=== PATIENT | male | born 1965 | race Caucasian/White ===

== ENCOUNTER 2019-07-30 18:58 | Emergency (ER) | payer MEDICAID, OTHER ==
[~2019-07-30] VITALS: Ht 182.9 cm; Wt 117.9 kg
[2019-07-30 19:20] VITALS: BP 178/107
[2019-07-30] MEDS ORDERED: cloNIDine HCL 0.1 MG TAB PO ONE (19:45)
[2019-07-30 19:57] LABS: Basophils # (auto) 0.1 10 ^3/uL (0-0.2); Basophils % (auto) 0.9 % (0.0-2.0); Eosinophils # (auto) 0.2 10 ^3/uL (0-0.8); Eosinophils % (auto) 1.7 % (0.0-7.0); Hematocrit 47.9 % (41.0-53.0); Hemoglobin 16.1 g/dL (13.5-17.5); Lymphocytes # (auto) 1.3 10 ^3/uL (0.4-5.4); Lymphocytes % (auto) 9.1 % (10.0-50.0); Mean Corpuscular Hgb Conc. 33.7 g/dL (32.0-36.0); Mean Corpuscular Volume 86.2 fL (80.0-100.0); Monocytes # (auto) 1.3 10 ^3/uL (0-1.3); Monocytes % (auto) 9.6 % (0.0-12.0); Neutrophils % (auto) 78.7 % (37.0-80.0); Nucleated Red Blood Cells % 0.1 %; Platelet Count (auto) 298 10^3/uL (140-450); Red Blood Cells 5.56 10^6/uL (4.5-5.90); Red Cell Distribution Width 13.8 % (11.8-14.3)
[2019-07-30 20:12] LABS: INR 1.08 (0.9-1.15); Partial Thromboplastin Time 31.9 sec (23.64-32.05)
[2019-07-30 20:17] LABS: Albumin 1.7 g/dL (3.4-5.0); Calcium 9.5 mg/dL (8.5-10.1); Potassium 3.2 mmol/L (3.5-5.1)
[2019-07-30 20:20] LABS: BUN/Creatinine Ratio 13.8; Total Protein 6.7 g/dL (6.4-8.2)
== END 2019-07-30 21:45 | disposition left against medical advice (07) ==
LOC: ER 18:59
DX: M79.661 Pain in right lower leg (principal); Z53.21 Procedure and treatment not carried out due to patient leaving prior to being seen by health care provider
CPT/HCPCS: 36415; 80053; 83605; 85025; 85610; 85730; 87040

== ENCOUNTER 2019-08-01 15:57 | Inpatient (IN) | payer MEDICAID ==
[~2019-08-01] VITALS: Ht 185.4 cm; Wt 92.8 kg
[2019-08-01] MEDS ORDERED: cefTRIAXone 1GM/50ML D5W 50 ML IV ONE (16:45)
[2019-08-01] MEDS ORDERED: CLINDAMYCIN 900MG IV 50 ML IV ONE (16:45)
[2019-08-01 17:21] LABS: Basophils # (auto) 0.2 10 ^3/uL (0-0.2); Basophils % (auto) 1.2 % (0.0-2.0); Eosinophils # (auto) 0.2 10 ^3/uL (0-0.8); Eosinophils % (auto) 1.9 % (0.0-7.0); Hematocrit 48.7 % (41.0-53.0); Hemoglobin 16.4 g/dL (13.5-17.5); Lymphocytes # (auto) 1.5 10 ^3/uL (0.4-5.4); Lymphocytes % (auto) 11.1 % (10.0-50.0); Mean Corpuscular Hemoglobin 28.9 pg (28.0-32.0); Mean Corpuscular Hgb Conc. 33.6 g/dL (32.0-36.0); Monocytes # (auto) 1.2 10 ^3/uL (0-1.3); Monocytes % (auto) 9.3 % (0.0-12.0); Neutrophils % (auto) 76.5 % (37.0-80.0); Nucleated Red Blood Cells % 0.1 %; Platelet Count (auto) 333 10^3/uL (140-450); Red Blood Cells 5.66 10^6/uL (4.5-5.90); White Blood Cell 13.1 10^3/uL (4.4-10.8)
[2019-08-01 17:40] LABS: Albumin 1.8 g/dL (3.4-5.0); Calcium 9.5 mg/dL (8.5-10.1); Potassium 3.2 mmol/L (3.5-5.1)
[2019-08-01 17:43] LABS: BUN/Creatinine Ratio 12.8; Bilirubin, Total 0.7 mg/dL (0.2-1.0)
[2019-08-01 19:23] LABS: INR 1.11 (0.9-1.15)
[2019-08-01] MEDS ORDERED: MORPHINE SULFATE 4 MG/ML SYR/VIAL IV ONE (21:45)
[2019-08-01] MEDS ORDERED: ONDANSETRON HCL 4 MG/2 ML VIAL IV ONE (21:45)
[2019-08-01] MEDS ORDERED: ONDANSETRON HCL 4 MG/2 ML VIAL IV PRN (22:30)
[2019-08-01] MEDS ORDERED: DEXTROSE (50%) 50ML SYRG IV PRN (22:30)
[2019-08-01] MEDS ORDERED: ACETAMINOPHEN 325 MG TAB PO PRN (22:30)
[2019-08-01] MEDS ORDERED: MORPHINE SULF INJ 2 MG/ML SYRINGE 1ML IV PRN (22:30)
[2019-08-01] MEDS ORDERED: DOCUSATE SOD 100 MG CAP PO PRN (22:30)
[2019-08-01] MEDS ORDERED: VANCOMYCIN 1GM/250ML 250 ML IV ONE (22:30)
[2019-08-01] MEDS ORDERED: HYDROcodone-ACET 5/325MG TAB PO PRN (22:30)
[2019-08-01] MEDS: PIPERACILLIN-TAZOB 3.375GM 100 ML IV SCH (22:59)
[2019-08-01] MEDS: SODIUM CHLORIDE 0.9% 1,000 ML IV SCH (23:00)
[2019-08-02] VITALS (8 sets, daily range): BP systolic 124–197; BP diastolic 72–106
[2019-08-02] MEDS: InsuLIN REG 1unit/0.01ml Soln (100units/ml) SC SCH ×6 (01:24→21:08)
[2019-08-02] MEDS: ACCU-CHEK COMFORT CURVE STRIP VI SCH ×6 (04:00→21:03)
[2019-08-02] MEDS: PIPERACILLIN-TAZOB 3.375GM 100 ML IV SCH ×3 (05:39→21:02)
[2019-08-02 06:39] LABS: Basophils # (auto) 0.2 10 ^3/uL (0-0.2); Basophils % (auto) 1.1 % (0.0-2.0); Eosinophils # (auto) 0.3 10 ^3/uL (0-0.8); Eosinophils % (auto) 1.8 % (0.0-7.0); Hematocrit 43.1 % (41.0-53.0); Hemoglobin 14.8 g/dL (13.5-17.5); Lymphocytes # (auto) 1.3 10 ^3/uL (0.4-5.4); Lymphocytes % (auto) 8.5 % (10.0-50.0); Mean Corpuscular Hemoglobin 29.4 pg (28.0-32.0); Mean Corpuscular Hgb Conc. 34.3 g/dL (32.0-36.0); Mean Corpuscular Volume 85.7 fL (80.0-100.0); Monocytes # (auto) 1.7 10 ^3/uL (0-1.3); Monocytes % (auto) 10.8 % (0.0-12.0); Neutrophils % (auto) 77.8 % (37.0-80.0); Platelet Count (auto) 318 10^3/uL (140-450); Red Blood Cells 5.03 10^6/uL (4.5-5.90); Red Cell Distribution Width 13.7 % (11.8-14.3); White Blood Cell 15.5 10^3/uL (4.4-10.8)
[2019-08-02 07:02] LABS: Potassium 3.1 mmol/L (3.5-5.1)
[2019-08-02 07:09] LABS: BUN/Creatinine Ratio 13.4; Calcium 9.1 mg/dL (8.5-10.1)
[2019-08-02] MEDS: SODIUM CHLORIDE 0.9% 1,000 ML IV SCH ×2 (08:26→18:26)
[2019-08-02] MEDS ORDERED: VANCOMYCIN PER PHARMACY 0 MG IV SCH (10:30)
[2019-08-02] MEDS: VANCOMYCIN 1GM/250ML 250 ML IV SCH ×2 (11:56→14:41)
[2019-08-02] MEDS ORDERED: DEXTROSE (50%) 50ML SYRG IV PRN (15:45)
[2019-08-02] MEDS ORDERED: cloNIDine HCL 0.1 MG TAB PO ONE (18:00)
[2019-08-02] MEDS: LISINOPRIL 20 MG TAB PO SCH (20:34)
[2019-08-02] MEDS: METOPROLOL TARTRATE 25 MG TAB PO SCH (20:34)
[2019-08-02] MEDS: cloNIDine HCL 0.1 MG TAB PO PRN (23:59)
[2019-08-03] MEDS: VANCOMYCIN 1GM/250ML 250 ML IV SCH ×5 (00:57→18:07)
[2019-08-03 05:00] VITALS: BP 175/89
[2019-08-03] MEDS: SODIUM CHLORIDE 0.9% 1,000 ML IV SCH ×2 (05:21→17:33)
[2019-08-03] MEDS: PIPERACILLIN-TAZOB 3.375GM 100 ML IV SCH ×3 (05:46→22:38)
[2019-08-03 06:00] LABS: Basophils # (auto) 0.2 10 ^3/uL (0-0.2); Basophils % (auto) 0.8 % (0.0-2.0); Eosinophils # (auto) 0.2 10 ^3/uL (0-0.8); Eosinophils % (auto) 0.8 % (0.0-7.0); Hematocrit 43.1 % (41.0-53.0); Hemoglobin 14.4 g/dL (13.5-17.5); Lymphocytes # (auto) 1.1 10 ^3/uL (0.4-5.4); Lymphocytes % (auto) 6.1 % (10.0-50.0); Mean Corpuscular Hemoglobin 28.8 pg (28.0-32.0); Mean Corpuscular Hgb Conc. 33.5 g/dL (32.0-36.0); Mean Corpuscular Volume 86.1 fL (80.0-100.0); Monocytes # (auto) 1.3 10 ^3/uL (0-1.3); Monocytes % (auto) 7.2 % (0.0-12.0); Neutrophils # (auto) 15.8 10 ^3/uL (1.6-8.6); Neutrophils % (auto) 85.1 % (37.0-80.0); Platelet Count (auto) 355 10^3/uL (140-450); Red Cell Distribution Width 13.7 % (11.8-14.3); White Blood Cell 18.6 10^3/uL (4.4-10.8)
[2019-08-03 06:08] LABS: INR 1.2 (0.9-1.15); Partial Thromboplastin Time 31.6 sec (23.64-32.05)
[2019-08-03 06:14] LABS: Calcium 9.1 mg/dL (8.5-10.1); Potassium 3.3 mmol/L (3.5-5.1)
[2019-08-03 06:17] LABS: BUN/Creatinine Ratio 14.4
[2019-08-03] MEDS: InsuLIN REG 1unit/0.01ml Soln (100units/ml) SC SCH ×4 (06:33→21:52)
[2019-08-03] MEDS: ACCU-CHEK COMFORT CURVE STRIP VI SCH ×4 (06:33→21:20)
[2019-08-03 08:00] VITALS: BP 169/93
[2019-08-03 09:00] VITALS: BP 169/93
[2019-08-03] MEDS: LISINOPRIL 20 MG TAB PO SCH ×2 (09:48→21:09)
[2019-08-03] MEDS: METOPROLOL TARTRATE 25 MG TAB PO SCH ×2 (09:48→21:09)
[2019-08-03 13:00] VITALS: BP 166/89
[2019-08-03] MEDS ORDERED: LIDOCAINE 1% (LOCAL ANESTH.) PF 5ml SDV ID ONE (18:45)
[2019-08-03] MEDS ORDERED: POTASSIUM CHL 20MEQ/100ML 100 ML IV ONE (19:00)
[2019-08-03] MEDS ORDERED: POTASSIUM CHL 20 Meq TABLET PO ONE (19:00)
[2019-08-03] MEDS: CEFEPIME 2 GM in SODIUM CHL 0.9% 50 ML IV SCH (21:12)
[2019-08-03] MEDS: SODIUM CHLOR 0.9% PF (SALINE LOCK) 10ML VIAL/SYR IV SCH (21:53)
[2019-08-03 22:00] VITALS: BP 177/45
[2019-08-03] MEDS: cloNIDine HCL 0.1 MG TAB PO PRN (22:36)
[2019-08-04] MEDS: VANCOMYCIN 1GM/250ML 250 ML IV SCH ×2 (00:45→06:00)
[2019-08-04] MEDS: SODIUM CHLORIDE 0.9% 1,000 ML IV SCH ×2 (02:33→18:47)
[2019-08-04 05:27] VITALS: BP 144/88
[2019-08-04] MEDS: CEFEPIME 2 GM in SODIUM CHL 0.9% 50 ML IV SCH ×4 (05:48→23:30)
[2019-08-04] MEDS: PIPERACILLIN-TAZOB 3.375GM 100 ML IV SCH (05:48)
[2019-08-04] MEDS: ACCU-CHEK COMFORT CURVE STRIP VI SCH ×4 (05:51→21:10)
[2019-08-04] MEDS: InsuLIN REG 1unit/0.01ml Soln (100units/ml) SC SCH ×4 (05:59→21:20)
[2019-08-04 07:10] LABS: Basophils # (auto) 0.2 10 ^3/uL (0-0.2); Basophils % (auto) 0.9 % (0.0-2.0); Eosinophils # (auto) 0.4 10 ^3/uL (0-0.8); Eosinophils % (auto) 2.2 % (0.0-7.0); Hematocrit 43.2 % (41.0-53.0); Hemoglobin 14.7 g/dL (13.5-17.5); Lymphocytes # (auto) 1.5 10 ^3/uL (0.4-5.4); Lymphocytes % (auto) 8.9 % (10.0-50.0); Mean Corpuscular Hemoglobin 29.1 pg (28.0-32.0); Mean Corpuscular Volume 85.8 fL (80.0-100.0); Monocytes # (auto) 1.2 10 ^3/uL (0-1.3); Monocytes % (auto) 7.1 % (0.0-12.0); Neutrophils # (auto) 13.5 10 ^3/uL (1.6-8.6); Neutrophils % (auto) 80.9 % (37.0-80.0); Nucleated Red Blood Cells % 0.1 %; Platelet Count (auto) 367 10^3/uL (140-450); Red Blood Cells 5.04 10^6/uL (4.5-5.90); Red Cell Distribution Width 13.7 % (11.8-14.3); White Blood Cell 16.7 10^3/uL (4.4-10.8)
[2019-08-04 07:25] LABS: Potassium 3.7 mmol/L (3.5-5.1)
[2019-08-04 07:27] LABS: BUN/Creatinine Ratio 13.1
[2019-08-04] MEDS ORDERED: LIDOCAINE 2%HCL (LOCAL ANESTH.) INJ 20ML MDV ONE (08:23)
[2019-08-04] MEDS ORDERED: IODIXANOL 320MG/ML 100ML BTL IV ONE ×2 (08:23→09:18)
[2019-08-04] MEDS ORDERED: ANGIOMAX 250 MG VIAL IV ONE (08:41)
[2019-08-04] MEDS ORDERED: fentaNYL CITRATE 100 MCG/2 ML VL ONE (08:41)
[2019-08-04] MEDS ORDERED: SODIUM CHL 0.9% 50 ML ONE (08:42)
[2019-08-04] MEDS ORDERED: MIDAZOLAM HCL 1MG/1ML-2 ML VIAL ONE (08:42)
[2019-08-04] MEDS ORDERED: VERAPAMIL 2.5MG/ML INJ 2ML VIAL IV ONE (09:22)
[2019-08-04 09:35] VITALS: BP 159/90
[2019-08-04] MEDS ORDERED: hydrALAZINE HCL 20 MG/ML VL ONE (09:59)
[2019-08-04] MEDS: LISINOPRIL 20 MG TAB PO SCH ×2 (10:00→21:42)
[2019-08-04] MEDS: METOPROLOL TARTRATE 25 MG TAB PO SCH ×2 (10:00→21:42)
[2019-08-04] MEDS ORDERED: CLOPIDOGREL BISULFATE 75 MG TAB ONE (10:01)
[2019-08-04] MEDS: SODIUM CHLOR 0.9% PF (SALINE LOCK) 10ML VIAL/SYR IV SCH ×4 (11:44→21:37)
[2019-08-04 13:00] VITALS: BP 155/86
[2019-08-04 17:01] VITALS: BP 154/87
[2019-08-04 22:00] VITALS: BP 151/88
[2019-08-05] MEDS: cloNIDine HCL 0.1 MG TAB PO PRN ×2 (00:36→18:02)
[2019-08-05] MEDS: VANCOMYCIN 750mg/250ml 250 ML IV SCH ×2 (01:45→19:44)
[2019-08-05] MEDS: SODIUM CHLORIDE 0.9% 1,000 ML IV SCH ×2 (04:44→18:27)
[2019-08-05 05:00] VITALS: BP 151/75
[2019-08-05] MEDS: InsuLIN REG 1unit/0.01ml Soln (100units/ml) SC SCH ×4 (05:59→22:00)
[2019-08-05] MEDS: SODIUM CHLOR 0.9% PF (SALINE LOCK) 10ML VIAL/SYR IV SCH ×5 (06:00→22:25)
[2019-08-05] MEDS: ACCU-CHEK COMFORT CURVE STRIP VI SCH ×4 (06:00→22:00)
[2019-08-05 06:57] LABS: Basophils # (auto) 0.1 10 ^3/uL (0-0.2); Basophils % (auto) 0.8 % (0.0-2.0); Eosinophils # (auto) 0.4 10 ^3/uL (0-0.8); Eosinophils % (auto) 2.2 % (0.0-7.0); Hematocrit 42.2 % (41.0-53.0); Hemoglobin 14.2 g/dL (13.5-17.5); Lymphocytes # (auto) 1.3 10 ^3/uL (0.4-5.4); Lymphocytes % (auto) 7.7 % (10.0-50.0); Mean Corpuscular Hgb Conc. 33.7 g/dL (32.0-36.0); Mean Corpuscular Volume 86.1 fL (80.0-100.0); Monocytes # (auto) 1.2 10 ^3/uL (0-1.3); Neutrophils # (auto) 13.6 10 ^3/uL (1.6-8.6); Neutrophils % (auto) 82.3 % (37.0-80.0); Platelet Count (auto) 378 10^3/uL (140-450); Red Cell Distribution Width 14.1 % (11.8-14.3); White Blood Cell 16.5 10^3/uL (4.4-10.8)
[2019-08-05 07:05] LABS: BUN/Creatinine Ratio 15.6; Calcium 8.9 mg/dL (8.5-10.1); Potassium 3.8 mmol/L (3.5-5.1)
[2019-08-05 08:40] VITALS: BP 154/84
[2019-08-05] MEDS: CEFEPIME 2 GM in SODIUM CHL 0.9% 50 ML IV SCH ×2 (09:18→22:22)
[2019-08-05] MEDS: LISINOPRIL 20 MG TAB PO SCH ×2 (09:19→22:23)
[2019-08-05] MEDS: METOPROLOL TARTRATE 25 MG TAB PO SCH ×2 (09:19→22:24)
[2019-08-05] MEDS: ASPirin 81 mg TAB PO SCH (09:27)
[2019-08-05] MEDS: CLOPIDOGREL BISULFATE 75 MG TAB PO SCH (09:27)
[2019-08-05] MEDS ORDERED: ROPIVACAINE 0.5% (5MG/ML) 20ML AMPULE IJ ONE (10:49)
[2019-08-05] MEDS ORDERED: ceFAZolin 1GM/50ML 50 ML IV ONE (11:38)
[2019-08-05] MEDS ORDERED: METOCLOPRAMIDE HCL 5MG/ml INJ 2ml VIAL IV PRN (11:45)
[2019-08-05] MEDS ORDERED: fentaNYL CITRATE 100 MCG/2 ML VL IV PRN (11:45)
[2019-08-05] MEDS ORDERED: MORPHINE SULFATE 4 MG/ML SYR/VIAL IV PRN (11:45)
[2019-08-05] MEDS ORDERED: ACCU-CHEK COMFORT CURVE STRIP VI ONE (11:45)
[2019-08-05] MEDS ORDERED: HYDROmorphone HCL 2 MG/ML VL IV PRN (11:45)
[2019-08-05] MEDS ORDERED: fentaNYL CITRATE 100 MCG/2 ML VL ONE (11:46)
[2019-08-05] MEDS ORDERED: PROPOFOL 10 MG/ML 20 ML IV ONE (11:46)
[2019-08-05] MEDS ORDERED: MIDAZOLAM HCL 1MG/1ML-2 ML VIAL ONE (11:46)
[2019-08-05] MEDS ORDERED: SODIUM CHLORIDE LOCK 10 ML ONE ×2 (11:46→12:47)
[2019-08-05] MEDS ORDERED: ONDANSETRON HCL 4 MG/2 ML VIAL ONE (11:46)
[2019-08-05] MEDS ORDERED: ceFAZolin 1GM VL ONE (12:47)
[2019-08-05 16:57] VITALS: BP 168/88
[2019-08-05 22:00] VITALS: BP 179/106
[2019-08-05] MEDS: ATORVASTATIN 20 MG TAB PO SCH (22:23)
[2019-08-06 05:02] VITALS: BP 159/87
[2019-08-06] MEDS: SODIUM CHLOR 0.9% PF (SALINE LOCK) 10ML VIAL/SYR IV SCH ×5 (05:42→21:53)
[2019-08-06 06:26] LABS: Basophils # (auto) 0.2 10 ^3/uL (0-0.2); Basophils % (auto) 1.2 % (0.0-2.0); Eosinophils # (auto) 0.4 10 ^3/uL (0-0.8); Eosinophils % (auto) 2.7 % (0.0-7.0); Hematocrit 41.2 % (41.0-53.0); Hemoglobin 13.9 g/dL (13.5-17.5); Lymphocytes # (auto) 0.9 10 ^3/uL (0.4-5.4); Lymphocytes % (auto) 6.5 % (10.0-50.0); Mean Corpuscular Hgb Conc. 33.8 g/dL (32.0-36.0); Monocytes # (auto) 1.1 10 ^3/uL (0-1.3); Monocytes % (auto) 7.9 % (0.0-12.0); Neutrophils # (auto) 11.4 10 ^3/uL (1.6-8.6); Neutrophils % (auto) 81.7 % (37.0-80.0); Platelet Count (auto) 412 10^3/uL (140-450)
[2019-08-06] MEDS: InsuLIN REG 1unit/0.01ml Soln (100units/ml) SC SCH ×4 (06:32→21:53)
[2019-08-06] MEDS: ACCU-CHEK COMFORT CURVE STRIP VI SCH ×4 (06:32→21:54)
[2019-08-06 06:41] LABS: Calcium 9.1 mg/dL (8.5-10.1); Potassium 3.9 mmol/L (3.5-5.1)
[2019-08-06 06:44] LABS: BUN/Creatinine Ratio 16.7
[2019-08-06 09:00] VITALS: BP 152/79
[2019-08-06] MEDS: SODIUM CHLORIDE 0.9% 1,000 ML IV SCH ×2 (09:00→21:30)
[2019-08-06] MEDS: CLOPIDOGREL BISULFATE 75 MG TAB PO SCH (10:03)
[2019-08-06] MEDS: CEFEPIME 2 GM in SODIUM CHL 0.9% 50 ML IV SCH ×2 (10:03→21:51)
[2019-08-06] MEDS: ASPirin 81 mg TAB PO SCH (10:04)
[2019-08-06] MEDS: METOPROLOL TARTRATE 25 MG TAB PO SCH ×2 (10:04→21:53)
[2019-08-06] MEDS: LISINOPRIL 20 MG TAB PO SCH ×2 (10:04→21:52)
[2019-08-06 13:00] VITALS: BP 153/83
[2019-08-06] MEDS: VANCOMYCIN 750mg/250ml 250 ML IV SCH (14:11)
[2019-08-06 17:00] VITALS: BP 153/75
[2019-08-06] MEDS: ATORVASTATIN 20 MG TAB PO SCH (21:52)
[2019-08-06 22:00] VITALS: BP 173/96
[2019-08-06] MEDS: cloNIDine HCL 0.1 MG TAB PO PRN (22:05)
[2019-08-07] MEDS: cloNIDine HCL 0.1 MG TAB PO PRN ×2 (04:40→18:23)
[2019-08-07 05:00] VITALS: BP 182/98
[2019-08-07] MEDS: SODIUM CHLOR 0.9% PF (SALINE LOCK) 10ML VIAL/SYR IV SCH ×5 (05:49→22:08)
[2019-08-07] MEDS: ACCU-CHEK COMFORT CURVE STRIP VI SCH ×4 (06:40→22:07)
[2019-08-07] MEDS: InsuLIN REG 1unit/0.01ml Soln (100units/ml) SC SCH ×4 (06:41→22:41)
[2019-08-07] MEDS: VANCOMYCIN 750mg/250ml 250 ML IV SCH ×2 (08:36→20:18)
[2019-08-07] MEDS: ASPirin 81 mg TAB PO SCH (08:40)
[2019-08-07] MEDS: METOPROLOL TARTRATE 25 MG TAB PO SCH ×2 (08:41→21:59)
[2019-08-07] MEDS: CLOPIDOGREL BISULFATE 75 MG TAB PO SCH (08:41)
[2019-08-07] MEDS: LISINOPRIL 20 MG TAB PO SCH ×2 (08:41→21:59)
[2019-08-07 09:00] VITALS: BP 167/97
[2019-08-07] MEDS: CEFEPIME 2 GM in SODIUM CHL 0.9% 50 ML IV SCH ×2 (10:00→21:52)
[2019-08-07] MEDS: SODIUM CHLORIDE 0.9% 1,000 ML IV SCH (10:50)
[2019-08-07 14:00] VITALS: BP 148/80
[2019-08-07 17:00] VITALS: BP 170/90
[2019-08-07] MEDS ORDERED: hydrALAZINE HCL 20 MG/ML VL IV PRN (19:45)
[2019-08-07 20:00] VITALS: BP 166/87
[2019-08-07] MEDS: ATORVASTATIN 20 MG TAB PO SCH (21:52)
[2019-08-07 22:00] VITALS: BP 166/87
[2019-08-08] MEDS: SODIUM CHLORIDE 0.9% 1,000 ML IV SCH ×2 (02:42→13:30)
[2019-08-08 05:08] VITALS: BP 152/80
[2019-08-08] MEDS: ACCU-CHEK COMFORT CURVE STRIP VI SCH ×3 (06:25→17:00)
[2019-08-08] MEDS: SODIUM CHLOR 0.9% PF (SALINE LOCK) 10ML VIAL/SYR IV SCH ×3 (06:25→14:00)
[2019-08-08] MEDS: InsuLIN REG 1unit/0.01ml Soln (100units/ml) SC SCH ×3 (06:26→17:00)
[2019-08-08 08:00] VITALS: BP 161/85
[2019-08-08 09:00] VITALS: BP 161/85
[2019-08-08] MEDS: VANCOMYCIN 750mg/250ml 250 ML IV SCH (09:03)
[2019-08-08] MEDS: CEFEPIME 2 GM in SODIUM CHL 0.9% 50 ML IV SCH (10:00)
[2019-08-08] MEDS: ASPirin 81 mg TAB PO SCH (10:01)
[2019-08-08] MEDS: CLOPIDOGREL BISULFATE 75 MG TAB PO SCH (10:01)
[2019-08-08] MEDS: METOPROLOL TARTRATE 25 MG TAB PO SCH (10:01)
[2019-08-08] MEDS: LISINOPRIL 20 MG TAB PO SCH (10:02)
[2019-08-08 14:00] VITALS: BP 155/84
[2019-08-08 16:48] VITALS: BP 151/93
== END 2019-08-08 19:12 | DRG 181 ==
LOC: ER 15:57 → WEST WING 15:58 → UNDOADMIN 15:58 → OVERFLOW 15:58 → WEST WING 08-08 11:20
PROVIDERS: ADMIT Hospitalist; ATTEND Hospitalist
PROC: 02HV33Z Insertion of Infusion Device into Superior Vena Cava, Percutaneous Approach (ICD-10-PCS; 2019-08-03)
PROC: 047M3ZZ Dilation of Right Popliteal Artery, Percutaneous Approach (ICD-10-PCS; principal; 2019-08-04)
PROC: 047P3ZZ Dilation of Right Anterior Tibial Artery, Percutaneous Approach (ICD-10-PCS; 2019-08-04)
PROC: 04CM3ZZ Extirpation of Matter from Right Popliteal Artery, Percutaneous Approach (ICD-10-PCS; 2019-08-04)
PROC: 04CP3ZZ Extirpation of Matter from Right Anterior Tibial Artery, Percutaneous Approach (ICD-10-PCS; 2019-08-04)
PROC: B41GYZZ Fluoroscopy of Left Lower Extremity Arteries using Other Contrast (ICD-10-PCS; 2019-08-04)
PROC: B41FYZZ Fluoroscopy of Right Lower Extremity Arteries using Other Contrast (ICD-10-PCS; 2019-08-04)
PROC: 0Y6P0Z0 Detachment at Right 1st Toe, Complete, Open Approach (ICD-10-PCS; 2019-08-05)
DX: E11.52 Type 2 diabetes mellitus with diabetic peripheral angiopathy with gangrene (principal); I96 Gangrene, not elsewhere classified; E11.621 Type 2 diabetes mellitus with foot ulcer; E11.65 Type 2 diabetes mellitus with hyperglycemia; E66.01 Morbid (severe) obesity due to excess calories; M86.8X7 Other osteomyelitis, ankle and foot; E11.69 Type 2 diabetes mellitus with other specified complication; I11.9 Hypertensive heart disease without heart failure; L97.509 Non-pressure chronic ulcer of other part of unspecified foot with unspecified severity; E87.6 Hypokalemia; E78.5 Hyperlipidemia, unspecified; Z82.49 Family history of ischemic heart disease and other diseases of the circulatory system; Z83.3 Family history of diabetes mellitus; Z91.14 Patient's other noncompliance with medication regimen; Z72.0 Tobacco use; Z68.34 Body mass index [BMI] 34.0-34.9, adult
CPT/HCPCS: 36415; 36569; 37224; 37228; 71045; 73700; 75716; 80048; 80053; 80061; 80202; 82962; 83036; 83605; 83880; 84484; 85025; 85610; 85730; 86850; 86900; 86901; 87040; 87070; 87075; 87076; 87077; 87186; 87205; 93005; 93926; 99152; 99153; C1724; G0378; J0690; J0696; J1815; J2250; J2405; J2543; J2704; J3480; J3490; Q9967

== ENCOUNTER 2019-09-13 14:53 | Inpatient (IN) | payer MEDICAID ==
[~2019-09-13] VITALS: Ht 195.6 cm; Wt 107.0 kg
[2019-09-13] MEDS ORDERED: SODIUM CHLORIDE 0.9% 1,000 ML IV ONE (16:12)
[2019-09-13] MEDS ORDERED: SODIUM CHLORIDE 0.9% 500 ML IV ONE (16:12)
[2019-09-13] MEDS ORDERED: VANCOMYCIN 1GM/250ML 250 ML IV ONE (16:15)
[2019-09-13 17:07] LABS: Basophils # (auto) 0 10 ^3/uL (0-0.2); Basophils % (auto) 0.4 % (0.0-2.0); Eosinophils # (auto) 0 10 ^3/uL (0-0.8); Hematocrit 46.3 % (41.0-53.0); Hemoglobin 15.5 g/dL (13.5-17.5); Lymphocytes # (auto) 0.5 10 ^3/uL (0.4-5.4); Lymphocytes % (auto) 8.2 % (10.0-50.0); Mean Corpuscular Hgb Conc. 33.4 g/dL (32.0-36.0); Mean Corpuscular Volume 83.7 fL (80.0-100.0); Monocytes # (auto) 0.3 10 ^3/uL (0-1.3); Monocytes % (auto) 5.9 % (0.0-12.0); Neutrophils % (auto) 85.5 % (37.0-80.0); Nucleated Red Blood Cells % 0.3 %; Platelet Count (auto) 108 10^3/uL (140-450); Red Blood Cells 5.53 10^6/uL (4.5-5.90); Red Cell Distribution Width 16.1 % (11.8-14.3); White Blood Cell 5.8 10^3/uL (4.4-10.8)
[2019-09-13 17:20] LABS: Albumin 1.7 g/dL (3.4-5.0); Calcium 9.1 mg/dL (8.5-10.1)
[2019-09-13 17:26] LABS: Bilirubin, Total 0.6 mg/dL (0.2-1.0); Total Protein 6.7 g/dL (6.4-8.2)
[2019-09-13 17:32] LABS: Potassium 2.9 mmol/L (3.5-5.1)
[2019-09-13 18:04] LABS: INR 1.23 (0.9-1.15); Partial Thromboplastin Time 37.2 sec (23.64-32.05)
[2019-09-13] MEDS ORDERED: DOXYCYCLINE 100MG/250ML 250 ML IV ONE (18:15)
[2019-09-13] MEDS ORDERED: NITROGLYCERIN 0.4 MG SL TAB SL PRN (18:45)
[2019-09-13] MEDS ORDERED: MORPHINE SULF INJ 2 MG/ML SYRINGE 1ML IV PRN (18:45)
[2019-09-13] MEDS ORDERED: DEXTROSE (50%) 50ML SYRG IV PRN (19:15)
[2019-09-13] MEDS ORDERED: ONDANSETRON HCL 4 MG/2 ML VIAL IV PRN (19:15)
[2019-09-13] MEDS ORDERED: TEMAZEPAM 15 MG CAP PO PRN (19:15)
[2019-09-13] MEDS ORDERED: ACETAMINOPHEN 500 MG TAB PO PRN (19:15)
[2019-09-13] MEDS ORDERED: POTASSIUM EFFERVESENT TAB 25 MEQ PO ONE (19:45)
[2019-09-13] MEDS: SODIUM CHLORIDE 0.9% 1,000 ML IV SCH (21:42)
[2019-09-13] MEDS: POTASSIUM CHL 20MEQ/100ML 100 ML IV SCH (21:43)
[2019-09-13] MEDS: ENOXAPARIN SOD 100 MG/1 ML SYRINGE SC SCH (21:43)
[2019-09-13] MEDS: methylPREDNISolone SOD SUCC 40 MG/ML VL IV SCH (21:43)
[2019-09-13] MEDS ORDERED: ALBUTEROL SULF HFA 90MCG INH 200DOSE IN SCH (22:00)
[2019-09-13] MEDS: InsuLIN REG 1unit/0.01ml Soln (100units/ml) SC SCH (22:00)
[2019-09-13] MEDS: ATORVASTATIN 20 MG TAB PO SCH (23:17)
[2019-09-13] MEDS: CLINDAMYCIN 600MG IV 50 ML IV SCH (23:17)
[2019-09-13] MEDS: ACETAMINOPHEN 500 MG TAB PO PRN (23:20)
[2019-09-13] MEDS ORDERED: cloNIDine HCL 0.1 MG TAB ONE (23:49)
[2019-09-14] MEDS: cloNIDine HCL 0.1 MG TAB PO PRN (00:12)
[2019-09-14] MEDS: ACCU-CHEK COMFORT CURVE STRIP VI SCH ×5 (00:13→21:57)
[2019-09-14] MEDS: POTASSIUM CHL 20MEQ/100ML 100 ML IV SCH ×2 (00:13→04:33)
[2019-09-14] MEDS ORDERED: POTASSIUM CHL 20MEQ/100ML 100 ML IV ONE (04:08)
[2019-09-14] MEDS: InsuLIN REG 1unit/0.01ml Soln (100units/ml) SC SCH ×4 (06:45→21:58)
[2019-09-14] MEDS: CLINDAMYCIN 600MG IV 50 ML IV SCH (06:47)
[2019-09-14] MEDS: SODIUM CHLORIDE 0.9% 1,000 ML IV SCH ×2 (08:35→21:43)
[2019-09-14] MEDS: ASPirin 81 mg TAB PO SCH (09:56)
[2019-09-14] MEDS: ZINC SULFATE 220mg CAP or TAB PO SCH (09:56)
[2019-09-14] MEDS: ENOXAPARIN SOD 100 MG/1 ML SYRINGE SC SCH ×2 (09:56→21:57)
[2019-09-14] MEDS: NITROGLYCERIN 0.2MG/HR TOPICAL PATCH TD SCH (09:56)
[2019-09-14] MEDS: ASCORBIC ACID 1,000 MG TAB PO SCH (09:56)
[2019-09-14] MEDS: levoFLOXacin 500MG 100 ML IV SCH (09:57)
[2019-09-14] MEDS: methylPREDNISolone SOD SUCC 40 MG/ML VL IV SCH ×2 (09:57→21:56)
[2019-09-14] MEDS ORDERED: PANTOPRAZOLE 40 MG TAB PO SCH (10:00)
[2019-09-14 16:02] LABS: Basophils # (auto) 0 10 ^3/uL (0-0.2); Basophils % (auto) 0.2 % (0.0-2.0); Eosinophils # (auto) 0 10 ^3/uL (0-0.8); Hematocrit 43.3 % (41.0-53.0); Hemoglobin 14.5 g/dL (13.5-17.5); Lymphocytes # (auto) 0.3 10 ^3/uL (0.4-5.4); Lymphocytes % (auto) 6.2 % (10.0-50.0); Mean Corpuscular Hgb Conc. 33.5 g/dL (32.0-36.0); Mean Corpuscular Volume 83.7 fL (80.0-100.0); Monocytes # (auto) 0.2 10 ^3/uL (0-1.3); Monocytes % (auto) 4.6 % (0.0-12.0); Neutrophils # (auto) 4.2 10 ^3/uL (1.6-8.6); Platelet Count (auto) 100 10^3/uL (140-450); Red Blood Cells 5.17 10^6/uL (4.5-5.90); Red Cell Distribution Width 16.4 % (11.8-14.3); White Blood Cell 4.7 10^3/uL (4.4-10.8)
[2019-09-14 16:24] LABS: Albumin 1.6 g/dL (3.4-5.0); Calcium 9.1 mg/dL (8.5-10.1); Potassium 3.8 mmol/L (3.5-5.1)
[2019-09-14 16:28] LABS: BUN/Creatinine Ratio 28.1; Bilirubin, Total 0.5 mg/dL (0.2-1.0); Total Protein 6.1 g/dL (6.4-8.2)
[2019-09-14 20:43] LABS: BUN/Creatinine Ratio 29.3; Potassium 3.8 mmol/L (3.5-5.1)
[2019-09-14] MEDS: ATORVASTATIN 20 MG TAB PO SCH (21:57)
[2019-09-15] MEDS: cloNIDine HCL 0.1 MG TAB PO PRN ×3 (00:31→23:40)
[2019-09-15 05:52] LABS: Calcium 9.4 mg/dL (8.5-10.1); Potassium 3.8 mmol/L (3.5-5.1)
[2019-09-15] MEDS: ACCU-CHEK COMFORT CURVE STRIP VI SCH ×4 (06:54→22:17)
[2019-09-15] MEDS: InsuLIN REG 1unit/0.01ml Soln (100units/ml) SC SCH ×4 (06:54→22:00)
[2019-09-15] MEDS: NITROGLYCERIN 0.2MG/HR TOPICAL PATCH TD SCH (10:17)
[2019-09-15] MEDS: levoFLOXacin 500MG 100 ML IV SCH (10:17)
[2019-09-15] MEDS: ZINC SULFATE 220mg CAP or TAB PO SCH (10:17)
[2019-09-15] MEDS: ASCORBIC ACID 1,000 MG TAB PO SCH (10:17)
[2019-09-15] MEDS: FAMOTIDINE 20 MG TAB PO SCH ×2 (10:17→22:17)
[2019-09-15] MEDS: ENOXAPARIN SOD 100 MG/1 ML SYRINGE SC SCH ×2 (10:18→22:17)
[2019-09-15] MEDS: methylPREDNISolone SOD SUCC 40 MG/ML VL IV SCH ×2 (10:18→22:15)
[2019-09-15] MEDS: ASPirin 81 mg TAB PO SCH (10:18)
[2019-09-15] MEDS: SODIUM CHLORIDE 0.9% 1,000 ML IV SCH (11:05)
--- NOTE | 2019-09-15 16:45 | NUR ---
WOUND CARE NOTE: IN TO SEE PATIENT AT THIS TIME PER WOUND VAC PLACEMENT ORDER. PATIENT IS IN ER BED 1, COVID POSITIVE, ADMITTED ICU STATUS WITH DIAGNOSIS OF BILATERAL PNA, NON STEMI, ACUTE KIDNEY INJURY. CURRENT DAKOTA SCORE IS ASSESSED AT 13. PATIENT IS ABLE TO SELF TURN/REPOSITION SELF. 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 PATIENT WENT HOME WITH WOUND VAC. SURGEON, DR. HAGAN HAS ORDERED FOR CONTINUITY OF CARE-WOUND VAC PLACEMENT TO RIGHT FOOT WOUND. WOUND PHOTO TAKEN OF WOUND, MEASURING 4X6 CM. LIGHT SEROUS DRAINAGE NOTED. APPROXIMATELY 50 PERCENT OF WOUND BED IS NOTED TO HAVE YELLOW SLOUGH, REMAINING 50 PERCENT IS LIGHT RED GRANULATION. PERIWOUND IS PINK. CLEANSED WOUND WITH WOUND CLEANSER, APPLIED BARRIER FILM, CLEAR DRAPE TO PERIWOUND/BRIDGE AREA OF DORSAL FOOT. COVERED WOUND BED AND BRIDGE AREA WITH BLACK GRANUFOAM. SECURED WITH DRAPE, APPLIED TRAC PAD. CONNECTED DRESSING TO WOUND VAC. SET TO 125 MM/HG CONTINUOUS. GOOD SUCTION, NO LEAKS DETECTED. PATIENT TOLERATED DRESSING CHANGE WELL, NOTING NO PAIN BY PATIENT. RECOMMEND: Q 3 DAY/PRN DRESSING CHANGE WITH WOUND VAC TO RIGHT FOOT WOUND, DIETARY CONSULT, SKIN/WOUND CARE PLAN, CONTINUED MONITORING BY WOUND CARE TEAM. Addendum: 09/15/19 at 1816 by Michell Nascimento RN Amended: Links added.
[2019-09-15] MEDS: ATORVASTATIN 20 MG TAB PO SCH (22:15)
[2019-09-15] MEDS: METOPROLOL TARTRATE 25 MG TAB PO SCH (22:17)
[2019-09-16] MEDS: SODIUM CHLORIDE 0.9% 1,000 ML IV SCH ×2 (00:27→14:44)
[2019-09-16] MEDS ORDERED: LABETALOL HCL 5 MG/ML 4ML SYRINGE IV ONE (01:15)
[2019-09-16] MEDS: METOPROLOL TARTRATE 25 MG TAB PO SCH ×3 (06:07→22:45)
[2019-09-16] MEDS: ACCU-CHEK COMFORT CURVE STRIP VI SCH ×4 (06:34→22:45)
[2019-09-16] MEDS: InsuLIN REG 1unit/0.01ml Soln (100units/ml) SC SCH ×4 (06:38→22:00)
--- NOTE | 2019-09-16 10:30 | NUR ---
WOUND CARE NOTE: Patient continue resting in ER Rm#1. Rt foot wound vac dressing remain intact, functioning well at 125 mmHg continuos as ordered.
[2019-09-16] MEDS: methylPREDNISolone SOD SUCC 40 MG/ML VL IV SCH ×2 (10:42→22:44)
[2019-09-16] MEDS: ASPirin 81 mg TAB PO SCH (10:42)
[2019-09-16] MEDS: ZINC SULFATE 220mg CAP or TAB PO SCH (10:42)
[2019-09-16] MEDS: levoFLOXacin 500MG 100 ML IV SCH (10:42)
[2019-09-16] MEDS: ENOXAPARIN SOD 100 MG/1 ML SYRINGE SC SCH ×2 (10:43→22:45)
[2019-09-16] MEDS: amLODIPine BESYLATE 5 MG TAB PO SCH (10:43)
[2019-09-16] MEDS: FAMOTIDINE 20 MG TAB PO SCH ×2 (10:43→22:45)
[2019-09-16] MEDS: ASCORBIC ACID 1,000 MG TAB PO SCH (10:43)
[2019-09-16] MEDS: NITROGLYCERIN 0.2MG/HR TOPICAL PATCH TD SCH (10:44)
[2019-09-16] MEDS: cloNIDine HCL 0.1 MG TAB PO PRN ×2 (12:00→19:29)
[2019-09-16] MEDS: MINOXIDIL 2.5 MG TAB PO SCH ×2 (14:44→22:44)
--- NOTE | 2019-09-16 14:50 | NUR ---
Nutrition Assessment/consult Notes Please see attached link for complete assessment Est energy needs ABW 95 [id number] kcal (23-25 kcal/kg BW), Est protein needs 95-104g (1.0-1.1g/kg BW r/t elev RFT severe hypoalb wounds). Will reassess prn. Addendum: 09/16/19 at [address] Amended: Links added.
--- NOTE | 2019-09-16 15:50 | NUR ---
PATIENT TO ROOM 249B. VS 98.1,77HR,20RR,90% ON 2L NC, BP 165/92 TELE #1 AFIB. PT HAS NO S/S OF DISTRESS AT THIS TIME AND NO PAIN. PATIENT IS ALERT TO SELF, AND KNOWS HE'S IN THE HOSPITAL BUT DOES NOT KNOW THE DATE/TIME OR WHAT BROUGHT HIM IN OR WHO HE LIVES WITH. PATIENT WAS INSTRUCTED TO USE THE CALL LIGHT FOR ANY NEEDS, RE-ENFORCEMENT NEEDED. BED IN LOWEST POSITION, CALL [facility] IN PLACE.
[2019-09-16 17:00] VITALS: BP 165/92
[2019-09-16] MEDS ORDERED: CLO01T (17:54)
[2019-09-16] MEDS ORDERED: MET25T (17:54)
[2019-09-16] MEDS ORDERED: INSREG3 (17:54)
[2019-09-16] MEDS ORDERED: LISI-646 (17:54)
[2019-09-16] MEDS ORDERED: CLOP75TA41 (17:54)
--- NOTE | 2019-09-16 18:22 | NUR ---
DAVINA RN RESOURCE ATTEMPTED TO CALL PATIENT'S SIGNIFICANT OTHER TO BEGIN ADMISSION PATIENT IS ONLY ALERT TO SELF AND PLACE. PATIENT IS SLOW TO RESPOND TO QUESTIONS, SPEECH IS GARBLED AND HE IS A POOR HISTORIAN. DAVINA IS UNABLE TO REACH PATIENT'S SIGNIFICANT OTHER TONIO AT THIS TIME- SHE TRIED BOTH NUMBERS THAT ARE LISTED ON THE PATIENT'S FACE SHEET AND WAS UNABLE TO LEAVE MESSAGE.
--- NOTE | 2019-09-16 19:05 | NUR ---
PAGED DR HARRIS ABOUT PATIENTS BLOOD PRESSURE AND LEFT MESSAGE. AWAITING RETURN PHONE CALL.
--- NOTE | 2019-09-16 19:09 | NUR ---
NEW ORDERS RECEIVED FROM DR Pam VALENCIA. MEDICATION GIVEN PER MAY.
--- NOTE | 2019-09-16 19:20 | NUR ---
Opening Shift Note Received report from Tha CRUZ. Assumed care of patient, awake and alert. No S/S of distress/SOB or pain. Instructed on POC and to call for assist PRN. Fall precaution measures in place, will continue to monitor for changes Q1hr and PRN.
[2019-09-16 22:00] VITALS: BP 155/89
[2019-09-16] MEDS: ATORVASTATIN 20 MG TAB PO SCH (22:44)
[2019-09-17] VITALS (7 sets, daily range): BP systolic 123–158; BP diastolic 74–89
[2019-09-17] MEDS: hydrALAZINE HCL 20 MG/ML VL IV PRN (00:19)
[2019-09-17] MEDS: SODIUM CHLORIDE 0.9% 1,000 ML IV SCH (04:10)
[2019-09-17] MEDS: METOPROLOL TARTRATE 25 MG TAB PO SCH ×3 (05:43→22:47)
[2019-09-17] MEDS: MINOXIDIL 2.5 MG TAB PO SCH ×4 (05:43→22:47)
[2019-09-17 06:43] LABS: Basophils # (auto) 0 10 ^3/uL (0-0.2); Basophils % (auto) 0.1 % (0.0-2.0); Eosinophils # (auto) 0 10 ^3/uL (0-0.8); Hematocrit 43.1 % (41.0-53.0); Hemoglobin 14.6 g/dL (13.5-17.5); Lymphocytes # (auto) 0.2 10 ^3/uL (0.4-5.4); Lymphocytes % (auto) 5.6 % (10.0-50.0); Mean Corpuscular Hemoglobin 28.1 pg (28.0-32.0); Mean Corpuscular Hgb Conc. 33.9 g/dL (32.0-36.0); Mean Corpuscular Volume 82.8 fL (80.0-100.0); Monocytes # (auto) 0.5 10 ^3/uL (0-1.3); Monocytes % (auto) 11.1 % (0.0-12.0); Neutrophils # (auto) 3.6 10 ^3/uL (1.6-8.6); Neutrophils % (auto) 83.2 % (37.0-80.0); Nucleated Red Blood Cells % 0.2 %; Platelet Count (auto) 157 10^3/uL (140-450); Red Cell Distribution Width 16.5 % (11.8-14.3); White Blood Cell 4.4 10^3/uL (4.4-10.8)
[2019-09-17] MEDS: ACCU-CHEK COMFORT CURVE STRIP VI SCH ×4 (06:57→22:00)
[2019-09-17] MEDS: InsuLIN REG 1unit/0.01ml Soln (100units/ml) SC SCH ×4 (06:57→22:00)
[2019-09-17 07:02] LABS: Albumin 1.6 g/dL (3.4-5.0); BUN/Creatinine Ratio 33.3; Bilirubin, Total 0.6 mg/dL (0.2-1.0); Calcium 9.7 mg/dL (8.5-10.1); Total Protein 6.1 g/dL (6.4-8.2)
--- NOTE | 2019-09-17 08:29 | NUR ---
CALLED DR WILLAMS FOR WEIGHT BEARING STATUS RECOMMENDATION. SPOKE WITH SYLVAIN IN HIS OFFICE WHO PLACED ME ON HOLD AND SPOKE WITH MD DIRECTLY. SHE INFORMED ME MD STATES "HE SHOULD BE OKAY TO WALK ON IT". WILL RELAY THIS MESSAGE TO PIA IN PT FOR PATIENT EVALUATION.
--- NOTE | 2019-09-17 09:21 | NUR ---
DR. MULLIGAN FROM [facility] CALLED THIS MORNING FOR AN UPDATE. PASSWORD "[place]" PROVIDED. WAS GIVEN CURRENT VITALS, CXR RESULTS, AND CURRENT TX AND POC.
--- NOTE | 2019-09-17 10:23 | NUR ---
CALLED DR HARRIS TO INFORM HIM PATIENT HAD 4 BEATS OF VTACH. PATIENT HAS NO S/S OF DISTRESS, VS ARE WNL, NO COMPLAINTS OF CP. NO ANSWER AT THIS TIME, LEFT MESSAGE. AWAITING RETURN PHONE CALL.
--- NOTE | 2019-09-17 10:28 | NUR ---
SPOKE WITH DR. HARRIS. NEW ORDERS RECEIVED.
[2019-09-17] MEDS: methylPREDNISolone SOD SUCC 40 MG/ML VL IV SCH ×2 (11:27→22:47)
[2019-09-17] MEDS: ZINC SULFATE 220mg CAP or TAB PO SCH (11:28)
[2019-09-17] MEDS: amLODIPine BESYLATE 5 MG TAB PO SCH (11:28)
[2019-09-17] MEDS: ASPirin 81 mg TAB PO SCH (11:28)
[2019-09-17] MEDS: FAMOTIDINE 20 MG TAB PO SCH ×2 (11:28→22:46)
[2019-09-17] MEDS: levoFLOXacin 500MG 100 ML IV SCH (11:29)
[2019-09-17] MEDS: ASCORBIC ACID 1,000 MG TAB PO SCH (11:29)
[2019-09-17] MEDS: ENOXAPARIN SOD 100 MG/1 ML SYRINGE SC SCH ×2 (11:29→22:46)
[2019-09-17] MEDS: NITROGLYCERIN 0.2MG/HR TOPICAL PATCH TD SCH (11:30)
[2019-09-17] MEDS: MAGNESIUM SULFATE 1GM/100ML 100 ML IV SCH ×2 (11:30→13:45)
--- NOTE | 2019-09-17 19:15 | NUR ---
Opening Shift Note Received report from Tha RN, Assumed care of patient, awake and alert. No S/S of distress/SOB or pain. Instructed on POC and to call for assist PRN. Fall precaution measures in place, will continue to monitor for changes Q1hr and PRN.
--- NOTE | 2019-09-17 21:10 | NUR ---
Patient repositioned and turned for comfort, continue care.
[2019-09-17] MEDS: ATORVASTATIN 20 MG TAB PO SCH (22:46)
[2019-09-18] VITALS (7 sets, daily range): BP systolic 131–159; BP diastolic 56–87
[2019-09-18] MEDS: MINOXIDIL 2.5 MG TAB PO SCH ×3 (06:26→22:10)
[2019-09-18] MEDS: METOPROLOL TARTRATE 25 MG TAB PO SCH ×3 (06:26→22:11)
[2019-09-18] MEDS: ACCU-CHEK COMFORT CURVE STRIP VI SCH ×4 (06:48→22:11)
[2019-09-18] MEDS: InsuLIN REG 1unit/0.01ml Soln (100units/ml) SC SCH ×4 (06:49→22:12)
--- NOTE | 2019-09-18 08:00 | NUR ---
ASSESSMENT NOTE PT IS ALERT ORIENTED X4, RESTING IN BED IN LOW , OXYGEN NC 5 L , PT HAS SPEECH DELAY, ABLE TO SELF REPOSITION NEEDED, INMAN CATHETER TO GRAVITY, WOUND VACUUM NOTED AT RT GREAT TOE, CONTINUE ON ACTIVE MODE, INTACT, NO LEAKING NOTED, APIN 0/10, CALL LIGHT WITHIN REACH
[2019-09-18] MEDS: levoFLOXacin 500MG 100 ML IV SCH (09:52)
[2019-09-18] MEDS: ASPirin 81 mg TAB PO SCH (09:53)
[2019-09-18] MEDS: methylPREDNISolone SOD SUCC 40 MG/ML VL IV SCH ×2 (09:53→22:10)
[2019-09-18] MEDS: ZINC SULFATE 220mg CAP or TAB PO SCH (09:53)
[2019-09-18] MEDS: FAMOTIDINE 20 MG TAB PO SCH ×2 (09:54→22:10)
[2019-09-18] MEDS: ASCORBIC ACID 1,000 MG TAB PO SCH (09:54)
[2019-09-18] MEDS: amLODIPine BESYLATE 5 MG TAB PO SCH (09:54)
[2019-09-18] MEDS: NITROGLYCERIN 0.2MG/HR TOPICAL PATCH TD SCH (10:00)
[2019-09-18] MEDS: ENOXAPARIN SOD 120 MG/0.8 ML SYRINGE SC SCH ×2 (11:58→22:10)
--- NOTE | 2019-09-18 13:20 | NUR ---
RENNY WOUND NURSE RN AT BED SIDE WITH WOUND VACUUM CHANGE, ASSISTED NEEDED, PT TOLERATED WELL
--- NOTE | 2019-09-18 13:30 | NUR ---
WOUND CARE NOTE: IN TO SEE PATIENT AT THIS TIME FOR WOUND VAC DRESSING CHANGE. PATIENT IS IN COVID UNIT, POSITIVE FOR COVID 19. HE IS AWAKE, ALERT, ORIENTED X 3, IN NO STATED PAIN AT THIS TIME. CURRENT DAKOTA SCORE IS 13. HE CAN SELF TURN/REPOSITION SELF, ABLE TO SIT AT SIDE OF BED. PATIENT'S RIGHT FOOT DRESSING REMOVED. NO CHANGE IN WOUND STATUS NOTED, WOUND CONTINUES TO MEASURE 4 X 6 CM, WITH RED GRANULATION NOTED, AND LIGHT YELLOW SLOUGH FORMATION NOTED IN APPROXIMATELY 50 PERCENT OF WOUND. PHOTOGRAPHED WOUND PER PROTOCOL, CLEANSED AND DRESSED WOUND WITH WOUND VAC DRESSING PER MD ORDER. PATIENT TOLERATED WELL, NOTING NO PAIN BY PATIENT. VAC IS RUNNING AT 125 MM/HG CONTINUOUS GOOD SUCTION, NO LEAKS DETECTED. RECOMMEND: CONTINUATION WITH ALL WOUND CARE ORDERS PREVIOUSLY PRESCRIBED BY MD. WOUND CARE TEAM WILL CONTINUE TO MONITOR. Addendum: 09/18/19 at 1640 by Michell Nascimento RN Amended: Links added.
--- NOTE | 2019-09-18 15:30 | NUR ---
PATIENT TEND TO GET UP AND SIT AT THE END OF THE BED AND LEAN BACKWARD, SIT UP PT, AND ASSISTED PT TO STAND UP WITH DONIS RN HELP, AND GET BACK IN BED, REORIENT PT AGAIN TO USE THE CALL LIGHT, PT IS FORGETFUL, CHECKED PT AT ALL TIMES
--- NOTE | 2019-09-18 16:00 | NUR ---
FOUND PT AT THE SITTING AT THE END OF THE BED , ASSISTED PT TO GO BACK TO BED
--- NOTE | 2019-09-18 16:46 | NUR ---
DR HARRIS IS HERE FOLLOWING UP ON PT, MADE AWARE OF PATIENT'S GENERALIS WEAKNESS, OXYGEN 5 L NC, WITH NEW ORDERS FOR PHYSICAL THERAPY EVALUATION AND DISCHARGE PLANING FOR SNF
--- NOTE | 2019-09-18 18:15 | NUR ---
DINNER ASSIST TO SCOOT PT UP, SITTING UP IN BED TO EAT DINNER, NO DISTRESS NOTED
--- NOTE | 2019-09-18 18:39 | NUR ---
PT CONTINUE STABLE, CONTINUE MONITORING
--- NOTE | 2019-09-18 19:20 | NUR ---
Opening Shift Note Received report from Ludivina CRUZ. Assumed care of patient, awake and alert. No S/S of distress/SOB or pain. Instructed on POC and to call for assist PRN. Fall precaution measures in place. Will continue to monitor for changes Q1hr and PRN.
[2019-09-18] MEDS: ATORVASTATIN 20 MG TAB PO SCH (22:10)
--- NOTE | 2019-09-18 22:15 | NUR ---
Confusion RN went in to see patient and saw that patient is trying to urinate in the water pitcher. RN showed the patient that he has Marquez catheter that drains his urine. Patient states it's not his and doesn't know where he was. RN reorient the patient, will continue to monitor.
[2019-09-19 05:00] VITALS: BP 158/98
[2019-09-19] MEDS: MINOXIDIL 2.5 MG TAB PO SCH ×3 (06:24→20:52)
[2019-09-19] MEDS: METOPROLOL TARTRATE 25 MG TAB PO SCH ×3 (06:24→20:53)
[2019-09-19] MEDS: ACCU-CHEK COMFORT CURVE STRIP VI SCH ×4 (06:25→20:58)
[2019-09-19] MEDS: InsuLIN REG 1unit/0.01ml Soln (100units/ml) SC SCH ×4 (06:25→21:18)
--- NOTE | 2019-09-19 07:15 | NUR ---
Opening shift note Assumed care, patient currently sleeping on 5L O2 via Oxymizer Sat 97%. No s/s of distress noted at this time. Bed in low position, locked, alarm on. Will continue care.
[2019-09-19 07:42] LABS: Basophils # (auto) 0.1 10 ^3/uL (0-0.2); Basophils % (auto) 1.1 % (0.0-2.0); Eosinophils # (auto) 0 10 ^3/uL (0-0.8); Hematocrit 42.2 % (41.0-53.0); Hemoglobin 13.8 g/dL (13.5-17.5); Lymphocytes # (auto) 0.3 10 ^3/uL (0.4-5.4); Lymphocytes % (auto) 3.8 % (10.0-50.0); Mean Corpuscular Hemoglobin 27.4 pg (28.0-32.0); Mean Corpuscular Hgb Conc. 32.7 g/dL (32.0-36.0); Mean Corpuscular Volume 83.9 fL (80.0-100.0); Monocytes # (auto) 0.6 10 ^3/uL (0-1.3); Monocytes % (auto) 8.2 % (0.0-12.0); Neutrophils # (auto) 6.6 10 ^3/uL (1.6-8.6); Neutrophils % (auto) 86.9 % (37.0-80.0); Platelet Count (auto) 237 10^3/uL (140-450); Red Blood Cells 5.03 10^6/uL (4.5-5.90); Red Cell Distribution Width 15.9 % (11.8-14.3); White Blood Cell 7.6 10^3/uL (4.4-10.8)
--- NOTE | 2019-09-19 07:45 | NUR ---
RT NOTE: WENT TO PTS ROOM TO ASSESS SPO2, PT IS CURRENTLY ON 6L OXYMIZER, HR 88, SPO2 91% RR 18, NO DISTRESS NOTED AT THIS TIME. WILL CONTINUE TO MONITOR PT.
[2019-09-19 07:57] LABS: INR 1.18 (0.9-1.15); Partial Thromboplastin Time 35.2 sec (23.64-32.05)
[2019-09-19 08:05] LABS: BUN/Creatinine Ratio 40.3; Calcium 10.2 mg/dL (8.5-10.1); Potassium 3.8 mmol/L (3.5-5.1)
[2019-09-19 08:56] VITALS: BP 156/98
[2019-09-19] MEDS: FAMOTIDINE 20 MG TAB PO SCH ×2 (11:06→20:51)
[2019-09-19] MEDS: amLODIPine BESYLATE 5 MG TAB PO SCH (11:06)
[2019-09-19] MEDS: methylPREDNISolone SOD SUCC 40 MG/ML VL IV SCH (11:07)
[2019-09-19] MEDS: levoFLOXacin 500MG 100 ML IV SCH (11:07)
[2019-09-19] MEDS: ASPirin 81 mg TAB PO SCH (11:07)
[2019-09-19] MEDS: ENOXAPARIN SOD 120 MG/0.8 ML SYRINGE SC SCH (11:08)
[2019-09-19] MEDS: ZINC SULFATE 220mg CAP or TAB PO SCH (11:08)
[2019-09-19] MEDS: ASCORBIC ACID 1,000 MG TAB PO SCH (11:08)
--- NOTE | 2019-09-19 12:06 | NUR ---
WOUND CARE NOTE: Wound care in for daily monitoring of wound vac functioning. Patient is resting in bed Rm. 249B. Patient is awake, alert and able to verbalize needs. Rt foot wound vac dressing remain intact and connected to Ulta Vac; functioning well at 125 mmHg continuos as ordered. No leak detected. Will continue to monitor.
[2019-09-19 12:30] VITALS: BP 133/86
--- NOTE | 2019-09-19 12:35 | NUR ---
assessment Patient is a 54 year old male who is confused per RN. Per patients mother Eveline prior to admission patient lived home with his sig other of 20 years and was independent. Per Eveline patient has no DME for home. Per Eveline patient and Ifeoma his girlfriend moved here from [place] in February. I informed Eveline I am unable to locate Ifeoma and she has not returned my calls. Per Eveline she has provided me with another number for Ifeoma [phone]. No mailbox has been set up on that number. I informed Eveline patients post discharge needs to be determined prior to discharge. I will continue to try and call Ifeoma for discharge planning. Eveline verbalized understanding. Addendum: 09/19/19 at 1240 by Kia ROD Amended: Links added.
--- NOTE | 2019-09-19 14:21 | NUR ---
ATTEMPTING TO GET OUT OF BED Patient attempted to get out of bed and was found with legs hanging out of bed but torso still in bed. Legs placed back in bed. Patient asked to stay in bed as he is too weak to walk. Patient confused at this time unable to verbalize understanding. Bed alarm on will continue to monitor.
--- NOTE | 2019-09-19 14:58 | NUR ---
Nutrition Followup Notes Pt wt is 108.9 kg Unable to speak to pt d/t pt is positive for COVID. Pt is with a CCHO 60g diet, appetite is good aeb ave 75% PO intake over 2 meals per RN doc. Pt is confused and weak per RN doc. Will continue to monitor PO status, skin status, pertinent labs and weight trends. Will f/u in 3-5 days. Est energy needs ABW 95 [id number] kcal (23-25 kcal/kg BW), Est protein needs 95-104g (1.0-1.1g/kg BW r/t elev RFT severe hypoalb wounds). Will reassess prn. LABS: GLUC 282 H, A1c 7.5 H, ALB 1.6 L GI: Last BM noted on 08/14 per RN doc. BS: 15 mod risk. Refer to wound assessment report for full details. PES: 1) Altered nutrition related lab values r.t current chronic medical condition aeb elev RFT A1C severe hypoalb 2) Decreased nutrient needs r/t adiposity aeb pt`s high BMI of 31.3 kgm2 Comments 1) Refer to CDE on DC 2) Consider prostat 1 packet bid as RFT improve 3) Continue current plan of care
--- NOTE | 2019-09-19 15:15 | NUR ---
D/C Planning Regarding social service consult for SNF placement. Faxed clinical information to [facility] who takes [facility] COVID patient. Per Praveen with [facility] [phone] patient has been accepted and they will assign bed once patient is ready to discharge. Faxed clinical information to [facility] requesting authorization for [facility]. Informed NANCY Thakur. Pending discharge and authorization from [facility].
--- NOTE | 2019-09-19 15:30 | NUR ---
Patient ambulated with PT Patient ambulated with PT to door with walker. Per PT patient gait unsteady and patient too weak to walk. PT recommendations are to continue to maintain patient bedrest and to only get up with assistance of PT.
[2019-09-19 17:24] VITALS: BP 162/97
--- NOTE | 2019-09-19 17:52 | NUR ---
Elevated BP BP- 162/97 Will medicate with PRN Clonidine 0.1 mg PO at this time and continue to monitor.
[2019-09-19] MEDS: cloNIDine HCL 0.1 MG TAB PO PRN (18:13)
--- NOTE | 2019-09-19 19:35 | NUR ---
assumed care, patient is a0x1,pt is confuse pulling off ekg, Oxymizer, and hit me inform charge nurse of pt status 19:44 Called/paged called regarding pt status Waiting for call back. Continue care. [address] west returned call, updated on patient status and reason for call, orders received. order read back and verified by . Continue care. 1957 reassessed pt, pt is now clam will hold haloperidol
[2019-09-19] MEDS: ATORVASTATIN 20 MG TAB PO SCH (20:52)
[2019-09-19] MEDS: ENOXAPARIN SOD 100 MG/1 ML SYRINGE SC SCH (20:56)
[2019-09-19 22:00] VITALS: BP 138/79
[2019-09-19] MEDS ORDERED: OLANZapine 5 MG TAB PO SCH (22:00)
[2019-09-20] MEDS: HALOPERIDOL LACTATE 5 MG/ML INJ VIAL IM PRN (01:32)
[2019-09-20] MEDS: ACCU-CHEK COMFORT CURVE STRIP VI SCH ×4 (06:11→21:08)
[2019-09-20] MEDS: InsuLIN REG 1unit/0.01ml Soln (100units/ml) SC SCH ×4 (06:12→21:20)
[2019-09-20] MEDS: METOPROLOL TARTRATE 25 MG TAB PO SCH ×3 (06:14→21:07)
[2019-09-20] MEDS: MINOXIDIL 2.5 MG TAB PO SCH ×3 (06:15→21:07)
--- NOTE | 2019-09-20 07:16 | NUR ---
Opening shift note Assumed care, patient currently sleeping on 5L O2 via Oxymizer Sat 89%. No s/s of distress noted at this time. Bed in low position, locked, alarm on. Will continue care.
[2019-09-20 09:00] VITALS: BP 160/96
[2019-09-20] MEDS: amLODIPine BESYLATE 5 MG TAB PO SCH (10:00)
[2019-09-20] MEDS: FAMOTIDINE 20 MG TAB PO SCH ×2 (10:12→21:06)
[2019-09-20] MEDS: ASCORBIC ACID 1,000 MG TAB PO SCH (10:12)
[2019-09-20] MEDS: ENOXAPARIN SOD 100 MG/1 ML SYRINGE SC SCH ×2 (10:12→21:07)
[2019-09-20] MEDS: levoFLOXacin 500MG 100 ML IV SCH (10:12)
[2019-09-20] MEDS: methylPREDNISolone SOD SUCC 40 MG/ML VL IV SCH (10:12)
[2019-09-20] MEDS: ZINC SULFATE 220mg CAP or TAB PO SCH (10:12)
[2019-09-20] MEDS: cloNIDine HCL 0.1 MG TAB PO PRN (10:13)
[2019-09-20] MEDS: ASPirin 81 mg TAB PO SCH (10:13)
--- NOTE | 2019-09-20 10:15 | NUR ---
O2 increased Patient was on 10 L O2 via Oxymizer and O2 saturation was in low 80's. Patient currently coughing a lot and is observed to be mouth breathing. RT paged at this time. Per RT recommendations patient was placed on 15L O2 via nonrebreather mask, patient O2 sat at this time is 88% which is patients baseline. Will continue to monitor
--- NOTE | 2019-09-20 10:50 | NUR ---
Nausea and Pain Patient complaining of nausea and pain. Patient visibly under distress and dry heaving. Patient rates pain 6/10. Will medicate with pain and nausea PRN medication as per MD orders and continue to monitor.
[2019-09-20] MEDS: traMADol HCL 50 MG TAB PO PRN (10:56)
--- NOTE | 2019-09-20 11:20 | NUR ---
WOUND CARE NOTE: Patient's Rt foot wound vac dressing remain intact and connected to Ulta Vac; functioning well at 125 mmHg continuos as ordered. R Foot wound vac dressing due to be change tomorrow; will continue to monitor.
--- NOTE | 2019-09-20 12:15 | NUR ---
fever Patient running high temperature of 100.5 as reported by Joana WANG. Temperature reassessed by this RN at this time, temperature reading is 100.6. Will Medicate with Tylenol 1000 mg PO q8hr as needed for temperature above 100.4. Cooling measures also initiated at this time, cold packs placed in axilla. Will continue to monitor.
--- NOTE | 2019-09-20 12:30 | NUR ---
Paged Paged regarding patient's decline in condition. MD informed of increase of O2 therapy, and fever. New orders received for Lasix 20mg IV once and Portable chest xray to be taken 1hr after Lasix administration. MD also requesting to contact patient's family to update on decline in condition. Available phone number for next of kin seems to be a work number as it states, " offices are closed at this time please call back within normal business hours". has been informed of inability to reach family members.
[2019-09-20] MEDS: ACETAMINOPHEN 500 MG TAB PO PRN (12:33)
[2019-09-20 13:00] VITALS: BP 117/69
[2019-09-20] MEDS ORDERED: FUROSEMIDE 20 MG/2 ML VIAL IV ONE (13:00)
--- NOTE | 2019-09-20 14:33 | NUR ---
Spoke with MD LOPEZ called regarding update on patient's status. MD made aware that fever has subsided and patient's dry heaving has decreased. Family has still not been able to be contacted. New orders received at this time for Arterial blood gas. Will enter order and continue to monitor.
[2019-09-20 17:00] VITALS: BP 118/59
--- NOTE | 2019-09-20 19:20 | NUR ---
Opening Shift Note Received report from from day shift RN. Assumed care of patient, awake and a0x1. No S/S of distress/SOB or pain. Instructed on POC and to call for assist PRN. Fall precaution measures in place. Will continue to monitor for changes Q1hr and PRN.
[2019-09-20] MEDS: ATORVASTATIN 20 MG TAB PO SCH (21:06)
[2019-09-20 22:00] VITALS: BP 137/77
--- NOTE | 2019-09-20 22:10 | NUR ---
at nursing station MD Wilks updated on pt
--- NOTE | 2019-09-20 23:16 | NUR ---
Respiratory note: PT SEEN AND ASSESSED AT THIS TIME NO DISTRESS NOTED. HR 82 RR 20 95% ON NON REBREATHING MASK 15L.
[2019-09-21 05:00] VITALS: BP 144/89
[2019-09-21 05:35] LABS: Basophils # (auto) 0 10 ^3/uL (0-0.2); Basophils % (auto) 0.1 % (0.0-2.0); Eosinophils # (auto) 0.1 10 ^3/uL (0-0.8); Eosinophils % (auto) 1.1 % (0.0-7.0); Hemoglobin 13.6 g/dL (13.5-17.5); Lymphocytes # (auto) 0.4 10 ^3/uL (0.4-5.4); Lymphocytes % (auto) 5.7 % (10.0-50.0); Mean Corpuscular Hemoglobin 27.6 pg (28.0-32.0); Mean Corpuscular Hgb Conc. 33.2 g/dL (32.0-36.0); Mean Corpuscular Volume 83.1 fL (80.0-100.0); Monocytes # (auto) 0.2 10 ^3/uL (0-1.3); Monocytes % (auto) 3.2 % (0.0-12.0); Neutrophils % (auto) 89.9 % (37.0-80.0); Platelet Count (auto) 278 10^3/uL (140-450); Red Blood Cells 4.94 10^6/uL (4.5-5.90); Red Cell Distribution Width 15.9 % (11.8-14.3); White Blood Cell 6.7 10^3/uL (4.4-10.8)
[2019-09-21] MEDS: METOPROLOL TARTRATE 25 MG TAB PO SCH ×3 (05:39→21:50)
[2019-09-21] MEDS: MINOXIDIL 2.5 MG TAB PO SCH ×3 (05:39→21:50)
[2019-09-21 05:56] LABS: Potassium 4.1 mmol/L (3.5-5.1)
[2019-09-21 06:10] LABS: Albumin 1.6 g/dL (3.4-5.0); BUN/Creatinine Ratio 45.1; Bilirubin, Total 0.7 mg/dL (0.2-1.0); CRP High Sensitivity 6.17 mg/dL (< 0.3); Calcium 9.8 mg/dL (8.5-10.1)
[2019-09-21] MEDS: ACCU-CHEK COMFORT CURVE STRIP VI SCH ×4 (06:47→22:01)
[2019-09-21] MEDS: InsuLIN REG 1unit/0.01ml Soln (100units/ml) SC SCH ×4 (06:48→21:45)
--- NOTE | 2019-09-21 07:20 | NUR ---
Opening shift note Assumed care, patient currently sleeping on 16L O2 via non rebreather mask Sat 96%. No s/s of distress or pain noted at this time. Bed in low position, locked, alarm on. Will continue care.
[2019-09-21 09:00] VITALS: BP 147/82
[2019-09-21] MEDS: ASPirin 81 mg TAB PO SCH (10:00)
[2019-09-21] MEDS: ENOXAPARIN SOD 100 MG/1 ML SYRINGE SC SCH (10:14)
[2019-09-21] MEDS: methylPREDNISolone SOD SUCC 40 MG/ML VL IV SCH (10:14)
[2019-09-21] MEDS: ASCORBIC ACID 1,000 MG TAB PO SCH (10:14)
[2019-09-21] MEDS: amLODIPine BESYLATE 5 MG TAB PO SCH (10:15)
[2019-09-21] MEDS: FAMOTIDINE 20 MG TAB PO SCH ×2 (10:15→21:49)
[2019-09-21] MEDS: ZINC SULFATE 220mg CAP or TAB PO SCH (10:16)
[2019-09-21] MEDS: levoFLOXacin 500MG 100 ML IV SCH (10:16)
--- NOTE | 2019-09-21 10:57 | NUR ---
WOUND CARE NOTE: Wound care in to change R foot wound vac dressing and for skin integrity monitoring. Patient is resting in bed in Rm. 249B. Patient is awake, alert and follow simple direction. He's in no stated pain at this time and he appears to be in no pain using Salazar Robles Faces Pain Scale. He's able to assist in turning and repositioning and his Samuel score is 15. Skin/wound assessment done with the assistance of nurse's aide at bedside. Removed patient's R foot wound vac dressing. Patient's R medial foot wound measuring 5x4x0.5cm. Wound bed is red with granulation tissue, mariaa wound is pink, minimal serous drainage noted, no odor noted. Cleansed R medial foot wound with wound cleanser,patted dry with gauze. Applied skin protectant to mariaa wound and drape to dorsal aspect of wound. Fill wound cavity with one piece black granu foam dressing. Secured dressing with transparent drape, applied trac pad and connected tubings. Run wound vac at 125 mmHg continuos per MD order. Good suction noted, no leak detected. Patient's R 2nd toe plantar noted with intact, dry eschar wound measuring 1.2x1cm, no drainage/odor noted, left open to air. Patient's medial sacrum has mild redness/rashes, appears to me moisture associated dermatitis. Mariaa care given and applied Z Guard cream. Assisted nurse's aid to changed draw sheets and care pad. Repositioned patient for comfort, redistributed pressure points with pillows. Elevated RLE on pillows. Patient tolerated well. Photograph of mentioned wounds/skin issue are taken for reference. Nurse's aideEvonne at bedside. RECOMMENDATION: Continuation of all wound care orders prescribed by MD, continue with skin/wound plan of care, continue monitoring by wound care while patient is hospitalized. Addendum: 09/21/19 at 1250 by Tonia Ramírez RN Amended: Links added.
[2019-09-21 13:00] VITALS: BP 147/86
[2019-09-21 17:00] VITALS: BP 121/76
--- NOTE | 2019-09-21 19:20 | NUR ---
Opening Shift Note Received report from from day shift RN. Assumed care of patient, awake and a0x4. No S/S of distress/SOB or pain. Instructed on POC and to call for assist PRN. Fall precaution measures in place. Will continue to monitor for changes Q1hr and PRN. Addendum: 09/22/19 at 0015 by GOOD MCGEE RN Opening Shift Note Received report from from day shift RN. Assumed care of patient, awake and a0x1. No S/S of distress/SOB or pain. Instructed on POC and to call for assist PRN. Fall precaution measures in place. Will continue to monitor for changes Q1hr and PRN.
[2019-09-21] MEDS: ATORVASTATIN 20 MG TAB PO SCH (21:49)
[2019-09-21 22:00] VITALS: BP 144/87
[2019-09-22] MEDS: HALOPERIDOL LACTATE 5 MG/ML INJ VIAL IM PRN ×2 (02:11→10:10)
[2019-09-22 05:00] VITALS: BP 135/92
[2019-09-22] MEDS: ACCU-CHEK COMFORT CURVE STRIP VI SCH ×4 (05:36→23:18)
[2019-09-22] MEDS: InsuLIN REG 1unit/0.01ml Soln (100units/ml) SC SCH ×4 (05:37→23:18)
[2019-09-22] MEDS: METOPROLOL TARTRATE 25 MG TAB PO SCH ×3 (05:39→23:17)
[2019-09-22] MEDS: MINOXIDIL 2.5 MG TAB PO SCH ×3 (05:39→23:16)
--- NOTE | 2019-09-22 07:40 | NUR ---
Opening shift note Assumed care, patient currently sleeping on 15L NRB O2 Sat 92%. No s/s of distress or pain noted at this time. Bed in low position, locked, alarm on. Will continue care.
[2019-09-22 07:55] LABS: Hematocrit 39.8 % (41.0-53.0); Hemoglobin 13.3 g/dL (13.5-17.5); Mean Corpuscular Hemoglobin 27.9 pg (28.0-32.0); Mean Corpuscular Hgb Conc. 33.4 g/dL (32.0-36.0); Mean Corpuscular Volume 83.4 fL (80.0-100.0); Platelet Count (auto) 333 10^3/uL (140-450); Red Blood Cells 4.77 10^6/uL (4.5-5.90); Red Cell Distribution Width 16.4 % (11.8-14.3); White Blood Cell 11.2 10^3/uL (4.4-10.8)
[2019-09-22 08:08] LABS: Band Neutrophils % (manual) 0; Basophils % (manual) 0 (0.0-2.0); Blast Cells 0; Eosinophils % (manual) 0 (0-7); Metamyelocytes % 0; Monocytes % (manual) 0 (0-12); Promyelocytes % 0; Reactive Lymphocytes 0
[2019-09-22 08:12] LABS: Albumin 1.5 g/dL (3.4-5.0); Calcium 9.8 mg/dL (8.5-10.1); Potassium 3.9 mmol/L (3.5-5.1)
[2019-09-22 08:16] LABS: Bilirubin, Total 0.7 mg/dL (0.2-1.0)
[2019-09-22 08:45] LABS: Lymphocytes % (manual) 2 (10.0-50.0); Myelocytes % 1
--- NOTE | 2019-09-22 08:50 | NUR ---
ROUNDING WHILE PULLING PT UP WOUND VAC DISCONNECTED. WC RN NOTIFIED
--- NOTE | 2019-09-22 08:52 | NUR ---
WOUND VACC CHECK: Received call from patient's nurse, NANCY Sosa that patient's wound vac is not connected. Wound care in for wound vac trouble shooting. Patient is resting in bed in Rm. 249B. NUrse's aide at bedside. It appears that tubing got caught in bed and as patient moves his leg trac pad got pulled. Applied new trac pad and maintain seal. Applied stockinette to protect dressing. Run wound vac as ordered. Good suction noted, no leak detected. Will continue to monitor.
[2019-09-22 08:55] VITALS: BP 149/104
--- NOTE | 2019-09-22 08:55 | NUR ---
WOUND VAC ADJUSTMENT ADELSO RN LC AT BEDSIDE. WOUND VAC HOOKED BACK UP. NO LEAKS DETECTED WITH 125MMHG OF PRESSURE
[2019-09-22 09:01] LABS: CRP High Sensitivity 4.1 mg/dL (< 0.3)
[2019-09-22] MEDS: ENOXAPARIN SOD 40 MG/0.4 ML SYRINGE SC SCH (10:00)
[2019-09-22] MEDS: levoFLOXacin 500MG 100 ML IV SCH (10:23)
[2019-09-22] MEDS: ASPirin 81 mg TAB PO SCH (10:23)
[2019-09-22] MEDS: ZINC SULFATE 220mg CAP or TAB PO SCH (10:24)
[2019-09-22] MEDS: FAMOTIDINE 20 MG TAB PO SCH ×2 (10:24→23:17)
[2019-09-22] MEDS: ASCORBIC ACID 1,000 MG TAB PO SCH (10:24)
[2019-09-22] MEDS: methylPREDNISolone SOD SUCC 40 MG/ML VL IV SCH (10:24)
[2019-09-22] MEDS: amLODIPine BESYLATE 5 MG TAB PO SCH (10:24)
[2019-09-22 10:37] LABS: BUN/Creatinine Ratio 39.3
--- NOTE | 2019-09-22 12:42 | NUR ---
Nutrition Followup Notes Wt: 108.9 kg Unable to speak to pt d/t pt is positive for COVID. Pt is with a CCHO 60g diet, with inadeuqte PO of < 50% x 5 per RN doc. Will continue to monitor PO status, skin status, pertinent labs and weight trends. Will f/u in 3-5 days. Est energy needs ABW 95 [id number] kcal (23-25 kcal/kg BW), Est protein needs 95-104g (1.0-1.1g/kg BW r/t elev RFT severe hypoalb wounds). Will reassess prn. LABS: bun 48 h. glu 135 h, alb 1.5 l. GI: Last BM noted on 08/14 constipated per RN doc. BS: 15 mod risk. Refer to wound assessment report for full details. PES: 1) Altered nutrition related lab values r.t current chronic medical condition aeb elev RFT A1C severe hypoalb 2) Decreased nutrient needs r/t adiposity aeb pt`s high BMI of 31.3 kgm2 Comments 1) Refer to CDE on DC 2) Consider prostat 1 packet bid as RFT improve 3) Continue current plan of care
[2019-09-22 13:00] VITALS: BP 143/87
--- NOTE | 2019-09-22 15:22 | NUR ---
PT CONTINUALLY RIPPING OFF OXYGEN PT REORIENTED, MITTENS APPLIED, SITTER AT BEDSIDE, GUIDED IMAGERY ATTEMPTED, POSITION CHANGE ATTEMPTED.
--- NOTE | 2019-09-22 16:00 | NUR ---
PT CONTINUALLY RIPPING OFF OXYGEN PT REORIENTED, MITTENS APPLIED, SITTER AT BEDSIDE, GUIDED IMAGERY ATTEMPTED, POSITION CHANGE ATTEMPTED.
--- NOTE | 2019-09-22 16:32 | NUR ---
PT CONTINUALLY RIPPING OFF OXYGEN PT REORIENTED, MITTENS APPLIED, SITTER AT BEDSIDE, GUIDED IMAGERY ATTEMPTED, POSITION CHANGE ATTEMPTED.
--- NOTE | 2019-09-22 16:52 | NUR ---
PT CONTINUALLY RIPPING OFF OXYGEN PT REORIENTED, MITTENS APPLIED, SITTER AT BEDSIDE, GUIDED IMAGERY ATTEMPTED, POSITION CHANGE ATTEMPTED.
[2019-09-22 17:00] VITALS: BP 129/80
--- NOTE | 2019-09-22 17:02 | NUR ---
orders received for soft wrist restraints
--- NOTE | 2019-09-22 17:02 | NUR ---
BEATRIZ HARRIS RE: PT CONTINUALLY PULLING OFF OXYGEN AND REFUSING FOR STAFF TO REAPPLY NRB. PT DESATURATES TO 78%SPO2 WHEN NRB OFF. AWAITING CALL BACK
--- NOTE | 2019-09-22 17:05 | NUR ---
SOFT WRIST RESTRAINTS APPLIED
--- NOTE | 2019-09-22 17:10 | NUR ---
ATTEMPTED TO NOTIFY FAMILY NO ANSWER WILL ATTEMPT AT A LATER TIME.
--- NOTE | 2019-09-22 19:05 | NUR ---
RESTRAINT ASSESSMENT Bilateral wrist restraints removed to perform ROM exercise. Restraints removed for 5 minutes. Patient began pulling at his non-rebreather. Tried to distract the patient, and reorientate the patient. Patient continued to pull at his non-rebreather. Patient currently on 15L, patient desats to 79% when non-rebreather removed. Patient adjusted in bed. Restraints replaced. Sitter at the bedside. Will continue to monitor.
--- NOTE | 2019-09-22 19:45 | NUR ---
Opening Shift Note Assumed care of patient, awake and unaware. Patient confused and pulling his oxygen. Patient agitated. Safety measures in place, soft wrist restraints applied, skin assessed. Bed in lowest position, side rails up x2, and sitter in the room. Instructed on POC and to call for assist PRN, will continue to monitor for changes Q1hr and PRN.
--- NOTE | 2019-09-22 21:05 | NUR ---
RESTRAINT ASSESSMENT Bilateral wrist restraints removed to perform ROM exercise. Restraints removed for 3 minutes. Patient began pulling at his non-rebreather. Tried to distract the patient, and reorientate the patient. Patient continued to pull at his non-rebreather. Patient currently on 15L, patient desats to 80% when non-rebreather removed. Patient turned in bed. Restraints reapplied. Sitter at the bedside. Will continue to monitor.
[2019-09-22 22:00] VITALS: BP 135/81
[2019-09-22] MEDS: ATORVASTATIN 20 MG TAB PO SCH (23:16)
--- NOTE | 2019-09-23 01:05 | NUR ---
RESTRAINT ASSESSMENT Patient A&O x1. Bilateral wrist restraints removed to perform ROM exercise. Patient cooper draining. Patient adjusted in bed. Total time restraints removed 6 minutes. Patient began pulling at his non-rebreather. Tried to distract the patient, and reorientate the patient, patient continues to pull at his non-rebreather. Patient currently on 15L, patient desats when non-rebreather is removed. Non-rebreather replaced. Restraints reapplied. Sitter at the bedside. Will continue to monitor.
--- NOTE | 2019-09-23 02:00 | NUR ---
Readjusted patient's pillow blocking view from hands patient calming, and starting to rest. Will continue to monitor.
--- NOTE | 2019-09-23 03:05 | NUR ---
RESTRAINT ASSESSMENT Bilateral wrist restraints removed to perform ROM exercise. Patient currently on 15L. Patient turned in bed. Patient quiet, and sleeping. Sitter at the bedside. Restraints remaining off. Will continue to monitor. Addendum: 09/25/19 at 2334 by ELIAS GRAMAJO RN RN Time amendment [id number].
--- NOTE | 2019-09-23 03:05 | NUR ---
RESTRAINT ASSESSMENT Bilateral wrist restraints removed to perform ROM exercise. Total time restraints removed 10 minutes. Patient sleeping quietly, began to stir in his sleep and remove non-rebreather when restraints removed. Patient currently on 15L, Non-rebreather replaced. Patient turned in bed. Restraints reapplied. Sitter at the bedside. Will continue to monitor.
--- NOTE | 2019-09-23 04:00 | NUR ---
Patient sleeping calmly, removed restraints.
--- NOTE | 2019-09-23 05:05 | NUR ---
RESTRAINT ASSESSMENT Total time restraints removed 35 minutes. Patient began pulling at his non-rebreather. Tried to distract the patient, and reorientate the patient, patient continues to pull at his non-rebreather. Patient currently on 15L, patient desats to 75% when non-rebreather was removed. Non-rebreather replaced. Patient turned in bed. Restraints reapplied. Sitter at the bedside. Will continue to monitor.
[2019-09-23 05:22] VITALS: BP 161/94
[2019-09-23] MEDS: MINOXIDIL 2.5 MG TAB PO SCH ×4 (06:40→22:03)
[2019-09-23] MEDS: ACCU-CHEK COMFORT CURVE STRIP VI SCH ×4 (06:40→22:03)
[2019-09-23] MEDS: METOPROLOL TARTRATE 25 MG TAB PO SCH ×3 (06:40→22:03)
[2019-09-23] MEDS: InsuLIN REG 1unit/0.01ml Soln (100units/ml) SC SCH ×4 (06:43→22:04)
--- NOTE | 2019-09-23 07:05 | NUR ---
RESTRAINT ASSESSMENT Bilateral wrist restraints removed to perform ROM exercise. Patient began pulling at his non-rebreather. Tried to distract the patient, and reorientate the patient, patient continues to pull at his non-rebreather. Patient scratching at RN and aide. Patient currently on 15L, patient desats to 80% when non-rebreather was removed. Non-rebreather replaced. Patient turned in bed. Restraints reapplied. Sitter at the bedside. Will continue to monitor.
--- NOTE | 2019-09-23 07:30 | NUR ---
SOFT WRIST RESTRAINTS APPLIED PT PULLING AT OXYGEN LINE AND RIPPING IT OFF OF HIS FACE. PT PUSHING RN AND CAR OILER AWAY AND REFUSING TO PUT NON-REBREATHER BACK ON FACE PT DESATURATING WITHOUT NRB
[2019-09-23 09:00] VITALS: BP 135/75
[2019-09-23] MEDS: levoFLOXacin 500MG 100 ML IV SCH (09:17)
[2019-09-23] MEDS: methylPREDNISolone SOD SUCC 40 MG/ML VL IV SCH (09:17)
[2019-09-23] MEDS: ZINC SULFATE 220mg CAP or TAB PO SCH (09:18)
[2019-09-23] MEDS: ENOXAPARIN SOD 40 MG/0.4 ML SYRINGE SC SCH (09:18)
[2019-09-23] MEDS: ASCORBIC ACID 1,000 MG TAB PO SCH (09:18)
[2019-09-23] MEDS: ASPirin 81 mg TAB PO SCH (09:18)
[2019-09-23] MEDS: FAMOTIDINE 20 MG TAB PO SCH ×2 (09:18→22:03)
[2019-09-23] MEDS: amLODIPine BESYLATE 5 MG TAB PO SCH (09:19)
--- NOTE | 2019-09-23 09:22 | NUR ---
SOFT WRIST RESTRAINTS APPLIED PT PULLING AT OXYGEN LINE AND RIPPING IT OFF OF HIS FACE. PT PUSHING RN AND CLASSIFIER OPERATOR AWAY AND REFUSING TO PUT NON-REBREATHER BACK ON FACE. PT DESATURATING TO 79% WITHOUT NRB
--- NOTE | 2019-09-23 09:32 | NUR ---
PT RESTRAINTS REMOVED. PT IS AWAKE AND ALERT TO SELF. SOFT RESTRAINTS REMOVED FROM BILATERAL UPPER LIMBS. PULSE IS REGULAR AND STRONG. BEDRAILS UP X3, BED ALARM ON, SITTER AT BEDSIDE AND CALL LIGHT WITHIN REACH. WILL CONTINUE TO MONITOR Q1HR AND PRN Addendum: 09/23/19 at 1829 by MILI BALLARD RN RN INCORRECT LIMB REMOVAL SOFT RESTRAIN REMOVED FROM RIGHT UPPER LIMB.
--- NOTE | 2019-09-23 10:15 | NUR ---
DEE DEE ELIZALDE CALLED STATION FOR UPDATE PASSWORD VERIFIED AND FAMILY UPDATED ON POC NANCY UPDATED PHONE NUMBER FOR COMMUNICATION Addendum: 09/23/19 at 1131 by MILI BALLARD RN RN FAMILY MEMBER WAS STEP-MOTHER MATTHEW ELIZALDE
--- NOTE | 2019-09-23 10:20 | NUR ---
PAGED SSW SUZETTE RE: UPDATED FAMILY CONTACT NUMBER FOR TONIO [phone]
--- NOTE | 2019-09-23 11:22 | NUR ---
re-assessment Per consult please get hold of his next of kin or decision maker chuy. Patients Step mother Eveline [phone] is decision maker. Patients girlfriend Ifeoma [phone] has not called in or returned my calls. Eveline agreed to discharge plan to SNF. Patient has had a bed secured at [facility] since last week. Waiting on discharge now. Addendum: 09/23/19 at 1125 by Kia Kay Amended: Links added.
--- NOTE | 2019-09-23 11:22 | NUR ---
SOFT WRIST RESTRAINTS APPLIED PT PULLING AT OXYGEN LINE AND RIPPING IT OFF OF HIS FACE. PT PUSHING RN AND CLOTH COVERER AWAY AND REFUSING TO PUT NON-REBREATHER BACK ON FACE. PT DESATURATING TO 79% WITHOUT NRB
--- NOTE | 2019-09-23 11:28 | NUR ---
CONTACT WITH FAMILY MEMBER TONIO RIVAS VERIFIED. TONIO UPDATED ON POC AND TRANSFER TO SNF. TONIO IS AGREEABLE AND STATES "OH OKAY, THATS GOOD"
--- NOTE | 2019-09-23 12:10 | NUR ---
SOFT WRIST RESTRAINTS APPLIED PT PULLING AT OXYGEN LINE AND RIPPING IT OFF OF HIS FACE. PT PUSHING RN AND FELIPE AWAY AND REFUSING TO PUT NON-REBREATHER BACK ON FACE. PT DESATURATING TO 79% WITHOUT NRB Addendum: 09/23/19 at 1212 by MILI BALLARD RN RN INCORRECT TIME CORRECT TIME 0945
[2019-09-23 13:00] VITALS: BP 115/70
--- NOTE | 2019-09-23 13:22 | NUR ---
SOFT WRIST RESTRAINTS APPLIED PT PULLING AT OXYGEN LINE AND RIPPING IT OFF OF HIS FACE. PT PUSHING RN AND NEEDLEWORKER AWAY AND REFUSING TO PUT NON-REBREATHER BACK ON FACE. PT DESATURATING TO 79% WITHOUT NRB
--- NOTE | 2019-09-23 15:20 | NUR ---
D/C Planning Placed follow up called to [facility] to confirm bed for [facility]. Advised Praveen with [facility] patient is on 15 L/min. Per Praveen with [facility] they can't accept patient over 8 l/min. Per Praveen with [facility] they can accept patient once his oxygen level is under 8 l/min nasal cannula. Informed NANCY Davidson.
--- NOTE | 2019-09-23 15:22 | NUR ---
SOFT WRIST RESTRAINTS APPLIED PT PULLING AT OXYGEN LINE AND RIPPING IT OFF OF HIS FACE. PT PUSHING RN AND REAL ESTATE MANAGER AWAY AND REFUSING TO PUT NON-REBREATHER BACK ON FACE. PT DESATURATING TO 79% WITHOUT NRB
--- NOTE | 2019-09-23 16:09 | NUR ---
RESTRAINT REMOVAL ATTEMPTING TO REMOVE RESTRAINTS. LEFT WRIST RESTRAINT REMOVED. RADIAL PULSES REGULAR AND STRONG, SKIN INTACT WITH CAP REFILL < 3 SECONDS. PT CURRENTLY NOT ATTEMPTING TO REMOVE OXYGEN PULLING AT INMAN. WILL REASSESS PATIENT Q15MIN FOR SAFETY AND Q30MIN FOR RIGHT RESTRAINT REMOVAL.
--- NOTE | 2019-09-23 16:30 | NUR ---
IV removal IV to the right and left forearm DC'd with clean sterile technique, catheter fully intact. Pressure dressing applied to site. Patient tolerated well.
--- NOTE | 2019-09-23 16:31 | NUR ---
IV insertion IV access obtained, via clean sterile technique by inserting 20 gauge catheter at left forearm after 1 attempt. IV secured properly. No trauma to site. Patient tolerated well.
--- NOTE | 2019-09-23 16:46 | NUR ---
RESTRAINT REMOVAL ATTEMPTING TO REMOVE RESTRAINTS. RIGHT WRIST RESTRAINT REMOVED. RADIAL PULSES REGULAR AND STRONG, SKIN INTACT WITH CAP REFILL < 3 SECONDS. PT CURRENTLY NOT ATTEMPTING TO REMOVE OXYGEN OR PULL AT INMAN. WILL CONTINUE TO MONITOR Q1HR. SITTER AT BEDSIDE.
--- NOTE | 2019-09-23 16:59 | NUR ---
SOFT WRIST RESTRAINTS APPLIED PT PULLING AT OXYGEN LINE AND RIPPING IT OFF OF HIS FACE. PT PUSHING RN AND ODD BUNDLE WORKER AWAY AND REFUSING TO PUT NON-REBREATHER BACK ON FACE. PT DESATURATING TO 79% WITHOUT NRB
[2019-09-23 17:00] VITALS: BP 123/72
--- NOTE | 2019-09-23 17:08 | NUR ---
WOUND CARE NOTE: IN TO SEE PATIENT AT THIS TIME FOR WOUND VAC DRESSING CHECK. SITTER AT BEDSIDE. VAC IS RUNNING AT 125 MM/HG CONTINUOUS. DRESSING INTACT TO WOUND ON RIGHT FOOT. GOOD SUCTION, NO LEAKS DETECTED. WOUND CARE TEAM WILL CONTINUE TO MONITOR.
--- NOTE | 2019-09-23 17:10 | NUR ---
BEATRIZ HARRIS FOR RESTRAINT RENEWAL ORDERS
--- NOTE | 2019-09-23 17:15 | NUR ---
MD HARRIS RETURNED CALL OKAY TO CONTINUE RESTRAINTS
--- NOTE | 2019-09-23 18:21 | NUR ---
BEATRIZ HARRIS RE: PENDING SIGNATURE FOR RESTRAINTS
--- NOTE | 2019-09-23 18:52 | NUR ---
MD HARRIS RETURNED PAGE PER HE WILL SIGN THE PAPERS FOR RESTRAINT TOMORROW. UPDATED RN ON POC
--- NOTE | 2019-09-23 18:57 | NUR ---
SOFT WRIST RESTRAINTS APPLIED PT PULLING AT OXYGEN LINE AND RIPPING IT OFF OF HIS FACE. PT PUSHING RN AND LIBRARY ASSOCIATE AWAY AND REFUSING TO PUT NON-REBREATHER BACK ON FACE. PT DESATURATING TO 79% WITHOUT NRB
--- NOTE | 2019-09-23 19:55 | NUR ---
Opening Shift Note Assumed care of patient, awake and alert. No S/S of distress/SOB or pain. Patient with upper bilateral soft restraint on, radial pulses strong. Marquez intact, hanging below bed, draining to gravity. Instructed on POC and to call for assist PRN, will continue to monitor for changes Q1hr and PRN. Sitter at bedside.
[2019-09-23 20:00] VITALS: BP 129/74
--- NOTE | 2019-09-23 21:30 | NUR ---
Paged Dr. Castañeda This RN page and was sent to after hours embossograph operator. I informed Dr. Hendrickson about need to sign "Medical-non violent restraint". Dr. Gallegos stated that Dr. Castañeda was go out for the rest of the day and will be back in the morning to sign papers.
[2019-09-23 22:00] VITALS: BP 129/74
--- NOTE | 2019-09-23 22:00 | NUR ---
Restraint Removal Upper bilateral soft restraints removed because patient calm and not attempting to remove oxygen lines. Radial pulses regular and strong, skin intact with cap refill <3 seconds. Educated the patient on the intervention and to leave oxygen mask on. Educated sitter if patient attempts to take off oxygen to let me know MARGARETTE.
[2019-09-23] MEDS: ATORVASTATIN 20 MG TAB PO SCH (22:02)
--- NOTE | 2019-09-23 23:05 | NUR ---
Soft Wrist Restraints Applied Pt pulling at oxygen and ripping it off his face. PT pushed RN and INFECTION CONTROL PREVENTIONIST away and swing to hit, patient pulling away and refusing to put the non-rebreather back on. Patient placed on restraints upper bilateral soft restraints.
--- NOTE | 2019-09-23 23:10 | NUR ---
Paged Dr. Castañeda Paged Dr. Garcia to get order for soft restraints, sent to after hour curb machine operator, left a message, waiting to call.
--- NOTE | 2019-09-24 00:20 | NUR ---
Dr. Gallegos called back Dr. Gallegos called back, updated on patient need for soft wrist restraints due. Dr. Gallegos gave this RN telephone order to continue restraints. Repeated orders to verified, will continue to monitor.
--- NOTE | 2019-09-24 00:25 | NUR ---
Restraint Assessment Upper bilateral soft restraints assessed, radial pulses regular strong, skin intact with cap refill <3 seconds, Patient still tugging and trying to swing at nurse.
--- NOTE | 2019-09-24 02:31 | NUR ---
Restraint Assessment Upper bilateral soft restraints assessed, radial pulses regular strong, skin intact with cap refill <3 seconds, Patient still tugging and trying to swing at nurse when assess restraints. Sitter at beside
--- NOTE | 2019-09-24 04:31 | NUR ---
Restraint Assessment Upper bilateral soft restraints assessed, radial pulses regular strong, skin intact with cap refill <3 seconds, took patient off restraints to do ROM exercise and to stretch. Patient started to tuck off mask. Patient back on restraint. Sitter at beside
[2019-09-24 05:00] VITALS: BP 131/88
[2019-09-24] MEDS: MINOXIDIL 2.5 MG TAB PO SCH ×3 (06:11→22:16)
[2019-09-24] MEDS: InsuLIN REG 1unit/0.01ml Soln (100units/ml) SC SCH ×4 (06:11→22:20)
[2019-09-24] MEDS: ACCU-CHEK COMFORT CURVE STRIP VI SCH ×4 (06:11→22:20)
[2019-09-24] MEDS: METOPROLOL TARTRATE 25 MG TAB PO SCH ×3 (06:11→22:17)
--- NOTE | 2019-09-24 06:31 | NUR ---
Restraint Assessment Upper bilateral soft restraints assessed, radial pulses regular strong, skin intact with cap refill <3 seconds, took patient off restraints to do ROM exercise and to stretches. Restraints off for about 3 mins for patient to stretch and see if he will not removed non-rebreather, patient started to tuck at oxygen line after two minutes of restrain free, reoriented patient but patient continue to take off oxygen mask. Patient back on restraint. Sitter at beside
[2019-09-24 07:03] LABS: Hematocrit 34.5 % (41.0-53.0); Hemoglobin 11.4 g/dL (13.5-17.5); Mean Corpuscular Hemoglobin 27.6 pg (28.0-32.0); Mean Corpuscular Hgb Conc. 33.1 g/dL (32.0-36.0); Mean Corpuscular Volume 83.3 fL (80.0-100.0); Platelet Count (auto) 303 10^3/uL (140-450); Red Blood Cells 4.15 10^6/uL (4.5-5.90); Red Cell Distribution Width 16.1 % (11.8-14.3); White Blood Cell 16.2 10^3/uL (4.4-10.8)
[2019-09-24 07:17] LABS: Band Neutrophils % (manual) 0; Basophils % (manual) 0 (0.0-2.0); Blast Cells 0; Eosinophils % (manual) 0 (0-7); Metamyelocytes % 0; Myelocytes % 0; Promyelocytes % 0; Reactive Lymphocytes 0
[2019-09-24 07:28] LABS: Potassium 4.4 mmol/L (3.5-5.1)
[2019-09-24 07:41] LABS: Albumin 1.7 g/dL (3.4-5.0); BUN/Creatinine Ratio 40.7; Bilirubin, Total 0.6 mg/dL (0.2-1.0); CRP High Sensitivity 2.72 mg/dL (< 0.3); Total Protein 5.9 g/dL (6.4-8.2)
--- NOTE | 2019-09-24 07:45 | NUR ---
Respiratory note: PT SEEN AND ASSESSED AT THIS TIME NO DISTRESS NOTED. HR 89 RR 20 96% ON NON REBREATHING MASK 15L.
--- NOTE | 2019-09-24 08:00 | NUR ---
SOFT-WRIST RESTRAINTS REMOVED. PATIENT CALM AND RELAXED.
[2019-09-24 09:00] VITALS: BP 134/83
[2019-09-24 09:36] LABS: Lymphocytes % (manual) 1 (10.0-50.0); Monocytes % (manual) 2 (0-12)
[2019-09-24] MEDS: ZINC SULFATE 220mg CAP or TAB PO SCH ×2 (10:00→11:09)
[2019-09-24] MEDS: levoFLOXacin 500MG 100 ML IV SCH (11:08)
[2019-09-24] MEDS: methylPREDNISolone SOD SUCC 40 MG/ML VL IV SCH (11:08)
[2019-09-24] MEDS: ASPirin 81 mg TAB PO SCH (11:09)
[2019-09-24] MEDS: amLODIPine BESYLATE 5 MG TAB PO SCH (11:10)
[2019-09-24] MEDS: ASCORBIC ACID 1,000 MG TAB PO SCH (11:12)
[2019-09-24] MEDS: FAMOTIDINE 20 MG TAB PO SCH ×2 (11:12→22:16)
[2019-09-24] MEDS: ENOXAPARIN SOD 40 MG/0.4 ML SYRINGE SC SCH (11:12)
--- NOTE | 2019-09-24 12:12 | NUR ---
WOUND CARE NOTE: Wound care in to change R foot wound vac dressing. Patient continue resting in bed in Rm. 249B. Patient is awake, alert and follow simple direction. He's in no stated pain at this time and he appears to be in no pain using Salazar Robles Faces Pain Scale. Nurse's aide at bedside. Removed patient's R foot wound vac dressing. Patient's R medial foot wound measuring 5x3x0.5cm. Wound bed is red with granulation tissue and yellow fibrin. Tarsha wound is pink, minimal serous drainage noted, no odor noted. Cleansed R medial foot wound with wound cleanser,patted dry with gauze. Applied skin protectant to tarsha wound and drape to dorsal aspect of wound. Fill wound cavity with one piece small black Granu foam dressing and secured with transparent drape. Applied trac pad and connected tubings. Run wound vac at 125 mmHg continuos per MD order. Good suction noted, no leak detected. New photograph of patient's R medial foot wound are taken for reference. Patient tolerated well, elevated RLE on pillow. Nurse's aide at bedside. RECOMMENDATION: Continuation of all wound care orders prescribed by MD, continue with skin/wound plan of care, continue monitoring by wound care while patient is hospitalized. Addendum: 09/24/19 at 1831 by Tonia Ramírez RN Amended: Links added.
[2019-09-24 12:45] VITALS: BP 137/84
--- NOTE | 2019-09-24 13:00 | NUR ---
SPOKE TO Benedict HARRIS OVER THE PHONE REGARDING PATIENT STATUS. INFORMED THAT SOFT-WRIST RESTRAINTS WERE REMOVED AT THIS MOMENT. PATIENT CALM AND RELAXED. INFORMED OF PATIENTS OXYGEN REQUIREMENTS. RECEIVED NEW ORDERS SEE EMAR.
[2019-09-24] MEDS: LACTULOSE 20Gm/30ML SOLN PO PRN (15:27)
[2019-09-24 17:00] VITALS: BP 132/78
[2019-09-24] MEDS ORDERED: HALOPERIDOL LACTATE 5 MG/ML INJ VIAL IM PRN (17:00)
--- NOTE | 2019-09-24 18:05 | NUR ---
dada do regarding patient increasing agitation. Received new orders. TORB. See EMAR.
[2019-09-24] MEDS ORDERED: diphenhdrAMINE HCL 50 MG/1 ML VL ONE (18:07)
[2019-09-24] MEDS: diphenhdrAMINE HCL 50 MG/1 ML VL IV PRN (18:12)
[2019-09-24] MEDS ORDERED: ACETAMINOPHEN 500 MG TAB PO PRN (18:15)
--- NOTE | 2019-09-24 19:20 | NUR ---
Opening Shift Note Patient sleeping upon entereing the room, according to PUMP SERVICER SUPERVISOR patient had been sleeping for a few hours, PUMP SERVICER SUPERVISOR try to wake up patient for dinner but patient did not want to get up. Assumed care of patient. No S/S of distress/SOB or pain. Instructed PUMP SERVICER SUPERVISOR to notify this RN if patient wakes up. Will continue to monitor for changes Q1hr and PRN .
[2019-09-24 21:13] LABS: Urine Bacteria NONE SEEN /hpf (None Seen); Urine Blood 1+ /uL (Negative); Urine Budding Yeast MANY /hpf (None Seen); Urine Hyaline Cast FEW /lpf (0 - 2); Urine Mucus FEW (None Seen); Urine Specific Gravity 1.014 (1.001-1.035); Urine WBC 82 /hpf (0 - 3); Urine WBC Clumps PRESENT /hpf (None Seen)
[2019-09-24 22:00] VITALS: BP 147/80
[2019-09-24] MEDS: ATORVASTATIN 20 MG TAB PO SCH (22:16)
[2019-09-24] MEDS: traMADol HCL 50 MG TAB PO PRN (22:49)
--- NOTE | 2019-09-24 23:00 | NUR ---
Soft Restraints Applied/ Order Obtain Patient acting combated and started pulling off his non-rebreather due to confusion. When reoriented place yelled "STOP IT, YOU'RE CHEATING". This RN attempted with sitter multiple times to reapply non-rebreather and reorient but patient keep swinging and yelling. Call Dr. Martínez and was sent to after hours reducing machine operator; Mckay Mckeon answer and informed physician on patient behavior. Dr. Bass gave telephone orders to put patient on upper bilateral soft wrist restraints. Repeat orders to verified. Soft Wrist Restraints applied, patient resisted but soft wrist were applied with sitter's help. Will continue to monitor q1hr.
--- NOTE | 2019-09-25 01:00 | NUR ---
Restraint Assessment Upper bilateral soft restraints assessed, radial pulses regular strong, skin intact with cap refill <3 seconds, took patient off restraints to do ROM exercise and to do stretches. Restraints off for about 2-5 mins for patient to stretch and see if he will not removed non-rebreather, patient started to tuck at oxygen line after two minutes of restrain free, reoriented patient but patient continue to take off oxygen mask. Patient back on restraint. Sitter at beside
--- NOTE | 2019-09-25 03:00 | NUR ---
Restraint Assessment Upper bilateral soft restraints assessed, radial pulses regular strong, skin intact with cap refill <3 seconds, took patient off restraints to do ROM exercise and to do stretches. Patient attempted to take off mask why doing exercises. Patient back on restraints. Sitter at bedside.
[2019-09-25 04:25] VITALS: BP 151/85
[2019-09-25] MEDS: ACCU-CHEK COMFORT CURVE STRIP VI SCH ×4 (06:36→21:36)
[2019-09-25] MEDS: METOPROLOL TARTRATE 25 MG TAB PO SCH ×3 (06:39→21:11)
[2019-09-25] MEDS: MINOXIDIL 2.5 MG TAB PO SCH ×3 (06:39→21:11)
[2019-09-25] MEDS: InsuLIN REG 1unit/0.01ml Soln (100units/ml) SC SCH ×4 (06:40→21:32)
--- NOTE | 2019-09-25 07:00 | NUR ---
Patient Off Restraints Patient off restraints after 5-10 mins assessment, patient manage to keep his non-rebreather on, and keep calm throughout stretches/ROM. Will continue to monitor. Sitter at bedside.
[2019-09-25 09:00] VITALS: BP 128/78
[2019-09-25] MEDS: methylPREDNISolone SOD SUCC 40 MG/ML VL IV SCH (10:47)
[2019-09-25] MEDS: ASPirin 81 mg TAB PO SCH (10:47)
[2019-09-25] MEDS: ASCORBIC ACID 1,000 MG TAB PO SCH (10:47)
[2019-09-25] MEDS: FAMOTIDINE 20 MG TAB PO SCH ×2 (10:47→21:12)
[2019-09-25] MEDS: ZINC SULFATE 220mg CAP or TAB PO SCH (10:47)
[2019-09-25] MEDS: levoFLOXacin 500MG 100 ML IV SCH (10:48)
[2019-09-25] MEDS: ENOXAPARIN SOD 40 MG/0.4 ML SYRINGE SC SCH (10:48)
[2019-09-25] MEDS: amLODIPine BESYLATE 5 MG TAB PO SCH (10:55)
--- NOTE | 2019-09-25 11:58 | NUR ---
Nutrition Followup Notes Wt: 108.9 kg Unable to speak to pt d/t pt is positive for COVID. Pt is with a CCHO 60g diet, with inadeuqte PO of 42%x 3 days per RN doc. If pt continues to have poor po intake consider adding Glucerna 1 carton BID. Will continue to monitor PO status, skin status, pertinent labs and weight trends. Will f/u in 3-5 days. Est energy needs ABW 95 [id number] kcal (23-25 kcal/kg BW), Est protein needs 95-104g (1.0-1.1g/kg BW r/t elev RFT severe hypoalb wounds). Will reassess prn. LABS: BUN 50H, Alb 1.7L, GLUC 131H GI: Last BM noted on 08/14 constipated per RN doc. BS: 15 mod risk. Refer to wound assessment report for full details. PES: 1) Altered nutrition related lab values r.t current chronic medical condition aeb elev RFT A1C severe hypoalb 2) Decreased nutrient needs r/t adiposity aeb pt`s high BMI of 31.3 kgm2 Comments 1) Refer to CDE on DC 2) Consider prostat 1 packet bid as RFT improve 3) Continue current plan of care
[2019-09-25 13:00] VITALS: BP 148/86
--- NOTE | 2019-09-25 15:15 | NUR ---
REGARDING OXYGEN: PATIENT PLACED ON 12L SIMPLE MASK. PATIENT RESTING COMFORTABLY WITH OXYGEN SATURATIONS AT 93% WITH RR AT 22BPM.
[2019-09-25] MEDS: LACTULOSE 20Gm/30ML SOLN PO PRN (16:00)
--- NOTE | 2019-09-25 16:10 | NUR ---
WOUND CARE NOTE: Wound care in for daily monitoring of wound vac functioning. Patient continue resting in bed Rm. 249B. Patient's eyes are closed, respirations even and unlabored. Nurse's aide at bedside. Patient's Rt foot wound vac dressing C/D/I and connected to Ulta Vac; functioning well at 125 mmHg continuos as ordered. No leak detected. Will continue to monitor.
[2019-09-25 17:15] VITALS: BP 129/83
[2019-09-25] MEDS ORDERED: DOXYCYCLINE 100MG/250ML 250 ML IV SCH (18:15)
[2019-09-25] MEDS: FLUCONAZOLE 100 MG TAB PO SCH (18:29)
--- NOTE | 2019-09-25 19:18 | NUR ---
Opening note Assumed care of patient. Patient is alert x1. to self. Patient is on simple mask 12L. No sob or distress noted at this time. Patient is confused. Re-orientated patient to surroundings. POC reviewed. Call light within reach. Sitter at bedside. Will continue to monitor.
[2019-09-25] MEDS: DOXYCYCLINE 100MG/250ML 250 ML IV SCH (21:10)
[2019-09-25] MEDS: ATORVASTATIN 20 MG TAB PO SCH (21:10)
[2019-09-25 22:00] VITALS: BP_SYST 137
[2019-09-25] MEDS ORDERED: DOXYCYCLINE 100 MG TAB/CAP PO SCH (22:00)
--- NOTE | 2019-09-25 23:05 | NUR ---
RESTRAINT ASSESSMENT Bilateral wrist restraints removed to perform ROM exercise. Fed the patient applesauce. Total time restraints removed 10 minutes. Patient began pulling at his non-rebreather. Tried to distract the patient, and reorientate the patient, patient continues to pull at his non-rebreather. Patient currently on 15L, patient desats to 84% when non-rebreather was removed. Non-rebreather replaced. Patient turned in bed. Restraints reapplied. Sitter at the bedside. Will continue to monitor. Addendum: 09/25/19 at 2313 by ELIAS GRAMAJO RN RN Ammend date 09/22/19 time 2304.
--- NOTE | 2019-09-26 00:54 | NUR ---
Patient rounding Patient is asleep. Eyes closed. Chest evenly rising. No sob or signs of distress. Patient is on 12L simple mask. Oxygen saturation at 92% Call light within reach. Sitter at bedside. Will continue to monitor.
[2019-09-26 05:00] VITALS: BP 137/67
[2019-09-26] MEDS: MINOXIDIL 2.5 MG TAB PO SCH ×3 (06:19→21:36)
[2019-09-26] MEDS: ACCU-CHEK COMFORT CURVE STRIP VI SCH ×4 (06:20→21:36)
[2019-09-26] MEDS: METOPROLOL TARTRATE 25 MG TAB PO SCH ×3 (06:20→21:36)
[2019-09-26] MEDS: InsuLIN REG 1unit/0.01ml Soln (100units/ml) SC SCH ×4 (06:49→21:58)
--- NOTE | 2019-09-26 07:05 | NUR ---
Closing note endorsed care to day shift RN. Patient awake sitter at bedside no signs of distress
--- NOTE | 2019-09-26 07:59 | NUR ---
covid swab collected and walked to lab by charge nurse Livan.
[2019-09-26 09:00] VITALS: BP 146/79
[2019-09-26] MEDS: cefTRIAXone 1GM/50ML D5W 50 ML IV SCH (10:04)
[2019-09-26] MEDS: ZINC SULFATE 220mg CAP or TAB PO SCH (10:05)
[2019-09-26] MEDS: DOXYCYCLINE 100MG/250ML 250 ML IV SCH ×2 (10:05→21:13)
[2019-09-26] MEDS: FLUCONAZOLE 100 MG TAB PO SCH (10:05)
[2019-09-26] MEDS: methylPREDNISolone SOD SUCC 40 MG/ML VL IV SCH (10:05)
[2019-09-26] MEDS: ASCORBIC ACID 1,000 MG TAB PO SCH (10:05)
[2019-09-26] MEDS: ASPirin 81 mg TAB PO SCH (10:05)
[2019-09-26] MEDS: FAMOTIDINE 20 MG TAB PO SCH ×2 (10:05→21:14)
[2019-09-26] MEDS: ENOXAPARIN SOD 40 MG/0.4 ML SYRINGE SC SCH (10:06)
[2019-09-26] MEDS: amLODIPine BESYLATE 5 MG TAB PO SCH (10:07)
[2019-09-26 10:30] LABS: Basophils # (auto) 0.1 10 ^3/uL (0-0.2); Basophils % (auto) 0.3 % (0.0-2.0); Eosinophils # (auto) 0.2 10 ^3/uL (0-0.8); Eosinophils % (auto) 1.1 % (0.0-7.0); Hematocrit 33.9 % (41.0-53.0); Hemoglobin 11.2 g/dL (13.5-17.5); Lymphocytes # (auto) 0.5 10 ^3/uL (0.4-5.4); Lymphocytes % (auto) 2.4 % (10.0-50.0); Mean Corpuscular Hemoglobin 27.5 pg (28.0-32.0); Mean Corpuscular Volume 83.3 fL (80.0-100.0); Monocytes # (auto) 0.5 10 ^3/uL (0-1.3); Monocytes % (auto) 2.3 % (0.0-12.0); Neutrophils # (auto) 20.3 10 ^3/uL (1.6-8.6); Neutrophils % (auto) 93.9 % (37.0-80.0); Nucleated Red Blood Cells % 0.1 %; Platelet Count (auto) 265 10^3/uL (140-450); Red Blood Cells 4.07 10^6/uL (4.5-5.90); Red Cell Distribution Width 16.1 % (11.8-14.3); White Blood Cell 21.6 10^3/uL (4.4-10.8)
[2019-09-26 10:40] LABS: BUN/Creatinine Ratio 39.2; Calcium 9.9 mg/dL (8.5-10.1); Potassium 4.6 mmol/L (3.5-5.1)
--- NOTE | 2019-09-26 11:15 | NUR ---
WOUND CARE NOTE: IN TO SEE PATIENT AT THIS TIME TO CHECK FUNCTION OF WOUND VAC DRESSING TO RIGHT FOOT. GOOD SUCTION, NO LEAKS DETECTED. VAC SET TO 125 MM/HG CONTINUOUS. WOUND CARE TEAM WILL CONTINUE TO MONITOR.
[2019-09-26 13:00] VITALS: BP 151/78
--- NOTE | 2019-09-26 15:05 | NUR ---
Benedict HARRIS AT BEDSIDE. NEW ORDERS RECEIVED. SEE EMAR.
--- NOTE | 2019-09-26 15:30 | NUR ---
IV INSERTION: IV TO LFA 20 GAUGE PLACED ON FIRST ATTEMPT. PATIENT TOLERATED WELL. PRIOR IV TO LFA 20 GAUGE ACCIDENTLY REMOVED DURING PHYSICAL THERAPY.
--- NOTE | 2019-09-26 15:54 | NUR ---
Cooper catheter dc'd Order to discontinue cooper catheter. Cooper dc'd with clean technique following deflation of balloon. Patient tolerated well with no complaints of pain. Continue care.
[2019-09-26 17:00] VITALS: BP 109/63
--- NOTE | 2019-09-26 18:44 | NUR ---
FULL BED BATH PROVIDED TO PATIENT BY STAINED GLASS WINDOW DESIGNER. PATIENT RESTING COMFORTABLY NO S/S OF DISTRESS NOTED.
--- NOTE | 2019-09-26 19:20 | NUR ---
Opening note Assumed care of patient. patient is alert to self only. With periods of confusion. Bed is locked in lowest position, side rails up x2. No sob or distress noted. Patient is on 10L simple mask. saturation at 97%. Call light and sitter at bedside. Will continue care and to monitor.
[2019-09-26] MEDS: ATORVASTATIN 20 MG TAB PO SCH (21:14)
[2019-09-26 21:22] VITALS: BP 113/75
--- NOTE | 2019-09-26 21:58 | NUR ---
PATIENT STILL REFUSED TO BE CHANGED Addendum: 09/26/19 at 2200 by SUZAN Nickerson DISREGARD WRONG PATIENT
--- NOTE | 2019-09-26 22:40 | NUR ---
Patient agitated Patient began trying to pull at his IV and remove his oxygen and he tried to get out of bed. Patient is still confused and alert x1. Re- orientated patient. Patient states he feels stuck and getting agitated. Medicated per md orders for agitation. SEE emar. Patient vitals were as follows. BP 137/82, Hr 82, 10 L simple mask saturation at 95% RR 20. Call light and sitter at bedside. Will continue to monitor.
[2019-09-26] MEDS: diphenhdrAMINE HCL 50 MG/1 ML VL IV PRN (22:47)
--- NOTE | 2019-09-26 23:30 | NUR ---
Void after cooper Patient was able to urinate using the urinal with assistance. 250ml voided. Call light and sitter within reach. Will continue jared monitor. Addendum: 09/26/19 at 2336 by PARISA GRIMALDO RN RN clear, yellow urine, no odor detected.
--- NOTE | 2019-09-27 01:03 | NUR ---
Small bowel movement. Patient began to get agitated. Checked patient, he had a small, soft bowel movement. ADMITTING MANAGER cleaned patient. Patient resting in bed now. Call light and sitter at bedside. Will continue to monitor.
[2019-09-27 02:00] VITALS: BP 125/70
[2019-09-27 04:35] VITALS: BP 119/65
[2019-09-27 05:00] VITALS: BP 141/74
[2019-09-27] MEDS: MINOXIDIL 2.5 MG TAB PO SCH ×3 (06:41→22:58)
[2019-09-27] MEDS: ACCU-CHEK COMFORT CURVE STRIP VI SCH ×4 (06:41→23:14)
[2019-09-27] MEDS: METOPROLOL TARTRATE 25 MG TAB PO SCH ×3 (06:41→22:57)
[2019-09-27] MEDS: InsuLIN REG 1unit/0.01ml Soln (100units/ml) SC SCH ×4 (06:47→23:15)
--- NOTE | 2019-09-27 07:09 | NUR ---
Closing note endorsed care to day shift RN no sob or distress noted.
--- NOTE | 2019-09-27 08:05 | NUR ---
Respiratory note: POX, ASSESSED PT NO RESP DISTRESS NOTED. PT HAS A SITTER AT BEDSIDE. HR 68, RR 16, SPO2 95% ON 10L SIMPLE MASK. ABG DONE. NO CRITICAL VALUE TO REPORT.
[2019-09-27] MEDS: amLODIPine BESYLATE 5 MG TAB PO SCH (10:00)
[2019-09-27] MEDS: methylPREDNISolone SOD SUCC 40 MG/ML VL IV SCH (10:11)
[2019-09-27] MEDS: DOXYCYCLINE 100MG/250ML 250 ML IV SCH ×2 (10:11→22:57)
[2019-09-27] MEDS: cefTRIAXone 1GM/50ML D5W 50 ML IV SCH (10:11)
[2019-09-27] MEDS: FLUCONAZOLE 100 MG TAB PO SCH (10:12)
[2019-09-27] MEDS: ASPirin 81 mg TAB PO SCH (10:12)
[2019-09-27] MEDS: ASCORBIC ACID 1,000 MG TAB PO SCH (10:12)
[2019-09-27] MEDS: ZINC SULFATE 220mg CAP or TAB PO SCH (10:12)
[2019-09-27] MEDS: FAMOTIDINE 20 MG TAB PO SCH ×2 (10:12→22:57)
[2019-09-27] MEDS: ENOXAPARIN SOD 40 MG/0.4 ML SYRINGE SC SCH (10:13)
[2019-09-27 14:32] VITALS: BP 125/70
[2019-09-27 16:42] LABS: Basophils # (auto) 0.2 10 ^3/uL (0-0.2); Basophils % (auto) 1.1 % (0.0-2.0); Eosinophils # (auto) 0 10 ^3/uL (0-0.8); Eosinophils % (auto) 0.1 % (0.0-7.0); Hemoglobin 12.2 g/dL (13.5-17.5); Lymphocytes # (auto) 0.2 10 ^3/uL (0.4-5.4); Lymphocytes % (auto) 1.3 % (10.0-50.0); Mean Corpuscular Hemoglobin 27.8 pg (28.0-32.0); Mean Corpuscular Volume 84.3 fL (80.0-100.0); Monocytes # (auto) 0.1 10 ^3/uL (0-1.3); Monocytes % (auto) 0.4 % (0.0-12.0); Neutrophils # (auto) 17.8 10 ^3/uL (1.6-8.6); Neutrophils % (auto) 97.1 % (37.0-80.0); Platelet Count (auto) 223 10^3/uL (140-450); Red Blood Cells 4.38 10^6/uL (4.5-5.90); Red Cell Distribution Width 16.4 % (11.8-14.3); White Blood Cell 18.4 10^3/uL (4.4-10.8)
--- NOTE | 2019-09-27 18:00 | NUR ---
PATIENT PLACED ON 6L OXYMIZER OXYGEN SATURATION AT 96%.
--- NOTE | 2019-09-27 19:44 | NUR ---
Opening Shift Note Received report and assumed care of patient. Patient is awake and alert x3. No signs or symptoms of distress noted. Instructed patient on plan of care and to call for assistance as needed. Sitter at bedside. Will continue to monitor.
[2019-09-27 21:50] VITALS: BP 125/74
[2019-09-27] MEDS: ATORVASTATIN 20 MG TAB PO SCH (22:57)
[2019-09-28 05:00] VITALS: BP 154/90
[2019-09-28 06:26] LABS: Basophils # (auto) 0 10 ^3/uL (0-0.2); Basophils % (auto) 0.3 % (0.0-2.0); Eosinophils # (auto) 0 10 ^3/uL (0-0.8); Eosinophils % (auto) 0.2 % (0.0-7.0); Hematocrit 36.6 % (41.0-53.0); Hemoglobin 12.2 g/dL (13.5-17.5); Lymphocytes # (auto) 0.5 10 ^3/uL (0.4-5.4); Lymphocytes % (auto) 2.6 % (10.0-50.0); Mean Corpuscular Hemoglobin 27.6 pg (28.0-32.0); Mean Corpuscular Hgb Conc. 33.2 g/dL (32.0-36.0); Monocytes # (auto) 0.4 10 ^3/uL (0-1.3); Monocytes % (auto) 2.2 % (0.0-12.0); Neutrophils % (auto) 94.7 % (37.0-80.0); Nucleated Red Blood Cells % 0.1 %; Platelet Count (auto) 223 10^3/uL (140-450); Red Blood Cells 4.41 10^6/uL (4.5-5.90); Red Cell Distribution Width 16.2 % (11.8-14.3); White Blood Cell 17.9 10^3/uL (4.4-10.8)
[2019-09-28 06:45] LABS: BUN/Creatinine Ratio 44.3; CRP High Sensitivity 0.91 mg/dL (< 0.3); Calcium 9.7 mg/dL (8.5-10.1); Potassium 4.8 mmol/L (3.5-5.1)
[2019-09-28] MEDS: MINOXIDIL 2.5 MG TAB PO SCH ×3 (07:08→22:42)
[2019-09-28] MEDS: METOPROLOL TARTRATE 25 MG TAB PO SCH ×3 (07:08→22:42)
[2019-09-28] MEDS: ACCU-CHEK COMFORT CURVE STRIP VI SCH ×4 (07:09→22:51)
[2019-09-28] MEDS: InsuLIN REG 1unit/0.01ml Soln (100units/ml) SC SCH ×4 (07:14→22:00)
[2019-09-28 09:00] VITALS: BP 143/81
[2019-09-28] MEDS: ASPirin 81 mg TAB PO SCH (10:03)
[2019-09-28] MEDS: DOXYCYCLINE 100MG/250ML 250 ML IV SCH (10:03)
[2019-09-28] MEDS: ZINC SULFATE 220mg CAP or TAB PO SCH (10:03)
[2019-09-28] MEDS: FLUCONAZOLE 100 MG TAB PO SCH (10:03)
[2019-09-28] MEDS: cefTRIAXone 1GM/50ML D5W 50 ML IV SCH (10:03)
[2019-09-28] MEDS: ASCORBIC ACID 1,000 MG TAB PO SCH (10:04)
[2019-09-28] MEDS: FAMOTIDINE 20 MG TAB PO SCH ×2 (10:04→22:41)
[2019-09-28] MEDS: amLODIPine BESYLATE 5 MG TAB PO SCH (10:04)
[2019-09-28] MEDS: ENOXAPARIN SOD 40 MG/0.4 ML SYRINGE SC SCH (10:56)
--- NOTE | 2019-09-28 11:32 | NUR ---
SPOKE TO CASE MANAGEMENT YADIEL REGARDING PATIENT [id number] Addendum: 09/28/19 at 1133 by DONIS ARNOLD RN RN DISREGARD "[id number]". AWAITING CALL BACK FROM YADIEL.
--- NOTE | 2019-09-28 11:49 | NUR ---
Weekend production specialist-I received a page from nurse Cope letting me know that this patient's oxygen requirements are down and may be ready for SNF placement today or tomorrow. I called [facility] and spoke with Isela, she said there was no one in their admitting department right now but she would relay the message to them. I let nurse Cope know that patient would not be going today and that we would work on this tomorrow.
--- NOTE | 2019-09-28 14:30 | NUR ---
WOUND CARE NOTE: IN TO SEE PATIENT AT THIS TIME FOR WOUND VAC DRESSING CHANGE. PATIENT CONTINUES TO BE IN [facility], SITTER AT BEDSIDE. CURRENT [place] SCORE IS 15. PATIENT IS ABLE TO SELF TURN/REPOSITION SELF. HE IS LESS CONFUSED, BUT NEEDS ASSISTANCE WITH HIS ADL'S AT THIS POINT, INCLUDING TURNING AND REPOSITIONING. HE CONTINUES TO BE INCONTINENT OF BOWEL AND BLADDER. HE HAS DEVELOPED MASD WITH SKIN EROSION TO SACRUM/INTRAGLUTEAL, GROIN, SCROTUM, UPPER BILATERAL THIGHS. APPLIED ZGUARD, OPTIFOAM GENTLE SACRAL DRESSING TO COVER AND PROTECT. WOUND VAC DRESSING REMOVED. THERE IS GRANULATION TO 55 PERCENT OF THE WOUND BED, YELLOW SLOUGH IN REMAINING WOUND BED. LIGHT SEROUS DRAINAGE, NO ODOR. APPLIED SUREPREP BARRIER FILM, CLEAR FILM TO PERIWOUND. APPLIED BLACK GRANUFOAM, DRAPE, TRAC PAD. ATTACHED TO VAC, TURNED VAC ON TO 125 MM/HG CONTINUOUS. GOOD SUCTION, NO LEAKS DETECTED. RECOMMEND: CONTINUATION WITH ALL WOUND CARE ORDERS PREVIOUSLY PRESCRIBED BY MD. WOUND CARE TEAM WILL CONTINUE TO MONITOR. Addendum: 09/28/19 at 1751 by Michell Nascimento RN Amended: Links added.
[2019-09-28 17:00] VITALS: BP 125/77
--- NOTE | 2019-09-28 19:15 | NUR ---
REGARDING WOUND VAC: SPOKE TO MATTHEW DUEÑAS MOTHER. SHE STATES THAT SHE LIVES IN [place] AND FAR SHE IS AWARE, PATIENT ARRIV[facility] TO [facility] WITH NO WOUND VAC.
--- NOTE | 2019-09-28 19:19 | NUR ---
ATTEMPTED TO CALL TONIO- GIRLFRIEND. NO ANSWER.
--- NOTE | 2019-09-28 19:48 | NUR ---
Opening Shift Note Received report and assumed care of patient. Patient is awake and alert x3. No signs or symptoms of distress noted, patient currently denies pain. Instructed patient on plan of care and to call for assistance as needed. Sitter at bedside. Will continue to monitor.
--- NOTE | 2019-09-28 21:46 | NUR ---
Respiratory note: PT SEEN AND ASSESSED FOR PRN MED NEB TX AT 2146. TREATMENT IS NOT INDICATED AT THIS TIME. PT DISPLAYING NO SIGNS OF DISTRESS. HR 71 RR 22 SP02 93% ON 5L OXYMIZER.
[2019-09-28 22:00] VITALS: BP 147/86
[2019-09-28] MEDS: DOXYCYCLINE 100 MG TAB/CAP PO SCH (22:42)
[2019-09-28] MEDS: ATORVASTATIN 20 MG TAB PO SCH (22:43)
--- NOTE | 2019-09-29 00:10 | NUR ---
IV removal/insertion 20g IV to the Left Forearm reddened. Discontinued IV with clean technique, catheter tip fully intact. Pressure dressing applied to site. NOTE:Inserted 22g IV to to the Left Forearm. Patient tolerated well.
[2019-09-29] MEDS: METOPROLOL TARTRATE 25 MG TAB PO SCH ×3 (05:38→22:09)
[2019-09-29] MEDS: MINOXIDIL 2.5 MG TAB PO SCH ×3 (05:38→22:09)
[2019-09-29 06:00] VITALS: BP 138/80
[2019-09-29] MEDS: ACCU-CHEK COMFORT CURVE STRIP VI SCH ×4 (06:48→22:04)
[2019-09-29] MEDS: InsuLIN REG 1unit/0.01ml Soln (100units/ml) SC SCH ×4 (06:48→22:00)
[2019-09-29 09:00] VITALS: BP_SYST 125; BP_SYST 135; BP_DIAS 80
--- NOTE | 2019-09-29 09:00 | NUR ---
DOCUMENTATION REMAINED PINK. I DID NOT WORK THIS DAY, JUST CLEARED THE PINK.
[2019-09-29] MEDS: INSULIN LANTUS (GLARGINE) 1 /0.01ml (100units/ml) SC SCH (10:00)
[2019-09-29] MEDS: FAMOTIDINE 20 MG TAB PO SCH ×2 (10:18→22:05)
[2019-09-29] MEDS: ASPirin 325 MG TAB PO SCH (10:18)
[2019-09-29] MEDS: MULTIPLE VITAMINS W/ MINERALS TAB PO SCH (10:18)
[2019-09-29] MEDS: DOXYCYCLINE 100 MG TAB/CAP PO SCH ×2 (10:18→22:05)
[2019-09-29] MEDS: ENOXAPARIN SOD 40 MG/0.4 ML SYRINGE SC SCH (10:20)
[2019-09-29] MEDS: amLODIPine BESYLATE 5 MG TAB PO SCH (10:21)
--- NOTE | 2019-09-29 10:21 | NUR ---
Weekend furnace converter-I received a page from nurse Cope letting me know that patient's oxygen requirements are down to 5 liters via oximizer-asking if [facility] will accept him with current oxygen level. I called [facility] and spoke with Isela, she will have someone give me a call back. I received a call back from [facility] letting me know that they can not accept patient on an oximizer, patient has to be on oxygen via simple nasal cannula.
--- NOTE | 2019-09-29 10:30 | NUR ---
WOUND CARE NOTE: IN TO ASSESS FUNCTION OF WOUND VAC DRESSING TO RIGHT FOOT AT THIS TIME. VAC DRESSING INTACT, GOOD SUCTION, NO LEAKS DETECTED. VAC IS RUNNING AT 125 MM/HG CONTINUOUS. WOUND CARE TEAM WILL CONTINUE TO MONITOR.
--- NOTE | 2019-09-29 12:58 | NUR ---
per wound care Gina, patient had a home woundvac and would need the family to bring the wound vac before DC, fully charged and with a new canister, otherwise patient could leave with wet to dry DSG and patient family would need to take home woundvac to [facility].
[2019-09-29 13:00] VITALS: BP 135/78
--- NOTE | 2019-09-29 13:00 | NUR ---
Attempted to call significant other, no answer.
--- NOTE | 2019-09-29 13:10 | NUR ---
Per Dr Cancino I attempted to call Gina wound care again to see if wound vac could be DC'd, no answer will attempt again shortly.
--- NOTE | 2019-09-29 14:00 | NUR ---
WOUND CARE NOTE: CALL FROM BEDSIDE NURSE, ASKING IF PATIENT NEEDS TO CONTINUE WITH WOUND VAC AT THIS TIME. DR. HAGAN HAS ORDERED THE WOUND VAC, HE SHOULD BE THE CONSULTED TO WHETHER TO DISCONTINUE THE WOUND VAC OR NOT.
--- NOTE | 2019-09-29 16:19 | NUR ---
D/C Planning Regarding social service consult for SNF placement. Placed follow up called to Praveen [place] advising him patient is discharging today. Per Praveen [place] there is not beds available at this time for (+) COVID patients. Contact [facility]. Per Smiley with [facility] they are not taking any new patient until Sunday. Contact Monica with [facility] requesting a list of facilities who are accepting patient who are (+)COVID. Informed NANCY Zuñiga.
--- NOTE | 2019-09-29 16:19 | NUR ---
Per [facility] does not have any covid beds open at this time. Will try again tomorrow. Waiting for Dr Cancino to call back to update.
--- NOTE | 2019-09-29 16:41 | NUR ---
Per Dr Barak ADAMS wound vac and retest for covid.
--- NOTE | 2019-09-29 17:22 | NUR ---
WOUND CARE NOTE: DR. HARRIS HAS ORDERED FOR D/C OF WOUND VAC AT THIS TIME. VAC DC'D BY BEDSIDE NURSE, CRYSTAL VAC PLACED IN DIRTY UTILITY ROOM. PATIENT WOULD BENEFIT FROM EOD/PRN DRESSING CHANGE WITH THE FOLLOWING: CLEANSE WITH WOUND CLEANSER, PAT DRY WITH STERILE GAUZE. APPLY THERAHONEY INTO OPEN WOUND BED. PACK WOUND GENTLY WITH ADAPTIC OR XEROFORM GAUZE. COVER WITH OPTIFOAM GENTLE OR OPTIFOAM AND KERLIX WRAP. CHANGE EVERY OTHER DAY OR NEEDED. PATIENT SHOULD CONTINUE PODIATRY CARE FOR RIGHT FOOT WITH DR. HAGAN POST DISCHARGE. WOUND CARE TEAM WILL CONTINUE TO MONITOR UNTIL DISCHARGE.
--- NOTE | 2019-09-29 17:25 | NUR ---
Patient swabbed for covid and sample sent.
--- NOTE | 2019-09-29 17:30 | NUR ---
DSG change done. Wound vac placed in bedside table for now.
--- NOTE | 2019-09-29 20:00 | NUR ---
Opening Shift Note Assumed care of patient awake and alert to self, patient reoriented to person, place, time, and situation, will continue to reorient patient as needed and throughout shift. Patient is on 4L/min NC, SPO2: 92% at this time. Patient denies pain or shortness of breath at this time. Instructed on plan of care and encouraged patient to call for assistance as needed, will continue to reinforce education as needed and throughout shift. Bed is locked in lowest position, side rails x 2 are up, call light is within reach, bed alarm is on, and sitter at the bedside for safety precautions.
[2019-09-29 21:43] VITALS: BP 151/94
[2019-09-29] MEDS: ATORVASTATIN 20 MG TAB PO SCH (22:05)
[2019-09-30 05:00] VITALS: BP 144/82
[2019-09-30] MEDS: InsuLIN REG 1unit/0.01ml Soln (100units/ml) SC SCH ×4 (05:59→22:00)
[2019-09-30] MEDS: MINOXIDIL 2.5 MG TAB PO SCH ×3 (05:59→22:58)
[2019-09-30] MEDS: ACCU-CHEK COMFORT CURVE STRIP VI SCH ×4 (05:59→22:59)
[2019-09-30] MEDS: METOPROLOL TARTRATE 25 MG TAB PO SCH ×3 (05:59→22:58)
[2019-09-30 09:00] VITALS: BP 134/78
[2019-09-30] MEDS: ASPirin 325 MG TAB PO SCH (09:55)
[2019-09-30] MEDS: MULTIPLE VITAMINS W/ MINERALS TAB PO SCH (09:55)
[2019-09-30] MEDS: FAMOTIDINE 20 MG TAB PO SCH ×2 (09:55→22:58)
[2019-09-30] MEDS: INSULIN LANTUS (GLARGINE) 1 /0.01ml (100units/ml) SC SCH (09:56)
[2019-09-30] MEDS: ENOXAPARIN SOD 40 MG/0.4 ML SYRINGE SC SCH (09:56)
[2019-09-30] MEDS: DOXYCYCLINE 100 MG TAB/CAP PO SCH ×2 (09:56→22:58)
[2019-09-30] MEDS: amLODIPine BESYLATE 5 MG TAB PO SCH (10:00)
--- NOTE | 2019-09-30 12:28 | NUR ---
called [facility] for update on SNF bed status, left voicemail.
[2019-09-30 13:09] VITALS: BP 136/77
--- NOTE | 2019-09-30 14:05 | NUR ---
Talked with [facility]), still no Covid SNF bed available, AUSTEN will continue to call multiple SNF's for placement.
--- NOTE | 2019-09-30 15:54 | NUR ---
D/C planning Faxed clinical information to [facility], [facility], [facility] and [facility]. Per representatives they do not have any Positive COVID male beds available at this time. Placed call to Praveen with [facility]. Per Praveen with [facility] they are at full capacity with their COVID unit. Informed RN Zara. Will continue to call.
--- NOTE | 2019-09-30 16:23 | NUR ---
Nutrition Followup Notes Wt: 109.8 kg using recorded wt on 09/24 (Note 70.5 kg recorded on 09/25 thereon, a 39 kg difference) Unable to speak to pt d/t pt is positive for COVID. Pt is with a CCHO 60g diet, with inadequate PO of 28%x 3 days per RN doc. If pt continues to have poor po intake consider adding Glucerna 1 carton BID. Pt is with D/C pending transfer to a SNF. Will continue to monitor PO status, skin status, pertinent labs and weight trends. Will f/u in 3-5 days. Est energy needs ABW 95 [id number] kcal (23-25 kcal/kg BW), Est protein needs 95-104g (1.0-1.1g/kg BW r/t elev RFT severe hypoalb wounds). Will reassess prn. LABS: Alb 1.7L GI: Pt had 6 BM on 09/29 per RN doc. BS: 15 mod risk. Refer to wound assessment report for full details. PES: 1) Altered nutrition related lab values r.t current chronic medical condition aeb elev RFT A1C severe hypoalb 2) Decreased nutrient needs r/t adiposity aeb pt`s high BMI of 31.3 kgm2 Comments 1) Refer to CDE on DC 2) Consider prostat 1 packet bid as RFT improve 3) Continue current plan of care
[2019-09-30 17:00] VITALS: BP 140/91
[2019-09-30] MEDS: ATORVASTATIN 20 MG TAB PO SCH (22:57)
[2019-10-01 05:00] VITALS: BP 142/81
--- NOTE | 2019-10-01 06:00 | NUR ---
Wound Care Wound care to right foot performed as ordered by MD. Patient tolerated well. No sign/symptoms of distress noted or verbalized at this time.
--- NOTE | 2019-10-01 06:05 | NUR ---
Wound Care to Sacrum Cleansed patient's sacrum with clean soap and water, zguard, and optifoam applied to sacrum. Patient tolerated well.
[2019-10-01] MEDS: ACCU-CHEK COMFORT CURVE STRIP VI SCH ×4 (06:17→20:37)
[2019-10-01] MEDS: InsuLIN REG 1unit/0.01ml Soln (100units/ml) SC SCH ×4 (06:18→22:00)
[2019-10-01] MEDS: METOPROLOL TARTRATE 25 MG TAB PO SCH ×3 (06:19→20:37)
[2019-10-01] MEDS: MINOXIDIL 2.5 MG TAB PO SCH ×3 (06:19→20:36)
--- NOTE | 2019-10-01 07:30 | NUR ---
Opening Shift Note Assumed care of patient, awake and alert but confused to situation, re-oriented. No S/S of distress/SOB or pain on 5 lpm via nasal cannula. Instructed on POC and to call for assist PRN, will continue to monitor for changes Q1hr and PRN. Bed in low and locked position, rails-up x2, no-slip socks on. Sitter at bedside for patient safety.
[2019-10-01 09:00] VITALS: BP 142/81
[2019-10-01] MEDS: INSULIN LANTUS (GLARGINE) 1 /0.01ml (100units/ml) SC SCH (10:00)
[2019-10-01] MEDS: FAMOTIDINE 20 MG TAB PO SCH ×2 (10:16→20:36)
[2019-10-01] MEDS: MULTIPLE VITAMINS W/ MINERALS TAB PO SCH (10:16)
[2019-10-01] MEDS: ASPirin 325 MG TAB PO SCH (10:16)
[2019-10-01] MEDS: DOXYCYCLINE 100 MG TAB/CAP PO SCH ×2 (10:16→20:36)
[2019-10-01] MEDS: amLODIPine BESYLATE 5 MG TAB PO SCH (10:18)
[2019-10-01] MEDS: ENOXAPARIN SOD 40 MG/0.4 ML SYRINGE SC SCH (10:18)
--- NOTE | 2019-10-01 12:00 | NUR ---
FAMILY CALL SIGNIFICANT OTHER TONIO CALL [phone], PASSWORD VERIFIED, PER TONIO PATIENT FUNCTIONED INDEPENDENTLY PRIOR TO HOSPITALIZATION, SHE IS CURRENTLY DISABLED HERSELF AND ON A FIXED INCOME, SHE IS UNABLE TO CARE FOR HIM IF HE WERE TO BE DISCHARGED HOME. UPDATED ON PLAN OF CARE AND PATIENT CONDITION, ALL QUESTIONS ANSWERED.
[2019-10-01 13:00] VITALS: BP 130/79
--- NOTE | 2019-10-01 14:48 | NUR ---
DR HARRIS AT BEDSIDE
[2019-10-01 16:51] VITALS: BP 123/77
--- NOTE | 2019-10-01 20:00 | NUR ---
Opening Shift Note Assumed care of patient awake and alert to self, patient reoriented to person, place, time, and situation, will continue to reorient patient as needed and throughout shift. Patient denies pain or shortness of breath at this time. Instructed on plan of care and encouraged patient to call for assistance as needed, will continue to reinforce education as needed and throughout shift. Bed is locked in lowest position, side rails x 2 are up, call light is within reach, bed alarm is on, and sitter at the bedside for safety precautions.
[2019-10-01 20:12] LABS: Basophils # (auto) 0.1 10 ^3/uL (0-0.2); Eosinophils # (auto) 0.4 10 ^3/uL (0-0.8); Eosinophils % (auto) 3.3 % (0.0-7.0); Hematocrit 33.4 % (41.0-53.0); Hemoglobin 11.1 g/dL (13.5-17.5); Lymphocytes # (auto) 0.8 10 ^3/uL (0.4-5.4); Lymphocytes % (auto) 6.9 % (10.0-50.0); Mean Corpuscular Hemoglobin 27.9 pg (28.0-32.0); Mean Corpuscular Hgb Conc. 33.3 g/dL (32.0-36.0); Mean Corpuscular Volume 83.9 fL (80.0-100.0); Monocytes # (auto) 0.5 10 ^3/uL (0-1.3); Monocytes % (auto) 4.2 % (0.0-12.0); Neutrophils # (auto) 10.2 10 ^3/uL (1.6-8.6); Neutrophils % (auto) 84.6 % (37.0-80.0); Nucleated Red Blood Cells % 0.1 %; Platelet Count (auto) 159 10^3/uL (140-450); Red Blood Cells 3.98 10^6/uL (4.5-5.90); White Blood Cell 12.1 10^3/uL (4.4-10.8)
[2019-10-01 20:26] LABS: Albumin 1.7 g/dL (3.4-5.0); BUN/Creatinine Ratio 26.8; Calcium 9.2 mg/dL (8.5-10.1); Potassium 4.7 mmol/L (3.5-5.1)
[2019-10-01 20:29] LABS: Bilirubin, Total 1.2 mg/dL (0.2-1.0); Total Protein 5.9 g/dL (6.4-8.2)
[2019-10-01] MEDS: ATORVASTATIN 20 MG TAB PO SCH (20:36)
[2019-10-02 05:04] VITALS: BP 127/74
--- NOTE | 2019-10-02 06:00 | NUR ---
Wound Care to Sacrum Cleansed patient's sacrum with clean soap and water, zguard, and optifoam applied to sacrum. Patient tolerated well.
[2019-10-02] MEDS: ACCU-CHEK COMFORT CURVE STRIP VI SCH ×4 (06:18→22:24)
[2019-10-02] MEDS: InsuLIN REG 1unit/0.01ml Soln (100units/ml) SC SCH ×4 (06:19→22:00)
[2019-10-02] MEDS: METOPROLOL TARTRATE 25 MG TAB PO SCH ×3 (06:19→22:24)
[2019-10-02] MEDS: MINOXIDIL 2.5 MG TAB PO SCH ×3 (06:19→22:24)
--- NOTE | 2019-10-02 07:32 | NUR ---
Opening Shift Note Assumed care of patient, awake and alert but confused. No S/S of distress/SOB or pain. Instructed on POC and to call for assist PRN, will continue to monitor for changes Q1hr and PRN. Bed in low and locked position, rails up x2, no-slip socks on. Sitter at bedside for safety.
[2019-10-02] MEDS: FAMOTIDINE 20 MG TAB PO SCH ×2 (08:23→22:24)
[2019-10-02] MEDS: MULTIPLE VITAMINS W/ MINERALS TAB PO SCH (08:23)
[2019-10-02] MEDS: DOXYCYCLINE 100 MG TAB/CAP PO SCH ×2 (08:23→22:24)
[2019-10-02] MEDS: ASPirin 325 MG TAB PO SCH (08:23)
[2019-10-02] MEDS: ENOXAPARIN SOD 40 MG/0.4 ML SYRINGE SC SCH (08:24)
[2019-10-02 08:30] VITALS: BP 110/69
[2019-10-02] MEDS: amLODIPine BESYLATE 5 MG TAB PO SCH (08:30)
[2019-10-02] MEDS: INSULIN LANTUS (GLARGINE) 1 /0.01ml (100units/ml) SC SCH (08:36)
[2019-10-02] MEDS: Ensure Enlive Strawberry 8oz Bottle PO SCH ×2 (12:00→18:32)
[2019-10-02 12:52] VITALS: BP 124/72
--- NOTE | 2019-10-02 14:00 | NUR ---
PHYSICAL THERAPY AT BEDSIDE
--- NOTE | 2019-10-02 15:00 | NUR ---
FAMILY CALL PATIENTS MOTHER -PASSWORD PROVIDED, UPDATED ON PLAN OF CARE AND PATIENTS STATUS, TRANSFERRED CALL INTO ROOM SO FAMILY COULD TALK TO PATIENT.
--- NOTE | 2019-10-02 15:36 | NUR ---
D/C Planning Contact patient significant other Ifeoma regarding discharge plan. Informed Ifeoma bedside nurse Poppy advised me provided wanted to change orders to home with home health. Per Ifeoma she can't care for patient at this time and is hoping he can be placed at a skill nursing. Informed Ifeoma we will continue to look for placement. [facility]. Per representatives with [facility], and [facility] they do not have any bed available at this time. Per Smiley with [facility] they will start accepting patient tomorrow Sunday. Informed Smiley with [facility] I will contact her in the morning.
[2019-10-02 16:51] VITALS: BP 108/74
[2019-10-02 22:00] VITALS: BP 136/81
[2019-10-02] MEDS: methylPREDNISolone SOD SUCC 40 MG/ML VL IV SCH (22:23)
[2019-10-02] MEDS: ATORVASTATIN 20 MG TAB PO SCH (22:24)
[2019-10-02] MEDS: ENOXAPARIN SOD 120 MG/0.8 ML SYRINGE SC SCH (22:24)
--- NOTE | 2019-10-03 04:05 | NUR ---
IV insertion IV access obtained, via clean sterile technique by inserting 22 gauge catheter at right hand after 1 attempt. IV secured properly. No trauma to site. Patient tolerated well.
--- NOTE | 2019-10-03 04:10 | NUR ---
IV removal IV DC'd to left forearm per infectious control protocol. IV DC'd with clean sterile technique, catheter fully intact. Pressure dressing applied to site. Patient tolerated well.
--- NOTE | 2019-10-03 04:30 | NUR ---
Wound Care to Sacrum Cleansed patient's sacrum with clean soap and water, zguard, and optifoam applied to sacrum. Patient tolerated well.
[2019-10-03 04:59] VITALS: BP 113/71
--- NOTE | 2019-10-03 05:00 | NUR ---
Wound Care To Right Foot Right foot wound bed greatest portion was red with slough surrounding it. Wound was cleansed with wound cleanser, patted dry with sterile gauze, therahoney was applied to open wound bed, wound packed gently with xeroform guaze, covered with optifoam, and wrapped with kerlix wrap as ordered by MD. Patient tolerated well.
[2019-10-03] MEDS: MINOXIDIL 2.5 MG TAB PO SCH ×3 (05:57→22:32)
[2019-10-03] MEDS: METOPROLOL TARTRATE 25 MG TAB PO SCH ×3 (05:58→22:33)
[2019-10-03] MEDS: ACCU-CHEK COMFORT CURVE STRIP VI SCH ×4 (06:04→22:33)
[2019-10-03] MEDS: InsuLIN REG 1unit/0.01ml Soln (100units/ml) SC SCH ×4 (06:04→22:33)
--- NOTE | 2019-10-03 06:45 | NUR ---
Respiratory note: PT IS RESTING COMFORTABLY. NO RESPIRATORY DISTRESS NOTED. SPO2 91% ON 4L NC, HR 86, RR 18, DIMINISHED BILATERALLY. NO FURTHER RESPIRATORY INTERVENTIONS INDICATED. WILL CONTINUE TO MONITOR PT. CHARTING COMPLETE FROM OUTSIDE OF PT ROOM PER COVID-19 PRECAUTIONS/PROTOCOL.
--- NOTE | 2019-10-03 07:40 | NUR ---
OPENING NOTE ASSUMED CARE OF PT. ALERT AND AWAKE. NO S/S OF SOB/DISTRESS NOTED. BED SET TO LOWEST POSITION/LOCKED. BEDSIDE RAILS UP X2. CALL LIGHT WITHIN REACH. SITTER AT BEDSIDE FOR SAFETY. WILL CONTINUE TO MONITOR Q1HR AND PRN.
[2019-10-03 07:42] LABS: Hematocrit 32.2 % (41.0-53.0); Hemoglobin 10.9 g/dL (13.5-17.5); Mean Corpuscular Hemoglobin 28.2 pg (28.0-32.0); Mean Corpuscular Hgb Conc. 33.8 g/dL (32.0-36.0); Mean Corpuscular Volume 83.5 fL (80.0-100.0); Platelet Count (auto) 177 10^3/uL (140-450); Red Blood Cells 3.85 10^6/uL (4.5-5.90); Red Cell Distribution Width 16.8 % (11.8-14.3)
[2019-10-03 07:46] LABS: Band Neutrophils % (manual) 0; Basophils % (manual) 0 (0.0-2.0); Blast Cells 0; Eosinophils % (manual) 0 (0-7); Metamyelocytes % 0; Myelocytes % 0; Promyelocytes % 0; Reactive Lymphocytes 0
[2019-10-03 08:00] LABS: Lymphocytes % (manual) 3 (10.0-50.0); Monocytes % (manual) 1 (0-12)
[2019-10-03] MEDS: Ensure Enlive Strawberry 8oz Bottle PO SCH ×3 (08:00→18:00)
[2019-10-03 08:02] LABS: Albumin 1.9 g/dL (3.4-5.0); Calcium 9.2 mg/dL (8.5-10.1); Potassium 5.1 mmol/L (3.5-5.1)
[2019-10-03 08:05] LABS: BUN/Creatinine Ratio 26.8; Bilirubin, Total 1.4 mg/dL (0.2-1.0); Total Protein 6.4 g/dL (6.4-8.2)
[2019-10-03 09:00] VITALS: BP 123/67
[2019-10-03] MEDS: methylPREDNISolone SOD SUCC 40 MG/ML VL IV SCH ×2 (09:43→22:31)
[2019-10-03] MEDS: ASPirin 325 MG TAB PO SCH (09:46)
[2019-10-03] MEDS: MULTIPLE VITAMINS W/ MINERALS TAB PO SCH (09:47)
[2019-10-03] MEDS: FAMOTIDINE 20 MG TAB PO SCH ×2 (09:48→22:31)
[2019-10-03] MEDS: ENOXAPARIN SOD 120 MG/0.8 ML SYRINGE SC SCH ×2 (09:49→22:33)
[2019-10-03] MEDS: DOXYCYCLINE 100 MG TAB/CAP PO SCH ×2 (09:49→22:32)
[2019-10-03] MEDS: INSULIN LANTUS (GLARGINE) 1 /0.01ml (100units/ml) SC SCH (10:04)
[2019-10-03] MEDS: amLODIPine BESYLATE 5 MG TAB PO SCH (10:06)
[2019-10-03 13:00] VITALS: BP 137/76
--- NOTE | 2019-10-03 14:18 | NUR ---
Nutrition Followup Notes Wt: 107.0 kg - recorded wt on 10/02 Unable to speak to pt d/t pt is positive for COVID. Pt is with a CCHO 60g diet, appetite is improved aeb PO of 100% PO intake over 2 meals per RN doc. Pt is with D/C pending transfer to a SNF. Will continue to monitor PO status, skin status, pertinent labs and weight trends. Will f/u in 3-5 days. Est energy needs ABW 95 [id number] kcal (23-25 kcal/kg BW), Est protein needs 95-104g (1.0-1.1g/kg BW r/t elev RFT severe hypoalb wounds). Will reassess prn. LABS: Alb 1.9 L, Gluc 260 H GI: Pt had 2 BM on 10/02 per RN doc. BS: 21 low risk. Refer to wound assessment report for full details. PES: 1) Altered nutrition related lab values r.t current chronic medical condition aeb elev RFT A1C severe hypoalb 2) Decreased nutrient needs r/t adiposity aeb pt`s high BMI of 31.3 kgm2 Comments 1) Refer to CDE on DC 2) Consider prostat 1 packet bid as RFT improve 3) Continue current plan of care
--- NOTE | 2019-10-03 14:22 | NUR ---
D/C Planning Per representatives with [facility], and [facility] they do not have any bed available at this time. Placed follow up called to Smiley with [facility]. Per Smiley they are unable to accommodate patient needs at this time.
[2019-10-03 17:00] VITALS: BP 128/73
[2019-10-03 22:00] VITALS: BP 123/73
[2019-10-03] MEDS: ATORVASTATIN 20 MG TAB PO SCH (22:31)
[2019-10-04] MEDS ORDERED: HALOPERIDOL LACTATE 5 MG/ML INJ VIAL IV PRN (00:45)
[2019-10-04] MEDS ORDERED: HALOPERIDOL LACTATE 5 MG/ML INJ VIAL IM PRN (00:45)
--- NOTE | 2019-10-04 00:55 | NUR ---
Agitation Patient is alert and oriented to self. Patient is ripping off nasal cannula, trying to take out IV, attempting to get out off bed, and swinging at staff. This RN and sitter attempted to reorient patient to person, place, time, and situation several times and have tried to calm patient down by speaking in a soft tone and reassuring patient he is in the hospital several times, patient not understanding and is still ripping off nasal cannula, trying to take out IV, attempting to get out off bed, and attempting to punch staff when staff tries to reapply nasal cannula back on. Patient's oxygen saturation is 82% on room air. 00:37: Dr. Bass covering for Dr. Castañeda at this time. Dr. Bass notified of patient status. Orders received from Dr. Bass for Haldol 1mg IM as needed every 6 hours for agitation. Order read back and verified. Will carry out order as received. 00:55: Patient still ripping off nasal cannula, trying to take out IV, and swinging at this RN and sitter when attempting to place nasal cannula back on. Oxygen saturation at 82% on room air. Patient has been medicated for agitation as ordered by MD (see eMAR). Addendum: 10/04/19 at 0222 by ANDREW FENTON RN RN Mittens were applied for safety precautions.
--- NOTE | 2019-10-04 02:20 | NUR ---
Rounds Patient laying in bed, eyes closed, with even and unlabored respirations. Patient is on 4L NC, SPO2: 92%. No sign/symptoms of distress noted or verbalized at this time. Sitter at the bedside for safety precautions.
--- NOTE | 2019-10-04 02:35 | NUR ---
Patient attempting to get out off bed Was called to the bedside by sitter due to patient attempting to get out of bed. Upon entering room patient had his legs hanging from the bed. Patient was alert and oriented to self. When this RN asked patient what he was doing, patient stated "I need to go the hospital." This RN and sitter reoriented patient to person, place, time, and situation, patient not understanding and still states "I need to go the hospital." This RN and sitter assisted patient back into bed. Patient is currently laying in bed with even and unlabored respirations. Sitter at the bedside for safety precautions.
[2019-10-04 05:00] VITALS: BP 111/71
[2019-10-04] MEDS: MINOXIDIL 2.5 MG TAB PO SCH ×3 (06:00→22:00)
[2019-10-04] MEDS: METOPROLOL TARTRATE 25 MG TAB PO SCH ×3 (06:00→22:00)
[2019-10-04] MEDS: ACCU-CHEK COMFORT CURVE STRIP VI SCH ×4 (07:03→21:57)
[2019-10-04] MEDS: InsuLIN REG 1unit/0.01ml Soln (100units/ml) SC SCH ×4 (07:03→21:57)
--- NOTE | 2019-10-04 07:10 | NUR ---
Respiratory note: POX: HR 90, RR 16, SPO2 95% ON 5L NC, BS CLEAR DIMINISHED. NO SIGNS OR SYMPTOMS OF RESPIRATORY DISTRESS NOTED AT THIS TIME. WILL CONTINUE TO MONITOR ORDERED.
[2019-10-04] MEDS: Ensure Enlive Strawberry 8oz Bottle PO SCH ×3 (08:00→18:26)
[2019-10-04 08:41] VITALS: BP 123/69
[2019-10-04] MEDS: methylPREDNISolone SOD SUCC 40 MG/ML VL IV SCH ×2 (11:22→21:56)
[2019-10-04] MEDS: ASPirin 325 MG TAB PO SCH (11:23)
[2019-10-04] MEDS: MULTIPLE VITAMINS W/ MINERALS TAB PO SCH (11:23)
[2019-10-04] MEDS: amLODIPine BESYLATE 5 MG TAB PO SCH (11:23)
[2019-10-04] MEDS: FAMOTIDINE 20 MG TAB PO SCH ×2 (11:24→22:00)
[2019-10-04] MEDS: ENOXAPARIN SOD 120 MG/0.8 ML SYRINGE SC SCH ×2 (11:24→21:57)
[2019-10-04] MEDS: DOXYCYCLINE 100 MG TAB/CAP PO SCH ×2 (11:24→22:00)
[2019-10-04] MEDS: INSULIN LANTUS (GLARGINE) 1 /0.01ml (100units/ml) SC SCH (11:37)
--- NOTE | 2019-10-04 12:00 | NUR ---
VINYL WELDER AND FABRICATOR PAGE CARIDAD FROM . UPDATED HER ON MD ROD ORDER. PER CARIDAD SHE WILL LOOKING IN TO THE MATTER AND WILL CALL THIS NURSE BACK LATER ON TODAY.
[2019-10-04 13:00] VITALS: BP 128/77
[2019-10-04 17:00] VITALS: BP 131/77
--- NOTE | 2019-10-04 17:26 | NUR ---
PAGED DR. HARRIS RE: BLOOD GLUCOSE 418. AWAITING CALL BACK. WILL CONTINUE TO MONITOR.
--- NOTE | 2019-10-04 17:53 | NUR ---
2ND CALL TO PAGED DR. HARRIS RE: BLOOD GLUCOSE 418. AWAITING CALL BACK. WILL CONTINUE TO MONITOR.
--- NOTE | 2019-10-04 18:15 | NUR ---
RECEIVED CALL FROM DR. HARRIS. MADE HIM AWARE OF B. NEW ORDERS GIVEN/CARRIED OUT. WILL CONTINUE TO MONITOR.
[2019-10-04] MEDS ORDERED: DEXTROSE (50%) 50ML SYRG IV PRN ×2 (18:30→19:15)
--- NOTE | 2019-10-04 19:19 | NUR ---
BS at 405. INSULIN ALREADY PROVIDED PER PATIENT REQUEST, BS CHECKED AGAIN. BS AT 405. BS DECREASED FROM 418 AFTER PREVIOUS CHECK. WILL CONTINUE TO MONITOR.
[2019-10-04] MEDS: hydrALAZINE HCL 20 MG/ML VL IV PRN (21:58)
[2019-10-04 22:00] VITALS: BP 158/79
[2019-10-04] MEDS: ATORVASTATIN 20 MG TAB PO SCH (22:00)
[2019-10-04] MEDS ORDERED: ACCU-CHEK COMFORT CURVE STRIP VI SCH (22:00)
[2019-10-04] MEDS ORDERED: InsuLIN REG 1unit/0.01ml Soln (100units/ml) SC SCH (22:00)
--- NOTE | 2019-10-04 22:30 | NUR ---
PT MED HELD PT ASLEEP BUT AROUSABLE REFUSES TO OPEN EYES AND TAKE MEDICATIONS. PATIENT CONSENTED TO IV AND SQ INJECTIONS. WILL CONTINUE TO MONITOR.
[2019-10-05] MEDS: cloNIDine HCL 0.1 MG TAB PO PRN (00:44)
[2019-10-05 05:00] VITALS: BP 130/101
[2019-10-05] MEDS: ACCU-CHEK COMFORT CURVE STRIP VI SCH ×4 (06:18→22:51)
[2019-10-05] MEDS: MINOXIDIL 2.5 MG TAB PO SCH ×3 (06:18→22:49)
[2019-10-05] MEDS: METOPROLOL TARTRATE 25 MG TAB PO SCH ×3 (06:18→22:50)
[2019-10-05] MEDS: InsuLIN REG 1unit/0.01ml Soln (100units/ml) SC SCH ×4 (06:22→22:52)
--- NOTE | 2019-10-05 06:50 | NUR ---
IV insertion IV IN RIGHT HAND REMOVED BY PATIENT IN SLEEP, IV CATHETER INTACT. IV access obtained, via clean sterile technique by inserting 22 gauge catheter at right hand after 1 attempt(s). IV secured properly. No trauma to site. Patient tolerated well.
[2019-10-05] MEDS ORDERED: InsuLIN REG 1unit/0.01ml Soln (100units/ml) SC SCH (07:00)
[2019-10-05] MEDS: Ensure Enlive Strawberry 8oz Bottle PO SCH ×3 (08:00→18:00)
[2019-10-05 08:56] VITALS: BP 126/69
[2019-10-05] MEDS: methylPREDNISolone SOD SUCC 40 MG/ML VL IV SCH ×2 (10:25→22:48)
[2019-10-05] MEDS: ASPirin 325 MG TAB PO SCH (10:25)
[2019-10-05] MEDS: amLODIPine BESYLATE 5 MG TAB PO SCH (10:26)
[2019-10-05] MEDS: FAMOTIDINE 20 MG TAB PO SCH ×2 (10:26→22:50)
[2019-10-05] MEDS: DOXYCYCLINE 100 MG TAB/CAP PO SCH ×2 (10:26→22:50)
[2019-10-05] MEDS: MULTIPLE VITAMINS W/ MINERALS TAB PO SCH (10:26)
[2019-10-05] MEDS: ENOXAPARIN SOD 120 MG/0.8 ML SYRINGE SC SCH ×2 (10:27→22:50)
[2019-10-05] MEDS: INSULIN LANTUS (GLARGINE) 1 /0.01ml (100units/ml) SC SCH (10:38)
[2019-10-05 13:00] VITALS: BP 132/70
[2019-10-05 17:00] VITALS: BP 119/70
--- NOTE | 2019-10-05 19:35 | NUR ---
Opening Shift Note Assumed care of patient, awake. No S/S of distress/SOB or pain. Safety measures in place bed in lowest position, side rails up x2, and call light within reach. Sitter at the bedside. Patient on 4L NC. Instructed on POC and to call for assist PRN, will continue to monitor for changes Q1hr and PRN.
[2019-10-05 22:00] VITALS: BP 145/78
[2019-10-05] MEDS: ATORVASTATIN 20 MG TAB PO SCH (22:48)
[2019-10-06 05:00] VITALS: BP 161/101
[2019-10-06] MEDS: MINOXIDIL 2.5 MG TAB PO SCH ×3 (05:33→22:23)
[2019-10-06] MEDS: METOPROLOL TARTRATE 25 MG TAB PO SCH ×3 (05:38→22:23)
[2019-10-06] MEDS: ACCU-CHEK COMFORT CURVE STRIP VI SCH ×4 (05:38→22:24)
[2019-10-06] MEDS: InsuLIN REG 1unit/0.01ml Soln (100units/ml) SC SCH ×4 (05:45→22:25)
--- NOTE | 2019-10-06 07:10 | NUR ---
opening note pt is a sitter pt. pt is alert to self x1. no s/s of pain or discomfort. pt is bedrest. pt on 6 liters nasal cannula. bed in low locked position, call light within reach.
[2019-10-06] MEDS: Ensure Enlive Strawberry 8oz Bottle PO SCH ×3 (08:00→18:00)
[2019-10-06 09:00] VITALS: BP 156/87
[2019-10-06] MEDS: FAMOTIDINE 20 MG TAB PO SCH ×2 (10:00→22:23)
[2019-10-06] MEDS: ASPirin 325 MG TAB PO SCH (10:30)
[2019-10-06] MEDS: methylPREDNISolone SOD SUCC 40 MG/ML VL IV SCH ×2 (10:30→22:19)
[2019-10-06] MEDS: MULTIPLE VITAMINS W/ MINERALS TAB PO SCH (10:32)
[2019-10-06] MEDS: amLODIPine BESYLATE 5 MG TAB PO SCH (10:32)
[2019-10-06] MEDS: DOXYCYCLINE 100 MG TAB/CAP PO SCH (10:33)
[2019-10-06] MEDS: ENOXAPARIN SOD 120 MG/0.8 ML SYRINGE SC SCH ×2 (10:33→22:24)
[2019-10-06] MEDS: INSULIN LANTUS (GLARGINE) 1 /0.01ml (100units/ml) SC SCH (10:57)
--- NOTE | 2019-10-06 11:31 | NUR ---
Nutrition Followup Notes Wt: 107.0 kg - recorded wt on 10/02 Unable to speak to pt d/t pt is positive for COVID. Pt is with a CCHO 60g diet, appetite is still good aeb pt with 100% of po intake x 4 meals 8/2-8/3 per RN note. Pt is with D/C pending transfer to a SNF. Est energy needs ABW 95 [id number] kcal (23-25 kcal/kg BW), Est protein needs 95-104g (1.0-1.1g/kg BW r/t elev RFT severe hypoalb wounds). Will reassess prn. LABS: Alb 1.9 L, Gluc 205 H GI: Pt with 9 BMs 8/3 per RN note, pt with no diarrhea noted in GI/ per RN note BS: 18 mod risk. Refer to wound assessment report for full details. PES: 1) Altered nutrition related lab values r.t current chronic medical condition aeb elev RFT A1C severe hypoalb 2) Decreased nutrient needs r/t adiposity aeb pt`s high BMI of 31.3 kgm2 Comments 1) Refer to CDE on DC 2) Consider prostat 1 packet bid as RFT improve 3) Continue current plan of care f/u 3-5 days
[2019-10-06 12:30] VITALS: BP 131/82
--- NOTE | 2019-10-06 16:00 | NUR ---
WOUND CARE NOTE: IN TO SEE PATIENT AT THIS TIME FOR SKIN INTEGRITY. PATIENT CONTINUES TO BE ON AIRBORNE ISOLATION FOR COVID 19 IN COVID UNIT. CURRENT [place] SCORE IS 14. PATIENT IS ABLE TO SELF TURN/REPOSITION SELF. HE IS ABLE TO AMBULATE WITH ASSISTANCE OF PHYSICAL THERAPY. HE CONTINUES TO BE INCONTINENT OF STOOL, REQUIRING FREQUENT PERICARE. PATIENT'S SACRUM/BUTTOCKS LOOK MUCH IMPROVED WITH LESS ERYTHEMA, NO SKIN EROSION AT THIS POINT. APPLIED ZGUARD, AND OPTIFOAM GENTLE SACRAL DRESSING. PATIENT'S RIGHT MEDIAL FOOT WOUND APPEARS SMALLER, WITH SOME SOFT ESCHAR NOTED TO LOWER HALF OF WOUND. LIGHT RED GRANULATION NOTED TO REMAINING WOUND BED. APPLIED THERAHONEY GEL, XEROFORM GAUZE APPLIED IN WOUND BED, COVERED WITH FOAM, KERLIX WRAP. NEW WOUND PHOTOS TAKEN OF ALL SKIN INTEGRITY ISSUES FOR REFERENCE. RECOMMEND: CONTINUATION WITH ALL WOUND CARE ORDERS PREVIOUSLY PRESCRIBED BY . WOUND CARE TEAM WILL CONTINUE TO MONITOR. Addendum: 10/06/19 at 1735 by Michell Nascimento RN Amended: Links added.
--- NOTE | 2019-10-06 16:31 | NUR ---
D/C Planning Regarding social service consult for home health service and walker, bedside commode and home oxygen. Placed call to patient girlfriend Ifoema several times during the day and was unable to speak to her until 16:25. Informed Ifeoma doctor updated order for home health and medical equipment. Informed Ifeoma Per doctor patient is stable to return home. Informed Ifeoma patient health plan was contact regarding additional service and per Monica with [facility] they can refer patient to [facility]/TCM. Ifeoma verbalize understanding d/c plan. Informed NANCY Suarez.
--- NOTE | 2019-10-06 16:46 | NUR ---
LEFT MESSAGE FOR DR. HARRIS RE: DISCHARGE ORDER. AWAITING CALL BACK.
--- NOTE | 2019-10-06 16:48 | NUR ---
DISCHARGE PER [facility], SHE WILL ARRANGE DISCHARGE TRANSPORTATION FOR TOMORROW 10/07/2019 NO LD TEACHER TIME GIVE.
[2019-10-06 16:57] VITALS: BP 143/79
[2019-10-06] MEDS ORDERED: INSREGI SC (18:27)
[2019-10-06] MEDS ORDERED: MET25T PO (18:27)
[2019-10-06] MEDS ORDERED: FAMO-12 PO (18:27)
[2019-10-06] MEDS ORDERED: AML5T PO (18:27)
[2019-10-06] MEDS ORDERED: ATOR20TA50 PO (18:27)
[2019-10-06] MEDS ORDERED: INSLANTI SC (18:27)
[2019-10-06] MEDS ORDERED: ASPI-111 PO (18:27)
[2019-10-06] MEDS ORDERED: NUTR-1275 PO (18:27)
[2019-10-06] MEDS ORDERED: MIN25T PO (18:27)
[2019-10-06] MEDS ORDERED: BLOO1KIT22 XX (18:31)
[2019-10-06 21:30] VITALS: BP 136/72
[2019-10-06] MEDS: ATORVASTATIN 20 MG TAB PO SCH (22:19)
[2019-10-07 05:00] VITALS: BP 131/75
[2019-10-07] MEDS: MINOXIDIL 2.5 MG TAB PO SCH ×2 (06:25→14:00)
[2019-10-07] MEDS: METOPROLOL TARTRATE 25 MG TAB PO SCH ×2 (06:26→14:00)
[2019-10-07] MEDS: ACCU-CHEK COMFORT CURVE STRIP VI SCH ×3 (06:26→17:00)
[2019-10-07] MEDS: InsuLIN REG 1unit/0.01ml Soln (100units/ml) SC SCH ×3 (06:28→17:00)
--- NOTE | 2019-10-07 07:15 | NUR ---
Respiratory note: PT IS AWAKE, AND ALERT. NO RESPIRATORY DISTRESS NOTED. SPO2 94% ON 3L NC, HR 74, RR 17, BS CLEAR BILATERALLY. NO FURTHER RESPIRATORY INTERVENTIONS INDICATED AT THIS TIME. WILL CONTINUE TO MONITOR PT. CHARTING COMPLETE FROM OUTSIDE OF PT ROOM PER COVID-19 PRECAUTIONS/PROTOCOL.
--- NOTE | 2019-10-07 07:30 | NUR ---
Opening Shift Note Assumed care of patient, awake and alert. No S/S of distress/SOB or pain. Instructed on POC and to call for assist PRN, will continue to monitor for changes Q1hr and PRN. Fall precautions in place per safety protocol. uniform room attendant at bedside for patient safety.
[2019-10-07] MEDS: Ensure Enlive Strawberry 8oz Bottle PO SCH ×2 (08:00→12:00)
[2019-10-07 08:52] VITALS: BP 134/77
[2019-10-07 09:26] LABS: Basophils # (auto) 0 10 ^3/uL (0-0.2); Basophils % (auto) 0.2 % (0.0-2.0); Eosinophils # (auto) 0 10 ^3/uL (0-0.8); Hematocrit 38.1 % (41.0-53.0); Hemoglobin 12.2 g/dL (13.5-17.5); Lymphocytes # (auto) 0.3 10 ^3/uL (0.4-5.4); Lymphocytes % (auto) 2.3 % (10.0-50.0); Mean Corpuscular Hemoglobin 27.4 pg (28.0-32.0); Mean Corpuscular Hgb Conc. 32.1 g/dL (32.0-36.0); Mean Corpuscular Volume 85.6 fL (80.0-100.0); Monocytes # (auto) 0.5 10 ^3/uL (0-1.3); Monocytes % (auto) 4.6 % (0.0-12.0); Neutrophils # (auto) 10.5 10 ^3/uL (1.6-8.6); Neutrophils % (auto) 92.9 % (37.0-80.0); Nucleated Red Blood Cells % 0.1 %; Platelet Count (auto) 246 10^3/uL (140-450); Red Blood Cells 4.46 10^6/uL (4.5-5.90); Red Cell Distribution Width 17.6 % (11.8-14.3); White Blood Cell 11.3 10^3/uL (4.4-10.8)
[2019-10-07] MEDS ORDERED: INSULIN LANTUS (GLARGINE) 1 /0.01ml (100units/ml) SC SCH (10:00)
[2019-10-07 10:32] LABS: Albumin 2.3 g/dL (3.4-5.0); BUN/Creatinine Ratio 40.6; Bilirubin, Total 1.2 mg/dL (0.2-1.0); Calcium 10.3 mg/dL (8.5-10.1); Total Protein 6.6 g/dL (6.4-8.2)
[2019-10-07 10:39] LABS: Potassium 5.8 mmol/L (3.5-5.1)
[2019-10-07] MEDS ORDERED: SODIUM ZIRCONIUM CYCL 10 GM PAK PO ONE (10:45)
--- NOTE | 2019-10-07 10:45 | NUR ---
Critical Lab Received critical Klab value of 5.8. Spoke to MD Cancino and obtained order for Stephaniema. Per MD Cancino, no reassessment needed before discharge. Orders read back and verified. Will carry out new orders and cont to monitor patient.
[2019-10-07] MEDS: methylPREDNISolone SOD SUCC 40 MG/ML VL IV SCH (10:59)
[2019-10-07] MEDS: ASPirin 325 MG TAB PO SCH (11:00)
[2019-10-07] MEDS: MULTIPLE VITAMINS W/ MINERALS TAB PO SCH (11:00)
[2019-10-07] MEDS: amLODIPine BESYLATE 5 MG TAB PO SCH (11:00)
[2019-10-07] MEDS: FAMOTIDINE 20 MG TAB PO SCH (11:01)
[2019-10-07] MEDS: ENOXAPARIN SOD 120 MG/0.8 ML SYRINGE SC SCH (11:01)
[2019-10-07 12:25] VITALS: BP 138/76
--- NOTE | 2019-10-07 13:05 | NUR ---
D/C Planning Per Latosha with [facility] health patient has been accepted and service to start within 24-48hrs upon d/c day.
--- NOTE | 2019-10-07 13:31 | NUR ---
D/C planning Regarding Social Service consult for home health safety evaluation, medication management and vitals, Bedside commode, walker, home oxygen and refer to IE/ TCM. Faxed clinical information to [facility], [facility] and [facility]. Per Perlita with [facility] they have to redirect the oxygen order to [facility] who will deliver portable oxygen to front lobby. Per Perlita with [facility] everything will get authorized. Per Eric with [facility] they will deliver bedside commode and walker to patient home. Faxed transportation form request to [facility] requesting for transportation to be at 18:00 via gurney with oxygen. Per Shalonda with [facility] transportation has been arranged with [employer]:( [phone]). NANCY Antonio was informed.
--- NOTE | 2019-10-07 13:45 | NUR ---
Obtain authorization from [facility]. [id number] [facility], [id number] [facility], [id number] [place] [facility]. Patient will be refer to the [facility] TCM.
[2019-10-07 16:50] VITALS: BP 145/89
[2019-10-07 17:00] VITALS: BP 145/89
--- NOTE | 2019-10-07 19:00 | NUR ---
Discharge instructions given as ordered. Encourage to follow up with PMD as instructed. All questions and concerns addressed. Patient verbalized understanding. Medication reconciliation form completed and copy given to patient. IV removed with catheter intact, pressure dressing applied. Telemetry unit returned to ICU. Patient taken to vehicle via gurney with all personal belongings, accompanied by transportation services. No distress noted at time of departure. Oxygen delivered at bedside taken with patient.
== END 2019-10-07 19:00 | disposition home health service (06) | DRG 137 ==
LOC: EDBD 14:53 → ER 14:53 → TELE 14:54 → TELE-EAST 09-16 15:42
PROVIDERS: ADMIT Internal Medicine; ATTEND Hospitalist
DX: U07.1 COVID-19 (principal); J96.01 Acute respiratory failure with hypoxia; N17.9 Acute kidney failure, unspecified; G93.41 Metabolic encephalopathy; L97.512 Non-pressure chronic ulcer of other part of right foot with fat layer exposed; J12.89 Other viral pneumonia; E11.22 Type 2 diabetes mellitus with diabetic chronic kidney disease; E11.42 Type 2 diabetes mellitus with diabetic polyneuropathy; E11.51 Type 2 diabetes mellitus with diabetic peripheral angiopathy without gangrene; E11.621 Type 2 diabetes mellitus with foot ulcer; I13.0 Hypertensive heart and chronic kidney disease with heart failure and stage 1 through stage 4 chronic kidney disease, or unspecified chronic kidney disease; I50.9 Heart failure, unspecified; I15.2 Hypertension secondary to endocrine disorders; E87.6 Hypokalemia; N18.3 Chronic kidney disease, stage 3 (moderate); E86.0 Dehydration; L03.115 Cellulitis of right lower limb; Z89.411 Acquired absence of right great toe; E78.5 Hyperlipidemia, unspecified; J98.11 Atelectasis; I08.0 Rheumatic disorders of both mitral and aortic valves; I25.10 Atherosclerotic heart disease of native coronary artery without angina pectoris; M86.9 Osteomyelitis, unspecified; Z78.1 Physical restraint status; Z79.01 Long term (current) use of anticoagulants; Z79.4 Long term (current) use of insulin; Z82.49 Family history of ischemic heart disease and other diseases of the circulatory system; Z83.3 Family history of diabetes mellitus; Z91.19 Patient's noncompliance with other medical treatment and regimen; Z80.9 Family history of malignant neoplasm, unspecified; Z79.82 Long term (current) use of aspirin
CPT/HCPCS: 36415; 36600; 70450; 71045; 73700; 80048; 80053; 80061; 81001; 82550; 82728; 82805; 82962; 83036; 83605; 83615; 83735; 83880; 84484; 85007; 85025; 85027; 85379; 85610; 85652; 85730; 86141; 87040; 87081; 87086; 93005; 93306; 94760; 97110; 97116; 97163; 97530; A4565; G0378; J0696; J1815; J1956; J2405; J3480; J3490

== ENCOUNTER 2022-12-11 11:40 | Inpatient (IN) | payer MEDICAID ==
[~2022-12-11] VITALS: Ht 180.3 cm; Wt 108.7 kg
[~2022-12-11 11:40] MED LIST: AML5T PO; ASPI-109 PO; ASPI81CH59 PO; ATOR10TA52 PO; ATOR20TA50 PO; BLOO1KIT22 XX; ERGO1CAP12 PO; FAMO-12 PO; FURO1TAB33 PO; GLIP10TA9 PO; INSLANTI SC; INSREGI SC; LISI10TA34 PO; MET25T PO; METO25TA5 PO; MIN25T PO; NIFE90TA75; NUTR-1275 PO; SITA25TA3 PO
[2022-12-11 13:00] VITALS: PULSE 63; RESP 18; O2SAT 96
[2022-12-11] MEDS ORDERED: VANCOMYCIN 1GM/250ML 250 ML IV ONE (13:15)
[2022-12-11 13:31] LABS: Basophils # (auto) 0.1 10 ^3/uL (0-0.2); Basophils % (auto) 0.7 % (0.0-2.0); Eosinophils # (auto) 0 10 ^3/uL (0-0.8); Hemoglobin 13.5 g/dL (13.5-17.5); Lymphocytes # (auto) 0.8 10 ^3/uL (0.4-5.4); Lymphocytes % (auto) 4.6 % (10.0-50.0); Mean Corpuscular Hemoglobin 27.1 pg (28.0-32.0); Mean Corpuscular Hgb Conc. 32.9 g/dL (32.0-36.0); Mean Corpuscular Volume 82.3 fL (80.0-100.0); Monocytes # (auto) 1.4 10 ^3/uL (0-1.3); Neutrophils # (auto) 15.5 10 ^3/uL (1.6-8.6); Neutrophils % (auto) 86.7 % (37.0-80.0); Red Blood Cells 4.98 10^6/uL (4.5-5.90); Red Cell Distribution Width 16.7 % (11.8-14.3); White Blood Cell 17.9 10^3/uL (4.4-10.8)
[2022-12-11] MEDS ORDERED: VANCOMYCIN PER PHARMACY 0 MG IV SCH (13:45)
[2022-12-11] MEDS ORDERED: SODIUM CHLORIDE 0.9% 1,000 ML IV SCH (13:45)
[2022-12-11] MEDS ORDERED: DEXTROSE (50%) 50ML SYRG IV PRN (13:45)
[2022-12-11 13:46] LABS: INR 1.25 (0.9-1.15); Prothrombin Time 12.9 sec (9.3-11.8)
[2022-12-11] MEDS ORDERED: ERGOCALCIFEROL 50,000 UNIT(1.25MG) CAP PO SCH (14:00)
[2022-12-11] MEDS: MINOXIDIL 2.5 MG TAB PO SCH ×2 (14:22→22:00)
[2022-12-11 14:24] LABS: Albumin 3.5 g/dL (3.2-4.8); Alkaline Phosphatase 100 U/L (46-116); Anion Gap 10 (5-15); Aspartate Aminotransferase 22 U/L (13-40); BUN/Creatinine Ratio 6.8 (10.0-20.0); Blood Urea Nitrogen 9 mg/dL (9-23); Calcium 9.9 mg/dL (8.5-10.1); Carbon Dioxide 20 mmol/L (20-30); Chloride 103 mmol/L (98-107); Glucose 207 mg/dL (74-106); Potassium 3.9 mmol/L (3.5-5.1); Sodium 133 mmol/L (136-145)
[2022-12-11 14:25] LABS: Alanine Aminotransferase < 9 U/L (7-40); Bilirubin, Total 1.3 mg/dL (0.2-1.0); Total Protein 7.5 g/dL (5.7-8.2)
[2022-12-11] MEDS ORDERED: ASPirin-EC 325mg tab PO ONE (14:45)
[2022-12-11 14:47] LABS: Lipase 30 U/L (12-53)
[2022-12-11 14:49] LABS: Triglycerides 94 mg/dL (< 150)
[2022-12-11 14:50] LABS: LDL Cholesterol 46 mg/dL (< 100)
[2022-12-11 14:51] LABS: Cholesterol 88 mg/dL (< 200); HDL Cholesterol 19 mg/dL (40-59)
[2022-12-11] MEDS ORDERED: FUROSEMIDE 20 MG/2 ML VIAL IV ONE (15:00)
[2022-12-11] MEDS: InsuLIN REG 1unit/0.01ml Soln (100units/ml) SC SCH (17:00)
[2022-12-11] MEDS: ACCU-CHEK COMFORT CURVE STRIP VI SCH (17:27)
[2022-12-11] MEDS: Ensure Enlive Strawberry 8oz Bottle PO SCH (18:00)
[2022-12-11] MEDS: METOPROLOL TARTRATE 25 MG TAB PO SCH (22:00)
[2022-12-11] MEDS ORDERED: ONDANSETRON HCL 4 MG/2 ML VIAL IV PRN (22:45)
[2022-12-11] MEDS ORDERED: dilTIAZem 25 MG/5 ML VIAL IV ONE (22:45)
[2022-12-12] VITALS (7 sets, daily range): BP systolic 101–124; BP diastolic 59–70; PULSE 68–127; RESP 16–19; TEMP 98.7–99.6; O2SAT 93–95
[2022-12-12] MEDS: FAMOTIDINE 20 MG TAB PO SCH ×3 (00:41→22:07)
[2022-12-12] MEDS: ASCORBIC ACID 500 MG TAB PO SCH ×3 (00:42→22:07)
[2022-12-12] MEDS: ATORVASTATIN 20 MG TAB PO SCH ×2 (00:42→22:07)
[2022-12-12] MEDS: ACCU-CHEK COMFORT CURVE STRIP VI SCH ×5 (00:42→22:04)
[2022-12-12] MEDS: InsuLIN REG 1unit/0.01ml Soln (100units/ml) SC SCH ×5 (00:55→22:20)
[2022-12-12] MEDS: VANCOMYCIN 1GM/250ML 250 ML IV SCH ×2 (01:05→15:45)
[2022-12-12] MEDS: METOPROLOL TARTRATE 25 MG TAB PO SCH ×3 (01:46→22:09)
[2022-12-12] MEDS: Ensure Enlive Strawberry 8oz Bottle PO SCH ×3 (08:00→18:00)
[2022-12-12] MEDS ORDERED: ONDANSETRON HCL 4 MG/2 ML VIAL IV PRN (08:15)
[2022-12-12] MEDS: ENOXAPARIN SOD 40 MG/0.4 ML SYRINGE SC SCH (09:26)
[2022-12-12] MEDS: MINOXIDIL 2.5 MG TAB PO SCH ×3 (09:28→22:00)
[2022-12-12] MEDS: MULTIPLE VITAMIN TAB PO SCH (09:29)
[2022-12-12] MEDS: ASPirin-EC 81 mg tab PO SCH (09:29)
[2022-12-12] MEDS: ZINC SULFATE 220mg CAP or TAB PO SCH (09:29)
[2022-12-12] MEDS: amLODIPine BESYLATE 5 MG TAB PO SCH (09:30)
[2022-12-12] MEDS: LISINOPRIL 10 MG TAB PO SCH (09:30)
[2022-12-12 12:31] LABS: Free T3 1.79 pg/mL (2.3-4.2); Free T4 (Free Thyroxine) 0.93 ng/dL (0.89-1.76)
[2022-12-12 12:58] LABS: Urine Bacteria NONE SEEN /hpf (None Seen); Urine Blood 2+ /uL (Negative); Urine Clarity CLOUDY (Clear); Urine Color Yellow (Yellow); Urine Hyaline Cast FEW /lpf (0 - 2); Urine Protein, UAD 3+ (Negative); Urine Specific Gravity 1.021 (1.001-1.035); Urine Urobilinogen Normal (Negative); Urine WBC 4 /hpf (0 - 3)
[2022-12-12] MEDS: PIPERACILLIN-TAZOB 3.375GM 100 ML IV SCH ×2 (17:01→22:04)
[2022-12-12] MEDS: DAKINS QUARTER STR 0.125% (NaHypochlorite) 473 ML TOPICAL SOL TOP SCH (22:54)
[2022-12-13] MEDS: VANCOMYCIN 1GM/250ML 250 ML IV SCH (02:00)
[2022-12-13] MEDS: ACETAMINOPHEN 325 MG TAB PO PRN (03:07)
[2022-12-13 05:00] VITALS: BP 141/63; PULSE 76; RESP 16; TEMP 98.4; O2SAT 95
[2022-12-13] MEDS: ACCU-CHEK COMFORT CURVE STRIP VI SCH ×4 (06:12→21:35)
[2022-12-13] MEDS: PIPERACILLIN-TAZOB 3.375GM 100 ML IV SCH ×3 (06:12→21:36)
[2022-12-13] MEDS: MINOXIDIL 2.5 MG TAB PO SCH ×3 (06:13→21:37)
[2022-12-13 06:18] LABS: Basophils # (auto) 0.1 10 ^3/uL (0-0.2); Basophils % (auto) 0.7 % (0.0-2.0); Eosinophils # (auto) 0.2 10 ^3/uL (0-0.8); Eosinophils % (auto) 1.4 % (0.0-7.0); Hemoglobin 11.4 g/dL (13.5-17.5); Lymphocytes % (auto) 7.6 % (10.0-50.0); Mean Corpuscular Hgb Conc. 33.5 g/dL (32.0-36.0); Mean Corpuscular Volume 80.6 fL (80.0-100.0); Monocytes # (auto) 1.9 10 ^3/uL (0-1.3); Monocytes % (auto) 13.8 % (0.0-12.0); Neutrophils # (auto) 10.5 10 ^3/uL (1.6-8.6); Neutrophils % (auto) 76.5 % (37.0-80.0); Red Blood Cells 4.22 10^6/uL (4.5-5.90); Red Cell Distribution Width 16.9 % (11.8-14.3); White Blood Cell 13.7 10^3/uL (4.4-10.8)
[2022-12-13] MEDS: InsuLIN REG 1unit/0.01ml Soln (100units/ml) SC SCH ×4 (06:27→21:52)
[2022-12-13 06:28] LABS: Alanine Aminotransferase 18 U/L (7-40); Alkaline Phosphatase 83 U/L (46-116); Anion Gap 7 (5-15); Aspartate Aminotransferase 67 U/L (13-40); BUN/Creatinine Ratio 13.4 (10.0-20.0); Bilirubin, Total 0.7 mg/dL (0.2-1.0); Blood Urea Nitrogen 21 mg/dL (9-23); Calcium 9.3 mg/dL (8.5-10.1); Carbon Dioxide 22 mmol/L (20-30); Chloride 99 mmol/L (98-107); Cholesterol 68 mg/dL (< 200); Glucose 193 mg/dL (74-106); HDL Cholesterol 8 mg/dL (40-59); LDL Cholesterol 32 mg/dL (< 100); Potassium 4.1 mmol/L (3.5-5.1); Total Protein 6.4 g/dL (5.7-8.2); Triglycerides 124 mg/dL (< 150)
[2022-12-13 06:39] LABS: Sodium 128 mmol/L (136-145)
[2022-12-13 06:51] LABS: Lipase 43 U/L (12-53)
[2022-12-13 06:52] LABS: Magnesium 1.6 mg/dL (1.6-2.6)
[2022-12-13 08:00] VITALS: PULSE 71; PULSE 73; RESP 18; O2SAT 94
[2022-12-13 08:24] LABS: Erythrocyte Sedimentation Rate 54 mm/hr (0-20)
[2022-12-13 09:00] VITALS: BP 95/55; PULSE 73; RESP 18; TEMP 98.5; O2SAT 94
[2022-12-13] MEDS: LISINOPRIL 10 MG TAB PO SCH (10:00)
[2022-12-13] MEDS: METOPROLOL TARTRATE 25 MG TAB PO SCH ×2 (10:00→21:37)
[2022-12-13] MEDS: amLODIPine BESYLATE 5 MG TAB PO SCH (10:00)
[2022-12-13] MEDS: ASPirin-EC 81 mg tab PO SCH (10:04)
[2022-12-13] MEDS: ENOXAPARIN SOD 40 MG/0.4 ML SYRINGE SC SCH (10:04)
[2022-12-13] MEDS: ASCORBIC ACID 500 MG TAB PO SCH ×2 (10:04→21:36)
[2022-12-13] MEDS: ZINC SULFATE 220mg CAP or TAB PO SCH (10:05)
[2022-12-13] MEDS: FAMOTIDINE 20 MG TAB PO SCH ×2 (10:05→21:36)
[2022-12-13] MEDS: Glucerna Carbsteady SHAKE Vanilla 8oz PO SCH ×3 (10:05→18:11)
[2022-12-13] MEDS: MULTIPLE VITAMIN TAB PO SCH (10:05)
[2022-12-13] MEDS: DAKINS QUARTER STR 0.125% (NaHypochlorite) 473 ML TOPICAL SOL TOP SCH ×2 (10:06→21:49)
[2022-12-13] MEDS ORDERED: VANCOMYCIN 1GM/250ML 250 ML IV ONE (12:00)
[2022-12-13 13:00] VITALS: BP 111/60; PULSE 80; RESP 18; TEMP 98.9; O2SAT 94
[2022-12-13 16:59] VITALS: BP 131/62; PULSE 95; RESP 20; TEMP 98.3; O2SAT 97
[2022-12-13 21:36] VITALS: BP 130/60; PULSE 88; RESP 22; TEMP 98.1; O2SAT 96
[2022-12-13] MEDS: ATORVASTATIN 20 MG TAB PO SCH (21:36)
[2022-12-14 08:00] VITALS: PULSE 85; PULSE 91; RESP 17; O2SAT 94
[2022-12-14 09:00] VITALS: BP 128/72; PULSE 91; RESP 20; TEMP 98.9; O2SAT 92
[2022-12-14 11:20] LABS: Alanine Aminotransferase 22 U/L (7-40); Alkaline Phosphatase 98 U/L (46-116); Anion Gap 6 (5-15); Aspartate Aminotransferase 51 U/L (13-40); BUN/Creatinine Ratio 13.6 (10.0-20.0); Bilirubin, Total 0.9 mg/dL (0.2-1.0); Blood Urea Nitrogen 21 mg/dL (9-23); CRP High Sensitivity 11.81 mg/dL (<1.0); Calcium 9.5 mg/dL (8.5-10.1); Carbon Dioxide 23 mmol/L (20-30); Chloride 99 mmol/L (98-107); Glucose 205 mg/dL (74-106); Potassium 4.3 mmol/L (3.5-5.1); Sodium 128 mmol/L (136-145); Total Protein 6.4 g/dL (5.7-8.2)
[2022-12-14 11:33] LABS: Basophils # (auto) 0.1 10 ^3/uL (0-0.2); Basophils % (auto) 0.7 % (0.0-2.0); Eosinophils # (auto) 0.2 10 ^3/uL (0-0.8); Eosinophils % (auto) 1.9 % (0.0-7.0); Hematocrit 34.3 % (41.0-53.0); Hemoglobin 11.4 g/dL (13.5-17.5); Lymphocytes # (auto) 1.2 10 ^3/uL (0.4-5.4); Lymphocytes % (auto) 10.9 % (10.0-50.0); Mean Corpuscular Hemoglobin 27.1 pg (28.0-32.0); Mean Corpuscular Hgb Conc. 33.3 g/dL (32.0-36.0); Mean Corpuscular Volume 81.2 fL (80.0-100.0); Monocytes # (auto) 1.6 10 ^3/uL (0-1.3); Monocytes % (auto) 14.6 % (0.0-12.0); Neutrophils # (auto) 7.8 10 ^3/uL (1.6-8.6); Neutrophils % (auto) 71.9 % (37.0-80.0); Nucleated Red Blood Cells % 0.2 %; Red Blood Cells 4.23 10^6/uL (4.5-5.90); Red Cell Distribution Width 16.8 % (11.8-14.3); White Blood Cell 10.9 10^3/uL (4.4-10.8)
[2022-12-14] MEDS ORDERED: ALBUTEROL SULF 2.5 MG/0.5ML(0.5%) NEB SOLN NEB PRN (13:30)
[2022-12-14] MEDS: PIPERACILLIN-TAZOB 3.375GM 100 ML IV SCH ×3 (13:32→22:49)
[2022-12-14] MEDS: InsuLIN REG 1unit/0.01ml Soln (100units/ml) SC SCH ×4 (13:34→23:01)
[2022-12-14] MEDS: MINOXIDIL 2.5 MG TAB PO SCH ×3 (13:34→22:00)
[2022-12-14] MEDS: ACCU-CHEK COMFORT CURVE STRIP VI SCH ×4 (13:34→22:00)
[2022-12-14] MEDS: Glucerna Carbsteady SHAKE Vanilla 8oz PO SCH ×3 (13:34→18:00)
[2022-12-14] MEDS: ASPirin-EC 81 mg tab PO SCH (13:35)
[2022-12-14] MEDS: ZINC SULFATE 220mg CAP or TAB PO SCH (13:35)
[2022-12-14] MEDS: MULTIPLE VITAMIN TAB PO SCH (13:35)
[2022-12-14] MEDS: ENOXAPARIN SOD 40 MG/0.4 ML SYRINGE SC SCH (13:36)
[2022-12-14] MEDS: DAKINS QUARTER STR 0.125% (NaHypochlorite) 473 ML TOPICAL SOL TOP SCH ×2 (13:36→23:07)
[2022-12-14] MEDS: ASCORBIC ACID 500 MG TAB PO SCH ×2 (13:36→22:49)
[2022-12-14] MEDS: LISINOPRIL 10 MG TAB PO SCH (13:36)
[2022-12-14] MEDS: FAMOTIDINE 20 MG TAB PO SCH ×2 (13:36→22:48)
[2022-12-14] MEDS: METOPROLOL TARTRATE 25 MG TAB PO SCH ×2 (13:37→22:48)
[2022-12-14 14:00] VITALS: BP 128/72; PULSE 91; RESP 20; TEMP 98.9; O2SAT 94
[2022-12-14] MEDS: VANCOMYCIN 1GM/250ML 250 ML IV SCH (14:28)
[2022-12-14] MEDS: SPIRONOLACTONE 25 MG TAB PO SCH (14:37)
[2022-12-14] MEDS: EMPAGLIFLOZIN 10 MG TAB PO SCH (14:38)
[2022-12-14 17:24] VITALS: BP 116/55; PULSE 92; RESP 20; TEMP 99.9; O2SAT 95
[2022-12-14] MEDS: ACETAMINOPHEN 325 MG TAB PO PRN (18:06)
[2022-12-14 18:30] VITALS: O2SAT 94
[2022-12-14 20:00] VITALS: BP 121/68; PULSE 68; PULSE 90; PULSE 94; RESP 20; TEMP 99.1; O2SAT 96
[2022-12-14] MEDS ORDERED: IPRATROPIUM BROM 0.5 MG/2.5ML INH SOL NEB PRN (20:45)
[2022-12-14] MEDS: ATORVASTATIN 20 MG TAB PO SCH (22:48)
[2022-12-14] MEDS: HYDROcodone-ACET 5/325MG TAB PO PRN (22:52)
[2022-12-15] VITALS (7 sets, daily range): BP systolic 110–129; BP diastolic 64–74; PULSE 72–92; RESP 18–20; TEMP 98.6–99.1; O2SAT 91–96
[2022-12-15] MEDS: MINOXIDIL 2.5 MG TAB PO SCH ×3 (06:00→21:55)
[2022-12-15 06:08] LABS: Alanine Aminotransferase 21 U/L (7-40); Alkaline Phosphatase 101 U/L (46-116); Anion Gap 5 (5-15); Aspartate Aminotransferase 37 U/L (13-40); BUN/Creatinine Ratio 11.2 (10.0-20.0); Blood Urea Nitrogen 18 mg/dL (9-23); Calcium 9.9 mg/dL (8.5-10.1); Carbon Dioxide 23 mmol/L (20-30); Chloride 100 mmol/L (98-107); Glucose 195 mg/dL (74-106); Potassium 4.5 mmol/L (3.5-5.1); Sodium 128 mmol/L (136-145)
[2022-12-15 06:09] LABS: Albumin 3.1 g/dL (3.2-4.8); Bilirubin, Total 1.1 mg/dL (0.2-1.0); Total Protein 6.6 g/dL (5.7-8.2)
[2022-12-15] MEDS: PIPERACILLIN-TAZOB 3.375GM 100 ML IV SCH ×3 (06:14→21:36)
[2022-12-15] MEDS: ACCU-CHEK COMFORT CURVE STRIP VI SCH ×4 (06:14→21:36)
[2022-12-15 06:17] LABS: CRP High Sensitivity 12.92 mg/dL (<1.0)
[2022-12-15] MEDS: InsuLIN REG 1unit/0.01ml Soln (100units/ml) SC SCH ×4 (06:39→21:43)
[2022-12-15 06:45] LABS: Basophils # (auto) 0.1 10 ^3/uL (0-0.2); Basophils % (auto) 0.7 % (0.0-2.0); Eosinophils # (auto) 0.4 10 ^3/uL (0-0.8); Eosinophils % (auto) 2.6 % (0.0-7.0); Hematocrit 33.8 % (41.0-53.0); Hemoglobin 11.2 g/dL (13.5-17.5); Lymphocytes # (auto) 1.2 10 ^3/uL (0.4-5.4); Lymphocytes % (auto) 9.2 % (10.0-50.0); Mean Corpuscular Hemoglobin 26.9 pg (28.0-32.0); Mean Corpuscular Hgb Conc. 33.2 g/dL (32.0-36.0); Monocytes # (auto) 1.9 10 ^3/uL (0-1.3); Monocytes % (auto) 14.3 % (0.0-12.0); Neutrophils # (auto) 9.8 10 ^3/uL (1.6-8.6); Neutrophils % (auto) 73.2 % (37.0-80.0); Red Blood Cells 4.17 10^6/uL (4.5-5.90); Red Cell Distribution Width 17.1 % (11.8-14.3); White Blood Cell 13.4 10^3/uL (4.4-10.8)
[2022-12-15] MEDS: Glucerna Carbsteady SHAKE Vanilla 8oz PO SCH ×3 (08:40→18:17)
[2022-12-15] MEDS: ASPirin-EC 81 mg tab PO SCH (10:15)
[2022-12-15] MEDS: ASCORBIC ACID 500 MG TAB PO SCH ×2 (10:15→21:35)
[2022-12-15] MEDS: FAMOTIDINE 20 MG TAB PO SCH ×2 (10:16→21:36)
[2022-12-15] MEDS: METOPROLOL TARTRATE 25 MG TAB PO SCH ×2 (10:17→21:55)
[2022-12-15] MEDS: LISINOPRIL 10 MG TAB PO SCH (10:17)
[2022-12-15] MEDS: ZINC SULFATE 220mg CAP or TAB PO SCH (10:17)
[2022-12-15] MEDS: MULTIPLE VITAMIN TAB PO SCH (10:18)
[2022-12-15] MEDS: DAKINS QUARTER STR 0.125% (NaHypochlorite) 473 ML TOPICAL SOL TOP SCH ×2 (10:23→21:43)
[2022-12-15] MEDS: VANCOMYCIN 1GM/250ML 250 ML IV SCH (12:26)
[2022-12-15] MEDS: SPIRONOLACTONE 25 MG TAB PO SCH (14:17)
[2022-12-15] MEDS: EMPAGLIFLOZIN 10 MG TAB PO SCH (14:17)
[2022-12-15] MEDS: HYDROcodone-ACET 5/325MG TAB PO PRN ×2 (14:30→21:36)
[2022-12-15] MEDS: ATORVASTATIN 20 MG TAB PO SCH (21:35)
[2022-12-16] VITALS (9 sets, daily range): BP systolic 98–142; BP diastolic 45–82; PULSE 85–108; RESP 14–21; TEMP 97.6–99; O2SAT 91–96
[2022-12-16] MEDS: MINOXIDIL 2.5 MG TAB PO SCH ×3 (06:00→22:33)
[2022-12-16 06:18] LABS: Basophils # (auto) 0.1 10 ^3/uL (0-0.2); Eosinophils # (auto) 0.5 10 ^3/uL (0-0.8); Hemoglobin 11.2 g/dL (13.5-17.5); Mean Corpuscular Hgb Conc. 32.9 g/dL (32.0-36.0); Monocytes # (auto) 1.6 10 ^3/uL (0-1.3); Nucleated Red Blood Cells % 0.1 %
[2022-12-16] MEDS: PIPERACILLIN-TAZOB 3.375GM 100 ML IV SCH ×3 (06:19→22:33)
[2022-12-16 06:20] LABS: Basophils % (auto) 1.1 % (0.0-2.0); Eosinophils % (auto) 3.7 % (0.0-7.0); Hematocrit 33.9 % (41.0-53.0); Lymphocytes # (auto) 1.3 10 ^3/uL (0.4-5.4); Mean Corpuscular Hemoglobin 26.9 pg (28.0-32.0); Mean Corpuscular Volume 81.7 fL (80.0-100.0); Monocytes % (auto) 11.9 % (0.0-12.0); Neutrophils # (auto) 9.9 10 ^3/uL (1.6-8.6); Neutrophils % (auto) 73.3 % (37.0-80.0); Red Blood Cells 4.15 10^6/uL (4.5-5.90); Red Cell Distribution Width 16.7 % (11.8-14.3); White Blood Cell 13.4 10^3/uL (4.4-10.8)
[2022-12-16] MEDS: InsuLIN REG 1unit/0.01ml Soln (100units/ml) SC SCH ×4 (06:20→22:27)
[2022-12-16] MEDS: ACCU-CHEK COMFORT CURVE STRIP VI SCH ×4 (06:22→22:00)
[2022-12-16 06:33] LABS: Alanine Aminotransferase 15 U/L (7-40); Albumin 3.1 g/dL (3.2-4.8); Alkaline Phosphatase 97 U/L (46-116); Anion Gap 7 (5-15); Aspartate Aminotransferase 24 U/L (13-40); BUN/Creatinine Ratio 12.4 (10.0-20.0); Blood Urea Nitrogen 21 mg/dL (9-23); Carbon Dioxide 22 mmol/L (20-30); Chloride 101 mmol/L (98-107); Glucose 211 mg/dL (74-106); Potassium 4.8 mmol/L (3.5-5.1); Sodium 130 mmol/L (136-145)
[2022-12-16 06:34] LABS: Bilirubin, Total 0.8 mg/dL (0.2-1.0); Total Protein 6.7 g/dL (5.7-8.2)
[2022-12-16] MEDS: Glucerna Carbsteady SHAKE Vanilla 8oz PO SCH ×3 (08:14→18:54)
[2022-12-16] MEDS: METOPROLOL TARTRATE 25 MG TAB PO SCH ×2 (10:00→22:34)
[2022-12-16] MEDS: LISINOPRIL 10 MG TAB PO SCH (10:00)
[2022-12-16] MEDS: FAMOTIDINE 20 MG TAB PO SCH ×2 (10:32→22:34)
[2022-12-16] MEDS: ASCORBIC ACID 500 MG TAB PO SCH ×2 (10:32→22:34)
[2022-12-16] MEDS: ZINC SULFATE 220mg CAP or TAB PO SCH (10:32)
[2022-12-16] MEDS: ASPirin-EC 81 mg tab PO SCH (10:32)
[2022-12-16] MEDS: DAKINS QUARTER STR 0.125% (NaHypochlorite) 473 ML TOPICAL SOL TOP SCH (10:33)
[2022-12-16] MEDS: MULTIPLE VITAMIN TAB PO SCH (10:33)
[2022-12-16] MEDS: SPIRONOLACTONE 25 MG TAB PO SCH (14:20)
[2022-12-16] MEDS: EMPAGLIFLOZIN 10 MG TAB PO SCH (14:21)
[2022-12-16] MEDS: HYDROcodone-ACET 5/325MG TAB PO PRN (17:05)
[2022-12-16] MEDS: ATORVASTATIN 20 MG TAB PO SCH (22:34)
[2022-12-17] VITALS (10 sets, daily range): BP systolic 94–144; BP diastolic 67–77; PULSE 67–101; RESP 16–24; TEMP 97.4–99.4; O2SAT 91–98
[2022-12-17] MEDS: InsuLIN REG 1unit/0.01ml Soln (100units/ml) SC SCH ×4 (06:05→21:58)
[2022-12-17 06:07] LABS: Basophils # (auto) 0.2 10 ^3/uL (0-0.2); Basophils % (auto) 1.1 % (0.0-2.0); Eosinophils # (auto) 0.6 10 ^3/uL (0-0.8); Mean Corpuscular Hemoglobin 26.7 pg (28.0-32.0); Monocytes # (auto) 1.5 10 ^3/uL (0-1.3); Neutrophils # (auto) 11.7 10 ^3/uL (1.6-8.6)
[2022-12-17] MEDS: PIPERACILLIN-TAZOB 3.375GM 100 ML IV SCH ×3 (06:07→21:42)
[2022-12-17 06:09] LABS: Eosinophils % (auto) 4.1 % (0.0-7.0); Hematocrit 32.5 % (41.0-53.0); Hemoglobin 10.7 g/dL (13.5-17.5); Lymphocytes # (auto) 1.5 10 ^3/uL (0.4-5.4); Lymphocytes % (auto) 9.4 % (10.0-50.0); Mean Corpuscular Hgb Conc. 32.9 g/dL (32.0-36.0); Monocytes % (auto) 9.8 % (0.0-12.0); Neutrophils % (auto) 75.6 % (37.0-80.0); Nucleated Red Blood Cells % 0.6 %; Red Blood Cells 4.02 10^6/uL (4.5-5.90); Red Cell Distribution Width 16.7 % (11.8-14.3); White Blood Cell 15.5 10^3/uL (4.4-10.8)
[2022-12-17] MEDS: MINOXIDIL 2.5 MG TAB PO SCH ×3 (06:10→21:49)
[2022-12-17] MEDS: DAKINS QUARTER STR 0.125% (NaHypochlorite) 473 ML TOPICAL SOL TOP SCH ×3 (06:11→21:55)
[2022-12-17] MEDS: ACCU-CHEK COMFORT CURVE STRIP VI SCH ×4 (06:16→21:50)
[2022-12-17 06:31] LABS: Alanine Aminotransferase 13 U/L (7-40); Albumin 3.1 g/dL (3.2-4.8); Alkaline Phosphatase 108 U/L (46-116); Anion Gap 5 (5-15); Aspartate Aminotransferase 25 U/L (13-40); BUN/Creatinine Ratio 12.9 (10.0-20.0); Bilirubin, Total 0.6 mg/dL (0.2-1.0); Blood Urea Nitrogen 21 mg/dL (9-23); Calcium 10.3 mg/dL (8.7-10.4); Carbon Dioxide 22 mmol/L (20-30); Chloride 101 mmol/L (98-107); Glucose 226 mg/dL (74-106); Potassium 4.8 mmol/L (3.5-5.1); Sodium 128 mmol/L (136-145); Total Protein 6.7 g/dL (5.7-8.2)
[2022-12-17 09:39] LABS: CRP High Sensitivity 9.19 mg/dL (<1.0)
[2022-12-17] MEDS: LISINOPRIL 10 MG TAB PO SCH (10:00)
[2022-12-17] MEDS: ASCORBIC ACID 500 MG TAB PO SCH ×2 (10:48→21:48)
[2022-12-17] MEDS: ZINC SULFATE 220mg CAP or TAB PO SCH (10:49)
[2022-12-17] MEDS: MULTIPLE VITAMIN TAB PO SCH (10:49)
[2022-12-17] MEDS: METOPROLOL TARTRATE 25 MG TAB PO SCH ×2 (10:49→21:49)
[2022-12-17] MEDS: ASPirin-EC 81 mg tab PO SCH (10:49)
[2022-12-17] MEDS: FAMOTIDINE 20 MG TAB PO SCH ×2 (10:49→21:49)
[2022-12-17] MEDS: Glucerna Carbsteady SHAKE Vanilla 8oz PO SCH ×3 (10:50→18:09)
[2022-12-17] MEDS: LINEZOLID 600MG/300ML 300 ML IV SCH ×2 (11:41→21:45)
[2022-12-17] MEDS: SPIRONOLACTONE 25 MG TAB PO SCH (13:59)
[2022-12-17] MEDS: EMPAGLIFLOZIN 10 MG TAB PO SCH (13:59)
[2022-12-17] MEDS: ATORVASTATIN 20 MG TAB PO SCH (21:49)
[2022-12-18] VITALS (8 sets, daily range): BP systolic 106–127; BP diastolic 56–72; PULSE 72–86; RESP 16–24; TEMP 97.6–98.3; O2SAT 94–97
[2022-12-18] MEDS: PIPERACILLIN-TAZOB 3.375GM 100 ML IV SCH ×2 (04:57→13:26)
[2022-12-18] MEDS: MINOXIDIL 2.5 MG TAB PO SCH ×3 (06:05→22:00)
[2022-12-18] MEDS: ACCU-CHEK COMFORT CURVE STRIP VI SCH ×4 (06:05→22:21)
[2022-12-18] MEDS: InsuLIN REG 1unit/0.01ml Soln (100units/ml) SC SCH ×4 (06:05→22:22)
[2022-12-18] MEDS: Glucerna Carbsteady SHAKE Vanilla 8oz PO SCH ×3 (08:00→17:32)
[2022-12-18] MEDS: ZINC SULFATE 220mg CAP or TAB PO SCH (09:15)
[2022-12-18] MEDS: LINEZOLID 600MG/300ML 300 ML IV SCH (09:15)
[2022-12-18] MEDS: METOPROLOL TARTRATE 25 MG TAB PO SCH ×2 (09:16→22:20)
[2022-12-18] MEDS: LISINOPRIL 10 MG TAB PO SCH (09:16)
[2022-12-18] MEDS: MULTIPLE VITAMIN TAB PO SCH (09:16)
[2022-12-18] MEDS: FAMOTIDINE 20 MG TAB PO SCH ×2 (09:17→22:20)
[2022-12-18] MEDS: ASPirin-EC 81 mg tab PO SCH (09:17)
[2022-12-18] MEDS: ASCORBIC ACID 500 MG TAB PO SCH ×2 (09:18→22:19)
[2022-12-18] MEDS: HYDROcodone-ACET 5/325MG TAB PO PRN (09:20)
[2022-12-18] MEDS: DAKINS QUARTER STR 0.125% (NaHypochlorite) 473 ML TOPICAL SOL TOP SCH ×2 (09:30→22:23)
[2022-12-18] MEDS: SPIRONOLACTONE 25 MG TAB PO SCH (13:26)
[2022-12-18] MEDS: EMPAGLIFLOZIN 10 MG TAB PO SCH (13:27)
[2022-12-18] MEDS ORDERED: levoFLOXacin 750MG 150 ML IV ONE ×2 (17:45)
[2022-12-18] MEDS: ATORVASTATIN 20 MG TAB PO SCH (22:19)
[2022-12-19] VITALS (8 sets, daily range): BP systolic 98–109; BP diastolic 57–66; PULSE 70–85; RESP 14–22; TEMP 97.7–98.3; O2SAT 6–96
[2022-12-19] MEDS: MINOXIDIL 2.5 MG TAB PO SCH ×3 (05:27→21:36)
[2022-12-19] MEDS: ACCU-CHEK COMFORT CURVE STRIP VI SCH ×4 (06:22→21:37)
[2022-12-19] MEDS: InsuLIN REG 1unit/0.01ml Soln (100units/ml) SC SCH ×4 (06:24→21:40)
[2022-12-19 06:56] LABS: Eosinophils # (auto) 0.5 10 ^3/uL (0-0.8); Hematocrit 32.8 % (41.0-53.0); Monocytes # (auto) 1.2 10 ^3/uL (0-1.3)
[2022-12-19 06:58] LABS: Basophils # (auto) 0.1 10 ^3/uL (0-0.2); Basophils % (auto) 1.1 % (0.0-2.0); Eosinophils % (auto) 4.5 % (0.0-7.0); Hemoglobin 10.9 g/dL (13.5-17.5); Lymphocytes # (auto) 1.1 10 ^3/uL (0.4-5.4); Lymphocytes % (auto) 9.1 % (10.0-50.0); Mean Corpuscular Hemoglobin 26.9 pg (28.0-32.0); Mean Corpuscular Hgb Conc. 33.1 g/dL (32.0-36.0); Mean Corpuscular Volume 81.4 fL (80.0-100.0); Monocytes % (auto) 10.1 % (0.0-12.0); Neutrophils % (auto) 75.2 % (37.0-80.0); Red Blood Cells 4.03 10^6/uL (4.5-5.90); Red Cell Distribution Width 16.5 % (11.8-14.3)
[2022-12-19 07:00] LABS: Alanine Aminotransferase 13 U/L (7-40); Alkaline Phosphatase 97 U/L (46-116); Anion Gap 7 (5-15); Aspartate Aminotransferase 16 U/L (13-40); BUN/Creatinine Ratio 14.1 (10.0-20.0); Blood Urea Nitrogen 29 mg/dL (9-23); Calcium 9.5 mg/dL (8.7-10.4); Carbon Dioxide 22 mmol/L (20-30); Chloride 101 mmol/L (98-107); Glucose 204 mg/dL (74-106); Potassium 5.4 mmol/L (3.5-5.1); Sodium 130 mmol/L (136-145)
[2022-12-19 07:01] LABS: Albumin 2.9 g/dL (3.2-4.8); Bilirubin, Total 0.5 mg/dL (0.2-1.0); Total Protein 6.4 g/dL (5.7-8.2)
[2022-12-19] MEDS: Glucerna Carbsteady SHAKE Vanilla 8oz PO SCH ×3 (08:00→18:00)
[2022-12-19] MEDS: ZINC SULFATE 220mg CAP or TAB PO SCH (10:12)
[2022-12-19] MEDS: levoFLOXacin 500MG 100 ML IV SCH (10:12)
[2022-12-19] MEDS: ASPirin-EC 81 mg tab PO SCH (10:12)
[2022-12-19] MEDS: METOPROLOL TARTRATE 25 MG TAB PO SCH ×2 (10:13→21:36)
[2022-12-19] MEDS: ASCORBIC ACID 500 MG TAB PO SCH ×2 (10:13→21:36)
[2022-12-19] MEDS: LISINOPRIL 10 MG TAB PO SCH (10:13)
[2022-12-19] MEDS: MULTIPLE VITAMIN TAB PO SCH (10:13)
[2022-12-19] MEDS: FAMOTIDINE 20 MG TAB PO SCH ×2 (10:13→21:36)
[2022-12-19] MEDS: DAKINS QUARTER STR 0.125% (NaHypochlorite) 473 ML TOPICAL SOL TOP SCH ×2 (10:14→21:37)
[2022-12-19] MEDS: SODIUM CHLORIDE 0.9% 1,000 ML IV SCH ×2 (13:26→21:46)
[2022-12-19] MEDS: SPIRONOLACTONE 25 MG TAB PO SCH (13:26)
[2022-12-19] MEDS: EMPAGLIFLOZIN 10 MG TAB PO SCH (13:27)
[2022-12-19] MEDS: ATORVASTATIN 20 MG TAB PO SCH (21:36)
[2022-12-20] VITALS (10 sets, daily range): BP systolic 103–128; BP diastolic 61–68; PULSE 61–85; RESP 17–20; TEMP 97.9–98.6; O2SAT 94–100
[2022-12-20] MEDS: MINOXIDIL 2.5 MG TAB PO SCH ×3 (06:03→21:58)
[2022-12-20] MEDS: ACCU-CHEK COMFORT CURVE STRIP VI SCH ×4 (06:07→21:59)
[2022-12-20] MEDS: InsuLIN REG 1unit/0.01ml Soln (100units/ml) SC SCH ×4 (06:09→22:14)
[2022-12-20 06:54] LABS: Eosinophils # (auto) 0.4 10 ^3/uL (0-0.8); Hemoglobin 10.9 g/dL (13.5-17.5); Lymphocytes # (auto) 1.3 10 ^3/uL (0.4-5.4); Mean Corpuscular Volume 81.7 fL (80.0-100.0); Nucleated Red Blood Cells % 0.1 %
[2022-12-20 06:58] LABS: Basophils # (auto) 0.1 10 ^3/uL (0-0.2); Basophils % (auto) 1.2 % (0.0-2.0); Eosinophils % (auto) 3.5 % (0.0-7.0); Hematocrit 33.5 % (41.0-53.0); Lymphocytes % (auto) 10.8 % (10.0-50.0); Mean Corpuscular Hemoglobin 26.5 pg (28.0-32.0); Mean Corpuscular Hgb Conc. 32.4 g/dL (32.0-36.0); Monocytes # (auto) 1.3 10 ^3/uL (0-1.3); Monocytes % (auto) 10.8 % (0.0-12.0); Neutrophils # (auto) 8.6 10 ^3/uL (1.6-8.6); Neutrophils % (auto) 73.7 % (37.0-80.0); Red Blood Cells 4.11 10^6/uL (4.5-5.90); Red Cell Distribution Width 16.7 % (11.8-14.3); White Blood Cell 11.6 10^3/uL (4.4-10.8)
[2022-12-20 07:02] LABS: Anion Gap 8 (5-15); Carbon Dioxide 20 mmol/L (20-30); Chloride 104 mmol/L (98-107); Potassium 4.9 mmol/L (3.5-5.1); Sodium 132 mmol/L (136-145)
[2022-12-20 07:04] LABS: Calcium 9.5 mg/dL (8.5-10.1)
[2022-12-20 07:09] LABS: BUN/Creatinine Ratio 12.8 (10.0-20.0); Blood Urea Nitrogen 23 mg/dL (9-23); Glucose 146 mg/dL (74-106)
[2022-12-20] MEDS: Glucerna Carbsteady SHAKE Vanilla 8oz PO SCH ×3 (08:00→19:24)
[2022-12-20] MEDS: levoFLOXacin 500MG 100 ML IV SCH (10:21)
[2022-12-20] MEDS: METOPROLOL TARTRATE 25 MG TAB PO SCH ×2 (10:29→21:59)
[2022-12-20] MEDS: ASPirin-EC 81 mg tab PO SCH (10:30)
[2022-12-20] MEDS: LISINOPRIL 10 MG TAB PO SCH (10:30)
[2022-12-20] MEDS: DAKINS QUARTER STR 0.125% (NaHypochlorite) 473 ML TOPICAL SOL TOP SCH ×2 (10:30→22:12)
[2022-12-20] MEDS: FAMOTIDINE 20 MG TAB PO SCH ×2 (10:30→21:59)
[2022-12-20] MEDS: ASCORBIC ACID 500 MG TAB PO SCH ×2 (10:30→21:59)
[2022-12-20] MEDS: MULTIPLE VITAMIN TAB PO SCH (10:30)
[2022-12-20] MEDS: ZINC SULFATE 220mg CAP or TAB PO SCH (10:30)
[2022-12-20] MEDS: SPIRONOLACTONE 25 MG TAB PO SCH (14:41)
[2022-12-20] MEDS: SODIUM CHLORIDE 0.9% 1,000 ML IV SCH ×2 (15:10→21:59)
[2022-12-20] MEDS: ATORVASTATIN 20 MG TAB PO SCH (21:51)
[2022-12-21] VITALS (9 sets, daily range): BP systolic 88–132; BP diastolic 60–66; PULSE 65–81; RESP 19–22; TEMP 97.5–98.9; O2SAT 95–98
[2022-12-21 06:10] LABS: Chloride 104 mmol/L (98-107); Sodium 130 mmol/L (136-145)
[2022-12-21 06:11] LABS: Anion Gap 7 (5-15); Carbon Dioxide 19 mmol/L (20-30)
[2022-12-21 06:12] LABS: Calcium 9.6 mg/dL (8.7-10.4)
[2022-12-21 06:17] LABS: BUN/Creatinine Ratio 13.5 (10.0-20.0); Blood Urea Nitrogen 22 mg/dL (9-23)
[2022-12-21] MEDS: MINOXIDIL 2.5 MG TAB PO SCH (06:19)
[2022-12-21] MEDS: ACCU-CHEK COMFORT CURVE STRIP VI SCH ×4 (06:19→22:12)
[2022-12-21] MEDS: InsuLIN REG 1unit/0.01ml Soln (100units/ml) SC SCH ×4 (06:26→22:17)
[2022-12-21 07:32] LABS: Glucose 241 mg/dL (74-106)
[2022-12-21] MEDS: Glucerna Carbsteady SHAKE Vanilla 8oz PO SCH ×3 (09:31→17:40)
[2022-12-21] MEDS: FAMOTIDINE 20 MG TAB PO SCH ×2 (09:31→22:12)
[2022-12-21] MEDS: ZINC SULFATE 220mg CAP or TAB PO SCH (09:31)
[2022-12-21] MEDS: MULTIPLE VITAMIN TAB PO SCH (09:31)
[2022-12-21] MEDS: levoFLOXacin 500MG 100 ML IV SCH (09:31)
[2022-12-21] MEDS: ASCORBIC ACID 500 MG TAB PO SCH ×2 (09:32→22:12)
[2022-12-21] MEDS: ASPirin-EC 81 mg tab PO SCH (09:32)
[2022-12-21] MEDS: METOPROLOL TARTRATE 25 MG TAB PO SCH ×2 (09:32→22:12)
[2022-12-21] MEDS: DAKINS QUARTER STR 0.125% (NaHypochlorite) 473 ML TOPICAL SOL TOP SCH ×2 (09:47→22:12)
[2022-12-21] MEDS: SODIUM CHLORIDE 0.9% 1,000 ML IV SCH (17:31)
[2022-12-21] MEDS: ATORVASTATIN 20 MG TAB PO SCH (22:12)
[2022-12-22] VITALS (9 sets, daily range): BP systolic 112–126; BP diastolic 62–72; PULSE 75–101; RESP 17–20; TEMP 37.2; O2SAT 93–98
[2022-12-22 06:01] LABS: Chloride 105 mmol/L (98-107); Sodium 131 mmol/L (136-145)
[2022-12-22 06:02] LABS: Anion Gap 7 (5-15); Carbon Dioxide 19 mmol/L (20-30)
[2022-12-22 06:03] LABS: Calcium 9.4 mg/dL (8.5-10.1)
[2022-12-22 06:07] LABS: BUN/Creatinine Ratio 14.8 (10.0-20.0); Blood Urea Nitrogen 23 mg/dL (9-23); Glucose 184 mg/dL (74-106)
[2022-12-22] MEDS: InsuLIN REG 1unit/0.01ml Soln (100units/ml) SC SCH ×4 (06:19→21:39)
[2022-12-22] MEDS: ACCU-CHEK COMFORT CURVE STRIP VI SCH ×4 (06:19→21:30)
[2022-12-22] MEDS ORDERED: ceFAZolin 1GM/50ML 100 ML IV ONE (06:37)
[2022-12-22] MEDS: SODIUM CHLORIDE 0.9% 1,000 ML IV SCH ×2 (07:10→12:16)
[2022-12-22] MEDS ORDERED: PROPOFOL 10 MG/ML 20 ML IV ONE (07:17)
[2022-12-22] MEDS ORDERED: fentaNYL CITRATE 100 MCG/2 ML VL ONE (07:17)
[2022-12-22] MEDS ORDERED: ePHEDrine SULFATE 50 MG/ML AMP ONE (07:42)
[2022-12-22] MEDS ORDERED: BUPIVACAINE HCL 0.25% P/F 10 ML VIAL ONE (07:56)
[2022-12-22] MEDS: Glucerna Carbsteady SHAKE Vanilla 8oz PO SCH ×3 (08:00→17:43)
[2022-12-22] MEDS ORDERED: MEPERIDINE HCL (25 MG/ML) 1ML VIAL ONE (08:02)
[2022-12-22] MEDS ORDERED: VANCOMYCIN HCL 1000 MG VL ONE (08:10)
[2022-12-22] MEDS ORDERED: HYDROmorphone HCL 2 MG/ML VL/or syr IV PRN (08:45)
[2022-12-22] MEDS ORDERED: MEPERIDINE HCL (25 MG/ML) 1ML VIAL IV PRN (08:45)
[2022-12-22] MEDS ORDERED: ONDANSETRON HCL 4 MG/2 ML VIAL IV PRN (08:45)
[2022-12-22] MEDS: DAKINS QUARTER STR 0.125% (NaHypochlorite) 473 ML TOPICAL SOL TOP SCH ×2 (09:42→21:30)
[2022-12-22] MEDS: levoFLOXacin 500MG 100 ML IV SCH (09:53)
[2022-12-22] MEDS: ASCORBIC ACID 500 MG TAB PO SCH ×2 (09:56→21:30)
[2022-12-22] MEDS: ZINC SULFATE 220mg CAP or TAB PO SCH (09:56)
[2022-12-22] MEDS: MULTIPLE VITAMIN TAB PO SCH (09:56)
[2022-12-22] MEDS: FAMOTIDINE 20 MG TAB PO SCH ×2 (09:56→21:30)
[2022-12-22] MEDS: ASPirin-EC 81 mg tab PO SCH (09:56)
[2022-12-22] MEDS: METOPROLOL TARTRATE 25 MG TAB PO SCH ×2 (09:58→21:41)
[2022-12-22] MEDS: FUROSEMIDE 40 MG/4 ML VIAL IV SCH (12:23)
[2022-12-22] MEDS ORDERED: MORPHINE SULFATE INJ 2 MG/ml SYRG IV PRN (13:45)
[2022-12-22] MEDS ORDERED: VANCOMYCIN PER PHARMACY 0 MG IV SCH (15:30)
[2022-12-22] MEDS: VANCOMYCIN 1GM/250ML 250 ML IV SCH (17:47)
[2022-12-22] MEDS: HYDROcodone-ACET 10/325MG TAB PO PRN (17:48)
[2022-12-22] MEDS: ATORVASTATIN 20 MG TAB PO SCH (21:35)
[2022-12-23] VITALS (9 sets, daily range): BP systolic 101–121; BP diastolic 56–70; PULSE 70–89; RESP 18–19; TEMP 37.1; O2SAT 95–98
[2022-12-23] MEDS: ACCU-CHEK COMFORT CURVE STRIP VI SCH ×4 (06:28→21:21)
[2022-12-23] MEDS: InsuLIN REG 1unit/0.01ml Soln (100units/ml) SC SCH ×4 (06:29→21:21)
[2022-12-23] MEDS: VANCOMYCIN 1GM/250ML 250 ML IV SCH ×2 (06:31→21:18)
[2022-12-23] MEDS: SODIUM CHLORIDE 0.9% 1,000 ML IV SCH (06:33)
[2022-12-23] MEDS: DAKINS QUARTER STR 0.125% (NaHypochlorite) 473 ML TOPICAL SOL TOP SCH ×2 (09:24→22:00)
[2022-12-23] MEDS: ASCORBIC ACID 500 MG TAB PO SCH ×2 (09:33→21:18)
[2022-12-23] MEDS: ASPirin-EC 81 mg tab PO SCH (09:33)
[2022-12-23] MEDS: ZINC SULFATE 220mg CAP or TAB PO SCH (09:34)
[2022-12-23] MEDS: FAMOTIDINE 20 MG TAB PO SCH ×2 (09:35→21:19)
[2022-12-23] MEDS: MULTIPLE VITAMIN TAB PO SCH (09:35)
[2022-12-23] MEDS: METOPROLOL TARTRATE 25 MG TAB PO SCH ×2 (09:35→21:19)
[2022-12-23] MEDS: Glucerna Carbsteady SHAKE Vanilla 8oz PO SCH ×3 (09:36→17:09)
[2022-12-23] MEDS: levoFLOXacin 750MG 150 ML IV SCH (09:36)
[2022-12-23] MEDS: FUROSEMIDE 40 MG/4 ML VIAL IV SCH (09:36)
[2022-12-23 10:19] LABS: Basophils # (auto) 0.1 10 ^3/uL (0-0.2); Eosinophils # (auto) 0.4 10 ^3/uL (0-0.8); Eosinophils % (auto) 2.6 % (0.0-7.0); Mean Corpuscular Hemoglobin 26.5 pg (28.0-32.0); Monocytes # (auto) 1.3 10 ^3/uL (0-1.3)
[2022-12-23 10:21] LABS: Basophils % (auto) 0.7 % (0.0-2.0); Hematocrit 30.2 % (41.0-53.0); Hemoglobin 9.8 g/dL (13.5-17.5); Lymphocytes # (auto) 1.2 10 ^3/uL (0.4-5.4); Mean Corpuscular Hgb Conc. 32.7 g/dL (32.0-36.0); Mean Corpuscular Volume 81.2 fL (80.0-100.0); Monocytes % (auto) 9.1 % (0.0-12.0); Neutrophils # (auto) 11.9 10 ^3/uL (1.6-8.6); Neutrophils % (auto) 79.6 % (37.0-80.0); Red Blood Cells 3.71 10^6/uL (4.5-5.90); Red Cell Distribution Width 17.1 % (11.8-14.3); White Blood Cell 14.9 10^3/uL (4.4-10.8)
[2022-12-23 10:29] LABS: Anion Gap 5 (5-15); Calcium 9.3 mg/dL (8.5-10.1); Carbon Dioxide 21 mmol/L (20-30); Chloride 107 mmol/L (98-107); Potassium 5.1 mmol/L (3.5-5.1); Sodium 133 mmol/L (136-145)
[2022-12-23 10:35] LABS: BUN/Creatinine Ratio 15.6 (10.0-20.0); Blood Urea Nitrogen 22 mg/dL (9-23); Glucose 184 mg/dL (74-106)
[2022-12-23] MEDS ORDERED: FUROSEMIDE 20 MG TAB PO SCH (18:00)
[2022-12-23] MEDS: ATORVASTATIN 20 MG TAB PO SCH (21:19)
[2022-12-24] VITALS (7 sets, daily range): BP systolic 123–134; BP diastolic 64–69; PULSE 67–74; RESP 18–20; TEMP 98.1–98.7; O2SAT 91–99
[2022-12-24] MEDS: SODIUM CHLORIDE 0.9% 1,000 ML IV SCH ×2 (06:34→23:30)
[2022-12-24] MEDS: InsuLIN REG 1unit/0.01ml Soln (100units/ml) SC SCH ×4 (06:36→22:15)
[2022-12-24] MEDS: ACCU-CHEK COMFORT CURVE STRIP VI SCH ×4 (06:36→22:15)
[2022-12-24 06:57] LABS: Anion Gap 5 (5-15); Carbon Dioxide 21 mmol/L (20-30); Chloride 107 mmol/L (98-107); Potassium 4.8 mmol/L (3.5-5.1); Sodium 133 mmol/L (136-145)
[2022-12-24 06:59] LABS: Calcium 9.4 mg/dL (8.7-10.4)
[2022-12-24 07:03] LABS: BUN/Creatinine Ratio 17.6 (10.0-20.0); Blood Urea Nitrogen 22 mg/dL (9-23); Glucose 187 mg/dL (74-106)
[2022-12-24 07:31] LABS: Basophils # (auto) 0.1 10 ^3/uL (0-0.2); Eosinophils # (auto) 0.5 10 ^3/uL (0-0.8); Monocytes # (auto) 1.2 10 ^3/uL (0-1.3)
[2022-12-24 07:35] LABS: Basophils % (auto) 0.9 % (0.0-2.0); Eosinophils % (auto) 3.7 % (0.0-7.0); Hematocrit 29.6 % (41.0-53.0); Hemoglobin 9.7 g/dL (13.5-17.5); Lymphocytes # (auto) 1.3 10 ^3/uL (0.4-5.4); Mean Corpuscular Hemoglobin 26.5 pg (28.0-32.0); Mean Corpuscular Hgb Conc. 32.7 g/dL (32.0-36.0); Monocytes % (auto) 8.9 % (0.0-12.0); Neutrophils # (auto) 10.2 10 ^3/uL (1.6-8.6); Neutrophils % (auto) 76.5 % (37.0-80.0); Red Blood Cells 3.65 10^6/uL (4.5-5.90); Red Cell Distribution Width 16.6 % (11.8-14.3); White Blood Cell 13.3 10^3/uL (4.4-10.8)
[2022-12-24] MEDS: MULTIPLE VITAMIN TAB PO SCH (09:10)
[2022-12-24] MEDS: ASPirin-EC 81 mg tab PO SCH (09:10)
[2022-12-24] MEDS: FAMOTIDINE 20 MG TAB PO SCH ×2 (09:10→22:13)
[2022-12-24] MEDS: ZINC SULFATE 220mg CAP or TAB PO SCH (09:10)
[2022-12-24] MEDS: ASCORBIC ACID 500 MG TAB PO SCH ×2 (09:10→22:13)
[2022-12-24] MEDS: METOPROLOL TARTRATE 25 MG TAB PO SCH ×2 (09:11→22:14)
[2022-12-24] MEDS: HYDROcodone-ACET 10/325MG TAB PO PRN ×2 (09:11→15:25)
[2022-12-24] MEDS: levoFLOXacin 750MG 150 ML IV SCH (09:11)
[2022-12-24] MEDS: Glucerna Carbsteady SHAKE Vanilla 8oz PO SCH ×3 (09:11→17:42)
[2022-12-24] MEDS: DAKINS QUARTER STR 0.125% (NaHypochlorite) 473 ML TOPICAL SOL TOP SCH ×2 (10:00→22:00)
[2022-12-24] MEDS: VANCOMYCIN 1GM/250ML 250 ML IV SCH (11:00)
[2022-12-24] MEDS: FUROSEMIDE 20 MG TAB PO SCH ×2 (12:16→17:38)
[2022-12-24] MEDS: ATORVASTATIN 20 MG TAB PO SCH (22:13)
[2022-12-24] MEDS: SULFAMETHOX W/TRIMETH(800/160MG) DS TAB PO SCH (22:14)
[2022-12-25] VITALS (8 sets, daily range): BP systolic 128–136; BP diastolic 61–80; PULSE 64–72; RESP 16–20; TEMP 97.4–99.1; O2SAT 93–97
[2022-12-25 05:54] LABS: Hemoglobin 10.4 g/dL (13.5-17.5)
[2022-12-25 05:56] LABS: Basophils # (auto) 0.2 10 ^3/uL (0-0.2); Basophils % (auto) 1.4 % (0.0-2.0); Eosinophils # (auto) 0.7 10 ^3/uL (0-0.8); Eosinophils % (auto) 5.1 % (0.0-7.0); Hematocrit 31.8 % (41.0-53.0); Lymphocytes # (auto) 1.4 10 ^3/uL (0.4-5.4); Lymphocytes % (auto) 10.3 % (10.0-50.0); Mean Corpuscular Hemoglobin 26.6 pg (28.0-32.0); Mean Corpuscular Hgb Conc. 32.5 g/dL (32.0-36.0); Mean Corpuscular Volume 81.7 fL (80.0-100.0); Monocytes % (auto) 7.3 % (0.0-12.0); Neutrophils # (auto) 10.3 10 ^3/uL (1.6-8.6); Neutrophils % (auto) 75.9 % (37.0-80.0); Red Cell Distribution Width 16.8 % (11.8-14.3); White Blood Cell 13.7 10^3/uL (4.4-10.8)
[2022-12-25] MEDS: FUROSEMIDE 20 MG TAB PO SCH (05:57)
[2022-12-25] MEDS: InsuLIN REG 1unit/0.01ml Soln (100units/ml) SC SCH ×4 (06:04→21:42)
[2022-12-25] MEDS: ACCU-CHEK COMFORT CURVE STRIP VI SCH ×4 (06:04→21:43)
[2022-12-25] MEDS: SODIUM CHLORIDE 0.9% 1,000 ML IV SCH (06:05)
[2022-12-25 06:36] LABS: Alanine Aminotransferase 15 U/L (7-40); Alkaline Phosphatase 90 U/L (46-116); Anion Gap 7 (5-15); BUN/Creatinine Ratio 18.3 (10.0-20.0); Blood Urea Nitrogen 23 mg/dL (9-23); Calcium 9.3 mg/dL (8.7-10.4); Carbon Dioxide 20 mmol/L (20-30); Chloride 108 mmol/L (98-107); Glucose 137 mg/dL (74-106); Potassium 5.5 mmol/L (3.5-5.1); Sodium 135 mmol/L (136-145)
[2022-12-25 06:37] LABS: Albumin 2.9 g/dL (3.2-4.8); Aspartate Aminotransferase 22 U/L (13-40); Bilirubin, Total 0.3 mg/dL (0.2-1.0)
[2022-12-25 06:38] LABS: Total Protein 6.5 g/dL (5.7-8.2)
[2022-12-25] MEDS ORDERED: SODIUM ZIRCONIUM CYCL 10 GM PAK PO ONE (08:45)
[2022-12-25] MEDS: FAMOTIDINE 20 MG TAB PO SCH ×2 (09:16→21:42)
[2022-12-25] MEDS: levoFLOXacin 750MG 150 ML IV SCH (09:16)
[2022-12-25] MEDS: ASPirin-EC 81 mg tab PO SCH (09:16)
[2022-12-25] MEDS: SULFAMETHOX W/TRIMETH(800/160MG) DS TAB PO SCH ×2 (09:16→21:41)
[2022-12-25] MEDS: MULTIPLE VITAMIN TAB PO SCH (09:16)
[2022-12-25] MEDS: ASCORBIC ACID 500 MG TAB PO SCH ×2 (09:16→21:41)
[2022-12-25] MEDS: METOPROLOL TARTRATE 25 MG TAB PO SCH ×2 (09:17→21:42)
[2022-12-25] MEDS: ZINC SULFATE 220mg CAP or TAB PO SCH (09:23)
[2022-12-25] MEDS: Glucerna Carbsteady SHAKE Vanilla 8oz PO SCH ×3 (09:32→17:08)
[2022-12-25] MEDS: DAKINS QUARTER STR 0.125% (NaHypochlorite) 473 ML TOPICAL SOL TOP SCH ×2 (10:00→21:43)
[2022-12-25] MEDS: HYDROcodone-ACET 10/325MG TAB PO PRN (10:07)
[2022-12-25] MEDS ORDERED: VANCOMYCIN 500 MG in D5W 5% 100 ML IV ONE (11:00)
[2022-12-25] MEDS ORDERED: MICAFUNGIN SODIUM 100 MG in SODIUM CHL 0.9% 100 ML IV SCH (16:15)
[2022-12-25] MEDS: FLUCONAZOLE 200MG/100ML 100 ML IV SCH (19:49)
[2022-12-25] MEDS: ATORVASTATIN 20 MG TAB PO SCH (21:41)
[2022-12-25] MEDS: CEFEPIME 2GM/50ML NS 50 ML IV SCH (21:41)
[2022-12-26] VITALS (8 sets, daily range): BP systolic 125–143; BP diastolic 66–80; PULSE 63–69; RESP 17–21; TEMP 98–98.8; O2SAT 94–96
[2022-12-26] MEDS: InsuLIN REG 1unit/0.01ml Soln (100units/ml) SC SCH ×4 (06:10→22:00)
[2022-12-26] MEDS: ACCU-CHEK COMFORT CURVE STRIP VI SCH ×4 (06:10→22:18)
[2022-12-26 06:26] LABS: Anion Gap 7 (5-15); Carbon Dioxide 20 mmol/L (20-30); Chloride 107 mmol/L (98-107); Potassium 5.2 mmol/L (3.5-5.1); Sodium 134 mmol/L (136-145)
[2022-12-26 06:27] LABS: Calcium 9.5 mg/dL (8.7-10.4)
[2022-12-26 06:32] LABS: BUN/Creatinine Ratio 12.3 (10.0-20.0); Blood Urea Nitrogen 16 mg/dL (9-23); Glucose 87 mg/dL (74-106)
[2022-12-26 06:35] LABS: Basophils # (auto) 0.1 10 ^3/uL (0-0.2); Eosinophils # (auto) 0.4 10 ^3/uL (0-0.8); Lymphocytes # (auto) 1.3 10 ^3/uL (0.4-5.4); Red Blood Cells 4.17 10^6/uL (4.5-5.90)
[2022-12-26 06:44] LABS: Basophils % (auto) 1.1 % (0.0-2.0); Eosinophils % (auto) 3.4 % (0.0-7.0); Hematocrit 34.9 % (41.0-53.0); Lymphocytes % (auto) 11.4 % (10.0-50.0); Mean Corpuscular Hemoglobin 26.4 pg (28.0-32.0); Mean Corpuscular Hgb Conc. 31.6 g/dL (32.0-36.0); Mean Corpuscular Volume 83.7 fL (80.0-100.0); Monocytes # (auto) 0.9 10 ^3/uL (0-1.3); Monocytes % (auto) 7.6 % (0.0-12.0); Neutrophils # (auto) 8.7 10 ^3/uL (1.6-8.6); Neutrophils % (auto) 76.5 % (37.0-80.0); White Blood Cell 11.3 10^3/uL (4.4-10.8)
[2022-12-26] MEDS: HYDROcodone-ACET 10/325MG TAB PO PRN (10:54)
[2022-12-26] MEDS: SULFAMETHOX W/TRIMETH(800/160MG) DS TAB PO SCH (10:55)
[2022-12-26] MEDS: ASPirin-EC 81 mg tab PO SCH (10:55)
[2022-12-26] MEDS: METOPROLOL TARTRATE 25 MG TAB PO SCH ×2 (10:55→22:14)
[2022-12-26] MEDS: ASCORBIC ACID 500 MG TAB PO SCH ×2 (10:56→22:14)
[2022-12-26] MEDS: MULTIPLE VITAMIN TAB PO SCH (10:56)
[2022-12-26] MEDS: ZINC SULFATE 220mg CAP or TAB PO SCH (10:57)
[2022-12-26] MEDS: FLUCONAZOLE 200MG/100ML 100 ML IV SCH ×2 (10:57→13:39)
[2022-12-26] MEDS: Glucerna Carbsteady SHAKE Vanilla 8oz PO SCH ×3 (10:58→19:01)
[2022-12-26] MEDS: FAMOTIDINE 20 MG TAB PO SCH ×2 (10:58→22:13)
[2022-12-26] MEDS: DAKINS QUARTER STR 0.125% (NaHypochlorite) 473 ML TOPICAL SOL TOP SCH ×2 (10:58→22:00)
[2022-12-26] MEDS: CEFEPIME 2GM/50ML NS 50 ML IV SCH ×2 (12:14→22:13)
[2022-12-26 13:44] LABS: INR 1.17 (0.9-1.15); Prothrombin Time 12.2 sec (9.3-11.8)
[2022-12-26] MEDS ORDERED: LIDOCAINE 1% (LOCAL ANESTH.) PF 5ml SDV ID ONE (15:45)
[2022-12-26] MEDS: SODIUM CHLORIDE 0.9% 1,000 ML IV SCH (15:51)
[2022-12-26] MEDS: ATORVASTATIN 20 MG TAB PO SCH (22:13)
[2022-12-26] MEDS: LINEZOLID 600MG TABLET PO SCH (22:14)
[2022-12-26] MEDS: SODIUM CHLOR 0.9% PF (SALINE LOCK) 10ML VIAL/SYR IV SCH (22:17)
[2022-12-27] VITALS (7 sets, daily range): BP systolic 114–140; BP diastolic 71–80; PULSE 60–68; RESP 18–21; TEMP 97.8–98.5; O2SAT 94–99
[2022-12-27] MEDS: InsuLIN REG 1unit/0.01ml Soln (100units/ml) SC SCH ×4 (06:11→22:06)
[2022-12-27] MEDS: ACCU-CHEK COMFORT CURVE STRIP VI SCH ×4 (06:11→22:08)
[2022-12-27] MEDS: Glucerna Carbsteady SHAKE Vanilla 8oz PO SCH ×3 (08:00→18:08)
[2022-12-27] MEDS: DAKINS QUARTER STR 0.125% (NaHypochlorite) 473 ML TOPICAL SOL TOP SCH ×2 (10:00→21:56)
[2022-12-27] MEDS: CEFEPIME 2GM/50ML NS 50 ML IV SCH ×2 (10:19→21:54)
[2022-12-27] MEDS: FLUCONAZOLE 200MG/100ML 100 ML IV SCH ×2 (10:19→14:00)
[2022-12-27] MEDS: SODIUM CHLOR 0.9% PF (SALINE LOCK) 10ML VIAL/SYR IV SCH ×2 (10:20→22:13)
[2022-12-27] MEDS: ASPirin-EC 81 mg tab PO SCH (10:20)
[2022-12-27] MEDS: METOPROLOL TARTRATE 25 MG TAB PO SCH ×2 (10:21→21:55)
[2022-12-27] MEDS: ASCORBIC ACID 500 MG TAB PO SCH ×2 (10:21→21:54)
[2022-12-27] MEDS: LINEZOLID 600MG TABLET PO SCH ×2 (10:21→21:55)
[2022-12-27] MEDS: ZINC SULFATE 220mg CAP or TAB PO SCH (10:21)
[2022-12-27] MEDS: MULTIPLE VITAMIN TAB PO SCH (10:21)
[2022-12-27] MEDS: FAMOTIDINE 20 MG TAB PO SCH ×2 (10:21→21:54)
[2022-12-27] MEDS: SODIUM CHLORIDE 0.9% 1,000 ML IV SCH (11:30)
[2022-12-27] MEDS: ATORVASTATIN 20 MG TAB PO SCH (21:55)
[2022-12-28 05:00] VITALS: BP 137/76; PULSE 75; RESP 18; TEMP 97.9; O2SAT 98
[2022-12-28 06:10] LABS: Anion Gap 7 (5-15); Carbon Dioxide 19 mmol/L (20-30); Chloride 106 mmol/L (98-107); Sodium 132 mmol/L (136-145)
[2022-12-28 06:11] LABS: Calcium 9.9 mg/dL (8.7-10.4)
[2022-12-28 06:16] LABS: BUN/Creatinine Ratio 15.3 (10.0-20.0); Blood Urea Nitrogen 21 mg/dL (9-23); Glucose 143 mg/dL (74-106)
[2022-12-28 06:28] LABS: Basophils # (auto) 0.2 10 ^3/uL (0-0.2); Basophils % (auto) 1.7 % (0.0-2.0); Eosinophils # (auto) 0.5 10 ^3/uL (0-0.8); Eosinophils % (auto) 4.7 % (0.0-7.0); Hematocrit 35.2 % (41.0-53.0); Hemoglobin 11.5 g/dL (13.5-17.5); Lymphocytes # (auto) 1.1 10 ^3/uL (0.4-5.4); Lymphocytes % (auto) 9.9 % (10.0-50.0); Mean Corpuscular Hemoglobin 26.5 pg (28.0-32.0); Mean Corpuscular Hgb Conc. 32.6 g/dL (32.0-36.0); Mean Corpuscular Volume 81.4 fL (80.0-100.0); Monocytes # (auto) 0.9 10 ^3/uL (0-1.3); Monocytes % (auto) 8.1 % (0.0-12.0); Neutrophils # (auto) 8.8 10 ^3/uL (1.6-8.6); Neutrophils % (auto) 75.6 % (37.0-80.0); Red Blood Cells 4.32 10^6/uL (4.5-5.90); Red Cell Distribution Width 16.8 % (11.8-14.3); White Blood Cell 11.6 10^3/uL (4.4-10.8)
[2022-12-28 06:35] LABS: Potassium 5.9 mmol/L (3.5-5.1)
[2022-12-28] MEDS: ACCU-CHEK COMFORT CURVE STRIP VI SCH ×4 (06:44→22:13)
[2022-12-28] MEDS: InsuLIN REG 1unit/0.01ml Soln (100units/ml) SC SCH ×4 (06:44→22:00)
[2022-12-28 08:20] VITALS: PULSE 66
[2022-12-28 09:00] VITALS: BP 123/70; PULSE 57; RESP 18; TEMP 97.5; O2SAT 92
[2022-12-28] MEDS ORDERED: SODIUM ZIRCONIUM CYCL 10 GM PAK PO ONE (09:00)
[2022-12-28] MEDS: FLUCONAZOLE 200MG/100ML 100 ML IV SCH ×2 (09:21→11:09)
[2022-12-28] MEDS: ASPirin-EC 81 mg tab PO SCH (09:21)
[2022-12-28] MEDS: MULTIPLE VITAMIN TAB PO SCH (09:22)
[2022-12-28] MEDS: ASCORBIC ACID 500 MG TAB PO SCH (09:22)
[2022-12-28] MEDS: Glucerna Carbsteady SHAKE Vanilla 8oz PO SCH (09:22)
[2022-12-28] MEDS: ZINC SULFATE 220mg CAP or TAB PO SCH (09:22)
[2022-12-28] MEDS: FAMOTIDINE 20 MG TAB PO SCH ×2 (09:22→22:04)
[2022-12-28] MEDS: METOPROLOL TARTRATE 25 MG TAB PO SCH ×2 (09:23→22:00)
[2022-12-28] MEDS: DAKINS QUARTER STR 0.125% (NaHypochlorite) 473 ML TOPICAL SOL TOP SCH ×2 (09:23→22:12)
[2022-12-28] MEDS: SODIUM CHLOR 0.9% PF (SALINE LOCK) 10ML VIAL/SYR IV SCH ×2 (10:00→22:12)
[2022-12-28] MEDS ORDERED: FUROSEMIDE 40 MG/4 ML VIAL IV ONE (10:30)
[2022-12-28] MEDS: LINEZOLID 600MG TABLET PO SCH ×2 (11:09→22:02)
[2022-12-28] MEDS: SODIUM ZIRCONIUM CYCL 10 GM PAK PO SCH ×2 (13:10→22:11)
[2022-12-28] MEDS: SODIUM BICARBONATE 650 MG TAB PO SCH ×3 (13:10→22:02)
[2022-12-28] MEDS: CEFEPIME 2GM/50ML NS 50 ML IV SCH ×2 (13:10→22:12)
[2022-12-28 17:00] VITALS: BP 134/75; PULSE 61; RESP 18; TEMP 97.5; O2SAT 96
[2022-12-28 20:00] VITALS: PULSE 56; PULSE 65
[2022-12-28 22:00] VITALS: BP 126/70; PULSE 55; RESP 16; TEMP 98.1; O2SAT 97
[2022-12-28] MEDS: ATORVASTATIN 20 MG TAB PO SCH (22:04)
[2022-12-29] VITALS (7 sets, daily range): BP systolic 109–129; BP diastolic 70–77; PULSE 62–77; RESP 14–20; TEMP 98.1–98.8; O2SAT 94–98
[2022-12-29] MEDS: SODIUM BICARBONATE 650 MG TAB PO SCH ×4 (05:22→22:02)
[2022-12-29] MEDS: SODIUM ZIRCONIUM CYCL 10 GM PAK PO SCH ×3 (05:23→22:03)
[2022-12-29 05:26] LABS: Chloride 107 mmol/L (98-107); Potassium 5.4 mmol/L (3.5-5.1); Sodium 130 mmol/L (136-145)
[2022-12-29] MEDS: ACCU-CHEK COMFORT CURVE STRIP VI SCH ×4 (05:26→22:03)
[2022-12-29 05:27] LABS: Anion Gap 4 (5-15); Calcium 9.8 mg/dL (8.5-10.1); Carbon Dioxide 19 mmol/L (20-30)
[2022-12-29 05:32] LABS: BUN/Creatinine Ratio 14.5 (10.0-20.0); Blood Urea Nitrogen 20 mg/dL (9-23); Glucose 106 mg/dL (74-106)
[2022-12-29] MEDS: InsuLIN REG 1unit/0.01ml Soln (100units/ml) SC SCH ×4 (06:56→22:00)
[2022-12-29] MEDS: DAKINS QUARTER STR 0.125% (NaHypochlorite) 473 ML TOPICAL SOL TOP SCH ×2 (07:33→22:00)
[2022-12-29] MEDS: FLUCONAZOLE 200MG/100ML 100 ML IV SCH ×2 (09:47→13:13)
[2022-12-29] MEDS: FUROSEMIDE 40 MG/4 ML VIAL IV SCH (09:47)
[2022-12-29] MEDS: FAMOTIDINE 20 MG TAB PO SCH ×2 (09:48→22:04)
[2022-12-29] MEDS: LINEZOLID 600MG TABLET PO SCH ×2 (09:48→22:03)
[2022-12-29] MEDS: METOPROLOL TARTRATE 25 MG TAB PO SCH ×2 (09:48→22:03)
[2022-12-29] MEDS: ASPirin-EC 81 mg tab PO SCH (09:48)
[2022-12-29] MEDS: SODIUM CHLOR 0.9% PF (SALINE LOCK) 10ML VIAL/SYR IV SCH ×2 (10:00→22:03)
[2022-12-29] MEDS: CEFEPIME 2GM/50ML NS 50 ML IV SCH ×2 (14:30→22:03)
[2022-12-29] MEDS: ATORVASTATIN 20 MG TAB PO SCH (22:03)
[2022-12-30] VITALS (7 sets, daily range): BP systolic 120–136; BP diastolic 71–82; PULSE 55–82; RESP 14–20; TEMP 97.5–98.4; O2SAT 95–100
[2022-12-30 05:54] LABS: Basophils # (auto) 0.2 10 ^3/uL (0-0.2); Eosinophils # (auto) 0.4 10 ^3/uL (0-0.8); Monocytes # (auto) 1.1 10 ^3/uL (0-1.3)
[2022-12-30 05:57] LABS: Basophils % (auto) 1.3 % (0.0-2.0); Eosinophils % (auto) 3.7 % (0.0-7.0); Hematocrit 34.4 % (41.0-53.0); Hemoglobin 11.1 g/dL (13.5-17.5); Lymphocytes # (auto) 1.5 10 ^3/uL (0.4-5.4); Lymphocytes % (auto) 12.9 % (10.0-50.0); Mean Corpuscular Hemoglobin 26.3 pg (28.0-32.0); Mean Corpuscular Hgb Conc. 32.4 g/dL (32.0-36.0); Mean Corpuscular Volume 81.1 fL (80.0-100.0); Monocytes % (auto) 9.1 % (0.0-12.0); Neutrophils # (auto) 8.7 10 ^3/uL (1.6-8.6); Red Blood Cells 4.24 10^6/uL (4.5-5.90); Red Cell Distribution Width 16.8 % (11.8-14.3); White Blood Cell 11.9 10^3/uL (4.4-10.8)
[2022-12-30] MEDS: InsuLIN REG 1unit/0.01ml Soln (100units/ml) SC SCH ×4 (06:07→21:41)
[2022-12-30] MEDS: ACCU-CHEK COMFORT CURVE STRIP VI SCH ×4 (06:07→22:37)
[2022-12-30 06:09] LABS: Calcium 9.2 mg/dL (8.7-10.4); Chloride 104 mmol/L (98-107); Potassium 4.8 mmol/L (3.5-5.1); Sodium 131 mmol/L (136-145)
[2022-12-30] MEDS: SODIUM ZIRCONIUM CYCL 10 GM PAK PO SCH (06:09)
[2022-12-30 06:10] LABS: Anion Gap 8 (5-15); Carbon Dioxide 19 mmol/L (20-30)
[2022-12-30] MEDS: SODIUM BICARBONATE 650 MG TAB PO SCH ×4 (06:13→21:53)
[2022-12-30 06:15] LABS: Glucose 103 mg/dL (74-106)
[2022-12-30 06:16] LABS: BUN/Creatinine Ratio 13.1 (10.0-20.0); Blood Urea Nitrogen 18 mg/dL (9-23)
[2022-12-30] MEDS: ASPirin-EC 81 mg tab PO SCH (09:57)
[2022-12-30] MEDS: FUROSEMIDE 40 MG/4 ML VIAL IV SCH (09:57)
[2022-12-30] MEDS: FLUCONAZOLE 200MG/100ML 100 ML IV SCH ×2 (09:57→11:54)
[2022-12-30] MEDS: METOPROLOL TARTRATE 25 MG TAB PO SCH ×2 (09:58→22:00)
[2022-12-30] MEDS: FAMOTIDINE 20 MG TAB PO SCH ×2 (09:58→21:53)
[2022-12-30] MEDS: SODIUM CHLOR 0.9% PF (SALINE LOCK) 10ML VIAL/SYR IV SCH ×2 (09:58→21:54)
[2022-12-30] MEDS: DAKINS QUARTER STR 0.125% (NaHypochlorite) 473 ML TOPICAL SOL TOP SCH ×2 (09:59→22:37)
[2022-12-30] MEDS: LINEZOLID 600MG TABLET PO SCH ×2 (11:54→21:53)
[2022-12-30] MEDS: CEFEPIME 2GM/50ML NS 50 ML IV SCH ×2 (13:17→22:37)
[2022-12-30] MEDS: ATORVASTATIN 20 MG TAB PO SCH (21:53)
[2022-12-31] VITALS (8 sets, daily range): BP systolic 108–137; BP diastolic 55–85; PULSE 58–78; RESP 12–18; TEMP 97.2–98.8; O2SAT 94–100
[2022-12-31] MEDS: SODIUM BICARBONATE 650 MG TAB PO SCH ×4 (06:15→22:09)
[2022-12-31] MEDS: ACCU-CHEK COMFORT CURVE STRIP VI SCH ×4 (06:31→22:34)
[2022-12-31] MEDS: InsuLIN REG 1unit/0.01ml Soln (100units/ml) SC SCH ×4 (06:31→22:06)
[2022-12-31] MEDS: FLUCONAZOLE 200MG/100ML 100 ML IV SCH ×2 (09:11→10:30)
[2022-12-31] MEDS: FAMOTIDINE 20 MG TAB PO SCH ×2 (09:11→22:09)
[2022-12-31] MEDS: METOPROLOL TARTRATE 25 MG TAB PO SCH ×2 (09:11→22:00)
[2022-12-31] MEDS: ASPirin-EC 81 mg tab PO SCH (09:11)
[2022-12-31] MEDS: SODIUM CHLOR 0.9% PF (SALINE LOCK) 10ML VIAL/SYR IV SCH ×2 (09:11→22:35)
[2022-12-31] MEDS: FUROSEMIDE 40 MG/4 ML VIAL IV SCH (09:12)
[2022-12-31] MEDS: DAKINS QUARTER STR 0.125% (NaHypochlorite) 473 ML TOPICAL SOL TOP SCH ×2 (10:00→22:34)
[2022-12-31] MEDS: CEFEPIME 2GM/50ML NS 50 ML IV SCH ×2 (12:45→22:09)
[2022-12-31] MEDS: LINEZOLID 600MG TABLET PO SCH ×2 (12:45→22:09)
[2022-12-31] MEDS: ATORVASTATIN 20 MG TAB PO SCH (22:09)
[2023-01-01 04:55] VITALS: BP 113/56; PULSE 60; RESP 18; TEMP 98.8; O2SAT 93
[2023-01-01] MEDS: SODIUM BICARBONATE 650 MG TAB PO SCH ×4 (06:20→21:53)
[2023-01-01] MEDS: InsuLIN REG 1unit/0.01ml Soln (100units/ml) SC SCH ×4 (07:00→21:41)
[2023-01-01 07:08] LABS: Chloride 105 mmol/L (98-107); Potassium 4.2 mmol/L (3.5-5.1); Sodium 135 mmol/L (136-145)
[2023-01-01] MEDS: ACCU-CHEK COMFORT CURVE STRIP VI SCH ×4 (07:08→23:01)
[2023-01-01 07:09] LABS: Anion Gap 9 (5-15); Carbon Dioxide 21 mmol/L (20-30)
[2023-01-01 07:10] LABS: Calcium 9.1 mg/dL (8.5-10.1)
[2023-01-01 07:14] LABS: BUN/Creatinine Ratio 15.9 (10.0-20.0); Blood Urea Nitrogen 18 mg/dL (9-23); Glucose 115 mg/dL (74-106)
[2023-01-01 08:00] VITALS: BP 137/85; PULSE 61; PULSE 65; RESP 20; TEMP 98.3; O2SAT 95; O2SAT 98
[2023-01-01] MEDS: CEFEPIME 2GM/50ML NS 50 ML IV SCH ×2 (10:40→21:52)
[2023-01-01] MEDS: SODIUM CHLOR 0.9% PF (SALINE LOCK) 10ML VIAL/SYR IV SCH ×2 (10:40→23:01)
[2023-01-01] MEDS: FLUCONAZOLE 200MG/100ML 100 ML IV SCH ×2 (10:40→11:00)
[2023-01-01] MEDS: FUROSEMIDE 40 MG/4 ML VIAL IV SCH (10:40)
[2023-01-01] MEDS: LINEZOLID 600MG TABLET PO SCH ×2 (10:41→21:53)
[2023-01-01] MEDS: FAMOTIDINE 20 MG TAB PO SCH ×2 (10:41→21:53)
[2023-01-01] MEDS: METOPROLOL TARTRATE 25 MG TAB PO SCH ×2 (10:41→22:00)
[2023-01-01] MEDS: ASPirin-EC 81 mg tab PO SCH (10:41)
[2023-01-01] MEDS: DAKINS QUARTER STR 0.125% (NaHypochlorite) 473 ML TOPICAL SOL TOP SCH ×2 (10:42→23:01)
[2023-01-01 12:00] VITALS: BP 145/74; PULSE 77; RESP 18; TEMP 98.6; O2SAT 98
[2023-01-01 16:00] VITALS: BP 136/80; PULSE 64; RESP 20; TEMP 98.4; O2SAT 97
[2023-01-01 20:00] VITALS: PULSE 67; PULSE 72; RESP 16
[2023-01-01] MEDS: ATORVASTATIN 20 MG TAB PO SCH (21:53)
[2023-01-01 22:00] VITALS: BP 126/72; PULSE 67; RESP 16; TEMP 98.3; O2SAT 97
[2023-01-02] VITALS (7 sets, daily range): BP systolic 130–160; BP diastolic 72–80; PULSE 61–77; RESP 16–62; TEMP 97.7–98.5; O2SAT 95–99
[2023-01-02] MEDS: SODIUM BICARBONATE 650 MG TAB PO SCH ×4 (06:09→21:52)
[2023-01-02] MEDS: ACCU-CHEK COMFORT CURVE STRIP VI SCH ×4 (06:12→22:17)
[2023-01-02] MEDS: InsuLIN REG 1unit/0.01ml Soln (100units/ml) SC SCH ×4 (07:00→21:49)
[2023-01-02] MEDS: FLUCONAZOLE 200MG/100ML 100 ML IV SCH ×2 (09:11→12:09)
[2023-01-02] MEDS: METOPROLOL TARTRATE 25 MG TAB PO SCH ×2 (09:13→21:51)
[2023-01-02] MEDS: LINEZOLID 600MG TABLET PO SCH ×2 (09:13→21:52)
[2023-01-02] MEDS: FAMOTIDINE 20 MG TAB PO SCH ×2 (09:13→21:51)
[2023-01-02] MEDS: ASPirin-EC 81 mg tab PO SCH (09:13)
[2023-01-02] MEDS: SODIUM CHLOR 0.9% PF (SALINE LOCK) 10ML VIAL/SYR IV SCH ×2 (09:14→22:19)
[2023-01-02] MEDS: FUROSEMIDE 40 MG/4 ML VIAL IV SCH (09:14)
[2023-01-02] MEDS: DAKINS QUARTER STR 0.125% (NaHypochlorite) 473 ML TOPICAL SOL TOP SCH ×2 (09:43→22:18)
[2023-01-02] MEDS: CEFEPIME 2GM/50ML NS 50 ML IV SCH ×2 (14:18→21:52)
[2023-01-02] MEDS: ATORVASTATIN 20 MG TAB PO SCH (21:52)
[2023-01-03] VITALS (7 sets, daily range): BP systolic 126–147; BP diastolic 79–95; PULSE 60–90; RESP 16–18; TEMP 97.4–98.6; O2SAT 94–97
[2023-01-03] MEDS: SODIUM BICARBONATE 650 MG TAB PO SCH ×4 (06:26→22:03)
[2023-01-03] MEDS: InsuLIN REG 1unit/0.01ml Soln (100units/ml) SC SCH ×4 (06:48→22:00)
[2023-01-03] MEDS: ACCU-CHEK COMFORT CURVE STRIP VI SCH ×4 (06:49→22:04)
[2023-01-03] MEDS: DAKINS QUARTER STR 0.125% (NaHypochlorite) 473 ML TOPICAL SOL TOP SCH ×2 (10:00→22:00)
[2023-01-03] MEDS: SODIUM CHLOR 0.9% PF (SALINE LOCK) 10ML VIAL/SYR IV SCH ×2 (11:31→22:04)
[2023-01-03] MEDS: CEFEPIME 2GM/50ML NS 50 ML IV SCH ×2 (11:31→22:04)
[2023-01-03] MEDS: FUROSEMIDE 40 MG/4 ML VIAL IV SCH (11:31)
[2023-01-03] MEDS: FLUCONAZOLE 200MG/100ML 100 ML IV SCH ×2 (11:31→14:05)
[2023-01-03] MEDS: ASPirin-EC 81 mg tab PO SCH (11:32)
[2023-01-03] MEDS: FAMOTIDINE 20 MG TAB PO SCH ×2 (11:32→22:03)
[2023-01-03] MEDS: METOPROLOL TARTRATE 25 MG TAB PO SCH ×2 (11:32→22:03)
[2023-01-03] MEDS: LINEZOLID 600MG TABLET PO SCH ×2 (11:32→22:03)
[2023-01-03] MEDS: HYDROcodone-ACET 5/325MG TAB PO PRN (11:54)
[2023-01-03] MEDS: ATORVASTATIN 20 MG TAB PO SCH (22:03)
[2023-01-04] VITALS (7 sets, daily range): BP systolic 135–159; BP diastolic 76–87; PULSE 58–78; RESP 16–19; TEMP 97.7–98.2; O2SAT 92–98
[2023-01-04] MEDS: SODIUM BICARBONATE 650 MG TAB PO SCH ×4 (06:12→21:44)
[2023-01-04] MEDS: InsuLIN REG 1unit/0.01ml Soln (100units/ml) SC SCH ×4 (06:12→21:45)
[2023-01-04] MEDS: ACCU-CHEK COMFORT CURVE STRIP VI SCH ×4 (06:12→21:44)
[2023-01-04] MEDS: CEFEPIME 2GM/50ML NS 50 ML IV SCH (08:46)
[2023-01-04] MEDS: ASPirin-EC 81 mg tab PO SCH (08:46)
[2023-01-04] MEDS: FLUCONAZOLE 200MG/100ML 100 ML IV SCH ×2 (08:46→10:13)
[2023-01-04] MEDS: SODIUM CHLOR 0.9% PF (SALINE LOCK) 10ML VIAL/SYR IV SCH ×2 (08:46→21:48)
[2023-01-04] MEDS: METOPROLOL TARTRATE 25 MG TAB PO SCH ×2 (08:47→21:46)
[2023-01-04] MEDS: DAKINS QUARTER STR 0.125% (NaHypochlorite) 473 ML TOPICAL SOL TOP SCH ×2 (08:47→21:46)
[2023-01-04] MEDS: FAMOTIDINE 20 MG TAB PO SCH ×2 (08:47→21:45)
[2023-01-04] MEDS: FUROSEMIDE 40 MG/4 ML VIAL IV SCH (08:48)
[2023-01-04] MEDS: LINEZOLID 600MG TABLET PO SCH ×2 (09:04→21:45)
[2023-01-04] MEDS ORDERED: ERTAPENEM SOD INJ 1 GM in SODIUM CHL 0.9% 50 ML IV ONE ×2 (14:00→18:15)
[2023-01-04] MEDS: ATORVASTATIN 20 MG TAB PO SCH (21:44)
[2023-01-05 05:00] VITALS: BP 128/76; PULSE 57; RESP 20; TEMP 98.4; O2SAT 96
[2023-01-05] MEDS: SODIUM BICARBONATE 650 MG TAB PO SCH ×5 (06:00→21:38)
[2023-01-05 06:11] LABS: Basophils # (auto) 0.1 10 ^3/uL (0-0.2); Eosinophils # (auto) 0.3 10 ^3/uL (0-0.8); Eosinophils % (auto) 3.4 % (0.0-7.0); Lymphocytes # (auto) 1.5 10 ^3/uL (0.4-5.4); Monocytes # (auto) 0.9 10 ^3/uL (0-1.3); Nucleated Red Blood Cells % 0.1 %; White Blood Cell 9.8 10^3/uL (4.4-10.8)
[2023-01-05 06:12] LABS: Basophils % (auto) 1.2 % (0.0-2.0); Hematocrit 34.6 % (41.0-53.0); Hemoglobin 11.4 g/dL (13.5-17.5); Lymphocytes % (auto) 15.2 % (10.0-50.0); Mean Corpuscular Hemoglobin 26.6 pg (28.0-32.0); Mean Corpuscular Volume 80.4 fL (80.0-100.0); Monocytes % (auto) 9.3 % (0.0-12.0); Neutrophils % (auto) 70.9 % (37.0-80.0); Red Cell Distribution Width 17.2 % (11.8-14.3)
[2023-01-05] MEDS: ACCU-CHEK COMFORT CURVE STRIP VI SCH ×4 (06:27→21:38)
[2023-01-05] MEDS: InsuLIN REG 1unit/0.01ml Soln (100units/ml) SC SCH ×5 (06:28→21:57)
[2023-01-05 06:29] LABS: Alkaline Phosphatase 107 U/L (46-116); Anion Gap 7 (5-15); BUN/Creatinine Ratio 14.6 (10.0-20.0); Blood Urea Nitrogen 15 mg/dL (9-23); Carbon Dioxide 25 mmol/L (20-30); Chloride 103 mmol/L (98-107); Glucose 119 mg/dL (74-106); Magnesium 1.7 mg/dL (1.6-2.6); Potassium 3.3 mmol/L (3.5-5.1); Sodium 135 mmol/L (136-145)
[2023-01-05 06:30] LABS: Alanine Aminotransferase < 9 U/L (7-40); Albumin 3.3 g/dL (3.2-4.8); Aspartate Aminotransferase 16 U/L (13-40); Bilirubin, Total 0.9 mg/dL (0.2-1.0); Total Protein 7.3 g/dL (5.7-8.2)
[2023-01-05 07:30] VITALS: PULSE 80
[2023-01-05 09:00] VITALS: BP 143/81; PULSE 68; RESP 20; TEMP 98.1; O2SAT 98
[2023-01-05] MEDS ORDERED: POTASSIUM CHL 20 Meq TABLET PO ONE (09:00)
[2023-01-05] MEDS: FAMOTIDINE 20 MG TAB PO SCH ×2 (09:47→21:38)
[2023-01-05] MEDS: ACETAMINOPHEN 325 MG TAB PO PRN (09:47)
[2023-01-05] MEDS: FUROSEMIDE 40 MG/4 ML VIAL IV SCH (09:47)
[2023-01-05] MEDS: ASPirin-EC 81 mg tab PO SCH (09:47)
[2023-01-05] MEDS: METOPROLOL TARTRATE 25 MG TAB PO SCH ×2 (09:47→21:38)
[2023-01-05] MEDS: FLUCONAZOLE 200MG/100ML 100 ML IV SCH (09:48)
[2023-01-05] MEDS: SODIUM CHLOR 0.9% PF (SALINE LOCK) 10ML VIAL/SYR IV SCH ×2 (09:48→21:38)
[2023-01-05] MEDS: DAKINS QUARTER STR 0.125% (NaHypochlorite) 473 ML TOPICAL SOL TOP SCH ×2 (10:00→21:39)
[2023-01-05] MEDS: ERTAPENEM SOD INJ 1 GM in SODIUM CHL 0.9% 50 ML IV SCH (12:00)
[2023-01-05] MEDS: LINEZOLID 600MG TABLET PO SCH ×2 (12:00→21:38)
[2023-01-05 13:00] VITALS: BP 136/76; PULSE 67; RESP 20; TEMP 98.2; O2SAT 97
[2023-01-05 17:00] VITALS: BP 144/70; PULSE 60; RESP 18; TEMP 98; O2SAT 96
[2023-01-05 20:00] VITALS: PULSE 54; RESP 17
[2023-01-05] MEDS: ATORVASTATIN 20 MG TAB PO SCH (21:38)
[2023-01-06] VITALS (8 sets, daily range): BP systolic 133–151; BP diastolic 72–79; PULSE 58–80; RESP 12–20; TEMP 97.2–98.6; O2SAT 92–98
[2023-01-06] MEDS: InsuLIN REG 1unit/0.01ml Soln (100units/ml) SC SCH ×4 (05:36→22:00)
[2023-01-06] MEDS: ACCU-CHEK COMFORT CURVE STRIP VI SCH ×4 (05:36→22:02)
[2023-01-06] MEDS: SODIUM BICARBONATE 650 MG TAB PO SCH ×4 (05:36→22:05)
[2023-01-06] MEDS: LINEZOLID 600MG TABLET PO SCH ×2 (09:28→22:05)
[2023-01-06] MEDS: ASPirin-EC 81 mg tab PO SCH (09:28)
[2023-01-06] MEDS: FUROSEMIDE 40 MG/4 ML VIAL IV SCH (09:28)
[2023-01-06] MEDS: METOPROLOL TARTRATE 25 MG TAB PO SCH ×2 (09:29→22:08)
[2023-01-06] MEDS: ERTAPENEM SOD INJ 1 GM in SODIUM CHL 0.9% 50 ML IV SCH (09:29)
[2023-01-06] MEDS: SODIUM CHLOR 0.9% PF (SALINE LOCK) 10ML VIAL/SYR IV SCH ×2 (09:29→22:02)
[2023-01-06] MEDS: FAMOTIDINE 20 MG TAB PO SCH ×2 (09:29→22:05)
[2023-01-06] MEDS: DAKINS QUARTER STR 0.125% (NaHypochlorite) 473 ML TOPICAL SOL TOP SCH ×3 (09:30→22:09)
[2023-01-06] MEDS: FLUCONAZOLE 200MG/100ML 100 ML IV SCH (09:30)
[2023-01-06] MEDS: HYDROcodone-ACET 5/325MG TAB PO PRN (12:12)
[2023-01-06] MEDS: ATORVASTATIN 20 MG TAB PO SCH (22:03)
[2023-01-07] VITALS (8 sets, daily range): BP systolic 125–153; BP diastolic 71–89; PULSE 54–71; RESP 16–20; TEMP 97.9–98.9; O2SAT 93–99
[2023-01-07] MEDS: SODIUM BICARBONATE 650 MG TAB PO SCH ×4 (06:00→22:00)
[2023-01-07] MEDS: ACCU-CHEK COMFORT CURVE STRIP VI SCH ×4 (06:04→22:20)
[2023-01-07] MEDS: InsuLIN REG 1unit/0.01ml Soln (100units/ml) SC SCH ×4 (06:04→22:00)
[2023-01-07] MEDS: FLUCONAZOLE 200MG/100ML 100 ML IV SCH (09:56)
[2023-01-07] MEDS: FUROSEMIDE 40 MG/4 ML VIAL IV SCH (09:56)
[2023-01-07] MEDS: LINEZOLID 600MG TABLET PO SCH ×2 (09:56→22:19)
[2023-01-07] MEDS: ASPirin-EC 81 mg tab PO SCH (09:56)
[2023-01-07] MEDS: ERTAPENEM SOD INJ 1 GM in SODIUM CHL 0.9% 50 ML IV SCH (09:56)
[2023-01-07] MEDS: FAMOTIDINE 20 MG TAB PO SCH ×2 (09:56→22:18)
[2023-01-07] MEDS: SODIUM CHLOR 0.9% PF (SALINE LOCK) 10ML VIAL/SYR IV SCH ×2 (09:56→22:20)
[2023-01-07] MEDS: DAKINS QUARTER STR 0.125% (NaHypochlorite) 473 ML TOPICAL SOL TOP SCH ×2 (09:57→22:00)
[2023-01-07] MEDS: METOPROLOL TARTRATE 25 MG TAB PO SCH ×2 (09:57→22:18)
[2023-01-07] MEDS: ATORVASTATIN 20 MG TAB PO SCH (22:19)
[2023-01-08] VITALS (8 sets, daily range): BP systolic 122–160; BP diastolic 81–90; PULSE 64–75; RESP 16–19; TEMP 97.4–98.2; O2SAT 90–96
[2023-01-08] MEDS: SODIUM BICARBONATE 650 MG TAB PO SCH ×4 (06:00→22:01)
[2023-01-08] MEDS: ACCU-CHEK COMFORT CURVE STRIP VI SCH ×4 (06:39→22:01)
[2023-01-08] MEDS: InsuLIN REG 1unit/0.01ml Soln (100units/ml) SC SCH ×4 (06:39→22:00)
[2023-01-08] MEDS: METOPROLOL TARTRATE 25 MG TAB PO SCH ×2 (06:40→22:01)
[2023-01-08] MEDS: FAMOTIDINE 20 MG TAB PO SCH ×2 (09:53→22:01)
[2023-01-08] MEDS: SODIUM CHLOR 0.9% PF (SALINE LOCK) 10ML VIAL/SYR IV SCH ×2 (09:53→22:02)
[2023-01-08] MEDS: FUROSEMIDE 40 MG/4 ML VIAL IV SCH (09:53)
[2023-01-08] MEDS: ASPirin-EC 81 mg tab PO SCH (09:53)
[2023-01-08] MEDS: FLUCONAZOLE 200MG/100ML 100 ML IV SCH (09:53)
[2023-01-08] MEDS: LINEZOLID 600MG TABLET PO SCH ×2 (09:54→22:01)
[2023-01-08] MEDS: ERTAPENEM SOD INJ 1 GM in SODIUM CHL 0.9% 50 ML IV SCH (09:54)
[2023-01-08] MEDS: DAKINS QUARTER STR 0.125% (NaHypochlorite) 473 ML TOPICAL SOL TOP SCH ×2 (09:55→22:00)
[2023-01-08 11:09] LABS: Basophils # (auto) 0.1 10 ^3/uL (0-0.2); Eosinophils # (auto) 0.3 10 ^3/uL (0-0.8); Eosinophils % (auto) 4.1 % (0.0-7.0); Hemoglobin 11.1 g/dL (13.5-17.5); Lymphocytes # (auto) 1.8 10 ^3/uL (0.4-5.4); Monocytes # (auto) 0.7 10 ^3/uL (0-1.3)
[2023-01-08 11:11] LABS: Basophils % (auto) 1.3 % (0.0-2.0); Hematocrit 33.6 % (41.0-53.0); Lymphocytes % (auto) 23.3 % (10.0-50.0); Mean Corpuscular Hemoglobin 26.5 pg (28.0-32.0); Mean Corpuscular Volume 80.4 fL (80.0-100.0); Monocytes % (auto) 8.3 % (0.0-12.0); Neutrophils # (auto) 4.9 10 ^3/uL (1.6-8.6); Nucleated Red Blood Cells % 0.2 %; Red Blood Cells 4.18 10^6/uL (4.5-5.90); Red Cell Distribution Width 17.1 % (11.8-14.3); White Blood Cell 7.8 10^3/uL (4.4-10.8)
[2023-01-08 12:07] LABS: Chloride 103 mmol/L (98-107); Sodium 135 mmol/L (136-145)
[2023-01-08 12:08] LABS: Anion Gap 5 (5-15); Calcium 8.8 mg/dL (8.5-10.1); Carbon Dioxide 27 mmol/L (20-30)
[2023-01-08 12:13] LABS: Glucose 113 mg/dL (74-106)
[2023-01-08 12:32] LABS: Magnesium 1.8 mg/dL (1.6-2.6)
[2023-01-08 12:38] LABS: BUN/Creatinine Ratio 16.7 (10.0-20.0); Blood Urea Nitrogen 17 mg/dL (9-23)
[2023-01-08] MEDS: ATORVASTATIN 20 MG TAB PO SCH (22:01)
[2023-01-09 05:00] VITALS: BP 160/88; PULSE 69; RESP 19; TEMP 97.7; O2SAT 96
[2023-01-09] MEDS: SODIUM BICARBONATE 650 MG TAB PO SCH ×2 (06:29→12:23)
[2023-01-09] MEDS: ACCU-CHEK COMFORT CURVE STRIP VI SCH ×2 (06:34→12:22)
[2023-01-09] MEDS: InsuLIN REG 1unit/0.01ml Soln (100units/ml) SC SCH ×2 (06:34→12:45)
[2023-01-09 08:00] VITALS: PULSE 78; O2SAT 96
[2023-01-09 09:00] VITALS: BP 142/82; PULSE 69; RESP 18; TEMP 98.1; O2SAT 96
[2023-01-09] MEDS: DAKINS QUARTER STR 0.125% (NaHypochlorite) 473 ML TOPICAL SOL TOP SCH (10:00)
[2023-01-09] MEDS: FLUCONAZOLE 200MG/100ML 100 ML IV SCH (10:23)
[2023-01-09] MEDS: SODIUM CHLOR 0.9% PF (SALINE LOCK) 10ML VIAL/SYR IV SCH (10:24)
[2023-01-09] MEDS: FUROSEMIDE 40 MG/4 ML VIAL IV SCH (10:24)
[2023-01-09] MEDS: LINEZOLID 600MG TABLET PO SCH (10:24)
[2023-01-09] MEDS: METOPROLOL TARTRATE 25 MG TAB PO SCH (10:25)
[2023-01-09] MEDS: ASPirin-EC 81 mg tab PO SCH (10:25)
[2023-01-09] MEDS: FAMOTIDINE 20 MG TAB PO SCH (10:25)
[2023-01-09] MEDS: ERTAPENEM SOD INJ 1 GM in SODIUM CHL 0.9% 50 ML IV SCH (12:22)
[2023-01-09 13:00] VITALS: BP 149/91; PULSE 74; RESP 18; TEMP 97.7; O2SAT 96
== END 2023-01-09 14:10 | DRG 314 ==
LOC: EDBD 11:40 → ER 11:40 → OVERFLOW 13:47 → EAST 21:10 → TELE-EAST 22:33 → EAST 12-12 04:58 → TELE-EAST 12-12 13:03 → TELE-E-ADS 12-13 18:25 → TELE-EAST 12-24 12:16
PROVIDERS: ADMIT Internal Medicine Geriatric Medicine; ATTEND Internal Medicine Geriatric Medicine
PROC: 0QBM0ZZ Excision of Left Tarsal, Open Approach (ICD-10-PCS; principal; 2022-12-22 07:26)
PROC: 02HV33Z Insertion of Infusion Device into Superior Vena Cava, Percutaneous Approach (ICD-10-PCS; 2022-12-26)
PROC: B548ZZA Ultrasonography of Superior Vena Cava, Guidance (ICD-10-PCS; 2022-12-26)
DX: S92.002A Unspecified fracture of left calcaneus, initial encounter for closed fracture (principal); N17.0 Acute kidney failure with tubular necrosis; G93.41 Metabolic encephalopathy; I50.43 Acute on chronic combined systolic (congestive) and diastolic (congestive) heart failure; E44.1 Mild protein-calorie malnutrition; E11.621 Type 2 diabetes mellitus with foot ulcer; M86.8X7 Other osteomyelitis, ankle and foot; E11.69 Type 2 diabetes mellitus with other specified complication; L97.429 Non-pressure chronic ulcer of left heel and midfoot with unspecified severity; L03.116 Cellulitis of left lower limb; E87.1 Hypo-osmolality and hyponatremia; L97.529 Non-pressure chronic ulcer of other part of left foot with unspecified severity; E11.65 Type 2 diabetes mellitus with hyperglycemia; E11.22 Type 2 diabetes mellitus with diabetic chronic kidney disease; E11.51 Type 2 diabetes mellitus with diabetic peripheral angiopathy without gangrene; E66.01 Morbid (severe) obesity due to excess calories; E11.622 Type 2 diabetes mellitus with other skin ulcer; F17.210 Nicotine dependence, cigarettes, uncomplicated; E87.5 Hyperkalemia; N18.31 Chronic kidney disease, stage 3a; E87.20 Acidosis, unspecified; Z68.33 Body mass index [BMI] 33.0-33.9, adult; E78.00 Pure hypercholesterolemia, unspecified; E87.6 Hypokalemia; I13.0 Hypertensive heart and chronic kidney disease with heart failure and stage 1 through stage 4 chronic kidney disease, or unspecified chronic kidney disease; I47.20 Ventricular tachycardia, unspecified; Z75.1 Person awaiting admission to adequate facility elsewhere; Z89.419 Acquired absence of unspecified great toe; Z83.3 Family history of diabetes mellitus; Z82.49 Family history of ischemic heart disease and other diseases of the circulatory system; Z74.01 Bed confinement status; W18.39XA Other fall on same level, initial encounter; Y93.89 Activity, other specified; Y92.89 Other specified places as the place of occurrence of the external cause; Y99.8 Other external cause status
CPT/HCPCS: 36415; 36569; 71045; 73630; 73700; 73721; 80048; 80053; 80061; 80202; 81001; 82306; 82565; 82607; 82962; 83036; 83605; 83690; 83735; 83880; 83930; 84439; 84443; 84481; 84484; 85025; 85610; 85652; 85730; 86141; 86850; 86900; 86901; 87040; 87070; 87075; 87077; 87081; 87086; 87186; 87205; 93005; 93306; 93925; 93970; 96365; 96375; 97110; 97116; 97163; 97530; G0378; J0690; J0692; J1335; J1450; J1815; J1956; J2405; J2543; J2704; J3490; J7060

== ENCOUNTER 2024-05-02 13:08 | Inpatient (IN) | payer MEDICAID ==
[~2024-05-02] VITALS: Ht 175.3 cm; Wt 86.4 kg
[~2024-05-02 13:08] MED LIST changes: +AMLO1TAB23 PO; +ATOR-507 PO; +CLON0.1T PO; +FURO40TA4 PO; +GLIP5TAB21 PO; +HYDR50TA47 PO; +QUET50TA27 PO
--- NOTE | 2024-05-02 13:13 | ED.PDOC ---
History of Present Illness HPI Comments 59-year-old male with PMHx HTN, DM, CHF, CKF brought in by EMS presents with a chief complaint of abdomen pain, nausea, and vomiting x onset last night. Patient states that his pain is localized to his lower abdomen, nonradiating, describes as aching, and rates his pain a 1/10. Patient is a resident at [facility] and staff was stating to EMS that patient has not been undergoing dialysis for the past month. Patient refuses dialysis and explains that it is due to "difference of opinion". Patient is bed bound due to foot wound. Patient is poor historian. No other symptoms or modifying factors present at this time. Time Seen by MD: 13:10 Primary Care Provider: SE Reviewed Notes: Medications, Allergies Allergies: Coded Allergies: NO KNOWN ALLERGIES (Unverified , 12/11/22) Home Meds Active Scripts Blood Glucose Monitoring Suppl (Online Prasad Advanced Glucose Mete W/Device) 1 Kit Kit, KIT XX ACHS, #1 Prov:MANUEL COON MD 10/06/19 Nutritional Supplements (Ensure Enlive) [place] Liq, 240 ML PO TIDWM, #30 LIQ Prov:MANUEL COON MD 10/06/19 Minoxidil (Loniten) 2.5 Mg Tb, 5 MG PO TID, #120 TAB take 2 tablets (total 5mg) three times a day Prov:MANUEL COON MD 10/06/19 Metoprolol Tartrate (Lopressor) 25 Mg Tb, 25 MG PO TID, #60 TAB Prov:MANUEL COON MD 10/06/19 Insulin Regular (Human) (Novolin R) 100 Unit/Ml Inj, 0 UNITS SC AC, #10 INJ Prov:MANUEL COON MD 10/06/19 Insulin Glargine (Lantus) 100 Unit/Ml Inj, 20 UNITS SC DAILY@1000, #10 INJ Prov:MANUEL COON MD 10/06/19 Famotidine (Famotidine) 20 Mg Tab, 20 MG PO Q12HR, #90 TAB Prov:MANUEL COON MD 10/06/19 Atorvastatin Calcium (ATORVASTATIN CALCIUM) 20 Mg Tab, 40 MG PO HS, #60 TAB Prov:MANUEL COON MD 10/06/19 Aspirin (Sm Aspirin) 325 Mg Tab, 325 MG PO DAILY, #30 TAB Prov:MANUEL COON MD 10/06/19 Amlodipine Besylate (NORVASC TABLET) 5 Mg Tb, 5 MG PO DAILY, #60 TAB Prov:MANUEL COON MD 10/06/19 Reported Medications Metoprolol Tartrate (Metoprolol Tartrate) 25 Mg Tab, 25 MG PO BID for 30 Days, MG 07/11/22 Furosemide (Lasix) 20 Mg Tb, 1 TAB PO BID, #30 TAB 5 Refills 07/11/22 Glipizide (Glipizide) 10 Mg Tab, 1 TAB PO DAILY 07/11/22 Lisinopril (Lisinopril) 10 Mg Tab, 1 TAB PO DAILY 07/11/22 Nifedipine (Nifedipine Er) 90 Mg Tab 07/11/22 Sitagliptin Phosphate (Januvia) 25 Mg Tab, 1 TAB PO DAILY 07/11/22 Aspirin (Aspirin Low Dose) 81 Mg Chw, 1 TAB PO DAILY 07/11/22 Atorvastatin Calcium (ATORVASTATIN CALCIUM) 10 Mg Tab, 1 TAB PO DAILY 07/11/22 Ergocalciferol (Vitamin D) 50,000 Unit Cap, 1 CAP PO QWEEKLY 07/11/22 Information Source: Patient, Emergency Med Personnel Mode of Arrival: EMS Severity: Moderate Timing: Hours Duration: Since onset Prehospital treatment: None Past Medical History PAST MEDICAL HISTORY: DM, High Lipids, HTN Surgical History: Denies all surgeries Family History Family History: Unknown Social History Smoker: Non-Smoker Alcohol: Denies ETOH Use Drugs: Denies Drug Use Lives In: Home Constitutional: denies: chills, diaphoresis, fatigue, fever, malaise, sweats, w eakness, others EENTM: denies: blurred vision, double vision, ear bleeding, ear discharge, ear drainage, ear pain, ear ringing, eye pain, eye redness, hearing loss, mouth pain, mouth swelling, nasal discharge, nose bleeding, nose congestion, nose pain, photophobia, tearing, throat pain, throat swelling, voice changes, others Respiratory: denies: cough, hemoptysis, orthopnea, SOB at rest, shortness of breath, SOB with excertion, stridor, wheezing, others Cardiovascular: denies: chest pain, dizzy spells, diaphoresis, Dyspnea on exertion, edema, irregular heart beat, left arm pain, lightheadedness, palpitations, PND, syncope, others Gastrointestinal: reports: abdominal pain, nausea, vomiting; denies: abdomen distended, blood streaked bowels, constipated, diarrhea, dysphagia, difficulty swallowing, hematemesis, melena, poor appetite, poor fluid intake, rectal bleed ing, rectal pain, others Genitourinary: denies: burning, dysuria, flank pain, frequency, hematuria, incontinence, penile discharge, penile sore, pain, testicle pain, testicle swelling, urgency, others Neurological: denies: dizziness, fainting, headache, left sided numbness, left sided weakness, numbness, paresthesia, pre-existing deficit, right sided numbness, right sided weakness, seizure, speech problems, tingling, tremors, weakness, others Musculoskeletal: denies: back pain, gout, joint pain, joint swelling, muscle pain, muscle stiffness, neck pain, others Integumetry: denies: bruises, change in color, change in hair/nails, dryness, laceration, lesions, lumps, rash, wounds, others Allergic/Immunocompromised: denies: Difficulty Healing, Frequent Infections, Hives, Itching, others Hematologic/Lymphatic: denies: anemia, blood clots, easy bleeding, easy bruising, swollen glands, others Endocrine: denies: excessive hunger, excessive sweating, excessive thirst, excessive urination, flushing, intolerance to cold, intolerance to heat, unexplained weight gain, unexplained weight loss, others Psychiatric: denies: anxiety, bipolar disorder, depression, hopeless, panic disorder, schizophrenia, sleepless, suicidal, others All Other Systems: Reviewed and Negative Physical Exam General Appearance: Moderate Distress, Normal HEENT: Normal ENT Inspection, Pharynx Normal, TMs Normal Neck: Full Range of Motion, Non-Tender, Normal, Normal Inspection Respiratory: Chest Non-Tender, No Accessory Muscle Use, Other (Coarse breath sounds) Cardiovascular: No Edema, No JVD, No Murmur, No Gallop, Normal Peripheral Pulses, Regular Rate/Rhythm Breast Exam: Deferred Gastrointestinal: No Organomegaly, Non Tender, No Pulsatile Mass, Normal Bowel Sounds, Soft Genitalia: Deferred Pelvic: Deferred Rectal: Deferred Extremities: No calf tenderness, No pedal edema Musculoskeletal : Apperance: Normal Neurologic: Alert Cerebellar Function: NOT DONE Reflexes: NOT DONE Skin: Dry, Normal Color, Warm, Wounds (Left foot wound) Peripheral Pulses: 3+ Radial (R), 3+ Radial (L) Lymphatic: No Adenopathy Was a procedure done? Was a procedure done?: No Differential Dx Considerations may include: Anemia Electrolyte imbalance X-Ray, Labs, Meds, VS Vital Signs Date Time Temp Pulse Resp B/P (MAP) Pulse Ox O2 Delivery O2 Flow Rate FiO2 05/02/24 13:17 98.3 84 18 162/72 (102) 97 Lab Test 05/02/24 13:25 Range/Units White Blood Count 11.7 H 4.4-10.8 10^3/uL Red Blood Count 4.33 L 4.5-5.90 10^6/uL Hemoglobin 11.5 L 13.5-17.5 g/dL Hematocrit 35.3 L 41.0-53.0 % Mean Corpuscular Volume 81.5 80.0-100.0 fL Mean Corpuscular Hemoglobin 26.6 L 28.0-32.0 pg Mean Corpuscular Hemoglobin Concent 32.7 32.0-36.0 g/dL Red Cell Distribution Width 17.3 H 11.8-14.3 % Platelet Count 292 140-450 10^3/uL Mean Platelet Volume 7.3 6.9-10.8 fL Neutrophils (%) (Auto) 93.5 H 37.0-80.0 % Lymphocytes (%) (Auto) 4.4 L 10.0-50.0 % Monocytes (%) (Auto) 1.6 0.0-12.0 % Eosinophils (%) (Auto) 0.2 0.0-7.0 % Basophils (%) (Auto) 0.3 0.0-2.0 % Neutrophils # (Auto) 11.0 H 1.6-8.6 10 ^3/uL Lymphocytes # (Auto) 0.5 0.4-5.4 10 ^3/uL Monocytes # (Auto) 0.2 0-1.3 10 ^3/uL Eosinophils # (Auto) 0 0-0.8 10 ^3/uL Basophils # (Auto) 0 0-0.2 10 ^3/uL Nucleated Red Blood Cells 0.0 % Sodium Level 139 136-145 mmol/L Potassium Level 4.3 3.5-5.1 mmol/L Chloride Level 110 H 98-107 mmol/L Carbon Dioxide Level 15 L 20-31 mmol/L Anion Gap 14 5-15 Blood Urea Nitrogen 26 H 9-23 mg/dL Creatinine 1.93 H 0.700-1.30 mg/dL Glomerular Filtration Rate Calc 39 >90 mL/min BUN/Creatinine Ratio 13.5 10.0-20.0 Serum Glucose 103 74-106 mg/dL Calcium Level 10.0 8.7-10.4 mg/dL Troponin I High Sensitivity 19 </=54 ng/L B-Type Natriuretic Peptide 912.12 0-100 pg/mL Patient alert. Complaining of nausea vomiting. Vitals stable. Answering questions. Has not been ambulating for many months. Wound on his left foot. Has a chronic history. Podiatric consultation. Continue monitoring. Possible pneumonitis. Possible pneumonia. Possible sepsis from urine. WBC elevated. BNP elevated. Was given Lasix. Urine culture. Marquez catheter. Was given Rocephin. Was given azithromycin. Explained to the patient. Time of 1ST Reevaluation: 13:16 Reevaluation 1ST: Unchanged Patient Education/Counseling: Diagnosis, Treatment, Prognosis Family Education/Counseling: Diagnosis, Treatment, Prognosis Departure 1 Departure Time of Disposition: 13:18 Impression: Primary Impression: Diastolic heart failure Qualified Codes: I50.33 - Acute on chronic diastolic (congestive) heart failure Additional Impressions: Osteomyelitis of right leg Uncontrolled diabetes mellitus Qualified Codes: E13.65 - Other specified diabetes mellitus with hyperglycemia Chronic kidney disease Qualified Codes: N18.9 - Chronic kidney disease, unspecified Leukocytosis Qualified Codes: D72.829 - Elevated white blood cell count, unspecified Sepsis, unspecified organism Qualified Codes: A41.9 - Sepsis, unspecified organism Pneumonitis Disposition: ADMITTED INPATIENT Admit to: Med Surg Condition: Guarded Critical Care Note Critical Care Time?: No Stability Stability form required: No Heart Score Heart Score: Heart Score Response (Comments) Value History N/A 0 EKG N/A 0 Age N/A 0 Risk Factors N/A 0 Troponin N/A 0 Total 0 I personally scribed for CELINE MAGUIRE MD ([email or web address]) on 05/02/24 at 13:13. Electronically submitted by Josué Jones ([email or web address]). CELINE MAGUIRE MD May 02, 2024 13:13
--- NOTE | 2024-05-02 14:02 | DVH ---
CHEST RADIOGRAPH Indication: SOB Technique: Single frontal view of the chest was obtained COMPARISON: XY CHEST XRAY 1 VIEW on DOS: 12/11/22, CHEST PORTABLE on DOS: 09/27/19, CHEST XRAY 1 VIEW o n DOS: 09/22/19, CHEST PORTABLE on DOS: 09/21/19, CHEST PORTABLE on DOS: 09/20/19 FINDINGS: Lines and Tubes: Tunneled right central venous catheter in satisfactory position. Lungs: Pulmonary vascular congestion. Pleura: No effusion. No pneumothorax. Cardiomediastinal contours: Cardiomegaly. Bones: Unremarkable IMPRESSION: Pulmonary vascular congestion.
[2024-05-02 14:04] LABS: Basophils # (auto) 0 10 ^3/uL (0-0.2); Basophils % (auto) 0.3 % (0.0-2.0); Eosinophils # (auto) 0 10 ^3/uL (0-0.8); Eosinophils % (auto) 0.2 % (0.0-7.0); Lymphocytes # (auto) 0.5 10 ^3/uL (0.4-5.4); Mean Corpuscular Hemoglobin 26.6 pg (28.0-32.0); Monocytes # (auto) 0.2 10 ^3/uL (0-1.3); Monocytes % (auto) 1.6 % (0.0-12.0); Red Cell Distribution Width 17.3 % (11.8-14.3)
[2024-05-02 14:07] LABS: Hematocrit 35.3 % (41.0-53.0); Hemoglobin 11.5 g/dL (13.5-17.5); Lymphocytes % (auto) 4.4 % (10.0-50.0); Mean Corpuscular Hgb Conc. 32.7 g/dL (32.0-36.0); Mean Corpuscular Volume 81.5 fL (80.0-100.0); Neutrophils % (auto) 93.5 % (37.0-80.0); Platelet Count (auto) 292 10^3/uL (140-450); Red Blood Cells 4.33 10^6/uL (4.5-5.90); White Blood Cell 11.7 10^3/uL (4.4-10.8)
[2024-05-02 14:39] LABS: Potassium 4.3 mmol/L (3.5-5.1); Sodium 139 mmol/L (136-145)
[2024-05-02 14:40] LABS: Anion Gap 14 (5-15)
[2024-05-02 14:45] LABS: BUN/Creatinine Ratio 13.5 (10.0-20.0); Blood Urea Nitrogen 26 mg/dL (9-23); Carbon Dioxide 15 mmol/L (20-31); Chloride 110 mmol/L (98-107); Glucose 103 mg/dL (74-106)
[2024-05-02] MEDS: ONDANSETRON HCL 4 MG/2 ML VIAL IV ONE (16:47)
[2024-05-02 16:50] VITALS: PULSE 94; RESP 10
[2024-05-02] MEDS: FUROSEMIDE 40 MG/4 ML VIAL IV ONE (16:55)
[2024-05-02] MEDS: AZITHROMYCIN 500MG/ 250ML 250 ML IV ONE (17:00)
[2024-05-02] MEDS: cefTRIAXone 1GM/50ML D5W 50 ML IV ONE (18:55)
[2024-05-02] MEDS ORDERED: DEXTROSE (50%) 50ML SYRG IV PRN (20:15)
[2024-05-02] MEDS ORDERED: ACETAMINOPHEN 325 MG TAB PO PRN (20:15)
[2024-05-02] MEDS ORDERED: DOCUSATE SOD 100 MG CAP PO PRN (20:15)
[2024-05-02] MEDS ORDERED: HYDROcodone-ACET 5/325MG TAB PO PRN (20:15)
[2024-05-02] MEDS: ONDANSETRON HCL 4 MG/2 ML VIAL IV PRN (21:10)
[2024-05-02 21:30] VITALS: PULSE 90; RESP 14
--- NOTE | 2024-05-02 21:44 | DVHHP2 ---
History of Present Illness Reason for Visit: Acute on chronic systolic heart failure History of Present Illness Patient is a 59-year-old male bed-bound with past medical history of hyperlipidemia, DM, and hypertension who presented to [facility] ED with complaint of abdominal pain. Patient reports symptoms progressively get worse with lower abdominal pain, nonradiating, rating 9/10 numeric scale, associated nausea, vomiting, getting worse that prompted this visit. Patient is a resident at [facility] and staff was stating to EMS that patient has not been undergoing dialysis for the past month. Patient refuses dialysis and explains that it is due to "difference of opinion". Patient is bed bound due to foot wound. Patient was seen and evaluated in the ED, laboratory data shows WBC 11.7, hemoglobin 11.5, hematocrit 35.3, platelets 292, sodium 139, potassium 4.3, BUN 26, creatinine 1.93, GFR 39, troponin 19, BNP 912.12, blood pressure 164/85, pulse 92, temperature 98.8 F, O2 saturation 97% on room air. Chest x- ray revealing pulmonary vascular congestion. Patient was started on IV Lasix, please see medication orders section in the computer. On my assessment, patient denied chest pain, no headache, no dizziness, no diaphoresis, no shortness a breath, abdominal pain at this moment, no diarrhea, no nausea, no vomiting, no f ever, no chills. Patient was admitted for further evaluation and medical management. Past Medical History DM, High Lipids, HTN, CHF Past Surgical History Denies all surgeries Family History Reviewed, noncontributory to the management of this case. Past Social History The patient lives at home, denies smoking, alcohol or illicit drugs abuse. Review of Systems Constitutional: Yes: Weakness; No: Fever, Chills, Sweats, Malaise, Other Eyes: No: Pain, Vision change, Conjunctivae inflammation, Eyelid inflammation, Other, Redness ENT: No: Ear pain, Ear discharge, Nose pain, Nose discharge, Nose congestion, Mouth pain, Mouth swelling, Throat pain, Throat swelling, Other Respiratory: No: Cough, Dry, Shortness of breath, SOB with excertion, Wheezing, Hemoptysis, Pleuritic Pain, Sputum, Wheezing, Other Cardiovascular: No: Chest Pain, Palpitations, Orthopnea, Paroxysmal Noc. Dyspnea, Edema, Lt Headedness, Other Gastrointestinal: Nausea, Vomiting, Abdominal Pain; No: Diarrhea, Constipation, Melena, Hematochezia, Other Genitourinary: No Dysuria, No Frequency, No Incontinence, No Hematuria, No Retention, No Other Musculoskeletal: No: other, neck pain, shoulder pain, arm pain, back pain, hand pain, leg pain, foot pain Skin: No: Rash, Lesions, Jaundice, Bruising, Other Neurological: No: Weakness, Numbness, Incoordination, Change in speech, Confusion, Seizures, Other Allergies: Coded Allergies: NO KNOWN ALLERGIES (Unverified , 12/11/22) Medications Current Medications Medications Dose Ordered Sig/[place] Route Start Time Stop Time Status Last Admin Dose Admin Amlodipine Besylate 5 mg DAILY PO 05/03/24 10:00 Hydralazine HCl 10 mg Q6HP PRN IV 05/02/24 20:15 Aspirin 81 mg DAILY PO 05/03/24 10:00 Atorvastatin Calcium 10 mg HS PO 05/02/24 22:00 Ceftriaxone Sodium 50 ml @ 100 mls/hr DAILY@09 IV 05/03/24 09:00 Furosemide 40 mg DAILY IV 05/03/24 10:00 Carvedilol 12.5 mg Q12HR PO 05/02/24 22:00 Diagnostic Test (Pha) 1 strip ACHS 05/02/24 22:00 Insulin Human Regular ACHS SC 05/02/24 22:00 Dextrose 50 ml UD PRN IV 05/02/24 20:15 Sodium Chloride 10 ml Q8HR IV 05/02/24 22:00 Acetaminophen/ Hydrocodone Bitart 1 tab Q4HP PRN PO 05/02/24 20:15 Ondansetron HCl 4 mg Q4HP PRN IV 05/02/24 20:15 05/02/24 21:10 4 MG Docusate Sodium 100 mg BIDPRN PRN PO 05/02/24 20:15 Acetaminophen 650 mg Q6HP PRN PO 05/02/24 20:15 Exam Vital Signs Vital Signs Date Time Temp Pulse Resp B/P (MAP) Pulse Ox O2 Delivery O2 Flow Rate FiO2 05/02/24 20:00 98.3 93 12 139/71 (93) 96 98.3 05/02/24 16:50 Room Air* 0 21 General Appearance: Alert, Oriented X3, Cooperative, No acute distress HEENT: Atraumatic, PERRLA, EOMI, Mucous membr. moist/pink Respiratory: Normal air movement, Other (Congestion) Cardiovascular: Regular rate, Normal S1, Normal S2, No murmurs Abdominal: Normal bowel sounds, Soft, No tenderness, No hepatospenomegaly, No masses Extremities: No clubbing, No cyanosis, No edema, Normal pulses, No tenderness/swelling Skin: No rashes, No breakdown, No significant lesion Neuro: Normal speech, Normal tone, Sensation intact, Cranial nerves 3-12 NL, Reflexes 2+, Other (Generalized weakness) Psych/Mental Status: Mental status NL, Mood NL Labs/Xrays Labs Test 05/02/24 13:25 Range/Units White Blood Count 11.7 H 4.4-10.8 10^3/uL Red Blood Count 4.33 L 4.5-5.90 10^6/uL Hemoglobin 11.5 L 13.5-17.5 g/dL Hematocrit 35.3 L 41.0-53.0 % Mean Corpuscular Volume 81.5 80.0-100.0 fL Mean Corpuscular Hemoglobin 26.6 L 28.0-32.0 pg Mean Corpuscular Hemoglobin Concent 32.7 32.0-36.0 g/dL Red Cell Distribution Width 17.3 H 11.8-14.3 % Platelet Count 292 140-450 10^3/uL Mean Platelet Volume 7.3 6.9-10.8 fL Neutrophils (%) (Auto) 93.5 H 37.0-80.0 % Lymphocytes (%) (Auto) 4.4 L 10.0-50.0 % Monocytes (%) (Auto) 1.6 0.0-12.0 % Eosinophils (%) (Auto) 0.2 0.0-7.0 % Basophils (%) (Auto) 0.3 0.0-2.0 % Neutrophils # (Auto) 11.0 H 1.6-8.6 10 ^3/uL Lymphocytes # (Auto) 0.5 0.4-5.4 10 ^3/uL Monocytes # (Auto) 0.2 0-1.3 10 ^3/uL Eosinophils # (Auto) 0 0-0.8 10 ^3/uL Basophils # (Auto) 0 0-0.2 10 ^3/uL Nucleated Red Blood Cells 0.0 % Sodium Level 139 136-145 mmol/L Potassium Level 4.3 3.5-5.1 mmol/L Chloride Level 110 H 98-107 mmol/L Carbon Dioxide Level 15 L 20-31 mmol/L Anion Gap 14 5-15 Blood Urea Nitrogen 26 H 9-23 mg/dL Creatinine 1.93 H 0.700-1.30 mg/dL Glomerular Filtration Rate Calc 39 >90 mL/min BUN/Creatinine Ratio 13.5 10.0-20.0 Serum Glucose 103 74-106 mg/dL Calcium Level 10.0 8.7-10.4 mg/dL Troponin I High Sensitivity 19 </=54 ng/L B-Type Natriuretic Peptide 912.12 0-100 pg/mL PATIENT: BERTA SUGGS ACCT: [id number] UNIT: [id number] : 1965 LOC: ER ROOM / BED: / AGE / SEX: 59 / M ADM STATUS: REG ER SERVICE 1321 ORDERING PHYSICIAN: CELINE MAGUIRE MD PROCEDURE(s): CXRP - CHEST PORTABLE REASON: SOB ORDER NUMBER(s): [id number], ACCESSION NUMBER(s): [id number] CHEST RADIOGRAPH Indication: SOB Technique: Single frontal view of the chest was obtained COMPARISON: XY CHEST XRAY 1 VIEW on DOS: 12/11/22, CHEST PORTABLE on DOS: 09/27/19, CHEST XRAY 1 VIEW on DOS: 09/22/19, CHEST PORTABLE on DOS: 09/21/19, CHEST PORTABLE on DOS: 09/20/19 FINDINGS: Lines and Tubes: Tunneled right central venous catheter in satisfactory position. Lungs: Pulmonary vascular congestion. Pleura: No effusion. No pneumothorax. Cardiomediastinal contours: Cardiomegaly. Bones: Unremarkable IMPRESSION: Pulmonary vascular congestion. Assessment/Plan Assessment/Plan Systolic heart failure Leukocytosis, unspecified Chronic kidney disease Chronic kidney disease, unspecified Generalized weakness Acute on chronic systolic (congestive) heart failure Plan 1. Admit to telemetry unit 2. Breathing treatment 3. Pain control management 4. IV antibiotic management 5. Management of fluids and electrolytes 6. Consultation for Cardiology 7. Diagnostic test chest x-ray 8. DVT prophylaxis-on aspirin 9. Repeat labs CBC, CMP in a.m. 10. Home medication reviewed and reconciled 11. Continue with current medical management 12. Treatment plan discussed with patient and RN. Patient verbalized un derstanding. Plan discussed with: Patient, Other (RN) My Orders Orders - LYLE VAZQUEZ DNP Procedure Category Date Status Time Consistent DIET 05/03/24 Transmitted Carb(Ccho)Diabetes Breakfast Amlodipine Tablet PHA 05/03/24 In Process (Norvasc Tablet) 10:00 Hydralazine Injection PHA 05/02/24 In Process (Apresoline Inject 20:15 Aspirin Tablet PHA 05/03/24 In Process 10:00 Atorvastatin (Lipitor) PHA 05/02/24 In Process 22:00 * Cardiology Consult CONS 05/02/24 Transmitted 20:07 *[facility] CONS 05/02/24 Transmitted -[place] 20:07 Ceftriaxone 1gm/50ml PHA 05/03/24 In Process D5w (Rocephin) 09:00 Furosemide Injection PHA 05/03/24 In Process (Lasix Injection) 10:00 Carvedilol Tablet PHA 05/02/24 In Process (Coreg Tablet) 22:00 Glucose Blood PHA 05/02/24 In Process (Accu-Chek Comfort 22:00 Insulin R (Human) PHA 05/02/24 In Process (Insulin R) 22:00 Dextrose 50% Syringe PHA 05/02/24 In Process 20:15 Allergies NIKA 05/02/24 In Process 20:07 Code Status CODE 05/02/24 Transmitted 20:07 Sodium Chloride Lock PHA 05/02/24 In Process (Saline Lock Ns) 22:00 Oxygen Per Hour RT 05/02/24 Transmitted 20:07 Hydrocodone-Acet PHA 05/02/24 In Process 5/325mg Tab ([place] 20:15 Ondansetron Hcl PHA 05/02/24 In Process (Zofran) 20:15 Docusate Sodium PHA 05/02/24 In Process Capsule (Colace 20:15 Complete Blood Count LAB 05/03/24 Verified 04:00 Comprehensive LAB 05/03/24 Verified Metabolic Panel 04:00 Echo 2d Mode Cardiac US 05/02/24 Logged DOP 20:07 Condition: Serious NIKA 05/02/24 In Process 20:07 Acetaminophen Tablet PHA 05/02/24 In Process (Tylenol Tablet) 20:15 Bedrest With Bathroom NIKA 05/02/24 In Process Privileg 20:07 Sequential NIKA 05/02/24 In Process Compression Device Problem List: (1) Systolic heart failure (2) Chronic kidney disease, unspecified (3) Leukocytosis, unspecified (4) Chronic kidney disease (5) Generalized weakness (6) Acute on chronic systolic (congestive) heart failure Date of Service: May 02, 2024 Billing Provider: LYLE VAZQUEZ DNP Common Visit Codes: [id number] INP/OBS CARE (HIGH) LYLE VAZQUEZ DNP May 02, 2024 21:44
[2024-05-02] MEDS ORDERED: NITROGLYCERIN 0.4 MG SL TAB SL PRN (21:45)
[2024-05-02] MEDS ORDERED: MORPHINE SULFATE INJ 2 MG/ml SYRG IV PRN (21:45)
[2024-05-02] MEDS: InsuLIN REG 1unit/0.01ml Soln (100units/ml) SC SCH (22:00)
[2024-05-02] MEDS: ACCU-CHEK COMFORT CURVE STRIP VI SCH (22:10)
[2024-05-02] MEDS: SODIUM CHLOR 0.9% PF (SALINE LOCK) 10ML VIAL/SYR IV SCH (22:11)
[2024-05-02] MEDS: ATORVASTATIN 20 MG TAB PO SCH (22:15)
[2024-05-02] MEDS: CARVEDILOL 12.5 MG TAB PO SCH (22:16)
[2024-05-02 23:47] VITALS: PULSE 101; PULSE 99; RESP 18; O2SAT 96
[2024-05-03] VITALS (9 sets, daily range): BP systolic 135–158; BP diastolic 54–82; PULSE 74–101; RESP 16–19; TEMP 97.4–98.5; O2SAT 94–96
[2024-05-03] MEDS: hydrALAZINE HCL 20 MG/ML VL IV PRN (01:00)
[2024-05-03] MEDS: CALCIUM CARB 500 MG CHEW TAB PO ONE (04:26)
[2024-05-03 06:27] LABS: Basophils # (auto) 0 10 ^3/uL (0-0.2); Basophils % (auto) 0.2 % (0.0-2.0); Hematocrit 31.7 % (41.0-53.0); Lymphocytes # (auto) 0.6 10 ^3/uL (0.4-5.4)
[2024-05-03 06:30] LABS: Eosinophils # (auto) 0.1 10 ^3/uL (0-0.8); Eosinophils % (auto) 0.4 % (0.0-7.0); Hemoglobin 10.4 g/dL (13.5-17.5); Lymphocytes % (auto) 4.1 % (10.0-50.0); Mean Corpuscular Hemoglobin 26.5 pg (28.0-32.0); Mean Corpuscular Hgb Conc. 32.7 g/dL (32.0-36.0); Mean Corpuscular Volume 80.9 fL (80.0-100.0); Monocytes # (auto) 0.9 10 ^3/uL (0-1.3); Monocytes % (auto) 5.8 % (0.0-12.0); Neutrophils # (auto) 13.4 10 ^3/uL (1.6-8.6); Neutrophils % (auto) 89.5 % (37.0-80.0); Platelet Count (auto) 290 10^3/uL (140-450); Red Blood Cells 3.92 10^6/uL (4.5-5.90); Red Cell Distribution Width 17.3 % (11.8-14.3)
[2024-05-03 06:53] LABS: Alkaline Phosphatase 82 U/L (46-116); Anion Gap 14 (5-15); Calcium 9.7 mg/dL (8.7-10.4); Potassium 4.1 mmol/L (3.5-5.1); Sodium 140 mmol/L (136-145)
[2024-05-03 06:54] LABS: BUN/Creatinine Ratio 13.6 (10.0-20.0); Total Protein 7.6 g/dL (5.7-8.2)
[2024-05-03 06:55] LABS: Albumin 3.5 g/dL (3.2-4.8)
[2024-05-03 06:56] LABS: Aspartate Aminotransferase 11 U/L (13-40); Bilirubin, Total 0.8 mg/dL (0.2-1.0); Blood Urea Nitrogen 30 mg/dL (9-23); Carbon Dioxide 17 mmol/L (20-31); Chloride 109 mmol/L (98-107); Glucose 112 mg/dL (74-106)
[2024-05-03 06:57] LABS: Alanine Aminotransferase < 9 U/L (7-40)
[2024-05-03] MEDS: ASPirin 81 mg TAB PO SCH (08:53)
[2024-05-03] MEDS: amLODIPine BESYLATE 5 MG TAB PO SCH (08:53)
[2024-05-03] MEDS: FUROSEMIDE 40 MG/4 ML VIAL IV SCH ×2 (08:54→17:43)
[2024-05-03] MEDS: cefTRIAXone 1GM/50ML D5W 50 ML IV SCH (08:54)
--- NOTE | 2024-05-03 11:22 | DVHINCON2 ---
Date Seen: May 03, 2024 Referring Physician SHO Patten Reason for Consultation CHF History of Present Illness This is a 59-year-old man who presented to the emergency room via EMS with a chief complaint of nausea and vomiting for 12 hours prior to arrival. The patient complains of nausea, vomiting, decreased appetite, and episodes of diarrhea. Denies any GI bleed. Denies chest pain, palpitations, shortness of breath, diaphoresis, dizziness, or syncopal events. During admission the patient experienced 19 beats of nonsustained ventricular tachycardia. No further events has been identified. There was no 12 lead electrocardiogram on file. Baseline troponin level is negative. 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 Significant medical history includes congestive heart failure, peripheral arterial disease status post REGISTERED DIETICIAN right popliteal, hypertension, dyslipidemia, [id number] diabetes mellitus, right diabetic foot requiring toe amputation (2021), advanced chronic kidney disease with Luis Fernando catheter placement, tobacco use, and bed-bound status. Past Medical History Past medical history reviewed. No other significant than mentioned above. Past Surgical History REGISTERED DIETICIAN right popliteal Right toe amputation Left upper chest Luis Fernando catheter Family History: Diabetes mellitus FH: cancer Hypertension Family History Family history reviewed. Social History Smokes less than a pack of cigarettes per day. Denies any use of alcohol or illicit drug use. Allergies: Coded Allergies: NO KNOWN ALLERGIES (Unverified , 12/11/22) Home Meds Active Scripts Blood Glucose Monitoring Suppl (iZettle Advanced Glucose Mete W/Device) 1 Kit Kit, KIT XX ACHS, #1 Prov:MANUEL COON MD 10/06/19 Nutritional Supplements (Ensure Enlive) [place] Liq, 240 ML PO TIDWM, #30 LIQ Prov:MANUEL COON MD 10/06/19 Minoxidil (Loniten) 2.5 Mg Tb, 5 MG PO TID, #120 TAB take 2 tablets (total 5mg) three times a day Prov:MANUEL COON MD 10/06/19 Metoprolol Tartrate (Lopressor) 25 Mg Tb, 25 MG PO TID, #60 TAB Prov:MANUEL COON MD 10/06/19 Insulin Regular (Human) (Novolin R) 100 Unit/Ml Inj, 0 UNITS SC AC, #10 INJ Prov:MANUEL COON MD 10/06/19 Insulin Glargine (Lantus) 100 Unit/Ml Inj, 20 UNITS SC DAILY@1000, #10 INJ Prov:MANUEL COON MD 10/06/19 Famotidine (Famotidine) 20 Mg Tab, 20 MG PO Q12HR, #90 TAB Prov:MANUEL COON MD 10/06/19 Atorvastatin Calcium (ATORVASTATIN CALCIUM) 20 Mg Tab, 40 MG PO HS, #60 TAB Prov:MANUEL COON MD 10/06/19 Aspirin (Sm Aspirin) 325 Mg Tab, 325 MG PO DAILY, #30 TAB Prov:MANUEL COON MD 10/06/19 Amlodipine Besylate (NORVASC TABLET) 5 Mg Tb, 5 MG PO DAILY, #60 TAB Prov:MANUEL COON MD 10/06/19 Reported Medications Metoprolol Tartrate (Metoprolol Tartrate) 25 Mg Tab, 25 MG PO BID for 30 Days, MG 07/11/22 Furosemide (Lasix) 20 Mg Tb, 1 TAB PO BID, #30 TAB 5 Refills 07/11/22 Glipizide (Glipizide) 10 Mg Tab, 1 TAB PO DAILY 07/11/22 Lisinopril (Lisinopril) 10 Mg Tab, 1 TAB PO DAILY 07/11/22 Nifedipine (Nifedipine Er) 90 Mg Tab 07/11/22 Sitagliptin Phosphate (Januvia) 25 Mg Tab, 1 TAB PO DAILY 07/11/22 Aspirin (Aspirin Low Dose) 81 Mg Chw, 1 TAB PO DAILY 07/11/22 Atorvastatin Calcium (ATORVASTATIN CALCIUM) 10 Mg Tab, 1 TAB PO DAILY 07/11/22 Ergocalciferol (Vitamin D) 50,000 Unit Cap, 1 CAP PO QWEEKLY 07/11/22 Home Meds Home medications reviewed. Current Medications Current Medications Medications (Trade) Dose Ordered Sig/[place] Route PRN Reason Start Time Stop Time Status Last Admin Amlodipine Besylate (Norvasc Tablet) 5 mg DAILY PO 05/03/24 10:00 05/03/24 08:53 Hydralazine HCl (Apresoline Injection) 10 mg Q6HP PRN IV SBP>150 05/02/24 20:15 05/03/24 01:00 Aspirin 81 mg DAILY PO 05/03/24 10:00 05/03/24 08:53 Atorvastatin Calcium (Lipitor) 10 mg HS PO 05/02/24 22:00 05/02/24 22:15 Ceftriaxone Sodium 50 ml @ 100 mls/hr DAILY@09 IV 05/03/24 09:00 05/03/24 08:54 Furosemide (Lasix Injection) 40 mg DAILY IV 05/03/24 10:00 05/03/24 08:54 Carvedilol (Coreg Tablet) 12.5 mg Q12HR PO 05/02/24 22:00 05/03/24 08:53 Diagnostic Test (Pha) (Accu-Chek Comfort Curve T) 1 strip ACHS 05/02/24 22:00 05/03/24 06:06 Insulin Human Regular (InsuLIN R) ACHS SC 05/02/24 22:00 Dextrose 50 ml UD PRN IV Blood Sugar LESS THAN 60 05/02/24 20:15 Sodium Chloride (Saline Lock Ns) 10 ml Q8HR IV 05/02/24 22:00 05/03/24 06:06 Acetaminophen/ Hydrocodone Bitart ([place] 5/325MG Tab) 1 tab Q4HP PRN PO MODERATE PAIN (4-6 PAIN SCALE) 05/02/24 20:15 Ondansetron HCl (Zofran) 4 mg Q4HP PRN IV NAUSEA / VOMITING 05/02/24 20:15 05/03/24 03:47 Docusate Sodium (Colace Capsule) 100 mg BIDPRN PRN PO FOR CONSTIPATION 05/02/24 20:15 Acetaminophen (Tylenol Tablet) 650 mg Q6HP PRN PO PAIN SCALE 1-3 OR TEMP>100.4 05/02/24 20:15 Nitroglycerin (Ntrostat Sublingual) 0.4 mg Q5MINP PRN SL FOR CHEST PAIN 05/02/24 21:45 Morphine Sulfate 2 mg Q30M PRN IV FOR CHEST PAIN 05/02/24 21:45 Review of Systems Constitutional: No symptom reported Ears, Nose, & Throat: No symptom reported Eyes: No symptom reported Neurological: No symptoms reported Pulmonary/Respiratory: No symptom reported Cardiovascular: No symptom reported Gastrointestinal: N/V, decreased appetite, diarrhea Genitourinary: No symptom reported Musculoskeletal: No symptom reported Skin: No symptom reported Psychiatric: No symptom reported Endocrine: No symptom reported Hemotologic/Lymphatic: No symptom reported Vital Signs Vital Signs Date Time Temp Pulse Resp B/P (MAP) Pulse Ox O2 Delivery O2 Flow Rate FiO2 05/03/24 09:00 98.5 91 16 157/82 (107) 95 98.5 05/02/24 23:47 Room Air* 0 21 Physical Exam General Appearance: Cooperative. Poor historian. Obese. Chronically ill Head Exam: Normal inspection Neck Exam: Normal inspection. Non-tender. Normal alignment Pulmonary/Respiratory: Chest non-tender. Crackles to bilateral breath sounds Cardiovascular/Chest: Regular rate and rhythm. S1, S2. Sinus rhythm. No murmurs. No JVD. Peripheral Pulses: 2+ Radial (R). 2+ Radial (L). 2+ Pedal (R). 2+ Pedal (L) Abdominal Exam: Normal bowel sounds. Soft. Ankle Exam: Negative ankle edema Lower extremities: Negative lower extremity edema Neuro/Mental Status: A&O x3. Coherent but poor historian Thoughts/Psych: Normal thought pattern. Appropriate mood and affect. Pathways Appearance: In no acute distress Skin Exam: Erythema present to left lower extremity Labs/Diagnostic Data Labs Test 05/03/24 06:04 05/03/24 05:31 05/02/24 13:25 Range/Units POC Glucose 109 H 70-106 mg/dl White Blood Count 15.0 #H 4.4-10.8 10^3/uL Red Blood Count 3.92 L 4.5-5.90 10^6/uL Hemoglobin 10.4 L 13.5-17.5 g/dL Hematocrit 31.7 #L 41.0-53.0 % Mean Corpuscular Volume 80.9 80.0-100.0 fL Mean Corpuscular Hemoglobin 26.5 L 28.0-32.0 pg Mean Corpuscular Hemoglobin Concent 32.7 32.0-36.0 g/dL Red Cell Distribution Width 17.3 H 11.8-14.3 % Platelet Count 290 140-450 10^3/uL Mean Platelet Volume 7.2 6.9-10.8 fL Neutrophils (%) (Auto) 89.5 H 37.0-80.0 % Lymphocytes (%) (Auto) 4.1 L 10.0-50.0 % Monocytes (%) (Auto) 5.8 0.0-12.0 % Eosinophils (%) (Auto) 0.4 0.0-7.0 % Basophils (%) (Auto) 0.2 0.0-2.0 % Neutrophils # (Auto) 13.4 H 1.6-8.6 10 ^3/uL Lymphocytes # (Auto) 0.6 0.4-5.4 10 ^3/uL Monocytes # (Auto) 0.9 0-1.3 10 ^3/uL Eosinophils # (Auto) 0.1 0-0.8 10 ^3/uL Basophils # (Auto) 0 0-0.2 10 ^3/uL Nucleated Red Blood Cells 0.0 % Sodium Level 140 136-145 mmol/L Potassium Level 4.1 3.5-5.1 mmol/L Chloride Level 109 H 98-107 mmol/L Carbon Dioxide Level 17 L 20-31 mmol/L Anion Gap 14 5-15 Blood Urea Nitrogen 30 H 9-23 mg/dL Creatinine 2.21 H 0.700-1.30 mg/dL Glomerular Filtration Rate Calc 33 >90 mL/min BUN/Creatinine Ratio 13.6 10.0-20.0 Serum Glucose 112 H 74-106 mg/dL Calcium Level 9.7 8.7-10.4 mg/dL Total Bilirubin 0.8 0.2-1.0 mg/dL Aspartate Amino Transferase (AST) 11 L 13-40 U/L Alanine Aminotransferase (ALT) < 9 7-40 U/L Alkaline Phosphatase 82 46-116 U/L Total Protein 7.6 5.7-8.2 g/dL Albumin 3.5 3.2-4.8 g/dL Troponin I High Sensitivity 19 </=54 ng/L B-Type Natriuretic Peptide 912.12 0-100 pg/mL Assessment Nonsustained ventricular tachycardia (19 beats/9sec) Acute on chronic decompensated HFrEF Peripheral arterial disease status post RLE REGISTERED DIETICIAN Sepsis with associated left lower extremity wound Hypertension Dyslipidemia Advanced CKD with luis fernando cath Non-uzlbyxh-viemdizty diabetes mellitus Bed-bound status Tobacco use Plan/Recommendation We will continue the following plan/recommendations (Dr. Espinoza): * Echocardiogram to evaluate cardiac function * GDMT for CHF as renal function permits, uptitrate as tolerated * Single-antiplatelet therapy and lipid lowering agent * Initiate antiarrhythmic therapy, amiodarone BID * Bilateral lower extremity arterial duplex * Monitor ECG changes closely * Baseline 12 lead EKG * Renal consultation/recommendations * ABX therapy per primary care team * Consider abdominal workup * Mg and TSH levels pending We will further discuss with Dr. Sommer for possible ischemic work-up. Thank you for allowing us to participate in this patient's care. Please call if you have any questions or concerns. Critical care time: 45 min. This medical document was created using an [email or web address] medical record system with voice recognition software and computerized dictation system. Although this document has been carefully reviewed, there might still be some phonetic and typographical errors. Occasional wrong-word or ``sound-alike substitutions may have occurred due to the inherent limitations of voice recognition software. These areas are purely typographical due to imperfections of the software programs and do not reflect any compromise in the patient's medical care. Please read the chart carefully and recognize, using context, where these substitutions have occurred. Plan discussed with: Patient, Other NYHA Physical activity limitations: Class2(Slight)fatigue,sob (palpitatns, angina w activityv) Date of Service: May 03, 2024 Billing Provider: LAUREN SARMIENTO Cardiology Common Codes: [id number] CARE 30-74 MIN LAUREN SARMIENTO May 03, 2024 11:22
--- NOTE | 2024-05-03 13:56 | DVH ---
EXAM: US BILAT LOW EXT ART DUPLEX HISTORY: Associated wound, hx of PAD s/p [employer] COMPARISON: US BILAT LOW EXT ART DUPLEX on DOS: 12/12/22 TECHNIQUE: Real-time grayscale and color Doppler images of the bilateral lower extremities were obtai nhi with spectral waveform analysis. Findings: Arterial peak systolic velocities reported in units of centimeters per second (cm/sec): Right side: Common femoral - 105 Profunda - 64 Proximal SFA - 88 Mid SFA - 64 Distal SFA - 63 Popliteal - 53 Posterior tibial - 55 Anterior tibial - 95 Dorsalis pedis - 127 Diffuse multiphasic waveforms with the exception of the which are monophasic. Mild atherosclerosis. Left side: Common femoral - 131 Profunda - 83 Proximal SFA - 88 Mid SFA - 88 Distal SFA - 90 Popliteal - 129 Posterior tibial - 119 Anterior tibial - 52 Dorsalis pedis - not visualized Diffuse multiphasic waveforms with the exception of the which are monophasic. Mild atherosclerosis IMPRESSION: 1. No evidence of hemodynamically significant stenosis throughout the bilateral lower extremity arter ial systems. 2. Mild bilateral atherosclerosis.
--- NOTE | 2024-05-03 14:04 | DVHSR ---
APPROVED REPORT EXAM: Two-dimensional and M-mode echocardiogram with Doppler and color Doppler. Blood Pressure: 147/79 mmHg INDICATION CHF exacerbation, unspecified RISK FACTORS Obesity: Height: 5'9, Weight: 197 DIMENSIONS LVDd5.6 (3.8-5.7cm)LA (2D)4.6 (1.9-4.0cm)Aortic Root3.9 (2.0-3.7cm) LVDs4.6 (2.5-4.0cm)LA (MM) (1.9-4.0cm)Aortic Cusp Exc2.0 (1.5-2.0cm) EF (%) 30.0 (55-70%)Rt. Atrium3.6 (1.9-4.0cm)Asc. Aorta cm IVSd1.2 (0.7-1.1cm)RV (D)3.9 (1.8-2.4cm) PWd1.4 (0.7-1.1cm) Mitral Valve MitralMitral Stenosis E wavem/sMV Mean GR.4mmHg A wavem/sMV Peak GR.65mmHg E/A ratio0.02D MVAcm2 Aortic Valve Aortic ValveAortic Stenosis V11.09m/Fabrizio Mean GR.4mmHg V21.26m/Fabrizio Peak GR.6mmHg LVOT Diameter2.7 (1.8-2.4cm)Doppler AVA4.95cm2 Pulmonic Valve V21.37m/s Other Information Quality : FairRhythm : Technically limited study due to patient position.body habitus. Conclusion Technically good study. Sinus rhythm. Left atrial enlargement. Concentric LVH. RV enlargement. Valves are normal. EF is diminished at about 30% with global hypokinesis. Libi-qu-kolpipbk TR. No pericardial effusion masses or vegetations.
--- NOTE | 2024-05-03 14:13 | DVHPN2 ---
Subjective The patient is seen and examined at bedside. Still complain of shortness for breath. Reviewed: Care Plan, H&P, Labs, Medications, Previous Orders, Radiology Changes from previous H/P or p: No Changes Eyes: No Pain, No Vision change, No Conjunctivae inflammation, No Eyelid inflammation, No Other, No Redness ENT: No Ear pain, No Ear discharge, No Nose pain, No Nose discharge, No Nose congestion, No Mouth pain, No Mouth swelling, No Throat pain, No Throat swelling, No Other Cardiovascular: No Chest Pain, No Palpitations, No Orthopnea, No Paroxysmal Noc. Dyspnea, No Edema, No Lt Headedness, No Other Respiratory: No Cough, No Dry, No Shortness of breath, No SOB with excertion, No Wheezing, No Hemoptysis, No Pleuritic Pain, No Sputum, No Other Gastrointestinal: Nausea, Vomiting, Abdominal Pain; No Diarrhea, No Constipation, No Melena, No Hematochezia, No Other Genitourinary: No Dysuria, No Frequency, No Incontinence, No Hematuria, No Retention, No Other Musculoskeletal: No other, No neck pain, No shoulder pain, No arm pain, No back pain, No hand pain, No leg pain, No foot pain Skin: No Rash, No Lesions, No Jaundice, No Bruising, No Other Objective Vitals Vital Signs Date Time Temp Pulse Resp B/P (MAP) Pulse Ox O2 Delivery O2 Flow Rate FiO2 05/03/24 12:58 98.3 90 16 152/76 (101) 96 98.3 05/02/24 23:47 Room Air* 0 21 Intake/Output Intake and Output 05/03/24 07:00 Intake Total 1150 ml Balance 1150 ml Intake Oral 900 ml IV Total 250 ml General Appearance: Alert, Cooperative, No acute distress HEENT: Atraumatic, PERRLA, EOMI, Mucous membr. moist/pink Neck: Supple Lungs: Clear to auscultation, Normal air movement Cardiovascular: Regular rate, Normal S1, Normal S2, No murmurs, Gallops, Rubs Abdomen: Normal bowel sounds, Soft, No tenderness Neuro: Cranial nerves 3-12 NL Psych/Mental Status: Mental status NL Medications Current Medications Medications Dose Ordered Sig/[place] Route Start Time Stop Time Status Last Admin Dose Admin Hydralazine HCl 10 mg Q6HP PRN IV 05/02/24 20:15 05/03/24 01:00 10 MG Aspirin 81 mg DAILY PO 05/03/24 10:00 05/03/24 08:53 81 MG Ceftriaxone Sodium 50 ml @ 100 mls/hr DAILY@09 IV 05/03/24 09:00 05/03/24 08:54 100 MLS/HR Furosemide 40 mg DAILY IV 05/03/24 10:00 05/03/24 08:54 40 MG Diagnostic Test (Pha) 1 strip ACHS 05/02/24 22:00 05/03/24 11:15 1 STRIP Insulin Human Regular ACHS SC 05/02/24 22:00 Dextrose 50 ml UD PRN IV 05/02/24 20:15 Sodium Chloride 10 ml Q8HR IV 05/02/24 22:00 05/03/24 06:06 10 ML Acetaminophen/ Hydrocodone Bitart 1 tab Q4HP PRN PO 05/02/24 20:15 Ondansetron HCl 4 mg Q4HP PRN IV 05/02/24 20:15 05/03/24 03:47 4 MG Docusate Sodium 100 mg BIDPRN PRN PO 05/02/24 20:15 Acetaminophen 650 mg Q6HP PRN PO 05/02/24 20:15 Nitroglycerin 0.4 mg Q5MINP PRN SL 05/02/24 21:45 Morphine Sulfate 2 mg Q30M PRN IV 05/02/24 21:45 Atorvastatin Calcium 40 mg HS PO 05/03/24 22:00 Carvedilol 25 mg Q12HR PO 05/03/24 22:00 Amiodarone HCl 200 mg Q12HR PO 05/03/24 22:00 Laboratory Results Laboratory Tests 05/03/24 05:31 Chemistry Test 05/03/24 05:31 Albumin 3.5 g/dL (3.2-4.8) Calcium Level 9.7 mg/dL (8.7-10.4) Magnesium Level 2.0 mg/dL (1.6-2.6) Total Protein 7.6 g/dL (5.7-8.2) LFT Test 05/03/24 05:31 Alanine Aminotransferase (ALT) < 9 U/L (7-40) Alkaline Phosphatase 82 U/L (46-116) Aspartate Amino Transferase (AST) 11 U/L (13-40) L Total Bilirubin 0.8 mg/dL (0.2-1.0) HgA1c, TSH Test 05/03/24 05:31 Thyroid Stimulating Hormone (TSH) 0.08 uIU/mL (0.55-4.78) L Labs and/or images reviewed: Labs reviewed by me Assessment/Plan Assessment/Plan Systolic heart failure Leukocytosis, unspecified Chronic kidney disease, unspecified Generalized weakness Acute on chronic systolic (congestive) heart failure Continuing current management. Continuing with IV Lasix. We will consulted comfort filler. Continuing IV antibiotic. Continuing with nebulizer This medical document was created using an electronic medical record system with [email or web address] computerized dictation system. Although this document has been carefully reviewed, there may still be some phonetic and typographical errors. These areas are purely typographical due to imperfections of the software programs, and do not reflect any compromise in the patient's medical care. Plan discussed with: Patient Date of Service: May 03, 2024 Billing Provider: INDRA JIMENEZ MD Common Visit Codes: [id number] INP/OBS CARE(HIGH) INDRA JIMENEZ MD May 03, 2024 14:13
[2024-05-03] MEDS: AMIODARONE HCL 200 MG TAB PO ONE (14:54)
--- NOTE | 2024-05-03 16:44 | DVHINCON2 ---
Date of service: May 03, 2024 Reason for Consultation Chronic kidney disease History of Present Illness 59-year-old male patient is a poor historian patient is currently at a boarding facility due to inability to take care of himself. Patient's medical history includes osteomyelitis of the foot, hypertension, chronic kidney disease. Patient reports that he was started on dialysis in 2023 and he has not gone back to dialysis for more than a month. He was brought to the hospital due to weakness. Nephrology was consulted for management of chronic kidney disease. Patient has a tunneled hemodialysis catheter, and a left arm radiocephalic AV fistula. He reports that his dialysis facility was in a [facility] in [place] Allergies: Coded Allergies: NO KNOWN ALLERGIES (Unverified , 12/11/22) Home Meds Active Scripts Blood Glucose Monitoring Suppl ([facility] Advanced Glucose Mete W/Device) 1 Kit Kit, KIT XX ACHS, #1 Prov:MANUEL COON MD 10/06/19 Nutritional Supplements (Ensure Enlive) [place] Liq, 240 ML PO TIDWM, #30 LIQ Prov:MANUEL COON MD 10/06/19 Minoxidil (Loniten) 2.5 Mg Tb, 5 MG PO TID, #120 TAB take 2 tablets (total 5mg) three times a day Prov:MANUEL COON MD 10/06/19 Metoprolol Tartrate (Lopressor) 25 Mg Tb, 25 MG PO TID, #60 TAB Prov:MANUEL COON MD 10/06/19 Insulin Regular (Human) (Novolin R) 100 Unit/Ml Inj, 0 UNITS SC AC, #10 INJ Prov:MANUEL COON MD 10/06/19 Insulin Glargine (Lantus) 100 Unit/Ml Inj, 20 UNITS SC DAILY@1000, #10 INJ Prov:MANUEL COON MD 10/06/19 Famotidine (Famotidine) 20 Mg Tab, 20 MG PO Q12HR, #90 TAB Prov:MANUEL COON MD 10/06/19 Atorvastatin Calcium (ATORVASTATIN CALCIUM) 20 Mg Tab, 40 MG PO HS, #60 TAB Prov:MANUEL COON MD 10/06/19 Aspirin (Sm Aspirin) 325 Mg Tab, 325 MG PO DAILY, #30 TAB Prov:MANUEL COON MD 10/06/19 Amlodipine Besylate (NORVASC TABLET) 5 Mg Tb, 5 MG PO DAILY, #60 TAB Prov:MANUEL COON MD 10/06/19 Reported Medications Metoprolol Tartrate (Metoprolol Tartrate) 25 Mg Tab, 25 MG PO BID for 30 Days, MG 07/11/22 Furosemide (Lasix) 20 Mg Tb, 1 TAB PO BID, #30 TAB 5 Refills 07/11/22 Glipizide (Glipizide) 10 Mg Tab, 1 TAB PO DAILY 07/11/22 Lisinopril (Lisinopril) 10 Mg Tab, 1 TAB PO DAILY 07/11/22 Nifedipine (Nifedipine Er) 90 Mg Tab 07/11/22 Sitagliptin Phosphate (Januvia) 25 Mg Tab, 1 TAB PO DAILY 07/11/22 Aspirin (Aspirin Low Dose) 81 Mg Chw, 1 TAB PO DAILY 07/11/22 Atorvastatin Calcium (ATORVASTATIN CALCIUM) 10 Mg Tab, 1 TAB PO DAILY 07/11/22 Ergocalciferol (Vitamin D) 50,000 Unit Cap, 1 CAP PO QWEEKLY 07/11/22 Current Medications Current Medications Medications (Trade) Dose Ordered Sig/Roscoe Route PRN Reason Start Time Stop Time Status Last Admin Amlodipine Besylate (Norvasc Tablet) 5 mg DAILY PO 05/03/24 10:00 05/03/24 11:22 DC 05/03/24 08:53 Hydralazine HCl (Apresoline Injection) 10 mg Q6HP PRN IV SBP>150 05/02/24 20:15 05/03/24 01:00 Aspirin 81 mg DAILY PO 05/03/24 10:00 05/03/24 08:53 Atorvastatin Calcium (Lipitor) 10 mg HS PO 05/02/24 22:00 05/03/24 11:22 DC 05/02/24 22:15 Ceftriaxone Sodium 50 ml @ 100 mls/hr DAILY@09 IV 05/03/24 09:00 05/03/24 08:54 Furosemide (Lasix Injection) 40 mg DAILY IV 05/03/24 10:00 05/03/24 08:54 Carvedilol (Coreg Tablet) 12.5 mg Q12HR PO 05/02/24 22:00 05/03/24 11:22 DC 05/03/24 08:53 Diagnostic Test (Pha) (Accu-Chek Comfort Curve T) 1 strip ACHS 05/02/24 22:00 05/03/24 11:15 Insulin Human Regular (InsuLIN R) ACHS SC 05/02/24 22:00 Dextrose 50 ml UD PRN IV Blood Sugar LESS THAN 60 05/02/24 20:15 Sodium Chloride (Saline Lock Ns) 10 ml Q8HR IV 05/02/24 22:00 05/03/24 14:54 Acetaminophen/ Hydrocodone Bitart ([place] 5/325MG Tab) 1 tab Q4HP PRN PO MODERATE PAIN (4-6 PAIN SCALE) 05/02/24 20:15 Ondansetron HCl (Zofran) 4 mg Q4HP PRN IV NAUSEA / VOMITING 05/02/24 20:15 05/03/24 14:53 Docusate Sodium (Colace Capsule) 100 mg BIDPRN PRN PO FOR CONSTIPATION 05/02/24 20:15 Acetaminophen (Tylenol Tablet) 650 mg Q6HP PRN PO PAIN SCALE 1-3 OR TEMP>100.4 05/02/24 20:15 Nitroglycerin (Ntrostat Sublingual) 0.4 mg Q5MINP PRN SL FOR CHEST PAIN 05/02/24 21:45 Morphine Sulfate 2 mg Q30M PRN IV FOR CHEST PAIN 05/02/24 21:45 Atorvastatin Calcium (Lipitor) 40 mg HS PO 05/03/24 22:00 Carvedilol (Coreg Tablet) 25 mg Q12HR PO 05/03/24 22:00 Amiodarone HCl (Cordarone Tablet) 200 mg Q12HR PO 05/03/24 22:00 Mupirocin (Bactroban 2% Ointment) 1 applic BID EACHNOSTRI 05/03/24 22:00 05/08/24 21:59 Family History: Diabetes mellitus FH: cancer Hypertension Review of Systems weakness H&P Exam Vital Signs/I&O Vital Sign Date Time Temp Pulse Resp B/P (MAP) Pulse Ox O2 Delivery O2 Flow Rate FiO2 05/03/24 12:58 98.3 90 16 152/76 (101) 96 98.3 05/03/24 08:05 Room Air* 0 21 Intake and Output 05/02/24 05/03/24 19:00 07:00 Intake Total 250 ml 900 ml Balance 250 ml 900 ml Intake Oral 900 ml IV Total 250 ml Physical Exam Frail elderly white male Not in overt distress mildly short of breath Mild rales on exam Abdomen is soft Decreased muscle tone bilateral extremity with metatarsal wound wrapped in dressing Labs/Diagnostic Data Labs/Diagnostic Data Laboratory Tests Test 05/03/24 11:17 05/03/24 06:04 05/03/24 05:31 05/02/24 13:25 Range/Units POC Glucose 131 H 109 H 70-106 mg/dl White Blood Count 15.0 #H 11.7 H 4.4-10.8 10^3/uL Red Blood Count 3.92 L 4.33 L 4.5-5.90 10^6/uL Hemoglobin 10.4 L 11.5 L 13.5-17.5 g/dL Hematocrit 31.7 #L 35.3 L 41.0-53.0 % Mean Corpuscular Volume 80.9 81.5 80.0-100.0 fL Mean Corpuscular Hemoglobin 26.5 L 26.6 L 28.0-32.0 pg Mean Corpuscular Hemoglobin Concent 32.7 32.7 32.0-36.0 g/dL Red Cell Distribution Width 17.3 H 17.3 H 11.8-14.3 % Platelet Count 290 292 140-450 10^3/uL Mean Platelet Volume 7.2 7.3 6.9-10.8 fL Neutrophils (%) (Auto) 89.5 H 93.5 H 37.0-80.0 % Lymphocytes (%) (Auto) 4.1 L 4.4 L 10.0-50.0 % Monocytes (%) (Auto) 5.8 1.6 0.0-12.0 % Eosinophils (%) (Auto) 0.4 0.2 0.0-7.0 % Basophils (%) (Auto) 0.2 0.3 0.0-2.0 % Neutrophils # (Auto) 13.4 H 11.0 H 1.6-8.6 10 ^3/uL Lymphocytes # (Auto) 0.6 0.5 0.4-5.4 10 ^3/uL Monocytes # (Auto) 0.9 0.2 0-1.3 10 ^3/uL Eosinophils # (Auto) 0.1 0 0-0.8 10 ^3/uL Basophils # (Auto) 0 0 0-0.2 10 ^3/uL Nucleated Red Blood Cells 0.0 0.0 % Sodium Level 140 139 136-145 mmol/L Potassium Level 4.1 4.3 3.5-5.1 mmol/L Chloride Level 109 H 110 H 98-107 mmol/L Carbon Dioxide Level 17 L 15 L 20-31 mmol/L Anion Gap 14 14 5-15 Blood Urea Nitrogen 30 H 26 H 9-23 mg/dL Creatinine 2.21 H 1.93 H 0.700-1.30 mg/dL Glomerular Filtration Rate Calc 33 39 >90 mL/min BUN/Creatinine Ratio 13.6 13.5 10.0-20.0 Serum Glucose 112 H 103 74-106 mg/dL Calcium Level 9.7 10.0 8.7-10.4 mg/dL Magnesium Level 2.0 1.6-2.6 mg/dL Total Bilirubin 0.8 0.2-1.0 mg/dL Aspartate Amino Transferase (AST) 11 L 13-40 U/L Alanine Aminotransferase (ALT) < 9 7-40 U/L Alkaline Phosphatase 82 46-116 U/L Total Protein 7.6 5.7-8.2 g/dL Albumin 3.5 3.2-4.8 g/dL Thyroid Stimulating Hormone (TSH) 0.08 L 0.55-4.78 uIU/mL Troponin I High Sensitivity 19 </=54 ng/L B-Type Natriuretic Peptide 912.12 0-100 pg/mL Microbiology Date/Time Source Procedure Growth Status 05/03/24 00:40 Nose MRSA Screen - Final Complete Assessment Acute kidney injury hemodynamically mediated Chronic kidney disease previously on dialysis for HAI? Last dialysis treatment was one month ago current GFR has been in the 30s Peripheral vascular disease Osteomyelitis of the foot Sepsis suspicious for wound infection Leukocytosis Metabolic acidosis Systolic heart failure with ejection fraction of 30% Coronary artery disease Fluid restriction Low-salt diet Increase diuretic to 40 mg IV q.12 hours Albumin for blood pressure support Maintain mean arterial pressure greater than 65 Obtain urinalysis No blood draws or IV draws on left arm due to left radiocephalic AV fistula Patient likely has some level of renal recovery given that he has moderate renal function despite despite a month of non dialysis. If renal function continues to remain adequate then I will recommend tunneled dialysis catheter removal. I recommend full sepsis workup and monitoring replace electrolytes Plan discussed with: Patient JIMBO FOWLER MD May 03, 2024 16:44
[2024-05-03] MEDS: ALBUMIN 25% 100 ML IV ONE (17:42)
--- NOTE | 2024-05-03 18:15 | DVH ---
EXAM: US KIDNEY INDICATION: HAI TECHNIQUE: Multiple real-time sonographic images of the kidneys and bladder were obtained. COMPARISON: None Findings: Right kidney measures 12.7 cm with normal contours, increased echotexture, and normal cortical thickn ess. Nephrolithiasis. 2.6 x 1.7 x 1.5 cm anechoic lesion. No evidence of hydronephrosis or solid lesi ons. Left kidney measures 12.1 cm with normal contours, echotexture, and cortical thickness. 1.6 x 1.5 x 1 .4 cm anechoic lesion. No evidence of hydronephrosis, calculi, or solid lesions. Urinary bladder is unremarkable without evidence of abnormal wall thickening, mass, or calculi. Prevo id volume 140mL. Postvoid volume mL. Prostate measures 5.6 x 5.3 x 6.1 cm. 1.4 cm prostatic calcification. Impression: 1. Increased echogenicity of bilateral kidneys. Correlate for medical renal disease. 2. Bilateral renal cysts. 3. Right nephrolithiasis. 4. Enlarged prostate. Correlate with physical exam and PSA.
[2024-05-03] MEDS: CARVEDILOL 12.5 MG TAB PO SCH (21:28)
[2024-05-03] MEDS: ATORVASTATIN 20 MG TAB PO SCH (21:28)
[2024-05-03] MEDS: AMIODARONE HCL 200 MG TAB PO SCH (21:28)
[2024-05-03] MEDS: MUPIROCIN 2% OINT 15gm or 22gm FOR MRSA NARES EACHNOSTRI SCH (21:30)
[2024-05-04] VITALS (7 sets, daily range): BP systolic 132–155; BP diastolic 64–71; PULSE 63–70; RESP 16–18; TEMP 97.6–98.3; O2SAT 92–97
[2024-05-04 07:33] LABS: Sodium 139 mmol/L (136-145)
[2024-05-04 07:34] LABS: Anion Gap 12 (5-15); Calcium 9.8 mg/dL (8.7-10.4)
[2024-05-04 07:38] LABS: Carbon Dioxide 20 mmol/L (20-31); Chloride 107 mmol/L (98-107)
[2024-05-04 07:39] LABS: BUN/Creatinine Ratio 14.7 (10.0-20.0)
[2024-05-04 07:41] LABS: Phosphorus 3.5 mg/dL (2.4-5.1)
[2024-05-04 07:42] LABS: Blood Urea Nitrogen 33 mg/dL (9-23); Glucose 111 mg/dL (74-106)
--- NOTE | 2024-05-04 12:02 | DVHPN2 ---
Consult Progress Note Date Seen: May 04, 2024 Subjective Review of Systems: CVS:Normal, RESPIRATORY:Normal, NEURO:Normal Other Systems: Denies any cardiac symptoms. C/o sorethroat Objective vital signs Vital Sign Date Time Temp Pulse Resp B/P (MAP) Pulse Ox O2 Delivery O2 Flow Rate FiO2 05/04/24 10:13 155/71 05/04/24 10:12 65 05/04/24 09:00 97.7 16 94 97.7 05/03/24 20:00 Room Air* 0 21 Total Intake and Output 05/03/24 05/03/24 05/04/24 15:00 23:00 07:00 Intake Total 530 ml 820 ml 240 ml Output Total 250 ml 500 ml Balance 530 ml 570 ml -260 ml medications Current Medications Medications Dose Ordered Sig/Rosceo Route Start Time Stop Time Status Last Admin Dose Admin Hydralazine HCl 10 mg Q6HP PRN IV 05/02/24 20:15 05/03/24 01:00 10 MG Aspirin 81 mg DAILY PO 05/03/24 10:00 05/04/24 10:11 81 MG Ceftriaxone Sodium 50 ml @ 100 mls/hr DAILY@09 IV 05/03/24 09:00 05/04/24 10:07 100 MLS/HR Diagnostic Test (Pha) 1 strip ACHS 05/02/24 22:00 05/04/24 11:19 1 STRIP Insulin Human Regular ACHS SC 05/02/24 22:00 Dextrose 50 ml UD PRN IV 05/02/24 20:15 Sodium Chloride 10 ml Q8HR IV 05/02/24 22:00 05/04/24 05:51 10 ML Acetaminophen/ Hydrocodone Bitart 1 tab Q4HP PRN PO 05/02/24 20:15 Ondansetron HCl 4 mg Q4HP PRN IV 05/02/24 20:15 05/03/24 14:53 4 MG Docusate Sodium 100 mg BIDPRN PRN PO 05/02/24 20:15 Acetaminophen 650 mg Q6HP PRN PO 05/02/24 20:15 Nitroglycerin 0.4 mg Q5MINP PRN SL 05/02/24 21:45 Morphine Sulfate 2 mg Q30M PRN IV 05/02/24 21:45 Atorvastatin Calcium 40 mg HS PO 05/03/24 22:00 05/03/24 21:28 40 MG Carvedilol 25 mg Q12HR PO 05/03/24 22:00 05/04/24 10:12 25 MG Amiodarone HCl 200 mg Q12HR PO 05/03/24 22:00 05/04/24 10:12 200 MG Mupirocin 1 applic BID EACHNOSTRI 05/03/24 22:00 05/08/24 21:59 05/04/24 10:12 1 APPLIC Furosemide 40 mg BID IV 05/03/24 16:45 05/04/24 10:13 40 MG Examination: LUNGS:Normal, CVS:Abnormal (cooker sulfate revealed two episodes of NSVT), NEURO:Abnormal (A&O x 3) laboratory and microbiology Laboratory Tests 05/04/24 06:30 05/03/24 05:31 Test 05/04/24 06:30 Range/Units Serum Glucose 111 H 74-106 mg/dL Problem List/Assessment/Plan Problem List/Assessment/Plan Nonsustained ventricular tachycardia rule out coronary artery disease Acute on chronic decompensated HFrEF Peripheral arterial disease status post RLE [employer] Sepsis with associated left lower extremity wound Hypertension Dyslipidemia Advanced CKD with arun cath Zun-jxcurzg-jqlpeloun diabetes mellitus Bed-bound status Tobacco use Plan/Recommendation (Dr. Espinoza) * Echocardiogram revealed EF 30% with global hypokinesis. LAE. Concentric LVH * GDMT for CHF as renal function permits, uptitrate as tolerated * Single-antiplatelet therapy and lipid lowering agent * Continue antiarrhythmic therapy, amiodarone BID * Monitor ECG changes closely * Baseline 12 lead EKG from 05/03/24: Sinus rhythm with anteroseptal ischemia * Repeat ECG today and troponin level * Renal consultation/recommendations * ABX therapy per primary care team * Consider left lower extremity work-up to r/o osteomyelitis The patient who is chest pain free presents with an abnormal 12-lead ECG suggesting of anteroseptal ischemia as well as three events of NSVT. We will obtain a serial 12-lead ECG and troponin level for further stratification. He will be scheduled for an eventual coronary angiogram with cardiac catheterization. Thank you for allowing us to participate in this patient's care. Please call if you have any questions or concerns. This medical document was created using an electronic medical record system with voice recognition software and computerized dictation system. Although this document has been carefully reviewed, there might still be some phonetic and typographical errors. Occasional wrong-word or ``sound-alike substitutions may have occurred due to the inherent limitations of voice recognition software. These areas are purely typographical due to imperfections of the software programs and do not reflect any compromise in the patient's medical care. Please read the chart carefully and recognize, using context, where these substitutions have occurred. Plan discussed with: Patient, Other Dietary Evaluation Review Comments: 1) Add renal restriction to 60g CCHO diet order 2) Initiate Dialyvite qd 3) Initiate Nepro qd d/t poor PO intake 4) Collect renal panel 5) Continue to monitor appetite, labs, and skin integrity Expected Outcomes/Goals: 1) appetite and labs to improve 2) wound to improve 3) f/u in 5 days Date of Service: May 05, 2024 Billing Provider: LAUREN SARMIENTO Cardiology Common Codes: [id number] HOSP CARE(High LAUREN SARMIENTO May 04, 2024 12:02
--- NOTE | 2024-05-04 13:17 | DVHPN2 ---
Progress Note Date Seen: May 04, 2024 Medical Necessity Reason Pt with a Central, PICC or Fol: Yes The following are medically ne: Marquez Catheter Subjective Review of Systems: CVS:Abnormal, RESPIRATORY:Abnormal, MSK:Abnormal, NEURO:Normal Objective vital signs Vital Sign Date Time Temp Pulse Resp B/P (MAP) Pulse Ox O2 Delivery O2 Flow Rate FiO2 05/04/24 10:13 155/71 05/04/24 10:12 65 05/04/24 09:00 97.7 16 94 97.7 05/03/24 20:00 Room Air* 0 21 Total Intake and Output 05/03/24 05/03/24 05/04/24 15:00 23:00 07:00 Intake Total 530 ml 820 ml 240 ml Output Total 250 ml 500 ml Balance 530 ml 570 ml -260 ml medications Current Medications Medications Dose Ordered Sig/[place]coe Route Start Time Stop Time Status Last Admin Dose Admin Hydralazine HCl 10 mg Q6HP PRN IV 05/02/24 20:15 05/03/24 01:00 10 MG Aspirin 81 mg DAILY PO 05/03/24 10:00 05/04/24 10:11 81 MG Ceftriaxone Sodium 50 ml @ 100 mls/hr DAILY@09 IV 05/03/24 09:00 05/04/24 10:07 100 MLS/HR Diagnostic Test (Pha) 1 strip ACHS 05/02/24 22:00 05/04/24 11:19 1 STRIP Insulin Human Regular ACHS SC 05/02/24 22:00 Dextrose 50 ml UD PRN IV 05/02/24 20:15 Sodium Chloride 10 ml Q8HR IV 05/02/24 22:00 05/04/24 05:51 10 ML Acetaminophen/ Hydrocodone Bitart 1 tab Q4HP PRN PO 05/02/24 20:15 Ondansetron HCl 4 mg Q4HP PRN IV 05/02/24 20:15 05/03/24 14:53 4 MG Docusate Sodium 100 mg BIDPRN PRN PO 05/02/24 20:15 Acetaminophen 650 mg Q6HP PRN PO 05/02/24 20:15 Nitroglycerin 0.4 mg Q5MINP PRN SL 05/02/24 21:45 Morphine Sulfate 2 mg Q30M PRN IV 05/02/24 21:45 Atorvastatin Calcium 40 mg HS PO 05/03/24 22:00 05/03/24 21:28 40 MG Carvedilol 25 mg Q12HR PO 05/03/24 22:00 05/04/24 10:12 25 MG Amiodarone HCl 200 mg Q12HR PO 05/03/24 22:00 05/04/24 10:12 200 MG Mupirocin 1 applic BID EACHNOSTRI 05/03/24 22:00 05/08/24 21:59 05/04/24 10:12 1 APPLIC Furosemide 40 mg BID IV 05/03/24 16:45 05/04/24 10:13 40 MG Throat Lozenges 1 tomas Q2HP PRN MT 05/04/24 12:30 Examination: GENERAL:Abnormal, LUNGS:Abnormal laboratory and microbiology Laboratory Tests 05/04/24 06:30 05/03/24 05:31 Test 05/04/24 06:30 Range/Units Serum Glucose 111 H 74-106 mg/dL Microbiology Date/Time Source Procedure Growth Status 05/03/24 04:00 Foot Left Gram Stain Pending Resulted 05/03/24 04:00 Foot Left Wound Culture - Preliminary Resulted Problem List/Assessment/Plan Problem List/Assessment/Plan Acute kidney injury hemodynamically mediated Chronic kidney disease previously on dialysis for HAI? Last dialysis treatment was one month ago current GFR has been in the 30s Peripheral vascular disease Osteomyelitis of the foot Sepsis suspicious for wound infection Leukocytosis Metabolic acidosis Systolic heart failure with ejection fraction of 30% Coronary artery disease Fluid restriction Low-salt diet diuretic to 40 mg IV q.12 hours Albumin for blood pressure support Maintain mean arterial pressure greater than 65 Obtain urinalysis , still not done No blood draws or IV draws on left arm due to left radiocephalic AV fistula IR consult to remove tunnel HD catheter b/c reports last HD was 1 month ago and current GFR is 30s. Patient AVF can be allowed to mature. Rec renal clinic f/u with me after DC Plan discussed with: Patient My Orders My Orders Orders - JIMBO FOWLER MD Procedure Category Date Status Time Furosemide Injection PHA 05/03/24 In Process (Lasix Injection) 16:45 Strict I & O NIKA 05/03/24 In Process 16:32 Kidney US 05/03/24 Resulted 16:38 Blood Culture EMMA 05/03/24 In Process 16:38 Consistent DIET 05/03/24 Transmitted Carb(Ccho)Diabetes Dinner Communication Order ORDERS 05/03/24 Transmitted 16:38 Maintain Fluid NIKA 05/03/24 In Process Restrictions 16:48 Dietary Evaluation Review Comments: 1) Add renal restriction to 60g [facility] diet order 2) Initiate Dialyvite qd 3) Initiate Nepro qd d/t poor PO intake 4) Collect renal panel 5) Continue to monitor appetite, labs, and skin integrity Expected Outcomes/Goals: 1) appetite and labs to improve 2) wound to improve 3) f/u in 5 days JIMBO FOWLER MD May 04, 2024 13:17
[2024-05-04] MEDS: THROAT LOZENGES(CEPASTAT) MT PRN (14:16)
[2024-05-04 18:12] LABS: Urine Bacteria None Seen /hpf (None Seen)
[2024-05-04 18:33] LABS: Urine Blood 3+ /uL (Negative); Urine Clarity Clear (Clear); Urine Color Light-Yellow (Yellow); Urine Hyaline Cast FEW /lpf (0 - 2); Urine Protein, UAD 3+ (Negative); Urine Specific Gravity 1.011 (1.001-1.035); Urine Squamous Epithelial Cell FEW /hpf (<5); Urine Urobilinogen Normal (Negative); Urine WBC 2 /HPF (0-3); Urine pH 5.5 (5.0-9.0)
--- NOTE | 2024-05-04 22:26 | DVHPN2 ---
Subjective The patient is seen and examined at bedside. Still complain of chest pain and shortness for breath. Reviewed: Care Plan, H&P, Labs, Medications, Previous Orders, Radiology Changes from previous H/P or p: No Changes Eyes: No Pain, No Vision change, No Conjunctivae inflammation, No Eyelid inflammation, No Other, No Redness ENT: No Ear pain, No Ear discharge, No Nose pain, No Nose discharge, No Nose congestion, No Mouth pain, No Mouth swelling, No Throat pain, No Throat swelling, No Other Cardiovascular: No Chest Pain, No Palpitations, No Orthopnea, No Paroxysmal Noc. Dyspnea, No Edema, No Lt Headedness, No Other Respiratory: No Cough, No Dry, No Shortness of breath, No SOB with excertion, No Wheezing, No Hemoptysis, No Pleuritic Pain, No Sputum, No Other Gastrointestinal: Nausea, Vomiting, Abdominal Pain; No Diarrhea, No Constipation, No Melena, No Hematochezia, No Other Genitourinary: No Dysuria, No Frequency, No Incontinence, No Hematuria, No Retention, No Other Musculoskeletal: No other, No neck pain, No shoulder pain, No arm pain, No back pain, No hand pain, No leg pain, No foot pain Skin: No Rash, No Lesions, No Jaundice, No Bruising, No Other Objective Vitals Vital Signs Date Time Temp Pulse Resp B/P (MAP) Pulse Ox O2 Delivery O2 Flow Rate FiO2 05/04/24 21:35 132/66 05/04/24 21:35 64 05/04/24 21:00 97.9 17 92 97.9 05/04/24 08:05 Room Air* 0 21 Intake/Output Intake and Output 05/04/24 07:00 Intake Total 1590 ml Output Total 750 ml Balance 840 ml Intake Oral 1440 ml IV Total 150 ml Output Urine Total 750 ml General Appearance: Alert, Cooperative, No acute distress HEENT: Atraumatic, PERRLA, EOMI, Mucous membr. moist/pink Neck: Supple Cardiovascular: Regular rate, Normal S1, Normal S2, No murmurs, Gallops, Rubs Abdomen: Normal bowel sounds, Soft, No tenderness Neuro: Cranial nerves 3-12 NL Psych/Mental Status: Mental status NL Medications Current Medications Medications Dose Ordered Sig/Roscoe Route Start Time Stop Time Status Last Admin Dose Admin Hydralazine HCl 10 mg Q6HP PRN IV 05/02/24 20:15 05/03/24 01:00 10 MG Aspirin 81 mg DAILY PO 05/03/24 10:00 05/04/24 10:11 81 MG Ceftriaxone Sodium 50 ml @ 100 mls/hr DAILY@09 IV 05/03/24 09:00 05/04/24 10:07 100 MLS/HR Diagnostic Test (Pha) 1 strip ACHS 05/02/24 22:00 05/04/24 21:37 1 STRIP Insulin Human Regular ACHS SC 05/02/24 22:00 Dextrose 50 ml UD PRN IV 05/02/24 20:15 Sodium Chloride 10 ml Q8HR IV 05/02/24 22:00 05/04/24 21:35 10 ML Acetaminophen/ Hydrocodone Bitart 1 tab Q4HP PRN PO 05/02/24 20:15 Ondansetron HCl 4 mg Q4HP PRN IV 05/02/24 20:15 05/03/24 14:53 4 MG Docusate Sodium 100 mg BIDPRN PRN PO 05/02/24 20:15 Acetaminophen 650 mg Q6HP PRN PO 05/02/24 20:15 Nitroglycerin 0.4 mg Q5MINP PRN SL 05/02/24 21:45 Morphine Sulfate 2 mg Q30M PRN IV 05/02/24 21:45 Atorvastatin Calcium 40 mg HS PO 05/03/24 22:00 05/04/24 21:34 40 MG Carvedilol 25 mg Q12HR PO 05/03/24 22:00 05/04/24 21:35 25 MG Amiodarone HCl 200 mg Q12HR PO 05/03/24 22:00 05/04/24 21:34 200 MG Mupirocin 1 applic BID EACHNOSTRI 05/03/24 22:00 05/08/24 21:59 05/04/24 21:36 1 APPLIC Furosemide 40 mg BID IV 05/03/24 16:45 05/04/24 21:35 40 MG Throat Lozenges 1 kathy Q2HP PRN MT 05/04/24 12:30 05/04/24 17:55 1 KATHY Laboratory Results Laboratory Tests 05/03/24 05:31 05/04/24 06:30 Chemistry Test 05/04/24 06:30 Calcium Level 9.8 mg/dL (8.7-10.4) Phosphorus Level 3.5 mg/dL (2.4-5.1) HgA1c, TSH Test 05/04/24 06:30 Hemoglobin A1c 4.7 % A1C (<5.7) Urinalysis Test 05/04/24 17:20 Urine Color Light-yellow (Yellow) Urine Clarity Clear (Clear) Urine pH 5.5 (5.0-9.0) Urine Specific [place] 1.011 (1.001-1.035) Urine Protein 3+ (Negative) H Urine Ketones Negative (Negative) Urine Blood 3+ /uL (Negative) H Urine Nitrite Negative (Negative) Urine Bilirubin Negative (Negative) Urine Urobilinogen Normal mg/dL (Negative) Urine Leukocyte Esterase Negative /uL (Negative) Urine RBC 31 /hpf (0 - 3) Urine Microscopic WBC 2 /HPF (0-3) Urine Squamous Epithelial Cells Few /hpf (<5) Urine Bacteria None seen /hpf (None Seen) Urine Hyaline Casts Few /lpf (0 - 2) Urine Glucose Trace mg/dL (Normal) Microbiology Microbiology Date/Time Source Procedure Growth Status 05/03/24 18:28 Blood Blood Culture - Preliminary NO GROWTH AFTER 24 HOURS OF INCUBATION. Resulted 05/03/24 04:00 Foot Left Gram Stain - Final Resulted 05/03/24 04:00 Foot Left Wound Culture - Preliminary Resulted Labs and/or images reviewed: Labs reviewed by me Assessment/Plan Assessment/Plan Nonsustained V-tach Systolic heart failure Leukocytosis, unspecified Chronic kidney disease, unspecified Generalized weakness Bed-bound Acute on chronic systolic (congestive) heart failure Continuing current management. Continuing with IV Lasix. Appreciated livestock agent input. Waiting for cardiac catheterization Continuing IV antibiotic. Continuing with nebulizer This medical document was created using an electronic medical record system with M*M [employer] direct computerized dictation system. Although this document has been carefully reviewed, there may still be some phonetic and typographical errors. These areas are purely typographical due to imperfections of the software programs, and do not reflect any compromise in the patient's medical care. Plan discussed with: Patient My Orders Orders - INDRA JIMENEZ MD Procedure Category Date Status Time Throat Lozenges PHA 05/04/24 In Process (Cepastat Lozenges) 12:30 Date of Service: May 04, 2024 Billing Provider: INDRA JIMENEZ MD Common Visit Codes: [id number] INP/OBS CARE(HIGH) INDRA JIMENEZ MD May 04, 2024 22:26
[2024-05-05] VITALS (7 sets, daily range): BP systolic 116–133; BP diastolic 59–72; PULSE 54–60; RESP 16–18; TEMP 98–98.3; O2SAT 92–99
[2024-05-05 06:31] LABS: Potassium 3.8 mmol/L (3.5-5.1); Sodium 138 mmol/L (136-145)
[2024-05-05 06:32] LABS: Anion Gap 12 (5-15)
[2024-05-05 06:33] LABS: Calcium 9.5 mg/dL (8.7-10.4)
[2024-05-05 06:38] LABS: BUN/Creatinine Ratio 14.7 (10.0-20.0)
[2024-05-05 06:45] LABS: Blood Urea Nitrogen 35 mg/dL (9-23); Carbon Dioxide 19 mmol/L (20-31); Chloride 107 mmol/L (98-107); Glucose 70 mg/dL (74-106)
[2024-05-05] MEDS ORDERED: LIDOCAINE 2%HCL (LOCAL ANESTH.) INJ 10ml MDV ONE (08:50)
--- NOTE | 2024-05-05 10:23 | DVHPN2 ---
Consult Progress Note Date Seen: May 05, 2024 Subjective Review of Systems: CVS:Normal, RESPIRATORY:Normal, NEURO:Normal Other Systems: Denies any cardiac symptoms Objective vital signs Vital Sign Date Time Temp Pulse Resp B/P (MAP) Pulse Ox O2 Delivery O2 Flow Rate FiO2 05/05/24 08:46 98.2 60 18 116/60 (78) 94 98.2 05/04/24 20:00 Room Air* 0 21 Total Intake and Output 05/04/24 05/04/24 05/05/24 15:00 23:00 07:00 Intake Total 260 ml 1015 ml 450 ml Output Total 350 ml Balance 260 ml 1015 ml 100 ml medications Current Medications Medications Dose Ordered Sig/[place] Route Start Time Stop Time Status Last Admin Dose Admin Hydralazine HCl 10 mg Q6HP PRN IV 05/02/24 20:15 05/03/24 01:00 10 MG Aspirin 81 mg DAILY PO 05/03/24 10:00 05/04/24 10:11 81 MG Ceftriaxone Sodium 50 ml @ 100 mls/hr DAILY@09 IV 05/03/24 09:00 05/05/24 08:42 100 MLS/HR Diagnostic Test (Pha) 1 strip ACHS 05/02/24 22:00 05/05/24 06:51 1 STRIP Insulin Human Regular ACHS SC 05/02/24 22:00 Dextrose 50 ml UD PRN IV 05/02/24 20:15 Sodium Chloride 10 ml Q8HR IV 05/02/24 22:00 05/05/24 06:00 10 ML Acetaminophen/ Hydrocodone Bitart 1 tab Q4HP PRN PO 05/02/24 20:15 Ondansetron HCl 4 mg Q4HP PRN IV 05/02/24 20:15 05/03/24 14:53 4 MG Docusate Sodium 100 mg BIDPRN PRN PO 05/02/24 20:15 Acetaminophen 650 mg Q6HP PRN PO 05/02/24 20:15 Nitroglycerin 0.4 mg Q5MINP PRN SL 05/02/24 21:45 Morphine Sulfate 2 mg Q30M PRN IV 05/02/24 21:45 Atorvastatin Calcium 40 mg HS PO 05/03/24 22:00 05/04/24 21:34 40 MG Carvedilol 25 mg Q12HR PO 05/03/24 22:00 05/04/24 21:35 25 MG Amiodarone HCl 200 mg Q12HR PO 05/03/24 22:00 05/04/24 21:34 200 MG Mupirocin 1 applic BID EACHNOSTRI 05/03/24 22:00 05/08/24 21:59 05/04/24 21:36 1 APPLIC Furosemide 40 mg BID IV 05/03/24 16:45 05/04/24 21:35 40 MG Throat Lozenges 1 kathy Q2HP PRN MT 05/04/24 12:30 05/04/24 17:55 1 KATHY Examination: LUNGS:Normal, CVS:Normal (No overnight VTach events), NEURO:Normal laboratory and microbiology Laboratory Tests 05/05/24 05:21 05/03/24 05:31 Test 05/05/24 05:21 Range/Units Serum Glucose 70 L 74-106 mg/dL Problem List/Assessment/Plan Problem List/Assessment/Plan Nonsustained ventricular tachycardia rule out coronary artery disease Acute on chronic decompensated HFrEF Peripheral arterial disease status post [employer] Sepsis with associated left lower extremity wound Hypertension Dyslipidemia Advanced CKD with OZZIE fistula Oit-qnfyqjd-kjitjijnh diabetes mellitus Bed-bound status Tobacco use Plan/Recommendation (Dr. Espinoza) * Echocardiogram revealed EF 30% with global hypokinesis. LAE. Concentric LVH * GDMT for CHF as renal function permits, uptitrate as tolerated * Single-antiplatelet therapy and lipid lowering agent * Continue BB and antiarrhythmic therapy * Monitor ECG changes closely * Renal consultation/recommendations * ABX therapy per primary care team * Consider left lower extremity work-up to r/o osteomyelitis The patient who is chest pain free presents with an abnormal 12-lead ECG suggestive of anteroseptal ischemia as well as three events of NSVT. Scheduled for a coronary angiogram with cardiac catheterization on 05/07/[address] Espinoza. Thank you for allowing us to participate in this patient's care. Please call if you have any questions or concerns. This medical document was created using an electronic medical record system with voice recognition software and computerized dictation system. Although this document has been carefully reviewed, there might still be some phonetic and typographical errors. Occasional wrong-word or ``sound-alike substitutions may have occurred due to the inherent limitations of voice recognition software. These areas are purely typographical due to imperfections of the software programs and do not reflect any compromise in the patient's medical care. Please read the chart carefully and recognize, using context, where these substitutions have occurred. Plan discussed with: Patient, Other Dietary Evaluation Review Comments: 1) Add renal restriction to 60g CCHO diet order 2) Initiate Dialyvite qd 3) Initiate Nepro qd d/t poor PO intake 4) Collect renal panel 5) Continue to monitor appetite, labs, and skin integrity Expected Outcomes/Goals: 1) appetite and labs to improve 2) wound to improve 3) f/u in 5 days Date of Service: May 05, 2024 Billing Provider: LAUREN SARMIENTO Cardiology Common Codes: [id number] HOSP CARE(High LAUREN SARMIENTO May 05, 2024 10:23
--- NOTE | 2024-05-05 10:26 | DVH ---
XY CHEST PORTABLE, HISTORY: POST REMOVAL TD CATH PROCEDURE: An informed consent was obtained. The patient was placed inclined on a gurney. The skin ar ound the catheter was prepped with chlorhexidine which was allowed to dry and draped in the usual ángel rile fashion. . The skin and the catheter tract were infiltrated with 1% Lidocaine . The catheter tra ct was blunt dissected with a Erin clamp and the tunneled catheter was removed. Hemostasis of the ve notomy site was obtained with manual pressure. The skin opening was dressed with a sterile bandage. N o immediate complication was noted. IMPRESSION: Successful removal of right internal jugular vein tunneled hemodialysis catheter.
[2024-05-05 10:42] LABS: Hepatitis B Surface Antigen Negative (Negative); Hepatitis C Antibody Negative (Negative)
--- NOTE | 2024-05-05 12:33 | ECG ---
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
--- NOTE | 2024-05-05 12:34 | ECG ---
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
--- NOTE | 2024-05-05 14:12 | DVHPN2 ---
Subjective Seen and examined at bedside, will get [facility] on 05/07/24 . Patient needs an MRI for the Left Foot and Podiatry evaluation. Reviewed: Care Plan, H&P, Labs, Medications, Previous Orders, Radiology Changes from previous H/P or p: No Changes Eyes: No Pain, No Vision change, No Conjunctivae inflammation, No Eyelid inflammation, No Other, No Redness ENT: No Ear pain, No Ear discharge, No Nose pain, No Nose discharge, No Nose congestion, No Mouth pain, No Mouth swelling, No Throat pain, No Throat swelling, No Other Cardiovascular: No Chest Pain, No Palpitations, No Orthopnea, No Paroxysmal Noc. Dyspnea, No Edema, No Lt Headedness, No Other Respiratory: No Cough, No Dry, No Shortness of breath, No SOB with excertion, No Wheezing, No Hemoptysis, No Pleuritic Pain, No Sputum, No Other Gastrointestinal: No Diarrhea, No Constipation, No Melena, No Hematochezia, No Other Genitourinary: No Dysuria, No Frequency, No Incontinence, No Hematuria, No Retention, No Other Musculoskeletal: No other, No neck pain, No shoulder pain, No arm pain, No back pain, No hand pain, No leg pain, No foot pain Skin: No Rash, No Lesions, No Jaundice, No Bruising, No Other Objective Vitals Vital Signs Date Time Temp Pulse Resp B/P (MAP) Pulse Ox O2 Delivery O2 Flow Rate FiO2 05/05/24 12:47 98.0 54 17 117/59 (78) 96 98.0 05/04/24 20:00 Room Air* 0 21 Intake/Output Intake and Output 05/05/24 07:00 Intake Total 1725 ml Output Total 350 ml Balance 1375 ml Intake Oral 1100 ml IV Total 50 ml Tube Feeding 575 ml Output Urine Total 350 ml General Appearance: Alert, Cooperative, No acute distress HEENT: Atraumatic, PERRLA, EOMI, Mucous membr. moist/pink Neck: Supple Lungs: Clear to auscultation, Normal air movement Cardiovascular: Regular rate, Normal S1, Normal S2, No murmurs, Gallops, Rubs Abdomen: Normal bowel sounds, Soft, No tenderness Extremities: Other (Left Foot dressing) Neuro: Cranial nerves 3-12 NL Psych/Mental Status: Mental status NL Medications Current Medications Medications Dose Ordered Sig/[place] Route Start Time Stop Time Status Last Admin Dose Admin Hydralazine HCl 10 mg Q6HP PRN IV 05/02/24 20:15 05/03/24 01:00 10 MG Aspirin 81 mg DAILY PO 05/03/24 10:00 05/05/24 10:51 81 MG Ceftriaxone Sodium 50 ml @ 100 mls/hr DAILY@09 IV 05/03/24 09:00 05/05/24 08:42 100 MLS/HR Diagnostic Test (Pha) 1 strip ACHS 05/02/24 22:00 05/05/24 06:51 1 STRIP Insulin Human Regular ACHS SC 05/02/24 22:00 Dextrose 50 ml UD PRN IV 05/02/24 20:15 Sodium Chloride 10 ml Q8HR IV 05/02/24 22:00 05/05/24 06:00 10 ML Acetaminophen/ Hydrocodone Bitart 1 tab Q4HP PRN PO 05/02/24 20:15 Ondansetron HCl 4 mg Q4HP PRN IV 05/02/24 20:15 05/03/24 14:53 4 MG Docusate Sodium 100 mg BIDPRN PRN PO 05/02/24 20:15 Acetaminophen 650 mg Q6HP PRN PO 05/02/24 20:15 Nitroglycerin 0.4 mg Q5MINP PRN SL 05/02/24 21:45 Morphine Sulfate 2 mg Q30M PRN IV 05/02/24 21:45 Atorvastatin Calcium 40 mg HS PO 05/03/24 22:00 05/04/24 21:34 40 MG Carvedilol 25 mg Q12HR PO 05/03/24 22:00 05/05/24 10:53 25 MG Amiodarone HCl 200 mg Q12HR PO 05/03/24 22:00 05/05/24 10:51 200 MG Mupirocin 1 applic BID EACHNOSTRI 05/03/24 22:00 05/08/24 21:59 05/05/24 10:00 1 APPLIC Furosemide 40 mg BID IV 05/03/24 16:45 05/05/24 10:50 40 MG Throat Lozenges 1 kathy Q2HP PRN MT 05/04/24 12:30 05/04/24 17:55 1 KATHY Laboratory Results Laboratory Tests 05/03/24 05:31 05/05/24 05:21 Chemistry Test 05/05/24 05:21 Calcium Level 9.5 mg/dL (8.7-10.4) Urinalysis Test 05/04/24 17:20 Urine Color Light-yellow (Yellow) Urine Clarity Clear (Clear) Urine pH 5.5 (5.0-9.0) Urine Specific [place] 1.011 (1.001-1.035) Urine Protein 3+ (Negative) H Urine Ketones Negative (Negative) Urine Blood 3+ /uL (Negative) H Urine Nitrite Negative (Negative) Urine Bilirubin Negative (Negative) Urine Urobilinogen Normal mg/dL (Negative) Urine Leukocyte Esterase Negative /uL (Negative) Urine RBC 31 /hpf (0 - 3) Urine Microscopic WBC 2 /HPF (0-3) Urine Squamous Epithelial Cells Few /hpf (<5) Urine Bacteria None seen /hpf (None Seen) Urine Hyaline Casts Few /lpf (0 - 2) Urine Glucose Trace mg/dL (Normal) Microbiology Microbiology Date/Time Source Procedure Growth Status 05/04/24 17:20 Urine - [place] Urine Culture - Preliminary Resulted 05/03/24 18:28 Blood Blood Culture - Preliminary NO GROWTH AFTER 24 HOURS OF INCUBATION. Resulted 05/03/24 04:00 Foot Left Gram Stain - Final Resulted 05/03/24 04:00 Wound Culture - Preliminary Proteus mirabilis - ESBL Escherichia coli - ESBL Resulted Assessment/Plan Assessment/Plan # Acute Systolic CHF- Monitor for fluid overload # HAI due to ATN? # Left Foot Osteomyelitis- MRI Foot, Podiatry. # ESBL in Left Leg- Merrem IV # Peripheral Vascular Disease Plan discussed with: Patient My Orders Orders - SHAINA MCNALLY MD Procedure Category Date Status Time Mri L Foot Wo Contrast MRI 05/05/24 Transmitted 14:05 Complete Blood Count LAB 05/06/24 Verified 04:00 Comprehensive LAB 05/06/24 Verified Metabolic Panel 04:00 Creatine Kinase LAB 05/06/24 Verified 04:00 C-Reactive Protein LAB 05/06/24 Verified 04:00 Date of Service: May 05, 2024 Billing Provider: SHAINA MCNALLY MD Common Visit Codes: [id number] INP/OBS CARE(HIGH) SHAINA MCNALLY MD May 05, 2024 14:12
--- NOTE | 2024-05-05 15:28 | DVHPN2 ---
Progress Note Date Seen: May 05, 2024 Medical Necessity Reason Pt with a Central, PICC or Fol: Yes The following are medically ne: [place] Catheter Subjective Patient reports: Other (No new complaints) Review of Systems: Deferred Objective vital signs Vital Sign Date Time Temp Pulse Resp B/P (MAP) Pulse Ox O2 Delivery O2 Flow Rate FiO2 05/05/24 12:47 98.0 54 17 117/59 (78) 96 98.0 05/04/24 20:00 Room Air* 0 21 Total Intake and Output 05/04/24 05/04/24 05/05/24 15:00 23:00 07:00 Intake Total 260 ml 1015 ml 450 ml Output Total 350 ml Balance 260 ml 1015 ml 100 ml medications Current Medications Medications Dose Ordered Sig/[place] Route Start Time Stop Time Status Last Admin Dose Admin Hydralazine HCl 10 mg Q6HP PRN IV 05/02/24 20:15 05/03/24 01:00 10 MG Aspirin 81 mg DAILY PO 05/03/24 10:00 05/05/24 10:51 81 MG Diagnostic Test (Pha) 1 strip ACHS 05/02/24 22:00 05/05/24 06:51 1 STRIP Insulin Human Regular ACHS SC 05/02/24 22:00 Dextrose 50 ml UD PRN IV 05/02/24 20:15 Sodium Chloride 10 ml Q8HR IV 05/02/24 22:00 05/05/24 06:00 10 ML Acetaminophen/ Hydrocodone Bitart 1 tab Q4HP PRN PO 05/02/24 20:15 Ondansetron HCl 4 mg Q4HP PRN IV 05/02/24 20:15 05/03/24 14:53 4 MG Docusate Sodium 100 mg BIDPRN PRN PO 05/02/24 20:15 Acetaminophen 650 mg Q6HP PRN PO 05/02/24 20:15 Nitroglycerin 0.4 mg Q5MINP PRN SL 05/02/24 21:45 Morphine Sulfate 2 mg Q30M PRN IV 05/02/24 21:45 Atorvastatin Calcium 40 mg HS PO 05/03/24 22:00 05/04/24 21:34 40 MG Carvedilol 25 mg Q12HR PO 05/03/24 22:00 05/05/24 10:53 25 MG Amiodarone HCl 200 mg Q12HR PO 05/03/24 22:00 05/05/24 10:51 200 MG Mupirocin 1 applic BID EACHNOSTRI 05/03/24 22:00 05/08/24 21:59 05/05/24 10:00 1 APPLIC Throat Lozenges 1 kathy Q2HP PRN MT 05/04/24 12:30 05/04/24 17:55 1 KATHY Examination: GENERAL:Normal, HEENT:Normal, NECK:Normal, LUNGS:Normal, CVS:Normal, ABDOMEN:Normal, MSK:Abnormal, SKIN:Normal, NEURO:Normal, :Normal laboratory and microbiology Laboratory Tests 05/05/24 05:21 05/03/24 05:31 Test 05/05/24 05:21 Range/Units Serum Glucose 70 L 74-106 mg/dL Microbiology Date/Time Source Procedure Growth Status 05/04/24 17:20 Urine - [place] Urine Culture - Preliminary Resulted 05/03/24 18:28 Blood Blood Culture - Preliminary NO GROWTH AFTER 24 HOURS OF INCUBATION. Resulted 05/03/24 04:00 Foot Left Gram Stain - Final Resulted 05/03/24 04:00 Wound Culture - Preliminary Proteus mirabilis - ESBL Escherichia coli - ESBL Resulted Problem List/Assessment/Plan Problem List/Assessment/Plan Acute kidney injury hemodynamically mediated Chronic kidney disease previously on dialysis for HAI Last dialysis treatment was one month ago current GFR has been in the 30s without dialysis Peripheral vascular disease Osteomyelitis of the foot Sepsis suspicious for wound infection Leukocytosis Metabolic acidosis Systolic heart failure with ejection fraction of 30% Coronary artery disease recs His dialysis catheter has been removed---he has AVF on left upper extremity placed 2 months ago Fluid restriction Low-salt diet diuretic Plan discussed with: Patient Dietary Evaluation Review Comments: 1) Add renal restriction to 60g CCHO diet order 2) Initiate Dialyvite qd 3) Initiate Nepro qd d/t poor PO intake 4) Collect renal panel 5) Continue to monitor appetite, labs, and skin integrity Expected Outcomes/Goals: 1) appetite and labs to improve 2) wound to improve 3) f/u in 5 days JOSE ROBERTO MOORE MD May 05, 2024 15:28
--- NOTE | 2024-05-05 16:21 | DVHINCON2 ---
Date Seen: May 05, 2024 Reason for Consultation Left hallux wound History of Present Illness Patient is a 59-year-old male bed-bound with past medical history of hyperlipidemia, DM, and hypertension who presented to [facility] ED with complaint of abdominal pain. Patient reports symptoms progressively get worse with lower abdominal pain, nonradiating, rating 9/10 numeric scale, associated nausea, vomiting, getting worse that prompted this visit. Patient is a resident at [facility] and staff was stating to EMS that patient has not been undergoing dialysis for the past month. Patient refuses dialysis and explains that it is due to "difference of opinion". Patient is bed bound due to foot wound. Patient was seen and evaluated in the ED, laboratory data shows WBC 11.7, hemoglobin 11.5, hematocrit 35.3, platelets 292, sodium 139, potassium 4.3, BUN 26, creatinine 1.93, GFR 39, troponin 19, BNP 912.12, blood pressure 164/85, pulse 92, temperature 98.8 F, O2 saturation 97% on room air. Chest x- ray revealing pulmonary vascular congestion. Patient was started on IV Lasix, please see medication orders section in the computer. On my assessment, patient denied chest pain, no headache, no dizziness, no diaphoresis, no shortness a breath, abdominal pain at this moment, no diarrhea, no nausea, no vomiting, no fever, no chills. Patient was admitted for further evaluation and medical management. Past Medical History See H&P Past Surgical History See H&P Family History: Diabetes mellitus FH: cancer Hypertension Allergies: Coded Allergies: NO KNOWN ALLERGIES (Unverified , 12/11/22) Home Meds Active Scripts Blood Glucose Monitoring Suppl ([facility] Advanced Glucose Mete W/Device) 1 Kit Kit, KIT XX ACHS, #1 Prov:MANUEL COON MD 10/06/19 Nutritional Supplements (Ensure Enlive) Grand Liq, 240 ML PO TIDWM, #30 LIQ Prov:MANUEL COON MD 10/06/19 Minoxidil (Loniten) 2.5 Mg Tb, 5 MG PO TID, #120 TAB take 2 tablets (total 5mg) three times a day Prov:MANUEL COON MD 10/06/19 Metoprolol Tartrate (Lopressor) 25 Mg Tb, 25 MG PO TID, #60 TAB Prov:MANUEL COON MD 10/06/19 Insulin Regular (Human) (Novolin R) 100 Unit/Ml Inj, 0 UNITS SC AC, #10 INJ Prov:MANUEL COON MD 10/06/19 Insulin Glargine (Lantus) 100 Unit/Ml Inj, 20 UNITS SC DAILY@1000, #10 INJ Prov:MANUEL COON MD 10/06/19 Famotidine (Famotidine) 20 Mg Tab, 20 MG PO Q12HR, #90 TAB Prov:MANUEL COON MD 10/06/19 Atorvastatin Calcium (ATORVASTATIN CALCIUM) 20 Mg Tab, 40 MG PO HS, #60 TAB Prov:MANUEL COON MD 10/06/19 Aspirin (Sm Aspirin) 325 Mg Tab, 325 MG PO DAILY, #30 TAB Prov:MANUEL COON MD 10/06/19 Amlodipine Besylate (NORVASC TABLET) 5 Mg Tb, 5 MG PO DAILY, #60 TAB Prov:MANUEL COON MD 10/06/19 Reported Medications Metoprolol Tartrate (Metoprolol Tartrate) 25 Mg Tab, 25 MG PO BID for 30 Days, MG 07/11/22 Furosemide (Lasix) 20 Mg Tb, 1 TAB PO BID, #30 TAB 5 Refills 07/11/22 Glipizide (Glipizide) 10 Mg Tab, 1 TAB PO DAILY 07/11/22 Lisinopril (Lisinopril) 10 Mg Tab, 1 TAB PO DAILY 07/11/22 Nifedipine (Nifedipine Er) 90 Mg Tab 07/11/22 Sitagliptin Phosphate (Januvia) 25 Mg Tab, 1 TAB PO DAILY 07/11/22 Aspirin (Aspirin Low Dose) 81 Mg Chw, 1 TAB PO DAILY 07/11/22 Atorvastatin Calcium (ATORVASTATIN CALCIUM) 10 Mg Tab, 1 TAB PO DAILY 07/11/22 Ergocalciferol (Vitamin D) 50,000 Unit Cap, 1 CAP PO QWEEKLY 07/11/22 Current Medications Current Medications Medications (Trade) Dose Ordered Sig/[place] Route PRN Reason Start Time Stop Time Status Last Admin Meropenem 50 ml @ 17 mls/hr Q8HR IV 05/05/24 22:00 UNV Vital Signs Vital Signs Date Time Temp Pulse Resp B/P (MAP) Pulse Ox O2 Delivery O2 Flow Rate FiO2 05/05/24 12:47 98.0 54 17 117/59 (78) 96 98.0 05/04/24 20:00 Room Air* 0 21 Physical Exam DERMATOLOGIC EXAM: - Skin is dry and cool to the touch dry bilaterally. - Nails 1-5 of the bilateral foot are thickened, discolored, dystrophic, and tender to palpate with subungual debris - Hair loss noted to bilateral feet Wound #1: Location: Measurements: Length cm x width cm x depth cm. Wound margins: Hyperkeratotic. Wound base: Full thickness. General Appearance: Healthy and bleeding. Probes to Bone: No Purulent drainage: No Serous drainage: No Erythema: Absent VASCULAR EXAM: - DP and PT pulses are palpable bilaterally. 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 - Feet are cool to touch compared to lower legs bilaterally. NEUROLOGIC EXAM: - Normal light touch sensation to the superficial peroneal, deep peroneal, sural, saphenous, and tibial nerve branches. - Protective sensation is diminished as tested with a 5.07 10g [place] bilaterally. MUSCULOSKELETAL EXAM: - No gross deformities - Muscle strength is 5/5 and active motion is pain-free and symmetrical bilaterally - No pain or crepitation with passive range of motion bilaterally to all major pedal joints Labs/Diagnostic Data Labs Test 05/05/24 11:55 05/05/24 05:21 05/04/24 17:20 05/04/24 06:30 Range/Units POC Glucose 101 70-106 mg/dl Sodium Level 138 136-145 mmol/L Potassium Level 3.8 3.5-5.1 mmol/L Chloride Level 107 98-107 mmol/L Carbon Dioxide Level 19 L 20-31 mmol/L Anion Gap 12 5-15 Blood Urea Nitrogen 35 H 9-23 mg/dL Creatinine 2.38 H 0.700-1.30 mg/dL Glomerular Filtration Rate Calc 30 >90 mL/min BUN/Creatinine Ratio 14.7 10.0-20.0 Serum Glucose 70 L 74-106 mg/dL Calcium Level 9.5 8.7-10.4 mg/dL Urine Color Light-yellow Yellow Urine Clarity Clear Clear Urine pH 5.5 5.0-9.0 Urine Specific [place] 1.011 1.001-1.035 Urine Protein 3+ H Negative Urine Ketones Negative Negative Urine Blood 3+ H Negative /uL Urine Nitrite Negative Negative Urine Bilirubin Negative Negative Urine Urobilinogen Normal Negative mg/dL Urine Leukocyte Esterase Negative Negative /uL Urine RBC 31 0 - 3 /hpf Urine Microscopic WBC 2 0-3 /HPF Urine Squamous Epithelial Cells Few <5 /hpf Urine Bacteria None seen None Seen /hpf Urine Hyaline Casts Few 0 - 2 /lpf Urine Glucose Trace Normal mg/dL Hemoglobin A1c 4.7 <5.7 % A1C Phosphorus Level 3.5 2.4-5.1 mg/dL Troponin I High Sensitivity 19 </=54 ng/L Test 05/03/24 05:31 05/02/24 13:25 Range/Units White Blood Count 15.0 #H 4.4-10.8 10^3/uL Red Blood Count 3.92 L 4.5-5.90 10^6/uL Hemoglobin 10.4 L 13.5-17.5 g/dL Hematocrit 31.7 #L 41.0-53.0 % Mean Corpuscular Volume 80.9 80.0-100.0 fL Mean Corpuscular Hemoglobin 26.5 L 28.0-32.0 pg Mean Corpuscular Hemoglobin Concent 32.7 32.0-36.0 g/dL Red Cell Distribution Width 17.3 H 11.8-14.3 % Platelet Count 290 140-450 10^3/uL Mean Platelet Volume 7.2 6.9-10.8 fL Neutrophils (%) (Auto) 89.5 H 37.0-80.0 % Lymphocytes (%) (Auto) 4.1 L 10.0-50.0 % Monocytes (%) (Auto) 5.8 0.0-12.0 % Eosinophils (%) (Auto) 0.4 0.0-7.0 % Basophils (%) (Auto) 0.2 0.0-2.0 % Neutrophils # (Auto) 13.4 H 1.6-8.6 10 ^3/uL Lymphocytes # (Auto) 0.6 0.4-5.4 10 ^3/uL Monocytes # (Auto) 0.9 0-1.3 10 ^3/uL Eosinophils # (Auto) 0.1 0-0.8 10 ^3/uL Basophils # (Auto) 0 0-0.2 10 ^3/uL Nucleated Red Blood Cells 0.0 % Magnesium Level 2.0 1.6-2.6 mg/dL Total Bilirubin 0.8 0.2-1.0 mg/dL Aspartate Amino Transferase (AST) 11 L 13-40 U/L Alanine Aminotransferase (ALT) < 9 7-40 U/L Alkaline Phosphatase 82 46-116 U/L Total Protein 7.6 5.7-8.2 g/dL Albumin 3.5 3.2-4.8 g/dL Thyroid Stimulating Hormone (TSH) 0.08 L 0.55-4.78 uIU/mL Hepatitis B Surface Antigen Negative Negative Hepatitis C Antibody Negative Negative B-Type Natriuretic Peptide 912.12 0-100 pg/mL Microbiology Date/Time Source Procedure Growth Status 05/04/24 17:20 Urine - [place] Urine Culture - Preliminary Resulted 05/03/24 18:28 Blood Blood Culture - Preliminary NO GROWTH AFTER 24 HOURS OF INCUBATION. Resulted 05/03/24 04:00 Foot Left Gram Stain - Final Resulted 05/03/24 04:00 Wound Culture - Preliminary Proteus mirabilis - ESBL Escherichia coli - ESBL Resulted Problems(with codes): (1) Acute kidney injury due to COVID-19 (2) Acute hypoxemic respiratory failure due to COVID-19 (3) Hyperglycemia (4) Hyponatremia (5) Elevated troponin (6) Tachycardia (7) Cellulitis of left foot (8) Left leg cellulitis (9) Diabetic ulcer of foot associated with diabetes mellitus due to underlying condition, with fat layer exposed (10) Lower extremity edema (11) Acute kidney injury superimposed on chronic kidney disease (12) Osteomyelitis of ankle or foot, left, acute (13) Leukocytosis (14) Diastolic heart failure (15) Sepsis, unspecified organism (16) Pneumonitis (17) Chronic kidney disease (18) Uncontrolled diabetes mellitus (19) Osteomyelitis of right leg (20) Systolic heart failure (21) Chronic kidney disease, unspecified (22) Leukocytosis, unspecified (23) Acute on chronic systolic (congestive) heart failure (24) Generalized weakness Plan/Recommendation ASSESSMENT: Patient is a _ year old seen on the floor for a worsening ulcer PLAN: - The patients chart was reviewed, clinical findings were discussed with the patient, the etiologies of the conditions were discussed in detail, and a treatment plan was agreed to at this time, with both oral and written instructions provided. - pending MRI of the foot - heel ulcer with exposed muscle - recommend offloading and continue wound care - if MRI comes back no osteo, then no surgical intervention required - outpatient wound care after MRI All questions were answered and concerns addressed to the patient's satisfaction. The patient was given the phone number to the clinic and was told how to make contact with the clinic should any concerns or questions arise. Patient understands that if any questions or concerns arise prior to the next appointment, we should be contacted immediately. FOLLOW-UP: Continue to follow while inpatient Plan discussed with: Patient Date of Service: May 05, 2024 Billing Provider: JUAN M TROTTER DPM Common Visit Codes: CONSULT ONLY Consultation Codes: [id number] CONSULT <80MIN JUAN M TROTTER DPM May 05, 2024 16:21
--- NOTE | 2024-05-05 20:16 | DVH ---
EXAM: MRI L FOOT WO CONTRAST HISTORY: osteo COMPARISON: CT L FOOT WO CONTRAST on DOS: 12/11/22 TECHNIQUE: Multiplanar, multisequence MRI was performed. FINDINGS: Patient has collapse of the reversal of the arch. This is likely due to nonacute fracture involving the neck of the calcaneus. There is a large oil producer ior ulcer adjacent to the plantar aspect of the calcaneus and there signal abnormality in the bone ad jacent to the ulcer suggesting severe edema and probable osteomyelitis. Please see images 13 and 14 o f the sagittal T1 weighted images. Achilles is unremarkable. IMPRESSION: 1. Patient has a nonacute fracture involving the neck of the calcaneus with inversion of the normal a rch as the result mimicking a charcoal joint but the midfoot bones are intact. There is significant s ubcutaneous edema and probable cellulitis. And there is a large open wound involving the plantar aspe ct of the heel and the calcaneal bone adjacent to the wound appears to be devitalized suggesting foca l osteomyelitis in general the calcaneus is very edematous.. Follow-up surgical consult is suggested
[2024-05-05] MEDS: MEROPENEM 1GM IVPB 50 ML IV SCH (21:35)
[2024-05-05] MEDS ORDERED: MEROPENEM 1GM IVPB 50 ML IV SCH (22:00)
[2024-05-06] VITALS (7 sets, daily range): BP systolic 111–139; BP diastolic 48–74; PULSE 53–87; RESP 14–17; TEMP 97.5–98.6; O2SAT 92–97
[2024-05-06 05:45] LABS: Basophils # (auto) 0.2 10 ^3/uL (0-0.2); Eosinophils # (auto) 0.4 10 ^3/uL (0-0.8); Hemoglobin 9.8 g/dL (13.5-17.5); Lymphocytes # (auto) 1.3 10 ^3/uL (0.4-5.4); Monocytes # (auto) 0.6 10 ^3/uL (0-1.3); Monocytes % (auto) 9.7 % (0.0-12.0); Neutrophils # (auto) 3.7 10 ^3/uL (1.6-8.6); White Blood Cell 6.1 10^3/uL (4.4-10.8)
[2024-05-06 05:48] LABS: Basophils % (auto) 2.6 % (0.0-2.0); Eosinophils % (auto) 6.5 % (0.0-7.0); Hematocrit 29.5 % (41.0-53.0); Lymphocytes % (auto) 21.3 % (10.0-50.0); Mean Corpuscular Hgb Conc. 33.1 g/dL (32.0-36.0); Mean Corpuscular Volume 81.4 fL (80.0-100.0); Neutrophils % (auto) 59.9 % (37.0-80.0); Platelet Count (auto) 181 10^3/uL (140-450); Red Blood Cells 3.62 10^6/uL (4.5-5.90)
[2024-05-06 06:11] LABS: Albumin 3.3 g/dL (3.2-4.8); Alkaline Phosphatase 72 U/L (46-116); Anion Gap 12 (5-15); BUN/Creatinine Ratio 16.5 (10.0-20.0); Calcium 9.2 mg/dL (8.7-10.4); Chloride 105 mmol/L (98-107); Potassium 3.7 mmol/L (3.5-5.1); Sodium 137 mmol/L (136-145); Total Protein 6.7 g/dL (5.7-8.2)
[2024-05-06 06:12] LABS: Bilirubin, Total 0.4 mg/dL (0.2-1.0)
[2024-05-06 06:39] LABS: Blood Urea Nitrogen 40 mg/dL (9-23); Carbon Dioxide 20 mmol/L (20-31); Glucose 72 mg/dL (74-106)
[2024-05-06 06:40] LABS: Alanine Aminotransferase < 9 U/L (7-40); Aspartate Aminotransferase 10 U/L (13-40); Creatine Kinase IFCC < 15 U/L (46-171)
[2024-05-06 06:52] LABS: CRP High Sensitivity 0.95 mg/dL (<1.0)
--- NOTE | 2024-05-06 10:26 | DVHPN2 ---
Consult Progress Note Date Seen: May 06, 2024 Subjective Review of Systems: CVS:Normal, RESPIRATORY:Normal, NEURO:Normal Other Systems: Denies any cardiac symptoms Objective vital signs Vital Sign Date Time Temp Pulse Resp B/P (MAP) Pulse Ox O2 Delivery O2 Flow Rate FiO2 05/06/24 09:00 98.6 68 16 111/72 (85) 93 98.6 05/06/24 07:53 Room Air* 0 21 Total Intake and Output 05/05/24 05/05/24 05/06/24 15:00 23:00 07:00 Intake Total 550 ml 300 ml Output Total 800 ml Balance -250 ml 300 ml medications Current Medications Medications Dose Ordered Sig/[place] Route Start Time Stop Time Status Last Admin Dose Admin Hydralazine HCl 10 mg Q6HP PRN IV 05/02/24 20:15 05/03/24 01:00 10 MG Aspirin 81 mg DAILY PO 05/03/24 10:00 05/05/24 10:51 81 MG Diagnostic Test (Pha) 1 strip ACHS 05/02/24 22:00 05/06/24 06:52 1 STRIP Insulin Human Regular ACHS SC 05/02/24 22:00 Dextrose 50 ml UD PRN IV 05/02/24 20:15 Sodium Chloride 10 ml Q8HR IV 05/02/24 22:00 05/06/24 06:00 10 ML Acetaminophen/ Hydrocodone Bitart 1 tab Q4HP PRN PO 05/02/24 20:15 Ondansetron HCl 4 mg Q4HP PRN IV 05/02/24 20:15 05/03/24 14:53 4 MG Docusate Sodium 100 mg BIDPRN PRN PO 05/02/24 20:15 Acetaminophen 650 mg Q6HP PRN PO 05/02/24 20:15 Nitroglycerin 0.4 mg Q5MINP PRN SL 05/02/24 21:45 Morphine Sulfate 2 mg Q30M PRN IV 05/02/24 21:45 Atorvastatin Calcium 40 mg HS PO 05/03/24 22:00 05/05/24 21:35 40 MG Carvedilol 25 mg Q12HR PO 05/03/24 22:00 05/05/24 10:53 25 MG Amiodarone HCl 200 mg Q12HR PO 05/03/24 22:00 05/05/24 21:35 200 MG Mupirocin 1 applic BID EACHNOSTRI 05/03/24 22:00 05/08/24 21:59 05/05/24 22:00 1 APPLIC Throat Lozenges 1 kathy Q2HP PRN MT 05/04/24 12:30 05/04/24 17:55 1 KATHY Meropenem 50 ml @ 17 mls/hr Q12HR IV 05/05/24 22:00 05/05/24 21:35 17 MLS/HR Examination: LUNGS:Normal, CVS:Normal (No further NSVT events on monitor), NEURO:Normal laboratory and microbiology Laboratory Tests 05/06/24 05:13 Test 05/06/24 05:13 Range/Units Serum Glucose 72 L 74-106 mg/dL Problem List/Assessment/Plan Problem List/Assessment/Plan Nonsustained ventricular tachycardia rule out coronary artery disease Acute on chronic decompensated HFrEF Peripheral arterial disease status post RLE PHARMACIST'S AIDE Sepsis with associated left lower extremity wound Hypertension Dyslipidemia Advanced CKD with OZZIE fistula Bwr-[id number]-[id number] diabetes mellitus Bed-bound status Tobacco use Plan/Recommendation (Dr. Espinoza) * Echocardiogram revealed EF 30% with global hypokinesis. LAE. Concentric LVH * GDMT for CHF as renal function permits, uptitrate as tolerated * Single-antiplatelet therapy and lipid lowering agent * Continue BB and antiarrhythmic therapy * Monitor ECG changes closely * Renal consultation/recommendations The patient who is chest pain free presents with an abnormal 12-lead ECG suggestive of anteroseptal ischemia as well as three events of NSVT. Scheduled for a coronary angiogram with cardiac catheterization after orthopedic intervention which is scheduled for 05/07/2024. Thank you for allowing us to participate in this patient's care. Please call if you have any questions or concerns. This medical document was created using an electronic medical record system with voice recognition software and computerized dictation system. Although this document has been carefully reviewed, there might still be some phonetic and typographical errors. Occasional wrong-word or ``sound-alike substitutions may have occurred due to the inherent limitations of voice recognition software. These areas are purely typographical due to imperfections of the software programs and do not reflect any compromise in the patient's medical care. Please read the chart carefully and recognize, using context, where these substitutions have occurred. Plan discussed with: Patient, Other Dietary Evaluation Review Comments: 1) Add renal restriction to 60g CCHO diet order 2) Initiate Dialyvite qd 3) Initiate Nepro qd d/t poor PO intake 4) Collect renal panel 5) Continue to monitor appetite, labs, and skin integrity Expected Outcomes/Goals: 1) appetite and labs to improve 2) wound to improve 3) f/u in 5 days Date of Service: May 06, 2024 Billing Provider: LAUREN SARMIENTO Cardiology Common Codes: [id number] HOSP CARE(High LAUREN SARMIENTO May 06, 2024 10:26
--- NOTE | 2024-05-06 11:41 | DVHPN2 ---
Subjective Seen and examined at bedside, will get C on 05/07/24. Patient was seen by Podiatry will also get debridement tomorrow. Reviewed: Care Plan, H&P, Labs, Medications, Previous Orders, Radiology Changes from previous H/P or p: No Changes Eyes: No Pain, No Vision change, No Conjunctivae inflammation, No Eyelid inflammation, No Other, No Redness ENT: No Ear pain, No Ear discharge, No Nose pain, No Nose discharge, No Nose congestion, No Mouth pain, No Mouth swelling, No Throat pain, No Throat swelling, No Other Cardiovascular: No Chest Pain, No Palpitations, No Orthopnea, No Paroxysmal Noc. Dyspnea, No Edema, No Lt Headedness, No Other Respiratory: No Cough, No Dry, No Shortness of breath, No SOB with excertion, No Wheezing, No Hemoptysis, No Pleuritic Pain, No Sputum, No Other Gastrointestinal: No Diarrhea, No Constipation, No Melena, No Hematochezia, No Other Genitourinary: No Dysuria, No Frequency, No Incontinence, No Hematuria, No Retention, No Other Musculoskeletal: No other, No neck pain, No shoulder pain, No arm pain, No back pain, No hand pain, No leg pain, No foot pain Skin: No Rash, No Lesions, No Jaundice, No Bruising, No Other Objective Vitals Vital Signs Date Time Temp Pulse Resp B/P (MAP) Pulse Ox O2 Delivery O2 Flow Rate FiO2 05/06/24 10:31 55 114/48 05/06/24 09:00 98.6 16 93 98.6 05/06/24 07:53 Room Air* 0 21 Intake/Output Intake and Output 05/06/24 07:00 Intake Total 850 ml Output Total 800 ml Balance 50 ml Intake Oral 750 ml IV Total 100 ml Output Urine Total 800 ml # Voids 2 General Appearance: Alert, Cooperative, No acute distress HEENT: Atraumatic, PERRLA, EOMI, Mucous membr. moist/pink Neck: Supple Lungs: Clear to auscultation, Normal air movement Cardiovascular: Regular rate, Normal S1, Normal S2, No murmurs, Gallops, Rubs Abdomen: Normal bowel sounds, Soft, No tenderness Extremities: Other (Left Foot dressing) Neuro: Cranial nerves 3-12 NL Psych/Mental Status: Mental status NL Medications Current Medications Medications Dose Ordered Sig/[place] Route Start Time Stop Time Status Last Admin Dose Admin Hydralazine HCl 10 mg Q6HP PRN IV 05/02/24 20:15 05/03/24 01:00 10 MG Aspirin 81 mg DAILY PO 05/03/24 10:00 05/06/24 10:28 81 MG Diagnostic Test (Pha) 1 strip ACHS 05/02/24 22:00 05/06/24 06:52 1 STRIP Insulin Human Regular ACHS SC 05/02/24 22:00 Dextrose 50 ml UD PRN IV 05/02/24 20:15 Sodium Chloride 10 ml Q8HR IV 05/02/24 22:00 05/06/24 06:00 10 ML Acetaminophen/ Hydrocodone Bitart 1 tab Q4HP PRN PO 05/02/24 20:15 Ondansetron HCl 4 mg Q4HP PRN IV 05/02/24 20:15 05/03/24 14:53 4 MG Docusate Sodium 100 mg BIDPRN PRN PO 05/02/24 20:15 Acetaminophen 650 mg Q6HP PRN PO 05/02/24 20:15 Nitroglycerin 0.4 mg Q5MINP PRN SL 05/02/24 21:45 Morphine Sulfate 2 mg Q30M PRN IV 05/02/24 21:45 Atorvastatin Calcium 40 mg HS PO 05/03/24 22:00 05/05/24 21:35 40 MG Carvedilol 25 mg Q12HR PO 05/03/24 22:00 05/06/24 10:31 25 MG Amiodarone HCl 200 mg Q12HR PO 05/03/24 22:00 05/06/24 10:31 200 MG Mupirocin 1 applic BID EACHNOSTRI 05/03/24 22:00 05/08/24 21:59 05/06/24 10:00 1 APPLIC Throat Lozenges 1 kathy Q2HP PRN MT 05/04/24 12:30 05/04/24 17:55 1 KATHY Meropenem 50 ml @ 17 mls/hr Q12HR IV 05/05/24 22:00 05/06/24 10:00 17 MLS/HR Laboratory Results Laboratory Tests 05/06/24 05:13 Chemistry Test 05/06/24 05:13 Albumin 3.3 g/dL (3.2-4.8) Calcium Level 9.2 mg/dL (8.7-10.4) Total Protein 6.7 g/dL (5.7-8.2) LFT Test 05/06/24 05:13 Alanine Aminotransferase (ALT) < 9 U/L (7-40) Alkaline Phosphatase 72 U/L (46-116) Aspartate Amino Transferase (AST) 10 U/L (13-40) L Total Bilirubin 0.4 mg/dL (0.2-1.0) Urinalysis Test 05/04/24 17:20 Urine Color Light-yellow (Yellow) Urine Clarity Clear (Clear) Urine pH 5.5 (5.0-9.0) Urine Specific [place] 1.011 (1.001-1.035) Urine Protein 3+ (Negative) H Urine Ketones Negative (Negative) Urine Blood 3+ /uL (Negative) H Urine Nitrite Negative (Negative) Urine Bilirubin Negative (Negative) Urine Urobilinogen Normal mg/dL (Negative) Urine Leukocyte Esterase Negative /uL (Negative) Urine RBC 31 /hpf (0 - 3) Urine Microscopic WBC 2 /HPF (0-3) Urine Squamous Epithelial Cells Few /hpf (<5) Urine Bacteria None seen /hpf (None Seen) Urine Hyaline Casts Few /lpf (0 - 2) Urine Glucose Trace mg/dL (Normal) Microbiology Microbiology Date/Time Source Procedure Growth Status 05/04/24 17:20 Urine - [place] Urine Culture - Preliminary Resulted 05/03/24 18:28 Blood Blood Culture - Preliminary NO GROWTH AFTER 48 HOURS OF INCUBATION. Resulted 05/03/24 04:00 Foot Left Gram Stain - Final Resulted 05/03/24 04:00 Wound Culture - Preliminary Proteus mirabilis - ESBL Escherichia coli - ESBL Resulted Assessment/Plan Assessment/Plan # Acute Systolic CHF- Monitor for fluid overload. HOLD Lasix due to Kidney function # HAI due to ATN? # Left Foot Osteomyelitis- MRI Foot, Podiatry. # ESBL in Left Leg- Merrem IV # Peripheral Vascular Disease Plan discussed with: Patient My Orders Orders - SHAINA MCNALLY MD Procedure Category Date Status Time Mri L Foot Wo Contrast MRI 05/05/24 Resulted 14:05 *Podiatry Consult CONS 05/05/24 Transmitted [facility]on([facility]) 15:53 Meropenem 1gm Ivpb PHA 3/3/25 In Process (Merrem 1gm/ Ns) 22:00 Date of Service: May 06, 2024 Billing Provider: SHAINA MCNALLY MD Common Visit Codes: [id number] INP/OBS CARE(HIGH) SHAINA MCNALLY MD May 06, 2024 11:41
--- NOTE | 2024-05-06 14:24 | DVHPN2 ---
Subjective Patient is a 59-year-old male bed-bound with past medical history of hyperlipidemia, DM, and hypertension who presented to [facility] ED with complaint of abdominal pain. Patient reports symptoms progressively get worse with lower abdominal pain, nonradiating, rating 9/10 numeric scale, associated nausea, vomiting, getting worse that prompted this visit. Patient is a resident at [facility] and staff was stating to EMS that patient has not been undergoing dialysis for the past month. Patient refuses dialysis and explains that it is due to "difference of opinion". Patient is bed bound due to foot wound. Patient was seen and evaluated in the ED, laboratory data shows WBC 11.7, hemoglobin 11.5, hematocrit 35.3, platelets 292, sodium 139, potassium 4.3, BUN 26, creatinine 1.93, GFR 39, troponin 19, BNP 912.12, blood pressure 164/85, pulse 92, temperature 98.8 F, O2 saturation 97% on room air. Chest x- ray revealing pulmonary vascular congestion. Patient was started on IV Lasix, please see medication orders section in the computer. On my assessment, patient denied chest pain, no headache, no dizziness, no diaphoresis, no shortness a breath, abdominal pain at this moment, no diarrhea, no nausea, no vomiting, no fever, no chills. Patient was admitted for further evaluation and medical management. Reviewed: Care Plan, H&P, Labs, Medications, Previous Orders, Radiology Changes from previous H/P or p: No Changes Eyes: No Pain, No Vision change, No Conjunctivae inflammation, No Eyelid inflammation, No Other, No Redness ENT: No Ear pain, No Ear discharge, No Nose pain, No Nose discharge, No Nose congestion, No Mouth pain, No Mouth swelling, No Throat pain, No Throat swelling, No Other Cardiovascular: No Chest Pain, No Palpitations, No Orthopnea, No Paroxysmal Noc. Dyspnea, No Edema, No Lt Headedness, No Other Respiratory: No Cough, No Dry, No Shortness of breath, No SOB with excertion, No Wheezing, No Hemoptysis, No Pleuritic Pain, No Sputum, No Other Gastrointestinal: No Diarrhea, No Constipation, No Melena, No Hematochezia, No Other Genitourinary: No Dysuria, No Frequency, No Incontinence, No Hematuria, No Retention, No Other Musculoskeletal: No other, No neck pain, No shoulder pain, No arm pain, No back pain, No hand pain, No leg pain, No foot pain Skin: No Rash, No Lesions, No Jaundice, No Bruising, No Other Objective Vitals Vital Signs Date Time Temp Pulse Resp B/P (MAP) Pulse Ox O2 Delivery O2 Flow Rate FiO2 05/06/24 10:31 55 114/48 05/06/24 09:00 98.6 16 93 98.6 05/06/24 07:53 Room Air* 0 21 Intake/Output Intake and Output 05/06/24 07:00 Intake Total 850 ml Output Total 800 ml Balance 50 ml Intake Oral 750 ml IV Total 100 ml Output Urine Total 800 ml # Voids 2 Exam DERMATOLOGIC EXAM: - Skin is dry and cool to the touch dry bilaterally. - Nails 1-5 of the bilateral foot are thickened, discolored, dystrophic, and tender to palpate with subungual debris - Hair loss noted to bilateral feet Wound #1: Location: Measurements: Length cm x width cm x depth cm. Wound margins: Hyperkeratotic. Wound base: Full thickness. General Appearance: Healthy and bleeding. Probes to Bone: No Purulent drainage: No Serous drainage: No Erythema: Absent VASCULAR EXAM: - DP and PT pulses are palpable bilaterally. - CRATE MAKER is brisk to all digits. - Feet are cool to touch compared to lower legs bilaterally. NEUROLOGIC EXAM: - Normal light touch sensation to the superficial peroneal, deep peroneal, sural, saphenous, and tibial nerve branches. - Protective sensation is diminished as tested with a 5.07 10g [place] bilaterally. MUSCULOSKELETAL EXAM: - No gross deformities - Muscle strength is 5/5 and active motion is pain-free and symmetrical bilaterally - No pain or crepitation with passive range of motion bilaterally to all major pedal joints General Appearance: Alert, Cooperative, No acute distress HEENT: Atraumatic, PERRLA, EOMI, Mucous membr. moist/pink Neck: Supple Lungs: Clear to auscultation, Normal air movement Cardiovascular: Regular rate, Normal S1, Normal S2, No murmurs, Gallops, Rubs Abdomen: Normal bowel sounds, Soft, No tenderness Extremities: Other (Left Foot dressing) Neuro: Cranial nerves 3-12 NL Psych/Mental Status: Mental status NL Medications Current Medications Medications Dose Ordered Sig/Roscoe Route Start Time Stop Time Status Last Admin Dose Admin Hydralazine HCl 10 mg Q6HP PRN IV 05/02/24 20:15 05/03/24 01:00 10 MG Aspirin 81 mg DAILY PO 05/03/24 10:00 05/06/24 10:28 81 MG Diagnostic Test (Pha) 1 strip ACHS 05/02/24 22:00 05/06/24 06:52 1 STRIP Insulin Human Regular ACHS SC 05/02/24 22:00 Dextrose 50 ml UD PRN IV 05/02/24 20:15 Sodium Chloride 10 ml Q8HR IV 05/02/24 22:00 05/06/24 06:00 10 ML Acetaminophen/ Hydrocodone Bitart 1 tab Q4HP PRN PO 05/02/24 20:15 Ondansetron HCl 4 mg Q4HP PRN IV 05/02/24 20:15 05/03/24 14:53 4 MG Docusate Sodium 100 mg BIDPRN PRN PO 05/02/24 20:15 Acetaminophen 650 mg Q6HP PRN PO 05/02/24 20:15 Nitroglycerin 0.4 mg Q5MINP PRN SL 05/02/24 21:45 Morphine Sulfate 2 mg Q30M PRN IV 05/02/24 21:45 Atorvastatin Calcium 40 mg HS PO 05/03/24 22:00 05/05/24 21:35 40 MG Carvedilol 25 mg Q12HR PO 05/03/24 22:00 05/06/24 10:31 25 MG Amiodarone HCl 200 mg Q12HR PO 05/03/24 22:00 05/06/24 10:31 200 MG Mupirocin 1 applic BID EACHNOSTRI 05/03/24 22:00 05/08/24 21:59 05/06/24 10:00 1 APPLIC Throat Lozenges 1 kathy Q2HP PRN MT 05/04/24 12:30 05/04/24 17:55 1 KATHY Meropenem 50 ml @ 17 mls/hr Q12HR IV 05/05/24 22:00 05/06/24 10:00 17 MLS/HR Laboratory Results Laboratory Tests 05/06/24 05:13 Chemistry Test 05/06/24 05:13 Albumin 3.3 g/dL (3.2-4.8) Calcium Level 9.2 mg/dL (8.7-10.4) Total Protein 6.7 g/dL (5.7-8.2) LFT Test 05/06/24 05:13 Alanine Aminotransferase (ALT) < 9 U/L (7-40) Alkaline Phosphatase 72 U/L (46-116) Aspartate Amino Transferase (AST) 10 U/L (13-40) L Total Bilirubin 0.4 mg/dL (0.2-1.0) Urinalysis Test 05/04/24 17:20 Urine Color Light-yellow (Yellow) Urine Clarity Clear (Clear) Urine pH 5.5 (5.0-9.0) Urine Specific [place] 1.011 (1.001-1.035) Urine Protein 3+ (Negative) H Urine Ketones Negative (Negative) Urine Blood 3+ /uL (Negative) H Urine Nitrite Negative (Negative) Urine Bilirubin Negative (Negative) Urine Urobilinogen Normal mg/dL (Negative) Urine Leukocyte Esterase Negative /uL (Negative) Urine RBC 31 /hpf (0 - 3) Urine Microscopic WBC 2 /HPF (0-3) Urine Squamous Epithelial Cells Few /hpf (<5) Urine Bacteria None seen /hpf (None Seen) Urine Hyaline Casts Few /lpf (0 - 2) Urine Glucose Trace mg/dL (Normal) Microbiology Microbiology Date/Time Source Procedure Growth Status 05/04/24 17:20 Urine - [place] Urine Culture - Preliminary Resulted 05/03/24 18:28 Blood Blood Culture - Preliminary NO GROWTH AFTER 48 HOURS OF INCUBATION. Resulted 05/03/24 04:00 Foot Left Gram Stain - Final Resulted 05/03/24 04:00 Wound Culture - Preliminary Proteus mirabilis - ESBL Escherichia coli - ESBL Resulted Assessment/Plan Assessment/Plan ASSESSMENT: Patient is a 59 year old seen on the floor for a worsening ulcer PLAN: - The patients chart was reviewed, clinical findings were discussed with the patient, the etiologies of the conditions were discussed in detail, and a treatment plan was agreed to at this time, with both oral and written instructions provided. - reviewed advanced imaging - discussed plan is to perform an incision and drainage with bone biopsy - patient will be NPO at midnight - take him to the OR tomorrow - we will get cultures in the OR - can weightbear as tolerated in postoperative shoe All questions were answered and concerns addressed to the patient's satisfaction. The patient was given the phone number to the clinic and was told how to make contact with the clinic should any concerns or questions arise. Patient understands that if any questions or concerns arise prior to the next appointment, we should be contacted immediately. FOLLOW-UP: Continue to follow while inpatient Plan discussed with: Patient My Orders Orders - JUAN M TORTTER DPM Procedure Category Date Status Time Npo After Midnight DIET 05/06/24 Transmitted Breakfast Obtain Consent For: ORDERS 05/06/24 Transmitted 09:10 Problem List: (1) Osteomyelitis of ankle or foot, left, acute (2) Leukocytosis (3) Diastolic heart failure (4) Sepsis, unspecified organism (5) Pneumonitis (6) Chronic kidney disease (7) Uncontrolled diabetes mellitus (8) Osteomyelitis of right leg (9) Systolic heart failure (10) Chronic kidney disease, unspecified (11) Leukocytosis, unspecified (12) Acute on chronic systolic (congestive) heart failure (13) Generalized weakness (14) Hyperglycemia (15) Hyponatremia (16) Tachycardia (17) Lower extremity edema (18) Elevated troponin (19) Cellulitis of left foot (20) Left leg cellulitis (21) Acute kidney injury superimposed on chronic kidney disease (22) 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
--- NOTE | 2024-05-06 20:43 | DVHPN2 ---
Progress Note Date Seen: May 06, 2024 Medical Necessity Reason Pt with a Central, PICC or Fol: Yes The following are medically ne: Marquez Catheter Subjective Patient reports: No new complaints Review of Systems: Deferred Objective vital signs Vital Sign Date Time Temp Pulse Resp B/P (MAP) Pulse Ox O2 Delivery O2 Flow Rate FiO2 05/06/24 12:30 97.5 56 16 115/56 (75) 97 97.5 05/06/24 07:53 Room Air* 0 21 Total Intake and Output 05/05/24 05/05/24 05/06/24 15:00 23:00 07:00 Intake Total 550 ml 300 ml Output Total 800 ml Balance -250 ml 300 ml medications Current Medications Medications Dose Ordered Sig/[place] Route Start Time Stop Time Status Last Admin Dose Admin Hydralazine HCl 10 mg Q6HP PRN IV 05/02/24 20:15 05/03/24 01:00 10 MG Aspirin 81 mg DAILY PO 05/03/24 10:00 05/06/24 10:28 81 MG Diagnostic Test (Pha) 1 strip ACHS 05/02/24 22:00 05/06/24 11:30 1 STRIP Insulin Human Regular ACHS SC 05/02/24 22:00 Dextrose 50 ml UD PRN IV 05/02/24 20:15 Sodium Chloride 10 ml Q8HR IV 05/02/24 22:00 05/06/24 14:00 10 ML Acetaminophen/ Hydrocodone Bitart 1 tab Q4HP PRN PO 05/02/24 20:15 Ondansetron HCl 4 mg Q4HP PRN IV 05/02/24 20:15 05/03/24 14:53 4 MG Docusate Sodium 100 mg BIDPRN PRN PO 05/02/24 20:15 Acetaminophen 650 mg Q6HP PRN PO 05/02/24 20:15 Nitroglycerin 0.4 mg Q5MINP PRN SL 05/02/24 21:45 Morphine Sulfate 2 mg Q30M PRN IV 05/02/24 21:45 Atorvastatin Calcium 40 mg HS PO 05/03/24 22:00 05/05/24 21:35 40 MG Carvedilol 25 mg Q12HR PO 05/03/24 22:00 05/06/24 10:31 25 MG Amiodarone HCl 200 mg Q12HR PO 05/03/24 22:00 05/06/24 10:31 200 MG Mupirocin 1 applic BID EACHNOSTRI 05/03/24 22:00 05/08/24 21:59 05/06/24 10:00 1 APPLIC Throat Lozenges 1 kathy Q2HP PRN MT 05/04/24 12:30 05/04/24 17:55 1 KATHY Meropenem 50 ml @ 17 mls/hr Q12HR IV 05/05/24 22:00 05/06/24 10:00 17 MLS/HR laboratory and microbiology Laboratory Tests 05/06/24 05:13 Test 05/06/24 05:13 Range/Units Serum Glucose 72 L 74-106 mg/dL Microbiology Date/Time Source Procedure Growth Status 05/04/24 17:20 Urine - [place] Urine Culture - Preliminary Resulted 05/03/24 18:28 Blood Blood Culture - Preliminary NO GROWTH AFTER 72 HOURS OF INCUBATION. Resulted 05/03/24 04:00 Foot Left Gram Stain - Final Resulted 05/03/24 04:00 Wound Culture - Preliminary Proteus mirabilis - ESBL Escherichia coli - ESBL Resulted Problem List/Assessment/Plan Problem List/Assessment/Plan Acute kidney injury hemodynamically mediated Chronic kidney disease previously on dialysis for HAI Last dialysis treatment was one month ago current GFR has been in the 30s without dialysis Peripheral vascular disease Osteomyelitis of the foot Sepsis suspicious for wound infection Leukocytosis Metabolic acidosis Systolic heart failure with ejection fraction of 30% Coronary artery disease recs His dialysis catheter has been removed---he has AVF on left upper extremity placed 2 months ago Fluid restriction Low-salt diet diuretic Plan discussed with: Patient Dietary Evaluation Review Comments: 1) Add renal restriction to 60g CCHO diet order 2) Initiate Dialyvite qd 3) Initiate Nepro qd d/t poor PO intake 4) Collect renal panel 5) Continue to monitor appetite, labs, and skin integrity Expected Outcomes/Goals: 1) appetite and labs to improve 2) wound to improve 3) f/u in 5 days JOSE ROBERTO MOORE MD May 06, 2024 20:43
[2024-05-07 08:00] VITALS: PULSE 54
[2024-05-07 10:03] LABS: Potassium 3.7 mmol/L (3.5-5.1); Sodium 139 mmol/L (136-145)
[2024-05-07 10:04] LABS: Anion Gap 8 (5-15); Carbon Dioxide 22 mmol/L (20-31); INR 1.16 (0.9-1.15); Partial Thromboplastin Time 29.1 SEC (24.5-34.5); Prothrombin Time 12.1 sec (9.3-11.8)
[2024-05-07 10:05] LABS: Chloride 109 mmol/L (98-107)
[2024-05-07 10:09] LABS: BUN/Creatinine Ratio 16.9 (10.0-20.0); Glucose 91 mg/dL (74-106)
[2024-05-07 10:13] LABS: Blood Urea Nitrogen 41 mg/dL (9-23)
[2024-05-07 12:35] VITALS: BP 146/64; PULSE 57; RESP 16; TEMP 97.6; O2SAT 97
--- NOTE | 2024-05-07 13:44 | DVHDS2 ---
Discharge Summary Date of Admission May 02, 2024 at 21:38 Date of Discharge: May 07, 2024 Admitting Diagnosis Left Foot Osteomyelitis Labs/Diagnostic Data: Laboratory Results Test 05/07/24 09:27 05/06/24 11:33 05/06/24 05:13 05/04/24 17:20 Prothrombin Time 12.1 sec (9.3-11.8) Prothrombin Time INR 1.16 (0.9-1.15) Activated Partial Thromboplast Time 29.1 SEC (24.5-34.5) Sodium Level 139 mmol/L (136-145) Potassium Level 3.7 mmol/L (3.5-5.1) Chloride Level 109 mmol/L (98-107) Carbon Dioxide Level 22 mmol/L (20-31) Anion Gap 8 (5-15) Blood Urea Nitrogen 41 mg/dL (9-23) Creatinine 2.42 mg/dL (0.700-1.30) Glomerular Filtration Rate Calc 30 mL/min (>90) BUN/Creatinine Ratio 16.9 (10.0-20.0) Serum Glucose 91 mg/dL (74-106) Calcium Level 9.0 mg/dL (8.7-10.4) POC Glucose 112 mg/dl (70-106) White Blood Count 6.1 10^3/uL (4.4-10.8) Red Blood Count 3.62 10^6/uL (4.5-5.90) Hemoglobin 9.8 g/dL (13.5-17.5) Hematocrit 29.5 % (41.0-53.0) Mean Corpuscular Volume 81.4 fL (80.0-100.0) Mean Corpuscular Hemoglobin 27.0 pg (28.0-32.0) Mean Corpuscular Hemoglobin Concent 33.1 g/dL (32.0-36.0) Red Cell Distribution Width 18.0 % (11.8-14.3) Platelet Count 181 10^3/uL (140-450) Mean Platelet Volume 8.3 fL (6.9-10.8) Neutrophils (%) (Auto) 59.9 % (37.0-80.0) Lymphocytes (%) (Auto) 21.3 % (10.0-50.0) Monocytes (%) (Auto) 9.7 % (0.0-12.0) Eosinophils (%) (Auto) 6.5 % (0.0-7.0) Basophils (%) (Auto) 2.6 % (0.0-2.0) Neutrophils # (Auto) 3.7 10 ^3/uL (1.6-8.6) Lymphocytes # (Auto) 1.3 10 ^3/uL (0.4-5.4) Monocytes # (Auto) 0.6 10 ^3/uL (0-1.3) Eosinophils # (Auto) 0.4 10 ^3/uL (0-0.8) Basophils # (Auto) 0.2 10 ^3/uL (0-0.2) Nucleated Red Blood Cells 0.0 % Total Bilirubin 0.4 mg/dL (0.2-1.0) Aspartate Amino Transferase (AST) 10 U/L (13-40) Alanine Aminotransferase (ALT) < 9 U/L (7-40) Alkaline Phosphatase 72 U/L (46-116) Creatine Kinase < 15 U/L (46-171) C-Reactive Protein High Sensitivity 0.95 mg/dL (<1.0) Total Protein 6.7 g/dL (5.7-8.2) Albumin 3.3 g/dL (3.2-4.8) Urine Color Light-yellow (Yellow) Urine Clarity Clear (Clear) Urine pH 5.5 (5.0-9.0) Urine Specific [place] 1.011 (1.001-1.035) Urine Protein 3+ (Negative) Urine Ketones Negative (Negative) Urine Blood 3+ /uL (Negative) Urine Nitrite Negative (Negative) Urine Bilirubin Negative (Negative) Urine Urobilinogen Normal mg/dL (Negative) Urine Leukocyte Esterase Negative /uL (Negative) Urine RBC 31 /hpf (0 - 3) Urine Microscopic WBC 2 /HPF (0-3) Urine Squamous Epithelial Cells Few /hpf (<5) Urine Bacteria None seen /hpf (None Seen) Urine Hyaline Casts Few /lpf (0 - 2) Urine Glucose Trace mg/dL (Normal) Test 05/04/24 06:30 05/03/24 05:31 05/02/24 13:25 Hemoglobin A1c 4.7 % A1C (<5.7) Phosphorus Level 3.5 mg/dL (2.4-5.1) Troponin I High Sensitivity 19 ng/L (</=54) Magnesium Level 2.0 mg/dL (1.6-2.6) Thyroid Stimulating Hormone (TSH) 0.08 uIU/mL (0.55-4.78) Hepatitis B Surface Antigen Negative (Negative) Hepatitis C Antibody Negative (Negative) B-Type Natriuretic Peptide 912.12 pg/mL (0-100) Other Laboratory Tests 05/07/24 09:27 05/06/24 05:13 Brief Hx & Hospital Course: This is a 59-year-old man who presented to the emergency room via EMS with a chief complaint of nausea and vomiting for 12 hours prior to arrival. The patient complains of nausea, vomiting, decreased appetite, and episodes of diarrhea. Denies any GI bleed. Denies chest pain, palpitations, shortness of breath, diaphoresis, dizziness, or syncopal events. During admission the patient experienced 19 beats of nonsustained ventricular tachycardia. No further events has been identified. There was no 12 lead electrocardiogram on file. Baseline troponin level is negative. The patient with a significant history of cardiac disease denies following up with a craps manager as an outpatient. Significant medical history includes congestive heart failure, peripheral arterial disease status post PL SQL PROGRAMMER right popliteal, hypertension, dyslipidemia, ilm-befqgwk-qqhosteus diabetes mellitus, right diabetic foot requiring toe amputation (2021), advanced chronic kidney disease with Luis Fernando catheter placement, tobacco use, and bed-bound status. Patient was found to have Osteomyelitis. Patient is refusing LHC and Surgical intervention by Podiatry. I advised the patient he may risk amputation of his foot. Patient understands but is still refusing surgical intervention, IV antibiotics. Patient can return to the hospital if he changes his mind. Operations or Procedures EXAM: MRI L FOOT WO CONTRAST HISTORY: osteo COMPARISON: CT L FOOT WO CONTRAST on DOS: 12/11/22 TECHNIQUE: Multiplanar, multisequence MRI was performed. FINDINGS: Patient has collapse of the reversal of the arch. This is likely due to nonacute fracture involving the neck of the calcaneus. There is a large posterior ulcer adjacent to the plantar aspect of the calcaneus and there signal abnormality in the bone adjacent to the ulcer suggesting severe edema and probable osteomyelitis. Please see images 13 and 14 of the sagittal T1 weighted images. Achilles is unremarkable. IMPRESSION: 1. Patient has a nonacute fracture involving the neck of the calcaneus with inversion of the normal arch as the result mimicking a charcoal joint but the midfoot bones are intact. There is significant subcutaneous edema and probable cellulitis. And there is a large open wound involving the plantar aspect of the heel and the calcaneal bone adjacent to the wound appears to be devitalized suggesting focal osteomyelitis in general the calcaneus is very edematous.. Follow-up surgical consult is suggested Condition at Discharge: Poor Final Diagnosis/Problems List # Acute Systolic CHF- Monitor for fluid overload. # HAI due to ATN? # Left Foot Osteomyelitis- MRI Foot, Podiatry. # ESBL in Left Leg- Merrem IV # Peripheral Vascular Disease Discharge Disposition: Home Discharge Instruct/Medications Diet: Consistent carbohydrate Activity: Light activity Follow Up/Referral: Podiatry Discharge Statement: "Patient was advised to return to the ER or call 911 if any headaches, dizziness, shortness of breath, chest pain, abdominal pain, bleeding, fevers, or worsening of medical condition. Patient was counseled about treatment plan, medications, possible side effects, patientverbalized understanding. All questions were answered to the best of my ability. This discharge took greater then 30 minutes in planning, reviewing documentation, counseling the patient, and discussing with other team members." ASSESSMENT ASSESSMENT Assessment Date of Service: May 07, 2024 Billing Provider: SHAINA MCNALLY MD Common Visit Codes: [id number] DISCH DAY >30min SHAINA MCNALLY MD May 07, 2024 13:44
--- NOTE | 2024-05-07 15:10 | DVHPN2 ---
Consult Progress Note Date Seen: May 07, 2024 Subjective Review of Systems: CVS:Normal, RESPIRATORY:Normal, NEURO:Normal Objective vital signs Vital Sign Date Time Temp Pulse Resp B/P (MAP) Pulse Ox O2 Delivery O2 Flow Rate FiO2 05/07/24 12:35 97.6 57 16 146/64 (91) 97 97.6 05/07/24 08:00 Room Air* 0 21 Total Intake and Output 05/06/24 05/06/24 05/07/24 15:00 23:00 07:00 Intake Total 900 ml Output Total 0 ml 330 ml Balance 900 ml -330 ml medications Current Medications Medications Dose Ordered Sig/[place] Route Start Time Stop Time Status Last Admin Dose Admin Hydralazine HCl 10 mg Q6HP PRN IV 05/02/24 20:15 05/03/24 01:00 10 MG Aspirin 81 mg DAILY PO 05/03/24 10:00 05/06/24 10:28 81 MG Diagnostic Test (Pha) 1 strip ACHS 05/02/24 22:00 05/06/24 11:30 1 STRIP Insulin Human Regular ACHS SC 05/02/24 22:00 Dextrose 50 ml UD PRN IV 05/02/24 20:15 Sodium Chloride 10 ml Q8HR IV 05/02/24 22:00 05/06/24 14:00 10 ML Acetaminophen/ Hydrocodone Bitart 1 tab Q4HP PRN PO 05/02/24 20:15 Ondansetron HCl 4 mg Q4HP PRN IV 05/02/24 20:15 05/03/24 14:53 4 MG Docusate Sodium 100 mg BIDPRN PRN PO 05/02/24 20:15 Acetaminophen 650 mg Q6HP PRN PO 05/02/24 20:15 Nitroglycerin 0.4 mg Q5MINP PRN SL 05/02/24 21:45 Morphine Sulfate 2 mg Q30M PRN IV 05/02/24 21:45 Atorvastatin Calcium 40 mg HS PO 05/03/24 22:00 05/05/24 21:35 40 MG Carvedilol 25 mg Q12HR PO 05/03/24 22:00 05/06/24 10:31 25 MG Amiodarone HCl 200 mg Q12HR PO 05/03/24 22:00 05/06/24 10:31 200 MG Mupirocin 1 applic BID EACHNOSTRI 05/03/24 22:00 05/08/24 21:59 05/06/24 10:00 1 APPLIC Throat Lozenges 1 kathy Q2HP PRN MT 05/04/24 12:30 05/04/24 17:55 1 KATHY Meropenem 50 ml @ 17 mls/hr Q12HR IV 05/05/24 22:00 05/06/24 10:00 17 MLS/HR Examination: LUNGS:Normal, CVS:Normal, NEURO:Normal laboratory and microbiology Laboratory Tests 05/07/24 09:27 05/06/24 05:13 Test 05/07/24 09:27 Range/Units Serum Glucose 91 74-106 mg/dL Problem List/Assessment/Plan Problem List/Assessment/Plan Nonsustained ventricular tachycardia rule out coronary artery disease Acute on chronic decompensated HFrEF Peripheral arterial disease status post RLE 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 Espinoza) * Echocardiogram revealed EF 30% with global hypokinesis. LAE. Concentric LVH * GDMT for CHF as renal function permits, uptitrate as tolerated * Single-antiplatelet therapy and lipid lowering agent * Continue BB and antiarrhythmic therapy * Renal consultation/recommendations The patient who is chest pain free presents with an abnormal 12-lead ECG suggestive of anteroseptal ischemia as well as three events of NSVT. He was scheduled for a coronary angiogram with cardiac catheterization after orthopedic intervention but refuses any surgical interventions at this time. Advised to call EMS services in the setting of chest pain, SOB, and/or diaphoresis. We will sign off at this time. Kindly call if in need to re-consult. Thank you for allowing us to participate in this patient's care. This medical document was created using an electronic medical record system with voice recognition software and computerized dictation system. Although this document has been carefully reviewed, there might still be some phonetic and typographical errors. Occasional wrong-word or ``sound-alike substitutions may have occurred due to the inherent limitations of voice recognition software. These areas are purely typographical due to imperfections of the software programs and do not reflect any compromise in the patient's medical care. Please read the chart carefully and recognize, using context, where these substitutions have occurred. Plan discussed with: Patient, Other Dietary Evaluation Review Comments: 1) Add renal restriction to 60g CCHO diet order 2) Initiate Dialyvite qd 3) Initiate Nepro qd d/t poor PO intake 4) Collect renal panel 5) Continue to monitor appetite, labs, and skin integrity Expected Outcomes/Goals: 1) appetite and labs to improve 2) wound to improve 3) f/u in 5 days Date of Service: May 07, 2024 Billing Provider: LAUREN SARMIENTO Cardiology Common Codes: [id number] INP/OBS CARE(Mod) LAUREN SARMIENTO May 07, 2024 15:10
--- NOTE | 2024-05-07 16:11 | DVHPN2 ---
Progress Note Date Seen: May 07, 2024 Medical Necessity Reason Pt with a Central, PICC or Fol: Yes The following are medically ne: [place]quez Catheter Subjective Patient reports: No new complaints Objective vital signs Vital Sign Date Time Temp Pulse Resp B/P (MAP) Pulse Ox O2 Delivery O2 Flow Rate FiO2 05/07/24 12:35 97.6 57 16 146/64 (91) 97 97.6 05/07/24 08:00 Room Air* 0 21 Total Intake and Output 05/06/24 05/06/24 05/07/24 15:00 23:00 07:00 Intake Total 900 ml Output Total 0 ml 330 ml Balance 900 ml -330 ml medications Current Medications Medications Dose Ordered Sig/[place] Route Start Time Stop Time Status Last Admin Dose Admin Hydralazine HCl 10 mg Q6HP PRN IV 05/02/24 20:15 05/03/24 01:00 10 MG Aspirin 81 mg DAILY PO 05/03/24 10:00 05/06/24 10:28 81 MG Diagnostic Test (Pha) 1 strip ACHS 05/02/24 22:00 05/06/24 11:30 1 STRIP Insulin Human Regular ACHS SC 05/02/24 22:00 Dextrose 50 ml UD PRN IV 05/02/24 20:15 Sodium Chloride 10 ml Q8HR IV 05/02/24 22:00 05/06/24 14:00 10 ML Acetaminophen/ Hydrocodone Bitart 1 tab Q4HP PRN PO 05/02/24 20:15 Ondansetron HCl 4 mg Q4HP PRN IV 05/02/24 20:15 05/03/24 14:53 4 MG Docusate Sodium 100 mg BIDPRN PRN PO 05/02/24 20:15 Acetaminophen 650 mg Q6HP PRN PO 05/02/24 20:15 Nitroglycerin 0.4 mg Q5MINP PRN SL 05/02/24 21:45 Morphine Sulfate 2 mg Q30M PRN IV 05/02/24 21:45 Atorvastatin Calcium 40 mg HS PO 05/03/24 22:00 05/05/24 21:35 40 MG Carvedilol 25 mg Q12HR PO 05/03/24 22:00 05/06/24 10:31 25 MG Amiodarone HCl 200 mg Q12HR PO 05/03/24 22:00 05/06/24 10:31 200 MG Mupirocin 1 applic BID EACHNOSTRI 05/03/24 22:00 05/08/24 21:59 05/06/24 10:00 1 APPLIC Throat Lozenges 1 kathy Q2HP PRN MT 05/04/24 12:30 05/04/24 17:55 1 KATHY Meropenem 50 ml @ 17 mls/hr Q12HR IV 05/05/24 22:00 05/06/24 10:00 17 MLS/HR Examination: MSK:Abnormal laboratory and microbiology Laboratory Tests 05/07/24 09:27 05/06/24 05:13 Test 05/07/24 09:27 Range/Units Serum Glucose 91 74-106 mg/dL Microbiology Date/Time Source Procedure Growth Status 05/04/24 17:20 Urine - [place] Urine Culture - Final Complete 05/03/24 18:28 Blood Blood Culture - Preliminary NO GROWTH AFTER 72 HOURS OF INCUBATION. Resulted 05/03/24 04:00 Foot Left Gram Stain - Final Resulted 05/03/24 04:00 Wound Culture - Preliminary Proteus mirabilis - ESBL Escherichia coli - ESBL Resulted Problem List/Assessment/Plan Problem List/Assessment/Plan Acute kidney injury hemodynamically mediated Chronic kidney disease previously on dialysis for HAI Last dialysis treatment was one month ago current GFR has been in the 30s without dialysis Peripheral vascular disease Osteomyelitis of the foot Sepsis suspicious for wound infection Leukocytosis Metabolic acidosis Systolic heart failure with ejection fraction of 30% Coronary artery disease recs His dialysis catheter has been removed---he has AVF on left upper extremity placed 2 months ago Fluid restriction Low-salt diet diuretic outpt Nephrology follow up Plan discussed with: Other Dietary Evaluation Review Comments: 1) Add renal restriction to 60g CCHO diet order 2) Initiate Dialyvite qd 3) Initiate Nepro qd d/t poor PO intake 4) Collect renal panel 5) Continue to monitor appetite, labs, and skin integrity Expected Outcomes/Goals: 1) appetite and labs to improve 2) wound to improve 3) f/u in 5 days JOSE ROBERTO MOORE MD May 07, 2024 16:11
[2024-05-07 16:49] VITALS: BP 134/59; PULSE 59; RESP 16; TEMP 97.9; O2SAT 97
== END 2024-05-07 19:33 | disposition home or self-care (01) | DRG 720 ==
LOC: EDBD 13:08 → ER 13:08 → OVERFLOW 21:38 → EAST 23:47 → TELE-EAST 23:50
PROVIDERS: ADMIT Internal Medicine; ATTEND Internal Medicine
DX: A41.9 Sepsis, unspecified organism (principal); N17.0 Acute kidney failure with tubular necrosis; I50.21 Acute systolic (congestive) heart failure; E87.20 Acidosis, unspecified; E11.621 Type 2 diabetes mellitus with foot ulcer; M86.8X7 Other osteomyelitis, ankle and foot; I47.20 Ventricular tachycardia, unspecified; E11.22 Type 2 diabetes mellitus with diabetic chronic kidney disease; E11.51 Type 2 diabetes mellitus with diabetic peripheral angiopathy without gangrene; I13.0 Hypertensive heart and chronic kidney disease with heart failure and stage 1 through stage 4 chronic kidney disease, or unspecified chronic kidney disease; E11.69 Type 2 diabetes mellitus with other specified complication; E78.5 Hyperlipidemia, unspecified; F17.210 Nicotine dependence, cigarettes, uncomplicated; I25.10 Atherosclerotic heart disease of native coronary artery without angina pectoris; J98.4 Other disorders of lung; N18.9 Chronic kidney disease, unspecified; Z74.01 Bed confinement status; Z79.4 Long term (current) use of insulin; Z79.899 Other long term (current) drug therapy; Z79.82 Long term (current) use of aspirin; Z79.84 Long term (current) use of oral hypoglycemic drugs; Z79.2 Long term (current) use of antibiotics; Z79.1 Long term (current) use of non-steroidal anti-inflammatories (NSAID); Z89.421 Acquired absence of other right toe(s); Z83.3 Family history of diabetes mellitus; Z82.49 Family history of ischemic heart disease and other diseases of the circulatory system; L97.522 Non-pressure chronic ulcer of other part of left foot with fat layer exposed
CPT/HCPCS: 36415; 71045; 73718; 76775; 80048; 80053; 81001; 82550; 82962; 83036; 83735; 83880; 84100; 84443; 84484; 85025; 85610; 85730; 86141; 86803; 86850; 86900; 86901; 87040; 87077; 87081; 87086; 87186; 87205; 87340; 93005; 93306; 93925; 96365; 96367; 96375; G0378; J2003; J2185; J2405; P9047